=== PATIENT | male | born 1950 | race African-American/Black ===

== ENCOUNTER 2016-04-23 06:01 | Day surgery (SDC) | payer MEDICARE ==
[~2016-04-23] VITALS: Ht 176.5 cm; Wt 115.2 kg
[~2016-04-23 06:01] MED LIST: AMOX1TAB61 PO; ASPI-482 PO; AZIT250T6 PO; BUMEX; CARV12.52 PO; CARV25TA PO; DIAZ2TAB PO; FERR142T5 PO; FURO40TA4 PO; HEPARIN S0DIUM 5,000 UNIT in IV NORMAL SALINE 500ML BAG 500 ML IRR ONE; HYDR10TA2 PO; IRON18TA PO; LISI-334 PO; LISI-338 PO; MULT-245 PO; OXYC-323 PO; PANT40TA5 PO; SIMV10TA3 PO; UBID100C26 PO
[2016-04-23] MEDS ORDERED: CEFAZOLIN 2GM PREMIX 50 ML IV ONE (06:39)
[2016-04-23] MEDS ORDERED: FENTANYL PF 100 MCG/2 ML VIAL. IV PRN (07:00)
[2016-04-23] MEDS ORDERED: ONDANSETRON PF 4 MG/2 ML VIAL. IV PRN (07:00)
[2016-04-23] MEDS ORDERED: HYDROMORPHONE 2 MG/ML VIAL. IV PRN (07:00)
[2016-04-23] MEDS ORDERED: PROCHLORPERAZINE 10 MG/2 ML VIAL. IV PRN (07:00)
[2016-04-23] MEDS ORDERED: LIDOCAINE 1% 1 ML SYRINGE. ID PRN (07:00)
[2016-04-23] MEDS ORDERED: MORPHINE SULFATE 2 MG/ML DISP.SYRIN. IV PRN (07:00)
[2016-04-23] MEDS ORDERED: IV RINGERS,LACTATED 1000ML 1,000 ML IV SCH (07:00)
[2016-04-23] MEDS ORDERED: ONDANSETRON PF 4 MG/2 ML VIAL. ONE (07:21)
[2016-04-23] MEDS ORDERED: BUPIVAC MPF-EPI 0.5%-1:200000 30 ML VIAL. ONE (07:21)
[2016-04-23] MEDS ORDERED: LIDOCAINE 2% 100 MG/5 ML DISP.SYRIN. ONE (07:21)
[2016-04-23] MEDS ORDERED: PROPOFOL 20 ML IV ONE (07:21)
[2016-04-23] MEDS ORDERED: BUPIVACAINE MPF 0.5% 30 ML VIAL. ONE (07:21)
[2016-04-23] MEDS ORDERED: DEXAMETHASONE SOD PHOS 20 MG/5 ML VIAL. ONE (07:21)
[2016-04-23] MEDS ORDERED: FENTANYL PF 100 MCG/2 ML VIAL. ONE (07:22)
[2016-04-23] MEDS ORDERED: ROCURONIUM 50 MG/5 ML VIAL. ONE (07:22)
[2016-04-23 07:34] LABS: BASO % 1 % (0-3); EOS % 3 % (0-3); HEMATOCRIT 36.2 % (39.0-53.0); HEMOGLOBIN 11.7 g/dL (13.0-17.5); LYMPH # 1.2 x10^3/uL (1.0-4.8); LYMPH % 17 % (24-48); MEAN CORPUSCULAR HEMOGLOBIN 32 pg (25-35); MEAN CORPUSCULAR HGB CONC 32 g/dL (31-37); MEAN CORPUSCULAR VOLUME 100 fL (79-100); MONO % 9 % (0-9); NEUT % 70 % (31-73); PLATELET COUNT 181 x10^3/uL (140-400); RED BLOOD COUNT 3.64 x10^6/uL (4.30-5.70); RED CELL DISTRIBUTION WIDTH 17.1 % (11.5-14.5); WHITE BLOOD COUNT 7.1 x10^3/uL (4.0-11.0)
[2016-04-23 07:49] LABS: ALBUMIN 3.6 g/dL (3.4-5.0); CALCIUM 9.3 mg/dL (8.5-10.1); GFR 18.2; POTASSIUM 4.2 mmol/L (3.5-5.1)
[2016-04-23] MEDS ORDERED: CEFAZOLIN 2GM PREMIX 50 ML IV PRN (08:00)
[2016-04-23] MEDS ORDERED: PHENYLEPHRINE in 0.9% NACL PF 1 MG/10 ML DISP.SYRIN. IV ONE (08:49)
[2016-04-23] MEDS ORDERED: NEOSTIGMINE METHYLSULFATE 5 MG/5 ML SYRINGE. ONE (08:58)
[2016-04-23] MEDS ORDERED: GLYCOPYRROLATE 1 MG/5 ML VIAL. ONE (08:58)
[2016-04-23] MEDS ORDERED: SEVOFLURANE 61 TO 120 MINUTES. IH ONE ×2 (09:22→09:23)
[2016-04-23] MEDS ORDERED: DESFLURANE 61 TO 120 MINUTES IH ONE (09:23)
[2016-04-23] MEDS: FENTANYL PF 100 MCG/2 ML VIAL. IV PRN ×2 (09:47→11:27)
--- NOTE | 2016-04-23 09:57 | PDOC ---
BRIEF OPERATIVE NOTE Date: Apr 23, 2016 Pre-Op Diagnosis ESRD, incarcerated umbilical hernia Post-Op Diagnosis same Procedure Performed l/s placement of PD catheter, primary repair of incarcerated umbilical hernia Surgeon Alan Anesthesia Type: General Blood Loss 5cc IV Fluid 250cc Findings incarcerated fat in umbilical hernia Complications none Additional Remarks # [id number] EZIO DANIEL MD Apr 23, 2016 09:57
--- NOTE | 2016-04-23 09:58 | DISCH ---
DISCHARGE INSTRUCTIONS Condition on Discharge Condition on Discharge: Stable Activity After Discharge Activity Instructions for Disc: Activity as tolerated, Avoid exertion Lifting Instructions after Dis: No heavy lifting Driving Instructions after Dis: Do not drive today Diet after Discharge Diet after Discharge: Renal Dialysis Wound Incision Care Wound/Incision Care: Ice to area for comfort, Keep wound/cast CDI Follow-Up Follow up with: Alan next week EZIO DANIEL MD Apr 23, 2016 09:58
[2016-04-23] MEDS ORDERED: OXYC-323 PO (10:04)
[2016-04-23] MEDS ORDERED: OXYCODONE/APAP 5/325 TABLET. PO ONE (11:00)
--- NOTE | 2016-04-23 11:41 | OP ---
DATE OF SURGERY: PREOPERATIVE DIAGNOSIS: End-stage renal disease on hemodialysis, requesting peritoneal dialysis catheter incarcerated umbilical hernia. POSTOPERATIVE DIAGNOSIS: End-stage renal disease on hemodialysis, requesting peritoneal dialysis catheter incarcerated umbilical hernia. PROCEDURE: 1. Laparoscopic placement of peritoneal dialysis catheter. 2. Primary repair of incarcerated umbilical hernia. SURGEON: Jose Enrique Daniel MD ANESTHESIA: General endotracheal. BLOOD LOSS: 5 mL. IV FLUID: 250. INDICATIONS: The patient is a 66-year-old gentleman with end-stage renal disease on hemodialysis through a temporary catheter who comes for placement of peritoneal dialysis catheter. OPERATIVE FINDINGS: There was incarcerated preperitoneal fat in the umbilical hernia. Visual inspection of the remainder of the abdomen failed to reveal obvious abnormalities. OPERATIVE REPORT: The patient brought to the operating suite, given a general endotracheal anesthetic and the abdomen prepped and draped in usual sterile fashion. An epigastric incision was infiltrated with local anesthetic, sharply incised and a 5 mm Visiport used to gain access into the abdominal cavity. Pneumoperitoneum established. Inspection revealed no evidence of injury to abdominal contents. The umbilical hernia was identified and contained preperitoneal fat. The template for placement of the catheter had been used before insufflation to sai at the course of the catheter. The insertion site was infiltrated with local anesthetic, sharply incised and under direct vision the needle passed in the abdominal cavity. The needle was removed and the dilators were passed through the sheath and then the catheter was then threaded through the sheath. The distal Dacron cuff was seated just above the peritoneum. The sheath was then removed. The remaining catheter was tunneled subcutaneously through the access site placing the second Dacron cuff in the subcutaneous space away from the access site incision. We then turned our attention to the umbilical hernia. An infraumbilical incision was infiltrated with local anesthetic, sharply incised and dissection carried down to the anterior sheath. The hernia was encircled. A Nahomy drain placed around it and the umbilical skin carefully freed from the underlying hernia sac and contents. The contents were then reduced and the small defect was repaired with interrupted inverted [id number] 0 Vicryl suture. A second suture was placed as a second row of reinforcement and good hemostasis was present. When a correct sponge count was obtained, the umbilical skin was tacked to the underlying repair. The abdomen was then decompressed and the peritoneal dialysis catheter radially accepted 500 mL of normal saline under a minute. A similar amount was then drained. The catheter was "packed" with heparinized saline. Skin incisions closed with subcuticular 4-0 Monocryl. Steri-Strips and sterile dressings applied. The patient was awakened from his anesthetic and taken to the recovery room in satisfactory condition. JOSE ENRIQUE DANIEL MD DR: FABIEN/connie JOB#: [id number] / [id number] TRISHA Real MD
[2016-04-23] MEDS ORDERED: IV NORMAL SALINE 1000ML BAG 1,000 ML IV SCH (12:00)
[2016-04-23 12:25] VITALS: BP 174/97
== END 2016-04-23 12:35 | disposition home or self-care (01) ==
LOC: SURG 06:01
PROVIDERS: ATTEND Surgery
DX: N18.6 End stage renal disease (principal); K42.0 Umbilical hernia with obstruction, without gangrene; I10 Essential (primary) hypertension; E78.00 Pure hypercholesterolemia, unspecified; J44.9 Chronic obstructive pulmonary disease, unspecified; J45.909 Unspecified asthma, uncomplicated; Z98.42 Cataract extraction status, left eye
CPT/HCPCS: 36415; 49324; 49587; 80048; 82040; 82947; 85027; C1769; J0690; J1100; J2370; J2405; J2704; J2710; J3010; J3490; J7030; J7040

== ENCOUNTER 2016-07-28 09:07 | Inpatient (IN) | payer BC, MEDICARE ==
[~2016-07-28] VITALS: Ht 180.3 cm; Wt 118.8 kg
[~2016-07-28 09:07] MED LIST changes: -FERR142T5 PO; -HEPARIN S0DIUM 5,000 UNIT in IV NORMAL SALINE 500ML BAG 500 ML IRR ONE; +SLOW RELEASE I142 MG PO
--- NOTE | 2016-07-28 09:14 | PHYS DOC ---
Past Medical History Past Medical History: CAD, CHF, COPD, Diabetes-Type II, Hypertension, Renal Disease, Renal Failure Past Surgical History: Coronary Bypass Surgery, Other Additional Past Surgical Histo: R middle and lower lobe lung removal, vein graft left thigh, SHUNT RT CHEST Alcohol Use: Sober Drug Use: None Adult General Chief Complaint Chief Complaint: ABDOMINAL PAIN HPI HPI Patient is a 66 year old male presenting to the emergency department for evaluation of left lower quadrant abdominal pain that has been going on for the past several days. He also says that his peritoneal dialysis catheter has not been draining as it usually does. He says that he has gained 7 pounds since his peritoneal dialysis stop working. He was to follow with the dialysis team tomorrow however his pain was bothering him too much and he came to the emergency department for further evaluation. Patient says that he has been quite constipated but denies any nausea vomiting diarrhea dysuria fevers chills shortness of breath or chest pain. Review of Systems Review of Systems Constitutional: Denies fever or chills [] Eyes: Denies change in visual acuity, redness, or eye pain [] HENT: Denies nasal congestion or sore throat [] Respiratory: Denies cough or shortness of breath [] Cardiovascular: No additional information not addressed in HPI [] GI: + abdominal pain. No nausea, vomiting, bloody stools or diarrhea [] : Denies dysuria or hematuria [] Musculoskeletal: Denies back pain or joint pain [] Integument: Denies rash or skin lesions [] Neurologic: Denies headache, focal weakness or sensory changes [] Current Medications Current Medications Current Medications Medications (Trade) Dose Ordered Sig/Wolf Start Time Stop Time Status Last Admin Dose Admin Hydromorphone HCl (Dilaudid) 2 mg STK-MED ONCE 07/28/16 13:14 07/28/16 13:15 DC Iohexol (Omnipaque 240 Mg/ml) 50 ml 1X ONCE 07/28/16 10:00 07/28/16 10:09 DC 07/28/16 10:00 50 ML Iohexol (Omnipaque 300 Mg/ml) 50 ml 1X ONCE 07/28/16 10:00 07/28/16 10:01 DC 07/28/16 10:15 25 ML Morphine Sulfate 5 mg 1X ONCE 07/28/16 11:15 07/28/16 11:16 DC 07/28/16 11:20 5 MG Ondansetron HCl (Zofran) 4 mg 1X ONCE 07/28/16 12:00 07/28/16 12:01 DC 07/28/16 12:02 4 MG Allergies Allergies Allergies Coded Allergies Type Severity Reaction Last Updated Verified No Known Drug Allergies 07/28/16 No Physical Exam Physical Exam Constitutional: Well developed, well nourished, no acute distress, non-toxic appearance. [] HENT: Normocephalic, atraumatic, bilateral external ears normal, oropharynx moist, no oral exudates, nose normal. [] Eyes: PERRLA, EOMI, conjunctiva normal, no discharge. [] Neck: Normal range of motion, no tenderness, supple, no stridor. [] Cardiovascular:Heart rate regular rhythm, no murmur [] Lungs & Thorax: Bilateral breath sounds clear to auscultation [] Abdomen: Bowel sounds normal, soft, + LLQ abdominal tenderness, no masses, no pulsatile masses. [] Skin: Warm, dry, no erythema, no rash. [] Back: No tenderness, no CVA tenderness. [] Extremities: No tenderness, no cyanosis, no clubbing, ROM intact, +2-3+ edema BL. [] Neurologic: Alert and oriented X 3, normal motor function, normal sensory function, no focal deficits noted. [] Current Patient Data Vital Signs Vital Signs Date Time Temp Pulse Resp B/P (MAP) Pulse Ox O2 Delivery O2 Flow Rate FiO2 07/28/16 13:19 20 95 Room Air 07/28/16 09:16 98.8 79 110/63 (79) 98.8 Lab Values Laboratory Tests Test 07/28/16 11:00 White Blood Count 10.3 x10^3/uL (4.0-11.0) Red Blood Count 3.34 x10^6/uL (4.30-5.70) L Hemoglobin 10.8 g/dL (13.0-17.5) L Hematocrit 32.8 % (39.0-53.0) L Mean Corpuscular Volume 98 fL (79-100) Mean Corpuscular Hemoglobin 32 pg (25-35) Mean Corpuscular Hemoglobin Concent 33 g/dL (31-37) Red Cell Distribution Width 15.0 % (11.5-14.5) H Platelet Count 189 x10^3/uL (140-400) Neutrophils (%) (Auto) 81 % (31-73) H Lymphocytes (%) (Auto) 10 % (24-48) L Monocytes (%) (Auto) 8 % (0-9) Eosinophils (%) (Auto) 1 % (0-3) Basophils (%) (Auto) 1 % (0-3) Neutrophils # (Auto) 8.3 x10^3uL (1.8-7.7) H Lymphocytes # (Auto) 1.0 x10^3/uL (1.0-4.8) Monocytes # (Auto) 0.8 x10^3/uL (0.0-1.1) Eosinophils # (Auto) 0.1 x10^3/uL (0.0-0.7) Basophils # (Auto) 0.1 x10^3/uL (0.0-0.2) Prothrombin Time 13.8 SEC (11.7-14.0) Prothrombin Time INR 1.1 (0.8-1.1) PTT 31 SEC (24-38) Sodium Level 138 mmol/L (136-145) Potassium Level 4.1 mmol/L (3.5-5.1) Chloride Level 100 mmol/L (98-107) Carbon Dioxide Level 28 mmol/L (21-32) Anion Gap 10 (6-14) Blood Urea Nitrogen 63 mg/dL (8-26) H Creatinine 6.3 mg/dL (0.7-1.3) H Estimated GFR (Cockcroft-Gault) 10.8 BUN/Creatinine Ratio 10 (6-20) Glucose Level 162 mg/dL (70-99) H Calcium Level 8.8 mg/dL (8.5-10.1) Magnesium Level 2.2 mg/dL (1.8-2.4) Total Bilirubin 0.6 mg/dL (0.2-1.0) Aspartate Amino Transferase (AST) 16 U/L (15-37) Alanine Aminotransferase (ALT) 21 U/L (16-63) Alkaline Phosphatase 83 U/L (46-116) Creatine Kinase 145 U/L (39-308) WM-Hpw-F-Type Natriuretic Peptide 1181 pg/mL (0-124) H Total Protein 7.8 g/dL (6.4-8.2) Albumin 2.9 g/dL (3.4-5.0) L Albumin/Globulin Ratio 0.6 (1.0-1.7) L Lipase 79 U/L (73-393) Laboratory Tests 07/28/16 11:00 Laboratory Tests 07/28/16 11:00 EKG EKG [] Radiology/Procedures Radiology/Procedures Indication: Dialysis catheter does not appear to be functioning properly. Technique: KUB was obtained and repeated to center over the pelvis after injection of approximately 25 mL of iodinated contrast into the catheter either by the transporter radiology or the ER clinician. Findings: Contrast spills freely into the pelvis, catheter is patent. There again is a mild kink where the catheter enters the pelvis. Impression: Peritoneal dialysis catheter is patent. DICTATED and SIGNED BY: MELONIE GENAO MD DATE: 07/28/16 1029 Indication: Left lower quadrant pain. Technique: Axial images and coronal and sagittal reformatted images are provided. Oral contrast was administered. The patient also had recent injection of contrast into the peritoneal dialysis catheter. Recent KUBs along with a CT from April 29, 2011 were reviewed in comparison. One or more of the following individualized dose reduction techniques were utilized for this examination: 1. Automated exposure control 2. Adjustment of the mA and/or kV according to patient size 3. Use of iterative reconstruction technique Findings: There is linear atelectasis or scarring in the left lung base. There is no pleural effusion. The heart is not enlarged. Coronary artery calcifications are noted. Calcified granulomas are noted. Solid organ evaluation is limited without contrast. There is mild fatty infiltration of the liver. Gallbladder is unremarkable. Spleen, pancreas, and adrenals are unremarkable. Probable cyst is noted in the right kidney measuring 21 mm. There is atheromatous disease in the abdominal aorta without aneurysm. Contrast in the esophagus may be related to reflux. There is no small bowel obstruction or mural thickening. Moderate amount of stool is noted in the colon. There are a few diverticula in the colon. Small amount of ascites may be related to the dialysis catheter. Appendix is not definitely visualized. Evaluation is limited. There is fluid in the paracolic gutter on the right although again this could be related to the dialysis. Patient's symptoms are on the left. Peritoneal dialysis catheter is in position. Bladder is unremarkable. Prostate is not enlarged. There are degenerative changes in the spine. Impression: 1. No acute abdominal findings. 2. Fatty infiltration of the liver. 3. Peritoneal dialysis catheter. DICTATED and SIGNED BY: MELONIE GENAO MD DATE: 07/28/16 6208 Course & Med Decision Making Course & Med Decision Making Catheter appears to be patent on the KUB. We will check labs CT his abdomen and pelvis to check for diverticulitis and then reassess. Patient continues to have intractable abdominal pain in the emergency department. Workup is largely negative but given his intractable pain and his failure of outpatient dialysis he will be admitted for further observation and treatment. Patient admitted in stable condition. Dragon Disclaimer Dragon Disclaimer This electronic medical record was generated, in whole or in part, using a voice recognition dictation system. Departure Departure Impression: Primary Impression: Abdominal pain Additional Impressions: ESRD (end stage renal disease) on dialysis Peripheral edema Fluid overload Disposition: ADMITTED INPATIENT Admitting Physician: Marixa Ortiz Condition: IMPROVED Referrals: MARIXA ORTIZ MD (PCP) Problem Qualifiers Primary Impression: Abdominal pain Abdominal location: left lower quadrant Qualified Codes: R10.32 - Left lower quadrant pain CORNELIUS LEVY DO July 28, 2016 09:14
[2016-07-28] MEDS ORDERED: IOHEXOL 240 MG/ML 50ML VIAL. PO ONE (10:00)
[2016-07-28] MEDS ORDERED: IOHEXOL 300 MG/ML 50 ML VIAL. IJ ONE (10:00)
--- NOTE | 2016-07-28 10:35 | RAD ---
Indication: Dialysis catheter does not appear to be functioning properly. Technique: KUB was obtained and repeated to center over the pelvis after injection of approximately 25 mL of iodinated contrast into the catheter either by the phlebotomy technologist or the ER clinician. Findings: Contrast spills freely into the pelvis, catheter is patent. There again is a mild kink where the catheter enters the pelvis. Impression: Peritoneal dialysis catheter is patent.
--- NOTE | 2016-07-28 10:36 | RAD ---
Indication: Peritoneal dialysis catheter does not appear to be functioning adequately. Technique: Underbaster KUB was obtained. Please see separate KUB report post injection. Findings: Peritoneal dialysis catheter is noted in the pelvis. There is a kink at the pelvic inlet. Bowel gas pattern is nonobstructive. Vascular calcifications are noted. There are degenerative changes in the spine. Impression: Peritoneal dialysis catheter is coiled in the pelvis. There is a mild kink at the pelvic inlet.
[2016-07-28] MEDS ORDERED: MORPHINE SULFATE 10 MG/ML VIAL. ONE (11:08)
[2016-07-28 11:10] LABS: BASO # 0.1 x10^3/uL (0.0-0.2); BASO % 1 % (0-3); EOS % 1 % (0-3); HEMATOCRIT 32.8 % (39.0-53.0); HEMOGLOBIN 10.8 g/dL (13.0-17.5); LYMPH % 10 % (24-48); MEAN CORPUSCULAR HEMOGLOBIN 32 pg (25-35); MEAN CORPUSCULAR HGB CONC 33 g/dL (31-37); MEAN CORPUSCULAR VOLUME 98 fL (79-100); MONO % 8 % (0-9); NEUT % 81 % (31-73); PLATELET COUNT 189 x10^3/uL (140-400); RED BLOOD COUNT 3.34 x10^6/uL (4.30-5.70); WHITE BLOOD COUNT 10.3 x10^3/uL (4.0-11.0)
[2016-07-28] MEDS ORDERED: MORPHINE SULFATE 10 MG/ML VIAL. IV ONE (11:15)
[2016-07-28] MEDS ORDERED: ONDANSETRON PF 4 MG/2 ML VIAL. IV ONE ×2 (11:15→12:00)
[2016-07-28 11:22] LABS: CALCIUM 8.8 mg/dL (8.5-10.1); CREATININE 6.3 mg/dL (0.7-1.3); GFR 10.8; POTASSIUM 4.1 mmol/L (3.5-5.1)
[2016-07-28 11:28] LABS: ALBUMIN 2.9 g/dL (3.4-5.0); ALBUMIN/GLOBULIN RATIO 0.6 (1.0-1.7); MAGNESIUM 2.2 mg/dL (1.8-2.4); TOTAL BILIRUBIN 0.6 mg/dL (0.2-1.0); TOTAL PROTEIN 7.8 g/dL (6.4-8.2)
[2016-07-28 11:34] LABS: INR 1.1 (0.8-1.1); PROTHROMBIN TIME PATIENT 13.8 SEC (11.7-14.0)
[2016-07-28] MEDS ORDERED: HYDROmorphone 2 MG/ML VIAL ONE (13:14)
--- NOTE | 2016-07-28 13:16 | RAD ---
Indication: Left lower quadrant pain. Technique: Axial images and coronal and sagittal reformatted images are provided. Oral contrast was administered. The patient also had recent injection of contrast into the peritoneal dialysis catheter. Recent KUBs along with a CT from April 29, 2011 were reviewed in comparison. One or more of the following individualized dose reduction techniques were utilized for this examination: 1. Automated exposure control 2. Adjustment of the mA and/or kV according to patient size 3. Use of iterative reconstruction technique Findings: There is linear atelectasis or scarring in the left lung base. There is no pleural effusion. The heart is not enlarged. Coronary artery calcifications are noted. Calcified granulomas are noted. Solid organ evaluation is limited without contrast. There is mild fatty infiltration of the liver. Gallbladder is unremarkable. Spleen, pancreas, and adrenals are unremarkable. Probable cyst is noted in the right kidney measuring 21 mm. There is atheromatous disease in the abdominal aorta without aneurysm. Contrast in the esophagus may be related to reflux. There is no small bowel obstruction or mural thickening. Moderate amount of stool is noted in the colon. There are a few diverticula in the colon. Small amount of ascites may be related to the dialysis catheter. Appendix is not definitely visualized. Evaluation is limited. There is fluid in the paracolic gutter on the right although again this could be related to the dialysis. Patient's symptoms are on the left. Peritoneal dialysis catheter is in position. Bladder is unremarkable. Prostate is not enlarged. There are degenerative changes in the spine. Impression: 1. No acute abdominal findings. 2. Fatty infiltration of the liver. 3. Peritoneal dialysis catheter.
[2016-07-28] MEDS ORDERED: HYDROmorphone 2 MG/ML VIAL IV ONE (13:30)
[2016-07-28] MEDS ORDERED: ONDANSETRON PF 4 MG/2 ML VIAL. IV PRN (14:30)
[2016-07-28] MEDS ORDERED: fentaNYL PF VIAL 100 MCG/2 ML VIAL IV PRN (14:30)
[2016-07-28 14:58] VITALS: BP 138/78
[2016-07-28] MEDS ORDERED: SEVE800T9 PO ×2 (15:19→15:35)
[2016-07-28] MEDS ORDERED: SIMV10TA3 PO (15:35)
[2016-07-28] MEDS ORDERED: FURO80TA72 PO (15:41)
[2016-07-28] MEDS ORDERED: FOLI0.8T3 PO (15:46)
[2016-07-28] MEDS ORDERED: DEXTROSE 50% 25 GM / 50ML DISP.SYRIN. IV PRN (16:00)
[2016-07-28 16:19] VITALS: BP 138/78
[2016-07-28] MEDS: oxyCODONE/APAP 5/325 1 TAB TABLET PO PRN (16:42)
[2016-07-28] MEDS: INSULIN ASPART 300 UNITS/3 ML INSULN.PEN SQ SCH (17:06)
[2016-07-28 19:20] VITALS: BP 95/62
[2016-07-28] MEDS ORDERED: BISACODYL 5 MG TABLET.DR. PO PRN (21:00)
[2016-07-28 23:00] VITALS: BP 107/64
[2016-07-29 03:20] VITALS: BP 99/60
[2016-07-29] MEDS: oxyCODONE/APAP 5/325 1 TAB TABLET PO PRN ×3 (03:30→18:21)
--- NOTE | 2016-07-29 03:52 | ACF ---
Admit Criteria Forms Admit Criteria Forms Admit Criteria Forms RENAL FAILURE, CHRONIC Clinical Indications for Admission to Inpatient Care (Place 'X' for any and all applicable criteria): Admission is indicated for ANY ONE of the following (1)(2)(3)(4)(5): [X]I. Inpatient admission required rather than observation care (Use Renal Failure, Chronic: Observation Care Criteria as appropriate) because of ANY ONE of the following: [X]a)Volume overload or uremic symptoms (eg, clinically significant pulmonary edema, hypertension, pericarditis, acidosis) too severe for, or not responsive (eg, for over 24 hours) to emergency department or observation care dialysis or treatment regimen (11) [ ]b) Hemodynamic instability that is severe or persistent [ ]c) Respiratory distress that is severe or persistent (11) [ ]d) Clinically significant electrolyte abnormality that requires inpatient care (eg,hyperkalemia with severe ECG findings)[B] [ ]e) Supplement O2 or respiratory therapy for over 24hrs that is performable only in acute inpatient setting [ ]f) Continuous IV infusion of anticoagulation, platelet inhibitor, vasoactive, or Antiarrhythmic medication (15), [ ]g) Pulmonary artery catheter monitoring [ ]h) Temporary pacemaker placement [ ]i) Emergent pericardiocentesis [ ]j) Other condition, treatment or monitoring requiring inpatient admission [ ]II. Unexplained syncope [A] [ ]III. Recurrent seizures [ ]IV. Severe infections not treatable in outpatient setting (eg, peritonitis)(9 ) [ ]V. Cardiac arrhythmias of immediate concern [ ]. Encephalopathy [ ]VII.Bleeding abnormalities (eg, platelet dysfunction) with active (eg, gastrointestinal) bleeding Extended stay beyond goal length of stay may be needed for (3)(4)(35)(36): [ ]a) Continuing uremic complications [ ]b) Comorbidities or complications The original [facility] content created by [facility] has been revised. The portions of the content which have been revised are identified through the use of italic text or in bold, and [employer] [facility] [employer] has neither reviewed nor approved the modified material. All other unmodified content is copyright [facility]. Please see references footnoted in the original [employer] [facility] [employer] edition 2016 GORGE GRANDE July 29, 2016 03:52
[2016-07-29 04:06] LABS: BASO % 0 % (0-3); EOS % 0 % (0-3); LYMPH # 1.1 x10^3/uL (1.0-4.8); LYMPH % 7 % (24-48); MEAN CORPUSCULAR HEMOGLOBIN 32 pg (25-35); MEAN CORPUSCULAR HGB CONC 32 g/dL (31-37); MEAN CORPUSCULAR VOLUME 99 fL (79-100); MONO % 4 % (0-9); NEUT % 89 % (31-73); PLATELET COUNT 222 x10^3/uL (140-400); RED BLOOD COUNT 3.44 x10^6/uL (4.30-5.70); RED CELL DISTRIBUTION WIDTH 15.6 % (11.5-14.5); WHITE BLOOD COUNT 17.6 x10^3/uL (4.0-11.0)
[2016-07-29 04:38] LABS: CALCIUM 8.3 mg/dL (8.5-10.1); CREATININE 6.6 mg/dL (0.7-1.3); GFR 10.2; POTASSIUM 4.2 mmol/L (3.5-5.1)
[2016-07-29 06:02] LABS: % EOS 1 % (0-5)
[2016-07-29 06:03] LABS: PLT ESTIMATE ADEQUATE (ADEQUATE)
[2016-07-29 07:00] VITALS: BP 102/57
[2016-07-29] MEDS: INSULIN ASPART 300 UNITS/3 ML INSULN.PEN SQ SCH ×3 (08:00→17:00)
[2016-07-29] MEDS: POLYETHYLENE GLYCOL 3350 17 GM PACKET. PO SCH (08:11)
[2016-07-29] MEDS ORDERED: CALC0.5C PO (08:23)
--- NOTE | 2016-07-29 08:50 | PDOC ---
PROGRESS NOTES Subjective Subjective Patient reports some L LQ abdominal pain persists, not as bad as at admission. Objective Objective Vital Signs Date Time Temp Pulse Resp B/P (MAP) Pulse Ox O2 Delivery O2 Flow Rate FiO2 07/29/16 07:15 95 Room Air 2.0 07/29/16 07:00 97.7 81 20 102/57 (72) 97.7 Intake and Output 07/29/16 06:59 Intake Total 120 ml Output Total 925 ml Balance -805 ml Intake Oral 120 ml Output Urine Total 925 ml # Voids 3 Physical Exam Abdomen: Normal bowel sounds, Soft, Other (mild TTP L LQ and diffusely, no guarding or rebound, no erythema around dialysis catheter site) Heart: Regular rate Extremities: Other (chronic severe lymphedema bilateral LE's) General: Alert, Oriented X3, No acute distress Lungs: Other (BS mildly decreased throughout but otherwise CTA) Assessment Assessment Problems Medical Problems: (1) Abdominal pain Status: Acute (2) ESRD (end stage renal disease) on dialysis Status: Acute (3) Fluid overload Status: Acute (4) Peripheral edema Status: Acute Plan Plan of Care 1. ESRD - patient unable to do his usual peritoneal dialysis at home for several days as machine indicated line was clogged and wouldn't draw. KUB at admission showed contrast flowed through catheter without difficulty but partial kink in tubing seen. Awaiting Renal input. 2. abdominal pain - this is unusual for patient. Not constipated as he has been taking Miralax at home every day as advised. WBC's increased today raising possibility of SBP. CT at admission showed no evidence of localized infection. Consulting ID. 3. Hx mild systolic CHF - appears stable, continue patient's usual Lasix BID. 4. DM2 - this has mainly been diet-controlled for him. Continue ADA diet and SS insulin. 5. chronic lymphedema - patient unfortunately at his baseline. Knows to elevate his legs as much as possible. Comment Review of Relevant I have reviewed the following items sai (where applicable) has been applied. Labs Laboratory Tests Test 07/28/16 11:00 07/28/16 16:27 07/28/16 21:28 07/29/16 03:22 White Blood Count 10.3 x10^3/uL (4.0-11.0) Red Blood Count 3.34 x10^6/uL (4.30-5.70) Hemoglobin 10.8 g/dL (13.0-17.5) Hematocrit 32.8 % (39.0-53.0) Mean Corpuscular Volume 98 fL (79-100) Mean Corpuscular Hemoglobin 32 pg (25-35) Mean Corpuscular Hemoglobin Concent 33 g/dL (31-37) Red Cell Distribution Width 15.0 % (11.5-14.5) Platelet Count 189 x10^3/uL (140-400) Neutrophils (%) (Auto) 81 % (31-73) Lymphocytes (%) (Auto) 10 % (24-48) Monocytes (%) (Auto) 8 % (0-9) Eosinophils (%) (Auto) 1 % (0-3) Basophils (%) (Auto) 1 % (0-3) Neutrophils # (Auto) 8.3 x10^3uL (1.8-7.7) Lymphocytes # (Auto) 1.0 x10^3/uL (1.0-4.8) Monocytes # (Auto) 0.8 x10^3/uL (0.0-1.1) Eosinophils # (Auto) 0.1 x10^3/uL (0.0-0.7) Basophils # (Auto) 0.1 x10^3/uL (0.0-0.2) Prothrombin Time 13.8 SEC (11.7-14.0) Prothromb Time International Ratio 1.1 (0.8-1.1) Activated Partial Thromboplast Time 31 SEC (24-38) Sodium Level 138 mmol/L (136-145) 139 mmol/L (136-145) Potassium Level 4.1 mmol/L (3.5-5.1) 4.2 mmol/L (3.5-5.1) Chloride Level 100 mmol/L (98-107) 99 mmol/L (98-107) Carbon Dioxide Level 28 mmol/L (21-32) 27 mmol/L (21-32) Anion Gap 10 (6-14) 13 (6-14) Blood Urea Nitrogen 63 mg/dL (8-26) 67 mg/dL (8-26) Creatinine 6.3 mg/dL (0.7-1.3) 6.6 mg/dL (0.7-1.3) Estimated GFR (Cockcroft-Gault) 10.8 10.2 BUN/Creatinine Ratio 10 (6-20) Glucose Level 162 mg/dL (70-99) 135 mg/dL (70-99) Calcium Level 8.8 mg/dL (8.5-10.1) 8.3 mg/dL (8.5-10.1) Magnesium Level 2.2 mg/dL (1.8-2.4) Total Bilirubin 0.6 mg/dL (0.2-1.0) Aspartate Amino Transf (AST/SGOT) 16 U/L (15-37) Alanine Aminotransferase (ALT/SGPT) 21 U/L (16-63) Alkaline Phosphatase 83 U/L (46-116) Creatine Kinase 145 U/L (39-308) OK-Dzc-E-Type Natriuretic Peptide 1181 pg/mL (0-124) Total Protein 7.8 g/dL (6.4-8.2) Albumin 2.9 g/dL (3.4-5.0) Albumin/Globulin Ratio 0.6 (1.0-1.7) Lipase 79 U/L (73-393) Glucose (Fingerstick) 114 mg/dL (70-99) 144 mg/dL (70-99) Test 07/29/16 03:38 07/29/16 07:40 White Blood Count 17.6 x10^3/uL (4.0-11.0) Red Blood Count 3.44 x10^6/uL (4.30-5.70) Hemoglobin 11.0 g/dL (13.0-17.5) Hematocrit 34.0 % (39.0-53.0) Mean Corpuscular Volume 99 fL (79-100) Mean Corpuscular Hemoglobin 32 pg (25-35) Mean Corpuscular Hemoglobin Concent 32 g/dL (31-37) Red Cell Distribution Width 15.6 % (11.5-14.5) Platelet Count 222 x10^3/uL (140-400) Neutrophils (%) (Auto) 89 % (31-73) Lymphocytes (%) (Auto) 7 % (24-48) Monocytes (%) (Auto) 4 % (0-9) Eosinophils (%) (Auto) 0 % (0-3) Basophils (%) (Auto) 0 % (0-3) Neutrophils # (Auto) 15.7 x10^3uL (1.8-7.7) Lymphocytes # (Auto) 1.1 x10^3/uL (1.0-4.8) Monocytes # (Auto) 0.8 x10^3/uL (0.0-1.1) Eosinophils # (Auto) 0.0 x10^3/uL (0.0-0.7) Basophils # (Auto) 0.0 x10^3/uL (0.0-0.2) Segmented Neutrophils % 88 % (35-66) Band Neutrophils % 1 % (0-9) Lymphocytes % 8 % (24-48) Monocytes % 2 % (0-10) Eosinophils % 1 % (0-5) Platelet Estimate Adequate (ADEQUATE) Glucose (Fingerstick) 131 mg/dL (70-99) Laboratory Tests Test 07/28/16 11:00 07/28/16 16:27 07/28/16 21:28 07/29/16 03:22 White Blood Count 10.3 x10^3/uL (4.0-11.0) Red Blood Count 3.34 x10^6/uL (4.30-5.70) Hemoglobin 10.8 g/dL (13.0-17.5) Hematocrit 32.8 % (39.0-53.0) Mean Corpuscular Volume 98 fL (79-100) Mean Corpuscular Hemoglobin 32 pg (25-35) Mean Corpuscular Hemoglobin Concent 33 g/dL (31-37) Red Cell Distribution Width 15.0 % (11.5-14.5) Platelet Count 189 x10^3/uL (140-400) Neutrophils (%) (Auto) 81 % (31-73) Lymphocytes (%) (Auto) 10 % (24-48) Monocytes (%) (Auto) 8 % (0-9) Eosinophils (%) (Auto) 1 % (0-3) Basophils (%) (Auto) 1 % (0-3) Neutrophils # (Auto) 8.3 x10^3uL (1.8-7.7) Lymphocytes # (Auto) 1.0 x10^3/uL (1.0-4.8) Monocytes # (Auto) 0.8 x10^3/uL (0.0-1.1) Eosinophils # (Auto) 0.1 x10^3/uL (0.0-0.7) Basophils # (Auto) 0.1 x10^3/uL (0.0-0.2) Prothrombin Time 13.8 SEC (11.7-14.0) Prothromb Time International Ratio 1.1 (0.8-1.1) Activated Partial Thromboplast Time 31 SEC (24-38) Sodium Level 138 mmol/L (136-145) 139 mmol/L (136-145) Potassium Level 4.1 mmol/L (3.5-5.1) 4.2 mmol/L (3.5-5.1) Chloride Level 100 mmol/L (98-107) 99 mmol/L (98-107) Carbon Dioxide Level 28 mmol/L (21-32) 27 mmol/L (21-32) Anion Gap 10 (6-14) 13 (6-14) Blood Urea Nitrogen 63 mg/dL (8-26) 67 mg/dL (8-26) Creatinine 6.3 mg/dL (0.7-1.3) 6.6 mg/dL (0.7-1.3) Estimated GFR (Cockcroft-Gault) 10.8 10.2 BUN/Creatinine Ratio 10 (6-20) Glucose Level 162 mg/dL (70-99) 135 mg/dL (70-99) Calcium Level 8.8 mg/dL (8.5-10.1) 8.3 mg/dL (8.5-10.1) Magnesium Level 2.2 mg/dL (1.8-2.4) Total Bilirubin 0.6 mg/dL (0.2-1.0) Aspartate Amino Transf (AST/SGOT) 16 U/L (15-37) Alanine Aminotransferase (ALT/SGPT) 21 U/L (16-63) Alkaline Phosphatase 83 U/L (46-116) Creatine Kinase 145 U/L (39-308) XL-Kwq-L-Type Natriuretic Peptide 1181 pg/mL (0-124) Total Protein 7.8 g/dL (6.4-8.2) Albumin 2.9 g/dL (3.4-5.0) Albumin/Globulin Ratio 0.6 (1.0-1.7) Lipase 79 U/L (73-393) Glucose (Fingerstick) 114 mg/dL (70-99) 144 mg/dL (70-99) Test 07/29/16 03:38 07/29/16 07:40 White Blood Count 17.6 x10^3/uL (4.0-11.0) Red Blood Count 3.44 x10^6/uL (4.30-5.70) Hemoglobin 11.0 g/dL (13.0-17.5) Hematocrit 34.0 % (39.0-53.0) Mean Corpuscular Volume 99 fL (79-100) Mean Corpuscular Hemoglobin 32 pg (25-35) Mean Corpuscular Hemoglobin Concent 32 g/dL (31-37) Red Cell Distribution Width 15.6 % (11.5-14.5) Platelet Count 222 x10^3/uL (140-400) Neutrophils (%) (Auto) 89 % (31-73) Lymphocytes (%) (Auto) 7 % (24-48) Monocytes (%) (Auto) 4 % (0-9) Eosinophils (%) (Auto) 0 % (0-3) Basophils (%) (Auto) 0 % (0-3) Neutrophils # (Auto) 15.7 x10^3uL (1.8-7.7) Lymphocytes # (Auto) 1.1 x10^3/uL (1.0-4.8) Monocytes # (Auto) 0.8 x10^3/uL (0.0-1.1) Eosinophils # (Auto) 0.0 x10^3/uL (0.0-0.7) Basophils # (Auto) 0.0 x10^3/uL (0.0-0.2) Segmented Neutrophils % 88 % (35-66) Band Neutrophils % 1 % (0-9) Lymphocytes % 8 % (24-48) Monocytes % 2 % (0-10) Eosinophils % 1 % (0-5) Platelet Estimate Adequate (ADEQUATE) Glucose (Fingerstick) 131 mg/dL (70-99) Medications Current Medications Iohexol (Omnipaque 300 Mg/ml) 50 ml 1X ONCE IJ Last administered on 07/28/16t 10:15; Start 07/28/16 at 10:00; Stop 07/28/16 at 10:01; Status DC Iohexol (Omnipaque 240 Mg/ml) 50 ml 1X ONCE PO Last administered on 07/28/16 10:00; Start 07/28/16 at 10:00; Stop 07/28/16 at 10:09; Status DC Ondansetron HCl (Zofran) 4 mg 1X ONCE IV Last administered on 07/28/16 11:20 ; Start 07/28/16 at 11:15; Stop 07/28/16 at 11:16; Status DC Morphine Sulfate 10 mg STK-MED ONCE .ROUTE ; Start 07/28/16 at 11:08; Stop 07/28 at 11:09; Status DC Morphine Sulfate 5 mg 1X ONCE IV Last administered on 07/28/16 11:20; Start 07/28/16 at 11:15; Stop 07/28/16 at 11:16; Status DC Ondansetron HCl (Zofran) 4 mg 1X ONCE IV Last administered on 07/28/16 12:02 ; Start 07/28/16 at 12:00; Stop 07/28/16 at 12:01; Status DC Hydromorphone HCl (Dilaudid) 2 mg STK-MED ONCE .ROUTE ; Start 07/28/16 at 13:14 ; Stop 07/28/16 at 13:15; Status DC Hydromorphone HCl (Dilaudid) 1 mg 1X ONCE IV Last administered on 07/28/16 13 :19; Start 07/28/16 at 13:30; Stop 07/28/16 at 13:31; Status DC Ondansetron HCl (Zofran) 4 mg PRN Q8HRS PRN IV NAUSEA/VOMITING; Start 07/28/16 at 14:30; Stop 07/29/16 at 14:29 Fentanyl Citrate (Fentanyl 2ml Vial) 50 mcg PRN Q1HR PRN IV PAIN; Start at 14:30; Stop 07/29/16 at 14:29 Insulin Aspart (NovoLOG) 0-7 UNITS TIDWMEALS SQ ; Start 07/28/16 at 17:00 Dextrose (Dextrose 50%-Water Syringe) 12.5 gm PRN Q15MIN PRN IV SEE COMMENTS; Start 07/28/16 at 16:00 Oxycodone/ Acetaminophen (Percocet 5/325) 1 tab PRN Q6HRS PRN PO PAIN Last administered on 07/29/16 03:30; Start 07/28/16 at 16:00 Polyethylene Glycol (miraLAX PACKET) 17 gm DAILY PO Last administered on 08:11; Start 07/29/16 at 09:00 Bisacodyl (Dulcolax Tab) 10 mg PRN DAILY PRN PO CONSTIPATION; Start 07/28/16 at 21:00 Active Scripts Active Calcitriol 0.5 Mcg Capsule 1 Cap PO DAILY Multi Vitamin Daily (Multivitamin) 1 Each Tablet 1 Each PO DAILY Reported Nephro-Irma Tablet (Folic Acid/Vitamin B Comp W-C) 0.8 Mg Tablet 1 Tab PO DAILY Lasix (Furosemide) 80 Mg Tablet 1 Tab PO BID Simvastatin 10 Mg Tablet 1 Tab PO QHS Renvela (Sevelamer Carbonate) 800 Mg Tablet 0.5 Tab PO TID Percocet 5-325 Mg Tablet (Oxycodone/Acetaminophen) 1 Each Tablet 1 Tab PO Q4HRS PRN dose taken , next dose may be taken at Vitals/I & O Vital Sign - Last 24 Hours 07/28/16 07/28/16 07/28/16 07/28/16 09:16 11:20 11:58 12:18 Temp 98.8 98.8 Pulse 79 78 88 Resp 18 18 24 20 B/P (MAP) 110/63 (79) 167/86 (113) 159/76 (103) Pulse Ox 98 95 95 94 O2 Delivery Room Air Room Air Room Air 07/28/16 07/28/16 07/28/16 07/28/16 12:53 13:18 13:19 13:48 Pulse 100 98 94 Resp 20 18 20 16 B/P (MAP) 164/96 (118) 145/70 (95) 123/63 (83) Pulse Ox 94 95 95 96 O2 Delivery Room Air Room Air Nasal Cannula O2 Flow Rate 2.0 07/28/16 07/28/16 07/28/16 07/28/16 14:58 16:19 17:40 19:20 Temp 98.3 98.3 98.4 98.3 98.3 98.4 Pulse 95 95 90 Resp 20 20 B/P (MAP) 138/78 (98) 138/78 (98) 95/62 (73) Pulse Ox 93 93 95 O2 Delivery Room Air Room Air Room Air O2 Flow Rate 2.0 07/28/16 07/28/16 07/29/16 07/29/16 20:00 23:00 03:20 03:30 Temp 98.8 97.8 98.8 97.8 Pulse 85 84 Resp 18 18 20 B/P (MAP) 107/64 (78) 99/60 (73) Pulse Ox 90 94 O2 Delivery Room Air Room Air Room Air O2 Flow Rate 2.0 07/29/16 07/29/16 07:00 07:15 Temp 97.7 97.7 Pulse 81 Resp 20 B/P (MAP) 102/57 (72) Pulse Ox 95 95 O2 Delivery Room Air Room Air O2 Flow Rate 2.0 Intake and Output 07/28/16 07/28/16 07/29/16 14:59 22:59 06:59 Intake Total 120 ml Output Total 600 ml 325 ml Balance -480 ml -325 ml LAMBERT ORTIZ MD July 29, 2016 08:50
--- NOTE | 2016-07-29 09:37 | PDOC ---
Infectious Disease Note Vital Sign Vital Signs Vital Signs Date Time Temp Pulse Resp B/P (MAP) Pulse Ox O2 Delivery O2 Flow Rate FiO2 07/29/16 07:15 95 Room Air 2.0 07/29/16 07:00 97.7 81 20 102/57 (72) 97.7 Labs Lab Laboratory Tests Test 07/28/16 11:00 07/28/16 16:27 07/28/16 21:28 07/29/16 03:22 White Blood Count 10.3 x10^3/uL (4.0-11.0) Red Blood Count 3.34 x10^6/uL (4.30-5.70) Hemoglobin 10.8 g/dL (13.0-17.5) Hematocrit 32.8 % (39.0-53.0) Mean Corpuscular Volume 98 fL (79-100) Mean Corpuscular Hemoglobin 32 pg (25-35) Mean Corpuscular Hemoglobin Concent 33 g/dL (31-37) Red Cell Distribution Width 15.0 % (11.5-14.5) Platelet Count 189 x10^3/uL (140-400) Neutrophils (%) (Auto) 81 % (31-73) Lymphocytes (%) (Auto) 10 % (24-48) Monocytes (%) (Auto) 8 % (0-9) Eosinophils (%) (Auto) 1 % (0-3) Basophils (%) (Auto) 1 % (0-3) Neutrophils # (Auto) 8.3 x10^3uL (1.8-7.7) Lymphocytes # (Auto) 1.0 x10^3/uL (1.0-4.8) Monocytes # (Auto) 0.8 x10^3/uL (0.0-1.1) Eosinophils # (Auto) 0.1 x10^3/uL (0.0-0.7) Basophils # (Auto) 0.1 x10^3/uL (0.0-0.2) Prothrombin Time 13.8 SEC (11.7-14.0) Prothromb Time International Ratio 1.1 (0.8-1.1) Activated Partial Thromboplast Time 31 SEC (24-38) Sodium Level 138 mmol/L (136-145) 139 mmol/L (136-145) Potassium Level 4.1 mmol/L (3.5-5.1) 4.2 mmol/L (3.5-5.1) Chloride Level 100 mmol/L (98-107) 99 mmol/L (98-107) Carbon Dioxide Level 28 mmol/L (21-32) 27 mmol/L (21-32) Anion Gap 10 (6-14) 13 (6-14) Blood Urea Nitrogen 63 mg/dL (8-26) 67 mg/dL (8-26) Creatinine 6.3 mg/dL (0.7-1.3) 6.6 mg/dL (0.7-1.3) Estimated GFR (Cockcroft-Gault) 10.8 10.2 BUN/Creatinine Ratio 10 (6-20) Glucose Level 162 mg/dL (70-99) 135 mg/dL (70-99) Calcium Level 8.8 mg/dL (8.5-10.1) 8.3 mg/dL (8.5-10.1) Magnesium Level 2.2 mg/dL (1.8-2.4) Total Bilirubin 0.6 mg/dL (0.2-1.0) Aspartate Amino Transf (AST/SGOT) 16 U/L (15-37) Alanine Aminotransferase (ALT/SGPT) 21 U/L (16-63) Alkaline Phosphatase 83 U/L (46-116) Creatine Kinase 145 U/L (39-308) BQ-Kat-E-Type Natriuretic Peptide 1181 pg/mL (0-124) Total Protein 7.8 g/dL (6.4-8.2) Albumin 2.9 g/dL (3.4-5.0) Albumin/Globulin Ratio 0.6 (1.0-1.7) Lipase 79 U/L (73-393) Glucose (Fingerstick) 114 mg/dL (70-99) 144 mg/dL (70-99) Test 07/29/16 03:38 07/29/16 07:40 White Blood Count 17.6 x10^3/uL (4.0-11.0) Red Blood Count 3.44 x10^6/uL (4.30-5.70) Hemoglobin 11.0 g/dL (13.0-17.5) Hematocrit 34.0 % (39.0-53.0) Mean Corpuscular Volume 99 fL (79-100) Mean Corpuscular Hemoglobin 32 pg (25-35) Mean Corpuscular Hemoglobin Concent 32 g/dL (31-37) Red Cell Distribution Width 15.6 % (11.5-14.5) Platelet Count 222 x10^3/uL (140-400) Neutrophils (%) (Auto) 89 % (31-73) Lymphocytes (%) (Auto) 7 % (24-48) Monocytes (%) (Auto) 4 % (0-9) Eosinophils (%) (Auto) 0 % (0-3) Basophils (%) (Auto) 0 % (0-3) Neutrophils # (Auto) 15.7 x10^3uL (1.8-7.7) Lymphocytes # (Auto) 1.1 x10^3/uL (1.0-4.8) Monocytes # (Auto) 0.8 x10^3/uL (0.0-1.1) Eosinophils # (Auto) 0.0 x10^3/uL (0.0-0.7) Basophils # (Auto) 0.0 x10^3/uL (0.0-0.2) Segmented Neutrophils % 88 % (35-66) Band Neutrophils % 1 % (0-9) Lymphocytes % 8 % (24-48) Monocytes % 2 % (0-10) Eosinophils % 1 % (0-5) Platelet Estimate Adequate (ADEQUATE) Glucose (Fingerstick) 131 mg/dL (70-99) Objective Assessment Abdominal pain PD cath mal function vs infection/peritonitis ESRD DM Chronic lymphedema CHF Plan Plan of Care PD fluid for cell count and culture d/w Dr Phillips once fluid taken then start zosyn check culture d/w BRIAN Gaona MD July 29, 2016 09:37
[2016-07-29] MEDS: PIPERACILLIN/TAZOBACTAM 2.25 GM in IV NORMAL SALINE 50ML 50 ML IV SCH ×4 (10:00→20:27)
[2016-07-29] MEDS: CALCITRIOL 0.25 MCG CAPSULE. PO SCH (10:07)
[2016-07-29] MEDS: FOLIC/VIT B COMP W-C (RENAL) TABLET. PO SCH (10:07)
[2016-07-29] MEDS: FUROSEMIDE 80 MG TABLET. PO SCH ×2 (10:07→15:49)
[2016-07-29] MEDS: SEVELAMER CARBONATE 800 MG TABLET. PO SCH ×3 (10:07→17:02)
[2016-07-29 10:54] VITALS: BP 104/55
--- NOTE | 2016-07-29 10:56 | HP ---
ADMIT DATE: 07/28/2016 CHIEF COMPLAINT: Abdominal pain. HISTORY OF PRESENT ILLNESS: The patient is a 66-year-old male, who is on peritoneal dialysis at home for his end-stage renal disease. He presented to the Emergency Room with the above complaint. The patient reported the onset of some mild abdominal pain about 1-2 weeks prior to admission. At first he attributed some of this discomfort to constipation. He started taking MiraLax daily as he had been advised to at a recent visit in our office, and had good improvement in his constipation with this. However, his abdominal pain worsened, he especially noticed it when he did his peritoneal dialysis. Several days prior to admission, he began to get an error message during his dialysis saying that the dialysis machine could not draw out the dialysis fluid. He had increasing abdominal distention and discomfort and so presented to the Emergency Room. Initial evaluation there showed a normal white blood count. A KUB with the injection of contrast showed that the catheter was patent. There was some mild kinking of the catheter seen where the catheter entered the pelvis. A CT of the abdomen and pelvis did not show any focal infection or abnormality. The patient was admitted for further treatment. PAST MEDICAL HISTORY: End-stage renal disease on peritoneal dialysis, diabetes mellitus type 2, systolic congestive heart failure, hyperlipidemia and history of coronary artery disease. PAST SURGICAL HISTORY: Shoulder replacement, appendectomy, CABG x 2 in 1986, right lung lower and middle lobectomy in 1989 due to abscess, and peritoneal dialysis catheter placement with umbilical hernia repair 04/26. ALLERGIES: The patient has no known drug allergies. HOME MEDICATIONS: Aspirin 81 mg daily; furosemide 80 mg b.i.d.; simvastatin 10 mg daily; NovoLog sliding scale, the patient takes this rarely; MiraLax 17 grams daily; calcitriol 0.5 mcg 1 capsule daily; Renal vitamin 1 daily and Percocet 5/325 p.r.n. FAMILY HISTORY: Noncontributory. SOCIAL HISTORY: The patient has a long smoking history, but quit smoking cigarettes in 2010. The patient used to drink alcohol, but now does not drink at all. He is . REVIEW OF SYSTEMS: The patient denies fever or chills. He denies cough or shortness of air. He denies chest pain or palpitations. He states that he was having trouble with constipation, but since he began taking the MiraLax daily he has had a bowel movement almost every day and feels that he is doing well with this. He has not had nausea or emesis. He is watching his diet for sugar as advised. He has chronic lymphedema in his legs, it is about the same as usual for him. He has chronic back and leg pain which has been controlled with his usual Percocet. PHYSICAL EXAMINATION: GENERAL: The patient is alert and oriented x 3, sitting up in a chair in no acute distress. HEENT: PERRL, EOMI, sclerae clear. Oropharynx: Mucous membranes moist. NECK: Supple, without lymphadenopathy. CHEST: Breath sounds mildly decreased throughout, but otherwise clear to auscultation without wheeze. CARDIOVASCULAR: Regular rhythm without murmur. ABDOMEN: Soft. There is some mild tenderness in the left lower quadrant, but also diffusely, normoactive bowel sounds are present. There is no erythema on the skin around the dialysis catheter site. EXTREMITIES: Severe lymphedema, bilateral lower extremities. ASSESSMENT AND PLAN: 1. End-stage renal disease. The patient has been unable to do his usual peritoneal dialysis for several days. His lab this morning shows elevated BUN and creatinine as expected, but potassium still within the normal range. We are awaiting Dr. Howell's recommendations as to further treatment. 2. Abdominal pain. This is unusual for the patient. The CT of the abdomen and pelvis did not show focal infection. The patient's white blood cell count increased to 17.6 today, raising the possibility of spontaneous bacterial peritonitis, which he is certainly at high risk for due to his peritoneal dialysis. Consult with Infectious Disease is pending. 3. History of mild systolic congestive heart failure. This appears stable. Continue the patient's usual Lasix b.i.d. 4. Diabetes mellitus type 2. This has been mainly diet controlled for him. We will continue an ADA diet and use sliding scale insulin as needed. 5. Chronic lymphedema. The patient is at his baseline with this. LAMBERT ORTIZ MD DR: PHUONG/connie JOB#: [id number] / [id number]
--- NOTE | 2016-07-29 11:34 | PDOC2 ---
CONSULT Date of Consult Date of Consult DATE: 07/29/16 TIME: 11:28 Reason for Consult Reason for Consult: ESRD Referring Physician Referring Physician: ANGEL Identification/Chief Complaint Chief Complaint ABD PAIN Source Source: Chart review, Patient History of Present Illness Reason for Visit: THIS IS A 66 YR OLD ESRD PT ON PD. HE HAS BEEN DOING WELL TILL THIS WEEKEND WHEN HE NOTICED PAIN WHILE ON HIS CYCLER AT NIGHT FOR DIALYSIS. HE HAS NOT HAD ANY FEVERS OR CHILLS. DUE TO AN INABILITY TO DO HIS PD AND ABD PAIN HE CAME TO THE ER AND THEN WAS ADMITTED TO THE HOSPITAL. PD CATHETER WAS EVALUATED AND THERE WAS NO OBSTRUCTION NOTED. HE IS NOTED TO HAVE LEUCOCYTOSIS. NO DIARRHEA. HAD SOME CONSTIPATION BUT THIS IS APPARENTLY RESOLVED Past Medical History Cardiovascular: CAD, CHF, HTN, Hyperlipidemia, Other Pulmonary: Asthma, COPD CENTRAL NERVOUS SYSTEM: Other GI: GERD Heme/Onc: No pertinent hx Hepatobiliary: No pertinent hx Psych: No pertinent hx Rheumatologic: No pertinent hx Infectious disease: No pertinent hx Renal/: Chronic renal failure, Benign prostatic enlarg. Endocrine: Diabetes, Hyperparathyroidism Past Surgical History Past Surgical History: Appendectomy, CABG, Other Family History Family History: Diabetes, Hypertension, Family History Unknown Social History ALCOHOL: none Drugs: None Lives: with Family Domestic Violence: Neg Current Problem List Problem List Problems Medical Problems: (1) Abdominal pain Status: Acute (2) ESRD (end stage renal disease) on dialysis Status: Acute (3) Fluid overload Status: Acute (4) Peripheral edema Status: Acute Current Medications Current Medications Current Medications Iohexol (Omnipaque 300 Mg/ml) 50 ml 1X ONCE IJ Last administered on 07/28/16 10:15; Start 07/28/16 at 10:00; Stop 07/28/16 at 10:01; Status DC Iohexol (Omnipaque 240 Mg/ml) 50 ml 1X ONCE PO Last administered on 07/28/16 10:00; Start 07/28/16 at 10:00; Stop 07/28/16 at 10:09; Status DC Ondansetron HCl (Zofran) 4 mg 1X ONCE IV Last administered on 07/28/16 11:20 ; Start 07/28/16 at 11:15; Stop 07/28/16 at 11:16; Status DC Morphine Sulfate 10 mg STK-MED ONCE .ROUTE ; Start 07/28/16 at 11:08; Stop 07/28 at 11:09; Status DC Morphine Sulfate 5 mg 1X ONCE IV Last administered on 07/28/16 11:20; Start 07/28/16 at 11:15; Stop 07/28/16 at 11:16; Status DC Ondansetron HCl (Zofran) 4 mg 1X ONCE IV Last administered on 07/28/16 12:02 ; Start 07/28/16 at 12:00; Stop 07/28/16 at 12:01; Status DC Hydromorphone HCl (Dilaudid) 2 mg STK-MED ONCE .ROUTE ; Start 07/28/16 at 13:14 ; Stop 07/28/16 at 13:15; Status DC Hydromorphone HCl (Dilaudid) 1 mg 1X ONCE IV Last administered on 07/28/16 13 :19; Start 07/28/16 at 13:30; Stop 07/28/16 at 13:31; Status DC Ondansetron HCl (Zofran) 4 mg PRN Q8HRS PRN IV NAUSEA/VOMITING; Start 07/28/16 at 14:30; Stop 07/29/16 at 14:29 Fentanyl Citrate (Fentanyl 2ml Vial) 50 mcg PRN Q1HR PRN IV PAIN; Start at 14:30; Stop 07/29/16 at 14:29 Insulin Aspart (NovoLOG) 0-7 UNITS TIDWMEALS SQ ; Start 07/28/16 at 17:00 Dextrose (Dextrose 50%-Water Syringe) 12.5 gm PRN Q15MIN PRN IV SEE COMMENTS; Start 07/28/16 at 16:00 Oxycodone/ Acetaminophen (Percocet 5/325) 1 tab PRN Q6HRS PRN PO PAIN Last administered on 07/29/16 10:56; Start 07/28/16 at 16:00 Polyethylene Glycol (miraLAX PACKET) 17 gm DAILY PO Last administered on 08:11; Start 07/29/16 at 09:00 Bisacodyl (Dulcolax Tab) 10 mg PRN DAILY PRN PO CONSTIPATION; Start 07/28/16 at 21:00 Vitamin B Complex/ Vitamin C (Ronda-Irma) 1 tab DAILY PO Last administered on 10:07; Start 07/29/16 at 09:00 Furosemide (Lasix) 80 mg [id number] PO Last administered on 07/29/16 10:07; Start 07/29/16 at 09:00 Sevelamer Carbonate (Renvela) 400 mg TIDWMEALS PO Last administered on 10:07; Start 07/29/16 at 09:00 Simvastatin (Zocor) 10 mg QHS PO ; Start 07/29/16 at 21:00 Calcitriol (Rocaltrol) 0.5 mcg DAILY PO Last administered on 07/29/16 10:07; Start 07/29/16 at 09:00 Piperacillin Sod/ Tazobactam Sod 2.25 gm/Sodium Chloride 50 ml @ 100 mls/hr Q8HRS IV ; Start 07/29/16 at 10:00 Info (PHARMACY MONITORING -- do not chart) 4 each Q6HRS MC ; Start 07/29/16 at 12:00; Status Cancel Peritoneal Dialysis Solution 2,000 ml @ 500 mls/hr Q4HRS IP ; Start 07/29/16 at 12:00 Active Scripts Active Calcitriol 0.5 Mcg Capsule 1 Cap PO DAILY Reported Nephro-Irma Tablet (Folic Acid/Vitamin B Comp W-C) 0.8 Mg Tablet 1 Tab PO DAILY Lasix (Furosemide) 80 Mg Tablet 1 Tab PO BID Simvastatin 10 Mg Tablet 1 Tab PO QHS Renvela (Sevelamer Carbonate) 800 Mg Tablet 0.5 Tab PO TID Percocet 5-325 Mg Tablet (Oxycodone/Acetaminophen) 1 Each Tablet 1 Tab PO Q4HRS PRN dose taken , next dose may be taken at Allergies Allergies: Coded Allergies: No Known Drug Allergies (Unverified , 07/28/16) ROS General: YES: Fatigue, Malaise, Appetite PSYCHOLOGICAL ROS: YES: Anxiety Eyes: Yes Decreased vision HEENT: YES: Heacaches Gastrointestinal: Yes Abdominal Pain, Yes Constipation Genitourinary: YES Other (OLIGURIA) Musculoskeletal: Yes Muscular Weakness Neurological: Yes Weakness Skin: Yes Dry Skin Physical Exam General: Alert, Oriented X3, Cooperative, No acute distress HEENT: Atraumatic, PERRLA, EOMI Lungs: Clear to auscultation Heart: Regular rate, Normal S1, Normal S2, No murmurs Abdomen: Normal bowel sounds, Soft, No hepatosplenomegaly, No masses, Other ( PD CATH IS CLEAN AND DRY. TENDER TO DEEP PALPATION BUT NO REBOUND PAIN NOTED) Neuro: Normal gait, Normal speech, Cranial nerves 3-12 NL Psych/Mental Status: Mental status NL, Mood NL MUSCULOSKELETAL: No deformity, No swelling Vitals VITALS Vital Signs Date Time Temp Pulse Resp B/P (MAP) Pulse Ox O2 Delivery O2 Flow Rate FiO2 07/29/16 10:56 96 Room Air 2.0 07/29/16 10:54 97.8 93 20 104/55 (71) 97.8 Labs Labs Laboratory Tests Test 07/28/16 11:00 07/28/16 16:27 07/28/16 21:28 07/29/16 03:22 White Blood Count 10.3 x10^3/uL (4.0-11.0) Red Blood Count 3.34 x10^6/uL (4.30-5.70) Hemoglobin 10.8 g/dL (13.0-17.5) Hematocrit 32.8 % (39.0-53.0) Mean Corpuscular Volume 98 fL (79-100) Mean Corpuscular Hemoglobin 32 pg (25-35) Mean Corpuscular Hemoglobin Concent 33 g/dL (31-37) Red Cell Distribution Width 15.0 % (11.5-14.5) Platelet Count 189 x10^3/uL (140-400) Neutrophils (%) (Auto) 81 % (31-73) Lymphocytes (%) (Auto) 10 % (24-48) Monocytes (%) (Auto) 8 % (0-9) Eosinophils (%) (Auto) 1 % (0-3) Basophils (%) (Auto) 1 % (0-3) Neutrophils # (Auto) 8.3 x10^3uL (1.8-7.7) Lymphocytes # (Auto) 1.0 x10^3/uL (1.0-4.8) Monocytes # (Auto) 0.8 x10^3/uL (0.0-1.1) Eosinophils # (Auto) 0.1 x10^3/uL (0.0-0.7) Basophils # (Auto) 0.1 x10^3/uL (0.0-0.2) Prothrombin Time 13.8 SEC (11.7-14.0) Prothromb Time International Ratio 1.1 (0.8-1.1) Activated Partial Thromboplast Time 31 SEC (24-38) Sodium Level 138 mmol/L (136-145) 139 mmol/L (136-145) Potassium Level 4.1 mmol/L (3.5-5.1) 4.2 mmol/L (3.5-5.1) Chloride Level 100 mmol/L (98-107) 99 mmol/L (98-107) Carbon Dioxide Level 28 mmol/L (21-32) 27 mmol/L (21-32) Anion Gap 10 (6-14) 13 (6-14) Blood Urea Nitrogen 63 mg/dL (8-26) 67 mg/dL (8-26) Creatinine 6.3 mg/dL (0.7-1.3) 6.6 mg/dL (0.7-1.3) Estimated GFR (Cockcroft-Gault) 10.8 10.2 BUN/Creatinine Ratio 10 (6-20) Glucose Level 162 mg/dL (70-99) 135 mg/dL (70-99) Calcium Level 8.8 mg/dL (8.5-10.1) 8.3 mg/dL (8.5-10.1) Magnesium Level 2.2 mg/dL (1.8-2.4) Total Bilirubin 0.6 mg/dL (0.2-1.0) Aspartate Amino Transf (AST/SGOT) 16 U/L (15-37) Alanine Aminotransferase (ALT/SGPT) 21 U/L (16-63) Alkaline Phosphatase 83 U/L (46-116) Creatine Kinase 145 U/L (39-308) LA-Rci-X-Type Natriuretic Peptide 1181 pg/mL (0-124) Total Protein 7.8 g/dL (6.4-8.2) Albumin 2.9 g/dL (3.4-5.0) Albumin/Globulin Ratio 0.6 (1.0-1.7) Lipase 79 U/L (73-393) Glucose (Fingerstick) 114 mg/dL (70-99) 144 mg/dL (70-99) Test 07/29/16 03:38 07/29/16 07:40 07/29/16 10:33 White Blood Count 17.6 x10^3/uL (4.0-11.0) Red Blood Count 3.44 x10^6/uL (4.30-5.70) Hemoglobin 11.0 g/dL (13.0-17.5) Hematocrit 34.0 % (39.0-53.0) Mean Corpuscular Volume 99 fL (79-100) Mean Corpuscular Hemoglobin 32 pg (25-35) Mean Corpuscular Hemoglobin Concent 32 g/dL (31-37) Red Cell Distribution Width 15.6 % (11.5-14.5) Platelet Count 222 x10^3/uL (140-400) Neutrophils (%) (Auto) 89 % (31-73) Lymphocytes (%) (Auto) 7 % (24-48) Monocytes (%) (Auto) 4 % (0-9) Eosinophils (%) (Auto) 0 % (0-3) Basophils (%) (Auto) 0 % (0-3) Neutrophils # (Auto) 15.7 x10^3uL (1.8-7.7) Lymphocytes # (Auto) 1.1 x10^3/uL (1.0-4.8) Monocytes # (Auto) 0.8 x10^3/uL (0.0-1.1) Eosinophils # (Auto) 0.0 x10^3/uL (0.0-0.7) Basophils # (Auto) 0.0 x10^3/uL (0.0-0.2) Segmented Neutrophils % 88 % (35-66) Band Neutrophils % 1 % (0-9) Lymphocytes % 8 % (24-48) Monocytes % 2 % (0-10) Eosinophils % 1 % (0-5) Platelet Estimate Adequate (ADEQUATE) Glucose (Fingerstick) 131 mg/dL (70-99) 156 mg/dL (70-99) Laboratory Tests Test 07/28/16 16:27 07/28/16 21:28 07/29/16 03:22 07/29/16 03:38 Glucose (Fingerstick) 114 mg/dL (70-99) 144 mg/dL (70-99) Sodium Level 139 mmol/L (136-145) Potassium Level 4.2 mmol/L (3.5-5.1) Chloride Level 99 mmol/L (98-107) Carbon Dioxide Level 27 mmol/L (21-32) Anion Gap 13 (6-14) Blood Urea Nitrogen 67 mg/dL (8-26) Creatinine 6.6 mg/dL (0.7-1.3) Estimated GFR (Cockcroft-Gault) 10.2 Glucose Level 135 mg/dL (70-99) Calcium Level 8.3 mg/dL (8.5-10.1) White Blood Count 17.6 x10^3/uL (4.0-11.0) Red Blood Count 3.44 x10^6/uL (4.30-5.70) Hemoglobin 11.0 g/dL (13.0-17.5) Hematocrit 34.0 % (39.0-53.0) Mean Corpuscular Volume 99 fL (79-100) Mean Corpuscular Hemoglobin 32 pg (25-35) Mean Corpuscular Hemoglobin Concent 32 g/dL (31-37) Red Cell Distribution Width 15.6 % (11.5-14.5) Platelet Count 222 x10^3/uL (140-400) Neutrophils (%) (Auto) 89 % (31-73) Lymphocytes (%) (Auto) 7 % (24-48) Monocytes (%) (Auto) 4 % (0-9) Eosinophils (%) (Auto) 0 % (0-3) Basophils (%) (Auto) 0 % (0-3) Neutrophils # (Auto) 15.7 x10^3uL (1.8-7.7) Lymphocytes # (Auto) 1.1 x10^3/uL (1.0-4.8) Monocytes # (Auto) 0.8 x10^3/uL (0.0-1.1) Eosinophils # (Auto) 0.0 x10^3/uL (0.0-0.7) Basophils # (Auto) 0.0 x10^3/uL (0.0-0.2) Segmented Neutrophils % 88 % (35-66) Band Neutrophils % 1 % (0-9) Lymphocytes % 8 % (24-48) Monocytes % 2 % (0-10) Eosinophils % 1 % (0-5) Platelet Estimate Adequate (ADEQUATE) Test 07/29/16 07:40 5/22/17 10:33 Glucose (Fingerstick) 131 mg/dL (70-99) 156 mg/dL (70-99) Assessment/Plan Assessment/Plan IMP ABD PAIN PERIPHERAL LEUCOCYTOSIS ANEMIA ESRD-ON PD DM II HTN PD CATHETER EVALUATED YESTERDAY SHOWED NO OBSTRUCTION PLAN PD FLUID CELL COUNT AND DIFF ARANESP WHEN NEEDED ANTIBIOTICS PER ID RESUME PD - WILL DO CAPD WILL DO 2 HR DWELL 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
[2016-07-29] MEDS ORDERED: PERITONEAL LOW CA IP SCH (12:00)
[2016-07-29] MEDS ORDERED: DIALYSIS PATIENT. MC SCH (12:00)
[2016-07-29] MEDS ORDERED: DEX IP SCH (12:00)
--- NOTE | 2016-07-29 12:13 | CONS ---
DATE OF CONSULTATION: 07/29/2016 REQUESTING PHYSICIAN: Dr. Marixa Lilly. REASON FOR CONSULTATION: Abdominal pain, possible peritonitis. HISTORY OF PRESENT ILLNESS: This is a 66-year-old -[place] gentleman with history of congestive heart failure, end-stage renal disease, on peritoneal dialysis for last 3 months or so, who came in with unable to do peritoneal dialysis. Last 4 days, he has not been able to get any fluid out and he is having abdominal pain. The patient also has been complaining of some constipation. The patient denies any fever, chills, nausea, vomiting, diarrhea. Denies any chest pain, headache, visual symptoms or urinary symptoms. PAST MEDICAL HISTORY: Positive for coronary artery disease, congestive heart failure, COPD, diabetes, hypertension, end-stage renal disease on peritoneal dialysis, has had coronary artery bypass surgery done as well as bilateral lower extremity lymphedema. SOCIAL HISTORY: Negative for smoking, alcohol, illicit drug use. ALLERGIES: No known drug allergies. CURRENT MEDICATIONS: Reviewed. The patient is not on any antibiotics. REVIEW OF SYSTEMS: As per HPI, all other systems reviewed are negative. PHYSICAL EXAMINATION: GENERAL: Alert, oriented gentleman, not in distress. VITAL SIGNS: Stable, afebrile. HEENT: NAD. NECK: Supple, no JVP, no lymphadenopathy. LUNGS: Clear. HEART: S1, S2 regular. ABDOMEN: Not much distended, it is not very minimal or mild diffuse tenderness present. No rebound or guarding. PD catheter site is unremarkable. EXTREMITIES: Bilateral chronic lymphedema, no signs of infection. NEUROLOGIC: The patient is neurologically intact. LABORATORY DATA: White count yesterday was 10,000, today is 17,000. BUN 67, creatinine 6.6. PD fluid has not been obtained yet. CT scan of the abdomen and pelvis was unremarkable. IMPRESSION: 1. Abdominal pain whether it is a mechanical failure of PD catheter versus PD catheter associated peritonitis, needs to be ruled out. 2. End-stage renal disease, on peritoneal dialysis. 3. Leukocytosis. 4. Diabetes. 5. Coronary artery disease. 6. Congestive heart failure. RECOMMENDATIONS: Would get PD fluid first for cell count, diff and culture and then start Zosyn, supportive care. Discussion with Dr. Phillips done and consulted him and discussion with Dr. Lilly done. Thank you very much, Dr. Lilly for giving me the opportunity to participate in this patient's care. BRIAN SANDRA MD DR: CARLA/connie JOB#: [id number] / [id number]
--- NOTE | 2016-07-29 13:05 | PDOC2 ---
CONSULT Date of Consult Date of Consult DATE: 07/29/16 TIME: 12:53 Reason for Consult Reason for Consult: pd cath dysfunction Referring Physician Referring Physician: Dr Coto Identification/Chief Complaint Chief Complaint abdominal pain Source Source: Chart review, Patient History of Present Illness Reason for Visit: PD cath placed in April by Dr Phillips, it has been functioning until Friday when nothing would flow and developed severe abdominal pain/cramping denies n/v, no constipation tolerating his diet Past Medical History Cardiovascular: CAD, CHF, HTN, Hyperlipidemia, Other Pulmonary: Asthma, COPD CENTRAL NERVOUS SYSTEM: Other GI: GERD Heme/Onc: No pertinent hx Hepatobiliary: No pertinent hx Psych: No pertinent hx Rheumatologic: No pertinent hx Infectious disease: No pertinent hx Renal/: Chronic renal failure, Benign prostatic enlarg. Endocrine: Diabetes, Hyperparathyroidism Past Surgical History Past Surgical History: Appendectomy, CABG, Other (PD cath) Family History Family History: Diabetes, Hypertension, Family History Unknown Social History ALCOHOL: none Drugs: None Lives: with Family Domestic Violence: Neg Current Problem List Problem List Problems Medical Problems: (1) Abdominal pain Status: Acute (2) ESRD (end stage renal disease) on dialysis Status: Acute (3) Fluid overload Status: Acute (4) Peripheral edema Status: Acute Current Medications Current Medications Current Medications Iohexol (Omnipaque 300 Mg/ml) 50 ml 1X ONCE IJ Last administered on 07/28/16 10:15; Start 07/28/16 at 10:00; Stop 07/28/16 at 10:01; Status DC Iohexol (Omnipaque 240 Mg/ml) 50 ml 1X ONCE PO Last administered on 07/28/16 10:00; Start 07/28/16 at 10:00; Stop 07/28/16 at 10:09; Status DC Ondansetron HCl (Zofran) 4 mg 1X ONCE IV Last administered on 07/28/16 11:20 ; Start 07/28/16 at 11:15; Stop 07/28/16 at 11:16; Status DC Morphine Sulfate 10 mg STK-MED ONCE .ROUTE ; Start 07/28/16 at 11:08; Stop 07/28 at 11:09; Status DC Morphine Sulfate 5 mg 1X ONCE IV Last administered on 07/28/16 11:20; Start 07/28/16 at 11:15; Stop 07/28/16 at 11:16; Status DC Ondansetron HCl (Zofran) 4 mg 1X ONCE IV Last administered on 07/28/16 12:02 ; Start 07/28/16 at 12:00; Stop 07/28/16 at 12:01; Status DC Hydromorphone HCl (Dilaudid) 2 mg STK-MED ONCE .ROUTE ; Start 07/28/16 at 13:14 ; Stop 07/28/16 at 13:15; Status DC Hydromorphone HCl (Dilaudid) 1 mg 1X ONCE IV Last administered on 07/28/16 13 :19; Start 07/28/16 at 13:30; Stop 07/28/16 at 13:31; Status DC Ondansetron HCl (Zofran) 4 mg PRN Q8HRS PRN IV NAUSEA/VOMITING; Start 07/28/16 at 14:30; Stop 07/29/16 at 14:29 Fentanyl Citrate (Fentanyl 2ml Vial) 50 mcg PRN Q1HR PRN IV PAIN; Start at 14:30; Stop 07/29/16 at 14:29 Insulin Aspart (NovoLOG) 0-7 UNITS TIDWMEALS SQ ; Start 07/28/16 at 17:00 Dextrose (Dextrose 50%-Water Syringe) 12.5 gm PRN Q15MIN PRN IV SEE COMMENTS; Start 07/28/16 at 16:00 Oxycodone/ Acetaminophen (Percocet 5/325) 1 tab PRN Q6HRS PRN PO PAIN Last administered on 07/29/16 10:56; Start 07/28/16 at 16:00 Polyethylene Glycol (miraLAX PACKET) 17 gm DAILY PO Last administered on 08:11; Start 07/29/16 at 09:00 Bisacodyl (Dulcolax Tab) 10 mg PRN DAILY PRN PO CONSTIPATION; Start 07/28/16 at 21:00 Vitamin B Complex/ Vitamin C (Ronda-Irma) 1 tab DAILY PO Last administered on 10:07; Start 07/29/16 at 09:00 Furosemide (Lasix) 80 mg [id number] PO Last administered on 07/29/16 10:07; Start 07/29/16 at 09:00 Sevelamer Carbonate (Renvela) 400 mg TIDWMEALS PO Last administered on 12:41; Start 07/29/16 at 09:00 Simvastatin (Zocor) 10 mg QHS PO ; Start 07/29/16 at 21:00 Calcitriol (Rocaltrol) 0.5 mcg DAILY PO Last administered on 07/29/16 10:07; Start 07/29/16 at 09:00 Piperacillin Sod/ Tazobactam Sod 2.25 gm/Sodium Chloride 50 ml @ 100 mls/hr Q8HRS IV ; Start 07/29/16 at 10:00 Info (PHARMACY MONITORING -- do not chart) 4 each Q6HRS MC ; Start 07/29/16 at 12:00; Status Cancel Peritoneal Dialysis Solution 2,000 ml @ 500 mls/hr Q4HRS IP Last administered on 07/29/16 12:41; Start 07/29/16 at 12:00 Active Scripts Active Calcitriol 0.5 Mcg Capsule 1 Cap PO DAILY Reported Nephro-Irma Tablet (Folic Acid/Vitamin B Comp W-C) 0.8 Mg Tablet 1 Tab PO DAILY Lasix (Furosemide) 80 Mg Tablet 1 Tab PO BID Simvastatin 10 Mg Tablet 1 Tab PO QHS Renvela (Sevelamer Carbonate) 800 Mg Tablet 0.5 Tab PO TID Percocet 5-325 Mg Tablet (Oxycodone/Acetaminophen) 1 Each Tablet 1 Tab PO Q4HRS PRN dose taken , next dose may be taken at Allergies Allergies: Coded Allergies: No Known Drug Allergies (Unverified , 07/28/16) ROS General: YES: Chills, No: Other (fevers) PSYCHOLOGICAL ROS: No: Anxiety, Depression Eyes: No Blurry vision, No Double vision HEENT: No: Heacaches, Sore Throat Hematological and Lymphatic: No: Bleeding Problems, Blood Clots Respiratory: No: Cough, Shortness of breath Cardiovascular: No Chest Pain, No Palpitations Gastrointestinal: Yes Other (see hpi) Genitourinary: YES Dysuria, No Hematuria Musculoskeletal: No Joint Pain, No Muscle Pain Neurological: No Memory Loss, No Numbness/Tingling Skin: No Pruritus, No Rash Physical Exam General: Alert, Oriented X3, Cooperative, No acute distress HEENT: PERRLA, Mucous membr. moist/pink Lungs: Clear to auscultation, Normal air movement Heart: Regular rate, Normal S1, Normal S2, No murmurs Abdomen: Soft, Other (moderated distention, nontender, PD cath in place) Extremities: No clubbing, No cyanosis Skin: No rashes, No breakdown Neuro: Normal gait, Normal speech Psych/Mental Status: Mental status NL, Mood NL MUSCULOSKELETAL: No deformity, No swelling Vitals VITALS Vital Signs Date Time Temp Pulse Resp B/P (MAP) Pulse Ox O2 Delivery O2 Flow Rate FiO2 07/29/16 10:56 96 Room Air 2.0 07/29/16 10:54 97.8 93 20 104/55 (71) 97.8 Labs Labs Laboratory Tests Test 07/28/16 11:00 07/28/16 16:27 07/28/16 21:28 07/29/16 03:22 White Blood Count 10.3 x10^3/uL (4.0-11.0) Red Blood Count 3.34 x10^6/uL (4.30-5.70) Hemoglobin 10.8 g/dL (13.0-17.5) Hematocrit 32.8 % (39.0-53.0) Mean Corpuscular Volume 98 fL (79-100) Mean Corpuscular Hemoglobin 32 pg (25-35) Mean Corpuscular Hemoglobin Concent 33 g/dL (31-37) Red Cell Distribution Width 15.0 % (11.5-14.5) Platelet Count 189 x10^3/uL (140-400) Neutrophils (%) (Auto) 81 % (31-73) Lymphocytes (%) (Auto) 10 % (24-48) Monocytes (%) (Auto) 8 % (0-9) Eosinophils (%) (Auto) 1 % (0-3) Basophils (%) (Auto) 1 % (0-3) Neutrophils # (Auto) 8.3 x10^3uL (1.8-7.7) Lymphocytes # (Auto) 1.0 x10^3/uL (1.0-4.8) Monocytes # (Auto) 0.8 x10^3/uL (0.0-1.1) Eosinophils # (Auto) 0.1 x10^3/uL (0.0-0.7) Basophils # (Auto) 0.1 x10^3/uL (0.0-0.2) Prothrombin Time 13.8 SEC (11.7-14.0) Prothromb Time International Ratio 1.1 (0.8-1.1) Activated Partial Thromboplast Time 31 SEC (24-38) Sodium Level 138 mmol/L (136-145) 139 mmol/L (136-145) Potassium Level 4.1 mmol/L (3.5-5.1) 4.2 mmol/L (3.5-5.1) Chloride Level 100 mmol/L (98-107) 99 mmol/L (98-107) Carbon Dioxide Level 28 mmol/L (21-32) 27 mmol/L (21-32) Anion Gap 10 (6-14) 13 (6-14) Blood Urea Nitrogen 63 mg/dL (8-26) 67 mg/dL (8-26) Creatinine 6.3 mg/dL (0.7-1.3) 6.6 mg/dL (0.7-1.3) Estimated GFR (Cockcroft-Gault) 10.8 10.2 BUN/Creatinine Ratio 10 (6-20) Glucose Level 162 mg/dL (70-99) 135 mg/dL (70-99) Calcium Level 8.8 mg/dL (8.5-10.1) 8.3 mg/dL (8.5-10.1) Magnesium Level 2.2 mg/dL (1.8-2.4) Total Bilirubin 0.6 mg/dL (0.2-1.0) Aspartate Amino Transf (AST/SGOT) 16 U/L (15-37) Alanine Aminotransferase (ALT/SGPT) 21 U/L (16-63) Alkaline Phosphatase 83 U/L (46-116) Creatine Kinase 145 U/L (39-308) CX-Tez-I-Type Natriuretic Peptide 1181 pg/mL (0-124) Total Protein 7.8 g/dL (6.4-8.2) Albumin 2.9 g/dL (3.4-5.0) Albumin/Globulin Ratio 0.6 (1.0-1.7) Lipase 79 U/L (73-393) Glucose (Fingerstick) 114 mg/dL (70-99) 144 mg/dL (70-99) Test 07/29/16 03:38 07/29/16 07:40 07/29/16 10:33 White Blood Count 17.6 x10^3/uL (4.0-11.0) Red Blood Count 3.44 x10^6/uL (4.30-5.70) Hemoglobin 11.0 g/dL (13.0-17.5) Hematocrit 34.0 % (39.0-53.0) Mean Corpuscular Volume 99 fL (79-100) Mean Corpuscular Hemoglobin 32 pg (25-35) Mean Corpuscular Hemoglobin Concent 32 g/dL (31-37) Red Cell Distribution Width 15.6 % (11.5-14.5) Platelet Count 222 x10^3/uL (140-400) Neutrophils (%) (Auto) 89 % (31-73) Lymphocytes (%) (Auto) 7 % (24-48) Monocytes (%) (Auto) 4 % (0-9) Eosinophils (%) (Auto) 0 % (0-3) Basophils (%) (Auto) 0 % (0-3) Neutrophils # (Auto) 15.7 x10^3uL (1.8-7.7) Lymphocytes # (Auto) 1.1 x10^3/uL (1.0-4.8) Monocytes # (Auto) 0.8 x10^3/uL (0.0-1.1) Eosinophils # (Auto) 0.0 x10^3/uL (0.0-0.7) Basophils # (Auto) 0.0 x10^3/uL (0.0-0.2) Segmented Neutrophils % 88 % (35-66) Band Neutrophils % 1 % (0-9) Lymphocytes % 8 % (24-48) Monocytes % 2 % (0-10) Eosinophils % 1 % (0-5) Platelet Estimate Adequate (ADEQUATE) Glucose (Fingerstick) 131 mg/dL (70-99) 156 mg/dL (70-99) Laboratory Tests Test 07/28/16 16:27 07/28/16 21:28 07/29/16 03:22 07/29/16 03:38 Glucose (Fingerstick) 114 mg/dL (70-99) 144 mg/dL (70-99) Sodium Level 139 mmol/L (136-145) Potassium Level 4.2 mmol/L (3.5-5.1) Chloride Level 99 mmol/L (98-107) Carbon Dioxide Level 27 mmol/L (21-32) Anion Gap 13 (6-14) Blood Urea Nitrogen 67 mg/dL (8-26) Creatinine 6.6 mg/dL (0.7-1.3) Estimated GFR (Cockcroft-Gault) 10.2 Glucose Level 135 mg/dL (70-99) Calcium Level 8.3 mg/dL (8.5-10.1) White Blood Count 17.6 x10^3/uL (4.0-11.0) Red Blood Count 3.44 x10^6/uL (4.30-5.70) Hemoglobin 11.0 g/dL (13.0-17.5) Hematocrit 34.0 % (39.0-53.0) Mean Corpuscular Volume 99 fL (79-100) Mean Corpuscular Hemoglobin 32 pg (25-35) Mean Corpuscular Hemoglobin Concent 32 g/dL (31-37) Red Cell Distribution Width 15.6 % (11.5-14.5) Platelet Count 222 x10^3/uL (140-400) Neutrophils (%) (Auto) 89 % (31-73) Lymphocytes (%) (Auto) 7 % (24-48) Monocytes (%) (Auto) 4 % (0-9) Eosinophils (%) (Auto) 0 % (0-3) Basophils (%) (Auto) 0 % (0-3) Neutrophils # (Auto) 15.7 x10^3uL (1.8-7.7) Lymphocytes # (Auto) 1.1 x10^3/uL (1.0-4.8) Monocytes # (Auto) 0.8 x10^3/uL (0.0-1.1) Eosinophils # (Auto) 0.0 x10^3/uL (0.0-0.7) Basophils # (Auto) 0.0 x10^3/uL (0.0-0.2) Segmented Neutrophils % 88 % (35-66) Band Neutrophils % 1 % (0-9) Lymphocytes % 8 % (24-48) Monocytes % 2 % (0-10) Eosinophils % 1 % (0-5) Platelet Estimate Adequate (ADEQUATE) Test 07/29/16 07:40 07/29/16 10:33 Glucose (Fingerstick) 131 mg/dL (70-99) 156 mg/dL (70-99) Assessment/Plan Assessment/Plan PD cath malfunction renal failure, requiring dialysis leukocytosis abd pain will consult IR to assess PD cath LORENA ARMENDARIZ APRN July 29, 2016 13:05
[2016-07-29] MEDS ORDERED: IOHEXOL 300 MG/ML 50 ML VIAL. ONE (14:27)
[2016-07-29 14:47] VITALS: BP 106/56
[2016-07-29] MEDS ORDERED: IOHEXOL 300 MG/ML 50 ML VIAL. INT CAT ONE (15:00)
--- NOTE | 2016-07-29 15:23 | PDOC ---
Exam Music Education Director Music Education Director Roberto Railroad Firer/Fireman Railroad Firer/Fireman Magdi Capone Pre-Procedure Diagnosis Pre-Procedure Diagnosis Nonfunctioning PDC. Severe LLQ pain. Post-Procedure Diagnosis Post-Procedure Diagnosis Unable to restore PDC function---Attempted injection of 2 cc contrast material met with high resistance, and produced acute exacerbation of LLQ pain, with radiation to left testicle. Procedure Performed Procedure Performed PDC check Type of Anesthesia Type of Anesthesia None Estimated Blood Loss EBL: None Condition of Patient Condition of Patient No change. Persistent, severe LLQ pain. Disposition Disposition From IR return to [facility]. Unable to restore PDC function---do not attempt to use PDC. General surgeon notified. Full report to follow. JARETH TORRES MD July 29, 2016 15:23
[2016-07-29] MEDS: MORPHINE SULFATE 2 MG/ML DISP.SYRIN. IV PRN (15:49)
[2016-07-29] MEDS ORDERED: MORPHINE SULFATE 4 MG/ML DISP.SYRIN. IV PRN (16:00)
[2016-07-29] MEDS ORDERED: MORPHINE SULFATE 2 MG/ML DISP.SYRIN. IV PRN (16:00)
[2016-07-29 19:00] VITALS: BP 105/56
[2016-07-29] MEDS: MORPHINE SULFATE 4 MG/ML DISP.SYRIN. IV PRN (20:25)
[2016-07-29] MEDS: SIMVASTATIN 10 MG TABLET PO SCH (20:27)
[2016-07-29 23:00] VITALS: BP 111/65
[2016-07-30] VITALS (10 sets, daily range): BP systolic 112–152; BP diastolic 61–82
[2016-07-30] MEDS: MORPHINE SULFATE 4 MG/ML DISP.SYRIN. IV PRN ×4 (03:07→22:32)
[2016-07-30 03:49] LABS: HEMATOCRIT 32.1 % (39.0-53.0); HEMOGLOBIN 10.7 g/dL (13.0-17.5); RED BLOOD COUNT 3.27 x10^6/uL (4.30-5.70); RED CELL DISTRIBUTION WIDTH 15.6 % (11.5-14.5); WHITE BLOOD COUNT 14.4 x10^3/uL (4.0-11.0)
[2016-07-30 04:25] LABS: CALCIUM 8.7 mg/dL (8.5-10.1); CREATININE 7.3 mg/dL (0.7-1.3); GFR 9.1; POTASSIUM 4.1 mmol/L (3.5-5.1)
[2016-07-30] MEDS: oxyCODONE/APAP 5/325 1 TAB TABLET PO PRN ×3 (05:15→20:16)
[2016-07-30] MEDS: PIPERACILLIN/TAZOBACTAM 2.25 GM in IV NORMAL SALINE 50ML 50 ML IV SCH ×4 (05:15→22:32)
--- NOTE | 2016-07-30 05:57 | RAD ---
Fluoroscopy guided peritoneal dialysis catheter check Indication: 66-year-old male with end stage renal disease. His peritoneal dialysis catheter is nonfunctioning. He has severe left lower quadrant pain. Peritoneal dialysis catheter check has been requested. Fluoroscopy time: 1.7 minutes Kerma-area Product: 14 Gycm2 Contrast material: 2 cc Omnipaque 300 Anesthesia: None. Sterility: All elements of maximal sterile barrier technique, hand hygiene, skin preparation, and, if ultrasound was used, sterile ultrasound technique were followed. Procedure: Informed consent was obtained from the patient. He was placed supine on the angiography table. Preliminary fluoroscopic evaluation revealed the presence of an intact peritoneal dialysis catheter, with its tip coiled within left hemipelvis. Using aseptic technique, aspiration through the peritoneal dialysis catheter was attempted but was unsuccessful. Using aseptic technique, a small amount of dilute Omnipaque 300 was injected into the PDC. This resulted in contrast opacification of only proximal portion of the dialysis catheter, with abrupt exacerbation of left lower quadrant pain, with radiation to left groin. Using aseptic technique and fluoroscopic guidance, a TerLeatt advantage guidewire, followed by a Roadrunner guidewire, were sequentially advanced through the peritoneal dialysis catheter, with some resistance. This guidewire manipulation failed to restore PDC function. The peritoneal dialysis check procedure was then terminated. Referring general surgeon was contacted. Impression: Fluoroscopy guided peritoneal dialysis catheter check, as described. Attempted injection of a minimal amount of dilute Omnipaque 300 resulted in acute exacerbation of left lower quadrant pain, with radiation to left groin. Guidewire manipulation failed to restore PDC patency/function. Referring general surgeon was contacted. PDC removal was recommended.
[2016-07-30] MEDS: INSULIN ASPART 300 UNITS/3 ML INSULN.PEN SQ SCH ×3 (08:00→17:00)
[2016-07-30] MEDS: SEVELAMER CARBONATE 800 MG TABLET. PO SCH ×3 (08:00→17:38)
--- NOTE | 2016-07-30 08:51 | PDOC ---
PROGRESS NOTES Subjective Subjective Patient reports abdominal pain persists but not as bad as at admission. Objective Objective Vital Signs Date Time Temp Pulse Resp B/P (MAP) Pulse Ox O2 Delivery O2 Flow Rate FiO2 07/30/16 07:00 98.0 90 18 113/71 (85) 91 Room Air 98.0 07/30/16 05:15 2.0 Intake and Output 07/30/16 07:00 Intake Total 1400 ml Output Total 600 ml Balance 800 ml Intake Oral 1350 ml IV Total 50 ml Output Urine Total 600 ml # Voids 1 Physical Exam Abdomen: Normal bowel sounds, Soft, Other (mild diffuse TTP) Heart: Regular rate Extremities: Other (severe chronic lymphedema bilateral LE's) General: Alert, Oriented X3, No acute distress Lungs: Other (BS decreased throughout but otherwise CTA) Assessment Assessment Problems Medical Problems: (1) Abdominal pain Status: Acute (2) ESRD (end stage renal disease) on dialysis Status: Acute (3) Fluid overload Status: Acute (4) Peripheral edema Status: Acute Plan Plan of Care 1. Abdominal pain with possible peritonitis - stable, afebrile, WBC's mildly improved today. Continue Zosyn per ID. Patient has po and IV pain meds ordered. Awaiting PICC line for resumption of abx. 2. ESRD - peritoneal dialysis catheter nonfunctional, IR unable to unblock. Dr Phillips to remove the catheter today. Patient to get temporary hemodialysis catheter placed, tx as per Dr Howell. 3. DM2 - fairly well controlled with diet, continue SS insulin as needed. 4. mild systolic CHF - stable, continue his usual Lasix. Comment Review of Relevant I have reviewed the following items sai (where applicable) has been applied. Labs Laboratory Tests Test 07/28/16 11:00 07/28/16 16:27 07/28/16 21:28 07/29/16 03:22 White Blood Count 10.3 x10^3/uL (4.0-11.0) Red Blood Count 3.34 x10^6/uL (4.30-5.70) Hemoglobin 10.8 g/dL (13.0-17.5) Hematocrit 32.8 % (39.0-53.0) Mean Corpuscular Volume 98 fL (79-100) Mean Corpuscular Hemoglobin 32 pg (25-35) Mean Corpuscular Hemoglobin Concent 33 g/dL (31-37) Red Cell Distribution Width 15.0 % (11.5-14.5) Platelet Count 189 x10^3/uL (140-400) Neutrophils (%) (Auto) 81 % (31-73) Lymphocytes (%) (Auto) 10 % (24-48) Monocytes (%) (Auto) 8 % (0-9) Eosinophils (%) (Auto) 1 % (0-3) Basophils (%) (Auto) 1 % (0-3) Neutrophils # (Auto) 8.3 x10^3uL (1.8-7.7) Lymphocytes # (Auto) 1.0 x10^3/uL (1.0-4.8) Monocytes # (Auto) 0.8 x10^3/uL (0.0-1.1) Eosinophils # (Auto) 0.1 x10^3/uL (0.0-0.7) Basophils # (Auto) 0.1 x10^3/uL (0.0-0.2) Prothrombin Time 13.8 SEC (11.7-14.0) Prothromb Time International Ratio 1.1 (0.8-1.1) Activated Partial Thromboplast Time 31 SEC (24-38) Sodium Level 138 mmol/L (136-145) 139 mmol/L (136-145) Potassium Level 4.1 mmol/L (3.5-5.1) 4.2 mmol/L (3.5-5.1) Chloride Level 100 mmol/L (98-107) 99 mmol/L (98-107) Carbon Dioxide Level 28 mmol/L (21-32) 27 mmol/L (21-32) Anion Gap 10 (6-14) 13 (6-14) Blood Urea Nitrogen 63 mg/dL (8-26) 67 mg/dL (8-26) Creatinine 6.3 mg/dL (0.7-1.3) 6.6 mg/dL (0.7-1.3) Estimated GFR (Cockcroft-Gault) 10.8 10.2 BUN/Creatinine Ratio 10 (6-20) Glucose Level 162 mg/dL (70-99) 135 mg/dL (70-99) Calcium Level 8.8 mg/dL (8.5-10.1) 8.3 mg/dL (8.5-10.1) Magnesium Level 2.2 mg/dL (1.8-2.4) Total Bilirubin 0.6 mg/dL (0.2-1.0) Aspartate Amino Transf (AST/SGOT) 16 U/L (15-37) Alanine Aminotransferase (ALT/SGPT) 21 U/L (16-63) Alkaline Phosphatase 83 U/L (46-116) Creatine Kinase 145 U/L (39-308) CR-Ozi-X-Type Natriuretic Peptide 1181 pg/mL (0-124) Total Protein 7.8 g/dL (6.4-8.2) Albumin 2.9 g/dL (3.4-5.0) Albumin/Globulin Ratio 0.6 (1.0-1.7) Lipase 79 U/L (73-393) Glucose (Fingerstick) 114 mg/dL (70-99) 144 mg/dL (70-99) Test 07/29/16 03:38 07/29/16 03:40 07/29/16 07:40 07/29/16 10:33 White Blood Count 17.6 x10^3/uL (4.0-11.0) Red Blood Count 3.44 x10^6/uL (4.30-5.70) Hemoglobin 11.0 g/dL (13.0-17.5) Hematocrit 34.0 % (39.0-53.0) Mean Corpuscular Volume 99 fL (79-100) Mean Corpuscular Hemoglobin 32 pg (25-35) Mean Corpuscular Hemoglobin Concent 32 g/dL (31-37) Red Cell Distribution Width 15.6 % (11.5-14.5) Platelet Count 222 x10^3/uL (140-400) Neutrophils (%) (Auto) 89 % (31-73) Lymphocytes (%) (Auto) 7 % (24-48) Monocytes (%) (Auto) 4 % (0-9) Eosinophils (%) (Auto) 0 % (0-3) Basophils (%) (Auto) 0 % (0-3) Neutrophils # (Auto) 15.7 x10^3uL (1.8-7.7) Lymphocytes # (Auto) 1.1 x10^3/uL (1.0-4.8) Monocytes # (Auto) 0.8 x10^3/uL (0.0-1.1) Eosinophils # (Auto) 0.0 x10^3/uL (0.0-0.7) Basophils # (Auto) 0.0 x10^3/uL (0.0-0.2) Segmented Neutrophils % 88 % (35-66) Band Neutrophils % 1 % (0-9) Lymphocytes % 8 % (24-48) Monocytes % 2 % (0-10) Eosinophils % 1 % (0-5) Platelet Estimate Adequate (ADEQUATE) Nasal Screen MRSA (PCR) Negative (Negative) Glucose (Fingerstick) 131 mg/dL (70-99) 156 mg/dL (70-99) Test 07/29/16 16:30 07/29/16 20:52 07/30/16 03:20 07/30/16 07:26 Glucose (Fingerstick) 124 mg/dL (70-99) 169 mg/dL (70-99) 162 mg/dL (70-99) White Blood Count 14.4 x10^3/uL (4.0-11.0) Red Blood Count 3.27 x10^6/uL (4.30-5.70) Hemoglobin 10.7 g/dL (13.0-17.5) Hematocrit 32.1 % (39.0-53.0) Mean Corpuscular Volume 98 fL (79-100) Mean Corpuscular Hemoglobin 33 pg (25-35) Mean Corpuscular Hemoglobin Concent 33 g/dL (31-37) Red Cell Distribution Width 15.6 % (11.5-14.5) Platelet Count 218 x10^3/uL (140-400) Sodium Level 138 mmol/L (136-145) Potassium Level 4.1 mmol/L (3.5-5.1) Chloride Level 99 mmol/L (98-107) Carbon Dioxide Level 26 mmol/L (21-32) Anion Gap 13 (6-14) Blood Urea Nitrogen 77 mg/dL (8-26) Creatinine 7.3 mg/dL (0.7-1.3) Estimated GFR (Cockcroft-Gault) 9.1 Glucose Level 142 mg/dL (70-99) Calcium Level 8.7 mg/dL (8.5-10.1) Laboratory Tests Test 07/29/16 10:33 07/29/16 16:30 07/29/16 20:52 07/30/16 03:20 Glucose (Fingerstick) 156 mg/dL (70-99) 124 mg/dL (70-99) 169 mg/dL (70-99) White Blood Count 14.4 x10^3/uL (4.0-11.0) Red Blood Count 3.27 x10^6/uL (4.30-5.70) Hemoglobin 10.7 g/dL (13.0-17.5) Hematocrit 32.1 % (39.0-53.0) Mean Corpuscular Volume 98 fL (79-100) Mean Corpuscular Hemoglobin 33 pg (25-35) Mean Corpuscular Hemoglobin Concent 33 g/dL (31-37) Red Cell Distribution Width 15.6 % (11.5-14.5) Platelet Count 218 x10^3/uL (140-400) Sodium Level 138 mmol/L (136-145) Potassium Level 4.1 mmol/L (3.5-5.1) Chloride Level 99 mmol/L (98-107) Carbon Dioxide Level 26 mmol/L (21-32) Anion Gap 13 (6-14) Blood Urea Nitrogen 77 mg/dL (8-26) Creatinine 7.3 mg/dL (0.7-1.3) Estimated GFR (Cockcroft-Gault) 9.1 Glucose Level 142 mg/dL (70-99) Calcium Level 8.7 mg/dL (8.5-10.1) Test 07/30/16 07:26 Glucose (Fingerstick) 162 mg/dL (70-99) Medications Current Medications Iohexol (Omnipaque 300 Mg/ml) 50 ml 1X ONCE IJ Last administered on 07/28/16 10:15; Start 07/28/16 at 10:00; Stop 07/28/16 at 10:01; Status DC Iohexol (Omnipaque 240 Mg/ml) 50 ml 1X ONCE PO Last administered on 07/28/16 10:00; Start 07/28/16 at 10:00; Stop 07/28/16 at 10:09; Status DC Ondansetron HCl (Zofran) 4 mg 1X ONCE IV Last administered on 07/28/16 11:20 ; Start 07/28/16 at 11:15; Stop 07/28/16 at 11:16; Status DC Morphine Sulfate 10 mg STK-MED ONCE .ROUTE ; Start 07/28/16 at 11:08; Stop 07/28 at 11:09; Status DC Morphine Sulfate 5 mg 1X ONCE IV Last administered on 07/28/16 11:20; Start 07/28/16 at 11:15; Stop 07/28/16 at 11:16; Status DC Ondansetron HCl (Zofran) 4 mg 1X ONCE IV Last administered on 07/28/16 12:02 ; Start 07/28/16 at 12:00; Stop 07/28/16 at 12:01; Status DC Hydromorphone HCl (Dilaudid) 2 mg STK-MED ONCE .ROUTE ; Start 07/28/16 at 13:14 ; Stop 07/28/16 at 13:15; Status DC Hydromorphone HCl (Dilaudid) 1 mg 1X ONCE IV Last administered on 07/28/16 13 :19; Start 07/28/16 at 13:30; Stop 07/28/16 at 13:31; Status DC Ondansetron HCl (Zofran) 4 mg PRN Q8HRS PRN IV NAUSEA/VOMITING; Start 07/28/16 at 14:30; Stop 07/29/16 at 14:29; Status DC Fentanyl Citrate (Fentanyl 2ml Vial) 50 mcg PRN Q1HR PRN IV PAIN Last administered on 07/29/16 13:09; Start 07/28/16 at 14:30; Stop 07/29/16 at 14:29 ; Status DC Insulin Aspart (NovoLOG) 0-7 UNITS TIDWMEALS SQ ; Start 07/28/16 at 17:00 Dextrose (Dextrose 50%-Water Syringe) 12.5 gm PRN Q15MIN PRN IV SEE COMMENTS; Start 07/28/16 at 16:00 Oxycodone/ Acetaminophen (Percocet 5/325) 1 tab PRN Q6HRS PRN PO PAIN Last administered on 07/29/16 10:56; Start 07/28/16 at 16:00 Polyethylene Glycol (miraLAX PACKET) 17 gm DAILY PO Last administered on 08:11; Start 07/29/16 at 09:00 Bisacodyl (Dulcolax Tab) 10 mg PRN DAILY PRN PO CONSTIPATION; Start 07/28/16 at 21:00 Vitamin B Complex/ Vitamin C (Ronda-Irma) 1 tab DAILY PO Last administered on 10:07; Start 07/29/16 at 09:00 Furosemide (Lasix) 80 mg BID94 PO Last administered on 07/29/16 15:49; Start 07/29/16 at 09:00 Sevelamer Carbonate (Renvela) 400 mg TIDWMEALS PO Last administered on 17:02; Start 07/29/16 at 09:00 Simvastatin (Zocor) 10 mg QHS PO Last administered on 07/29/16 20:27; Start at 21:00 Calcitriol (Rocaltrol) 0.5 mcg DAILY PO Last administered on 07/29/16 10:07; Start 07/29/16 at 09:00 Piperacillin Sod/ Tazobactam Sod 2.25 gm/Sodium Chloride 50 ml @ 100 mls/hr Q8HRS IV Last administered on 07/29/16 20:27; Start 07/29/16 at 10:00 Info (PHARMACY MONITORING -- do not chart) 4 each Q6HRS MC ; Start 07/29/16 at 12:00; Status Cancel Peritoneal Dialysis Solution 2,000 ml @ 500 mls/hr Q4HRS IP Last administered on 07/29/16 12:41; Start 07/29/16 at 12:00; Stop 07/29/16 at 15:12; Status DC Iohexol (Omnipaque 300 Mg/ml) 50 ml STK-MED ONCE .ROUTE ; Start 07/29/16 at 14: 27; Stop 07/29/16 at 14:28; Status DC Iohexol (Omnipaque 300 Mg/ml) 50 ml 1X ONCE INT CAT Last administered on 14:58; Start 07/29/16 at 15:00; Stop 07/29/16 at 15:01; Status DC Morphine Sulfate 2 mg PRN Q4HRS PRN IV SEVERE PAIN Last administered on 15:49; Start 07/29/16 at 15:45 Morphine Sulfate 3 mg PRN Q4HRS PRN IV SEVERE PAIN; Start 07/29/16 at 16:00 Morphine Sulfate 4 mg PRN Q4HRS PRN IV SEVERE PAIN Last administered on 03:07; Start 07/29/16 at 16:00 Morphine Sulfate 5 mg PRN Q4HRS PRN IV SEVERE PAIN; Start 07/29/16 at 16:00 Cefazolin Sodium/ Dextrose 50 ml @ 100 mls/hr 1X PREOP PRN IV prophylaxis; Start 07/30/16 at 06:00; Stop 07/30/16 at 18:00 Oxycodone/ Acetaminophen (Percocet 5/325) 2 tab PRN Q6HRS PRN PO PAIN Last administered on 07/30/16 05:15; Start 07/29/16 at 18:30 Active Scripts Active Calcitriol 0.5 Mcg Capsule 1 Cap PO DAILY Reported Nephro-Irma Tablet (Folic Acid/Vitamin B Comp W-C) 0.8 Mg Tablet 1 Tab PO DAILY Lasix (Furosemide) 80 Mg Tablet 1 Tab PO BID Simvastatin 10 Mg Tablet 1 Tab PO QHS Renvela (Sevelamer Carbonate) 800 Mg Tablet 0.5 Tab PO TID Percocet 5-325 Mg Tablet (Oxycodone/Acetaminophen) 1 Each Tablet 1 Tab PO Q4HRS PRN dose taken , next dose may be taken at Vitals/I & O Vital Sign - Last 24 Hours 07/29/16 07/29/16 07/29/16 07/29/16 10:54 10:56 12:00 13:09 Temp 97.8 97.8 Pulse 93 Resp 20 B/P (MAP) 104/55 (71) Pulse Ox 96 96 96 96 O2 Delivery Room Air Room Air Room Air Room Air O2 Flow Rate 2.0 2.0 2.0 07/29/16 07/29/16 07/29/16 07/29/16 13:40 14:47 15:49 16:19 Temp 97.8 97.8 Pulse 92 Resp 20 18 B/P (MAP) 106/56 (73) Pulse Ox 96 96 96 O2 Delivery Room Air Room Air Room Air Room Air O2 Flow Rate 2.0 2.0 5/22/07/29/16 07/29/16 07/29/16 18:21 19:00 19:21 20:00 Temp 97.7 97.7 Pulse 92 Resp 20 B/P (MAP) 105/56 (72) Pulse Ox 96 97 96 O2 Delivery Room Air Room Air Room Air O2 Flow Rate 2.0 2.0 07/29/16 07/29/16 07/29/16 07/30/16 20:25 20:55 23:00 03:00 Temp 99.4 99.3 99.4 99.3 Pulse 89 90 Resp 18 18 B/P (MAP) 111/65 (80) 151/76 (101) Pulse Ox 96 96 95 93 O2 Delivery Room Air Room Air O2 Flow Rate 2.0 2.0 07/30/16 07/30/16 07/30/16 03:07 05:15 07:00 Temp 98.0 98.0 Pulse 90 Resp 20 18 B/P (MAP) 113/71 (85) Pulse Ox 92 92 91 O2 Delivery Room Air Room Air Room Air O2 Flow Rate 2.0 Intake and Output 07/29/16 07/29/16 07/30/16 15:00 23:00 07:00 Intake Total 500 ml 900 ml Output Total 100 ml 500 ml Balance 400 ml 900 ml -500 ml LAMBERT ORTIZ MD July 30, 2016 08:51
[2016-07-30] MEDS: FUROSEMIDE 80 MG TABLET. PO SCH ×2 (09:00→17:37)
--- NOTE | 2016-07-30 10:23 | PDOC ---
Infectious Disease Note Subjective Subjective pt feeling better, some abd pain + ROS ROS GEN: Denies fevers, chills, sweats HEENT: Denies blurred vision, sore throat CV: Denies chest pain RESP: Denies shortness of air, cough GI: Denies n/v/d NEURO: Denies confusion, dizziness MSK: Denies weakness, joint pain/swelling Vital Sign Vital Signs Vital Signs Date Time Temp Pulse Resp B/P (MAP) Pulse Ox O2 Delivery O2 Flow Rate FiO2 07/30/16 07:00 98.0 90 18 113/71 (85) 91 Room Air 98.0 07/30/16 05:15 2.0 Physical Exam PHYSICAL EXAM GENERAL: NAD, Alert HEENT: PERRL, OC/OP NECK: Supple, no JVD, no LN LUNGS: Clear HEART: S1S2, no gallop, no murmur ABD: Soft, NT, no organomegaly, no rebound EXT: No edema, no cyanosis LOAD DROPPER: Alert, oriented x 3, no focal neurologic deficit SKIN: No rash IV: ok Labs Lab Laboratory Tests Test 07/29/16 10:33 07/29/16 16:30 07/29/16 20:52 07/30/16 03:20 Glucose (Fingerstick) 156 mg/dL (70-99) 124 mg/dL (70-99) 169 mg/dL (70-99) White Blood Count 14.4 x10^3/uL (4.0-11.0) Red Blood Count 3.27 x10^6/uL (4.30-5.70) Hemoglobin 10.7 g/dL (13.0-17.5) Hematocrit 32.1 % (39.0-53.0) Mean Corpuscular Volume 98 fL (79-100) Mean Corpuscular Hemoglobin 33 pg (25-35) Mean Corpuscular Hemoglobin Concent 33 g/dL (31-37) Red Cell Distribution Width 15.6 % (11.5-14.5) Platelet Count 218 x10^3/uL (140-400) Sodium Level 138 mmol/L (136-145) Potassium Level 4.1 mmol/L (3.5-5.1) Chloride Level 99 mmol/L (98-107) Carbon Dioxide Level 26 mmol/L (21-32) Anion Gap 13 (6-14) Blood Urea Nitrogen 77 mg/dL (8-26) Creatinine 7.3 mg/dL (0.7-1.3) Estimated GFR (Cockcroft-Gault) 9.1 Glucose Level 142 mg/dL (70-99) Calcium Level 8.7 mg/dL (8.5-10.1) Test 07/30/16 07:26 Glucose (Fingerstick) 162 mg/dL (70-99) Objective Assessment Abdominal pain PD cath mal function vs infection/peritonitis ESRD DM Chronic lymphedema CHF Plan Plan of Care unable to get PD fluid zosyn check culture d/w dr Maxx SANDRA,BRIAN Walton MD July 30, 2016 10:23
--- NOTE | 2016-07-30 11:31 | PDOC ---
Renal-Progress Notes Subjective Notes Notes FEELING BETTER History of Present Illness Hx of present illness IMPROVED Vitals Vitals Vital Signs Date Time Temp Pulse Resp B/P (MAP) Pulse Ox O2 Delivery O2 Flow Rate FiO2 07/30/16 11:03 93 Room Air 2.0 07/30/16 10:40 99.3 91 18 112/67 (82) 99.3 Weight Weight [ ] I.O. Intake and Output Intake and Output 07/30/16 07:00 Intake Total 1400 ml Output Total 600 ml Balance 800 ml Intake Oral 1350 ml IV Total 50 ml Output Urine Total 600 ml # Voids 1 Labs Labs Laboratory Tests Test 07/29/16 16:30 07/29/16 20:52 07/30/16 03:20 07/30/16 07:26 Glucose (Fingerstick) 124 mg/dL (70-99) 169 mg/dL (70-99) 162 mg/dL (70-99) White Blood Count 14.4 x10^3/uL (4.0-11.0) Red Blood Count 3.27 x10^6/uL (4.30-5.70) Hemoglobin 10.7 g/dL (13.0-17.5) Hematocrit 32.1 % (39.0-53.0) Mean Corpuscular Volume 98 fL (79-100) Mean Corpuscular Hemoglobin 33 pg (25-35) Mean Corpuscular Hemoglobin Concent 33 g/dL (31-37) Red Cell Distribution Width 15.6 % (11.5-14.5) Platelet Count 218 x10^3/uL (140-400) Sodium Level 138 mmol/L (136-145) Potassium Level 4.1 mmol/L (3.5-5.1) Chloride Level 99 mmol/L (98-107) Carbon Dioxide Level 26 mmol/L (21-32) Anion Gap 13 (6-14) Blood Urea Nitrogen 77 mg/dL (8-26) Creatinine 7.3 mg/dL (0.7-1.3) Estimated GFR (Cockcroft-Gault) 9.1 Glucose Level 142 mg/dL (70-99) Calcium Level 8.7 mg/dL (8.5-10.1) Test 07/30/16 11:14 Glucose (Fingerstick) 139 mg/dL (70-99) Review of Systems Constitutional: yes: alert, oriented Ears/Nose/Throat: Yes: no symptom reported Eyes: Yes: no symptom reported Pulmonary: Yes no symptom reported Cardiovascular: Yes no symptom reported Gastrointestional: Yes: abdominal pain Musculoskeletal: Yes: muscle stiffness Skin: Yes no symptom reported Psychiatric/Neurological: Yes: no symptom reported Physical Exam General Appearance: no apparent distress Skin: warm Respiratory: bilateral CTA Heart: S1S2 Abdomen: soft, bowel sounds present Extremities: pulses present Neurology: alert Assessment Assessment IMP ESRD NON FUNCTIONING PD CATHETER ANEMIA LEUCOCYTOSIS POSSIBLE PERITONITIS PLAN ANTIBIOTICS PER ID PD CATHETER REPOSITIONING OR PROB REMOVAL TODAY TUNNELED HD CATHETER TODAY WILL PLAN FOR HD TOMORROW WILL HAVE HIM RESUME PD AT LATER DATE WHEN FEASIBLE WILL HAVE SW SET UP OP HD AT [facility] TRISHA WEINER MD July 30, 2016 11:31
[2016-07-30] MEDS ORDERED: DEXAMETHASONE SOD PHOS 20 MG/5 ML VIAL. ONE (12:21)
[2016-07-30] MEDS ORDERED: MIDAZOLAM HCL/PF 2 MG/2 ML VIAL. ONE (12:21)
[2016-07-30] MEDS ORDERED: PROPOFOL 20 ML IV ONE ×2 (12:21→15:43)
[2016-07-30] MEDS ORDERED: LIDOCAINE 2% PF Vial for OR 5 ML VIAL. ONE ×2 (12:21→15:43)
[2016-07-30] MEDS ORDERED: ONDANSETRON PF 4 MG/2 ML VIAL. ONE ×2 (12:21→15:43)
[2016-07-30] MEDS ORDERED: ROCURONIUM 50 MG/5 ML VIAL. ONE (12:22)
[2016-07-30] MEDS ORDERED: fentaNYL PF VIAL 100 MCG/2 ML VIAL ONE ×3 (12:22→16:24)
[2016-07-30] MEDS ORDERED: NEOMY/BACITR/POLYMYXIN OINT PACKET. TP ONE (12:54)
[2016-07-30] MEDS ORDERED: BUPIVAC MPF-EPI 0.5%-1:200000 30 ML VIAL. ONE (12:54)
[2016-07-30] MEDS: IV NORMAL SALINE 1000ML BAG 1,000 ML IV SCH (14:15)
[2016-07-30] MEDS ORDERED: PHENYLEPHRINE in 0.9% NACL PF 1 MG/10 ML DISP.SYRIN. IV ONE ×2 (15:24→15:44)
[2016-07-30] MEDS ORDERED: DESFLURANE 31 TO 60 MINUTES IH ONE (15:43)
[2016-07-30] MEDS ORDERED: FAMOTIDINE 20 MG/2 ML VIAL ONE (15:44)
[2016-07-30] MEDS ORDERED: GLYCOPYRROLATE 1 MG/5 ML VIAL. ONE (15:54)
[2016-07-30] MEDS ORDERED: NEOSTIGMINE METHYLSULFATE 5 MG/5 ML SYRINGE. ONE (15:56)
--- NOTE | 2016-07-30 16:14 | PDOC ---
BRIEF OPERATIVE NOTE Date: July 30, 2016 Pre-Op Diagnosis peritonitis 2/2 non functioning PD catheter Post-Op Diagnosis same Procedure Performed Dx l/s, removal PD catheter Surgeon Alan Anesthesia Type: General Blood Loss 50cc IV Fluid 400cc Urine Output 200cc Specimens Obtained none Findings peritonitis, pig tail of catheter in pelvis surrounded by small bowel and omentum Complications none EZIO DANIEL MD July 30, 2016 16:14
[2016-07-30] MEDS ORDERED: PROCHLORPERAZINE 10 MG/2 ML VIAL. ONE (16:24)
[2016-07-30] MEDS ORDERED: IV RINGERS,LACTATED 1000ML 1,000 ML IV SCH (16:29)
[2016-07-30] MEDS ORDERED: MORPHINE SULFATE 2 MG/ML DISP.SYRIN. IV PRN (16:30)
[2016-07-30] MEDS ORDERED: LIDOCAINE 1% 1 ML SYRINGE. ID PRN (16:30)
[2016-07-30] MEDS ORDERED: PROCHLORPERAZINE 10 MG/2 ML VIAL. IV PRN (16:30)
[2016-07-30] MEDS ORDERED: ONDANSETRON PF 4 MG/2 ML VIAL. IV PRN (16:30)
[2016-07-30] MEDS ORDERED: fentaNYL PF VIAL 100 MCG/2 ML VIAL IV PRN ×2 (16:30)
[2016-07-30] MEDS ORDERED: HYDROmorphone 2 MG/ML VIAL IV PRN (16:30)
[2016-07-30] MEDS: POLYETHYLENE GLYCOL 3350 17 GM PACKET. PO SCH (17:37)
[2016-07-30] MEDS: CALCITRIOL 0.25 MCG CAPSULE. PO SCH (17:38)
[2016-07-30] MEDS: FOLIC/VIT B COMP W-C (RENAL) TABLET. PO SCH (17:38)
[2016-07-30] MEDS: SIMVASTATIN 10 MG TABLET PO SCH (20:16)
[2016-07-31] VITALS (9 sets, daily range): BP systolic 100–155; BP diastolic 44–73
[2016-07-31] MEDS: MORPHINE SULFATE 2 MG/ML DISP.SYRIN. IV PRN (02:50)
[2016-07-31] MEDS: PIPERACILLIN/TAZOBACTAM 2.25 GM in IV NORMAL SALINE 50ML 50 ML IV SCH ×3 (06:06→23:15)
[2016-07-31] MEDS: INSULIN ASPART 300 UNITS/3 ML INSULN.PEN SQ SCH ×3 (07:54→18:13)
[2016-07-31] MEDS: SEVELAMER CARBONATE 800 MG TABLET. PO SCH ×3 (08:00→18:11)
[2016-07-31] MEDS: FUROSEMIDE 80 MG TABLET. PO SCH ×2 (09:00→18:11)
[2016-07-31] MEDS: POLYETHYLENE GLYCOL 3350 17 GM PACKET. PO SCH (09:00)
[2016-07-31] MEDS: FOLIC/VIT B COMP W-C (RENAL) TABLET. PO SCH (09:00)
[2016-07-31] MEDS: CALCITRIOL 0.25 MCG CAPSULE. PO SCH (09:00)
--- NOTE | 2016-07-31 09:05 | PDOC ---
PROGRESS NOTES Subjective Subjective Patient reports abdominal pain is much better, hasn't taken any pain medication since last night. Objective Objective Vital Signs Date Time Temp Pulse Resp B/P (MAP) Pulse Ox O2 Delivery O2 Flow Rate FiO2 07/31/16 07:00 97.8 75 18 113/53 (73) 96 Room Air 97.8 07/31/16 03:30 2.0 Intake and Output 07/31/16 06:59 Intake Total 1000 ml Output Total 250 ml Balance 750 ml Intake Oral 400 ml IV Total 600 ml Output Urine Total 200 ml Estimated Blood Loss 50 ml Physical Exam Abdomen: Normal bowel sounds, Soft, No tenderness Heart: Regular rate Extremities: Other (chronic severe lymphedema) General: Alert, Oriented X3, No acute distress Lungs: Clear to auscultation Assessment Assessment Problems Medical Problems: (1) Abdominal pain Status: Acute (2) ESRD (end stage renal disease) on dialysis Status: Acute (3) Fluid overload Status: Acute (4) Peripheral edema Status: Acute Plan Plan of Care 1. Peritonitis with abdominal pain - symptoms are much improved, continue Zosyn per ID. 2. ESRD - non-functioning peritoneal catheter removed yesterday. Patient waiting for new temporary hemodialysis catheter today, to start hemodialysis after catheter placement. 3. DM2 - FSBG elevated this AM, had been well controlled with diet. Continue SS insulin. 4. mild CHF - stable, continue his usual Lasix. Comment Review of Relevant I have reviewed the following items sai (where applicable) has been applied. Labs Laboratory Tests Test 07/29/16 10:33 07/29/16 16:30 07/29/16 20:52 07/30/16 03:20 Glucose (Fingerstick) 156 mg/dL (70-99) 124 mg/dL (70-99) 169 mg/dL (70-99) White Blood Count 14.4 x10^3/uL (4.0-11.0) Red Blood Count 3.27 x10^6/uL (4.30-5.70) Hemoglobin 10.7 g/dL (13.0-17.5) Hematocrit 32.1 % (39.0-53.0) Mean Corpuscular Volume 98 fL (79-100) Mean Corpuscular Hemoglobin 33 pg (25-35) Mean Corpuscular Hemoglobin Concent 33 g/dL (31-37) Red Cell Distribution Width 15.6 % (11.5-14.5) Platelet Count 218 x10^3/uL (140-400) Sodium Level 138 mmol/L (136-145) Potassium Level 4.1 mmol/L (3.5-5.1) Chloride Level 99 mmol/L (98-107) Carbon Dioxide Level 26 mmol/L (21-32) Anion Gap 13 (6-14) Blood Urea Nitrogen 77 mg/dL (8-26) Creatinine 7.3 mg/dL (0.7-1.3) Estimated GFR (Cockcroft-Gault) 9.1 Glucose Level 142 mg/dL (70-99) Calcium Level 8.7 mg/dL (8.5-10.1) Test 07/30/16 07:26 07/30/16 11:14 07/30/16 16:22 07/30/16 20:06 Glucose (Fingerstick) 162 mg/dL (70-99) 139 mg/dL (70-99) 117 mg/dL (70-99) 219 mg/dL (70-99) Test 07/31/16 07:21 Glucose (Fingerstick) 274 mg/dL (70-99) Laboratory Tests Test 07/30/16 11:14 07/30/16 16:22 07/30/16 20:06 07/31/16 07:21 Glucose (Fingerstick) 139 mg/dL (70-99) 117 mg/dL (70-99) 219 mg/dL (70-99) 274 mg/dL (70-99) Medications Current Medications Iohexol (Omnipaque 300 Mg/ml) 50 ml 1X ONCE IJ Last administered on 07/28/16 10:15; Start 07/28/16 at 10:00; Stop 07/28/16 at 10:01; Status DC Iohexol (Omnipaque 240 Mg/ml) 50 ml 1X ONCE PO Last administered on 07/28/16 10:00; Start 07/28/16 at 10:00; Stop 07/28/16 at 10:09; Status DC Ondansetron HCl (Zofran) 4 mg 1X ONCE IV Last administered on 07/28/16 11:20 ; Start 07/28/16 at 11:15; Stop 07/28/16 at 11:16; Status DC Morphine Sulfate 10 mg STK-MED ONCE .ROUTE ; Start 07/28/16 at 11:08; Stop 07/28 at 11:09; Status DC Morphine Sulfate 5 mg 1X ONCE IV Last administered on 07/28/16 11:20; Start 07/28/16 at 11:15; Stop 07/28/16 at 11:16; Status DC Ondansetron HCl (Zofran) 4 mg 1X ONCE IV Last administered on 07/28/16 12:02 ; Start 07/28/16 at 12:00; Stop 07/28/16 at 12:01; Status DC Hydromorphone HCl (Dilaudid) 2 mg STK-MED ONCE .ROUTE ; Start 07/28/16 at 13:14 ; Stop 07/28/16 at 13:15; Status DC Hydromorphone HCl (Dilaudid) 1 mg 1X ONCE IV Last administered on 07/28/16 13 :19; Start 07/28/16 at 13:30; Stop 07/28/16 at 13:31; Status DC Ondansetron HCl (Zofran) 4 mg PRN Q8HRS PRN IV NAUSEA/VOMITING; Start 07/28/16 at 14:30; Stop 07/29/16 at 14:29; Status DC Fentanyl Citrate (Fentanyl 2ml Vial) 50 mcg PRN Q1HR PRN IV PAIN Last administered on 07/29/16 13:09; Start 07/28/16 at 14:30; Stop 07/29/16 at 14:29 ; Status DC Insulin Aspart (NovoLOG) 0-7 UNITS TIDWMEALS SQ Last administered on 07/31/16 07:54; Start 07/28/16 at 17:00 Dextrose (Dextrose 50%-Water Syringe) 12.5 gm PRN Q15MIN PRN IV SEE COMMENTS; Start 07/28/16 at 16:00 Oxycodone/ Acetaminophen (Percocet 5/325) 1 tab PRN Q6HRS PRN PO PAIN Last administered on 07/29/16 10:56; Start 07/28/16 at 16:00 Polyethylene Glycol (miraLAX PACKET) 17 gm DAILY PO Last administered on 17:37; Start 07/29/16 at 09:00 Bisacodyl (Dulcolax Tab) 10 mg PRN DAILY PRN PO CONSTIPATION; Start 07/28/16 at 21:00 Vitamin B Complex/ Vitamin C (Ronda-Irma) 1 tab DAILY PO Last administered on 17:38; Start 07/29/16 at 09:00 Furosemide (Lasix) 80 mg BID94 PO Last administered on 07/30/16 17:37; Start 07/29/16 at 09:00 Sevelamer Carbonate (Renvela) 400 mg TIDWMEALS PO Last administered on 17:38; Start 07/29/16 at 09:00 Simvastatin (Zocor) 10 mg QHS PO Last administered on 07/30/16 20:16; Start at 21:00 Calcitriol (Rocaltrol) 0.5 mcg DAILY PO Last administered on 07/30/16 17:38; Start 07/29/16 at 09:00 Piperacillin Sod/ Tazobactam Sod 2.25 gm/Sodium Chloride 50 ml @ 100 mls/hr Q8HRS IV Last administered on 07/31/16 06:06; Start 07/29/16 at 10:00 Info (PHARMACY MONITORING -- do not chart) 4 each Q6HRS MC ; Start 07/29/16 at 12:00; Status Cancel Peritoneal Dialysis Solution 2,000 ml @ 500 mls/hr Q4HRS IP Last administered on 07/29/16 12:41; Start 07/29/16 at 12:00; Stop 07/29/16 at 15:12; Status DC Iohexol (Omnipaque 300 Mg/ml) 50 ml STK-MED ONCE .ROUTE ; Start 07/29/16 at 14: 27; Stop 07/29/16 at 14:28; Status DC Iohexol (Omnipaque 300 Mg/ml) 50 ml 1X ONCE INT CAT Last administered on 14:58; Start 07/29/16 at 15:00; Stop 07/29/16 at 15:01; Status DC Morphine Sulfate 2 mg PRN Q4HRS PRN IV SEVERE PAIN Last administered on 02:50; Start 07/29/16 at 15:45 Morphine Sulfate 3 mg PRN Q4HRS PRN IV SEVERE PAIN; Start 07/29/16 at 16:00 Morphine Sulfate 4 mg PRN Q4HRS PRN IV SEVERE PAIN Last administered on 22:32; Start 07/29/16 at 16:00 Morphine Sulfate 5 mg PRN Q4HRS PRN IV SEVERE PAIN; Start 07/29/16 at 16:00 Cefazolin Sodium/ Dextrose 50 ml @ 100 mls/hr 1X PREOP PRN IV prophylaxis Last administered on 07/30/16 15:25; Start 07/30/16 at 06:00; Stop 07/30/16 at 18:00; Status DC Oxycodone/ Acetaminophen (Percocet 5/325) 2 tab PRN Q6HRS PRN PO PAIN Last administered on 07/30/16 20:16; Start 07/29/16 at 18:30 Dexamethasone Sodium Phosphate (Decadron) 20 mg STK-MED ONCE .ROUTE ; Start at 12:21; Stop 07/30/16 at 12:22; Status DC Ondansetron HCl (Zofran) 4 mg STK-MED ONCE .ROUTE ; Start 07/30/16 at 12:21; Stop 07/30/16 at 12:22; Status DC Propofol 20 ml @ As Directed STK-MED ONCE IV ; Start 07/30/16 at 12:21; Stop at 12:22; Status DC Lidocaine HCl (Lidocaine Pf 2% Vial) 5 ml STK-MED ONCE .ROUTE ; Start 07/30/16 at 12:21; Stop 07/30/16 at 12:22; Status DC Midazolam HCl (Versed) 2 mg STK-MED ONCE .ROUTE ; Start 07/30/16 at 12:21; Stop 07/30/16 at 12:22; Status DC Fentanyl Citrate (Fentanyl 2ml Vial) 100 mcg STK-MED ONCE .ROUTE ; Start at 12:22; Stop 07/30/16 at 12:23; Status DC Rocuronium Blanco (Zemuron) 50 mg STK-MED ONCE .ROUTE ; Start 07/30/16 at 12:22 ; Stop 07/30/16 at 12:23; Status DC Neomycin/ Polymyxin/ Bacitracin (Triple Antibiotic Ointment) 1 pkt STK-MED ONCE TP ; Start 07/30/16 at 12:54; Stop 07/30/16 at 12:55; Status DC Bupivacaine HCl/ Epinephrine Bitart (Sensorcain-Mpf Epi 0.5%-1:[id number]) 30 ml STK -MED ONCE .ROUTE Last administered on 07/30/16 15:31; Start 07/30/16 at 12:54 ; Stop 07/30/16 at 12:55; Status DC Sodium Chloride 1,000 ml @ 30 mls/hr Q24H IV Last administered on 07/30/16 14 :15; Start 07/30/16 at 14:15 Phenylephrine HCl 1 mg STK-MED ONCE IV ; Start 07/30/16 at 15:24; Stop 07/30/16 at 15:25; Status DC Desflurane (Suprane) 30 ml STK-MED ONCE IH ; Start 07/30/16 at 15:43; Stop 07/30 at 15:44; Status DC Propofol 20 ml @ As Directed STK-MED ONCE IV ; Start 07/30/16 at 15:43; Stop at 15:44; Status DC Lidocaine HCl (Lidocaine Pf 2% Vial) 5 ml STK-MED ONCE .ROUTE ; Start 07/30/16 at 15:43; Stop 07/30/16 at 15:44; Status DC Ondansetron HCl (Zofran) 4 mg STK-MED ONCE .ROUTE ; Start 07/30/16 at 15:43; Stop 07/30/16 at 15:44; Status DC Famotidine (Pepcid) 20 mg STK-MED ONCE .ROUTE ; Start 07/30/16 at 15:44; Stop at 15:45; Status DC Phenylephrine HCl 1 mg STK-MED ONCE IV ; Start 07/30/16 at 15:44; Stop 07/30/16 at 15:45; Status DC Glycopyrrolate (Robinul) 1 mg STK-MED ONCE .ROUTE ; Start 07/30/16 at 15:54; Stop 07/30/16 at 15:55; Status DC Neostigmine Methylsulfate 5 mg STK-MED ONCE .ROUTE ; Start 07/30/16 at 15:56; Stop 07/30/16 at 15:57; Status DC Fentanyl Citrate (Fentanyl 2ml Vial) 100 mcg STK-MED ONCE .ROUTE ; Start at 16:10; Stop 07/30/16 at 16:11; Status DC Prochlorperazine Edisylate (Compazine) 10 mg STK-MED ONCE .ROUTE ; Start at 16:24; Stop 07/30/16 at 16:25; Status DC Fentanyl Citrate (Fentanyl 2ml Vial) 100 mcg STK-MED ONCE .ROUTE ; Start at 16:24; Stop 07/30/16 at 16:25; Status DC Ondansetron HCl (Zofran) 4 mg PRN Q6HRS PRN IV NAUSEA/VOMITING; Start 07/30/16 at 16:30; Stop 07/31/16 at 16:29 Fentanyl Citrate (Fentanyl 2ml Vial) 25 mcg PRN Q5MIN PRN IV MILD PAIN; Start 07/30/16 at 16:30; Stop 07/31/16 at 16:29 Fentanyl Citrate (Fentanyl 2ml Vial) 50 mcg PRN Q5MIN PRN IV MODERATE PAIN; Start 07/30/16 at 16:30; Stop 07/31/16 at 16:29 Morphine Sulfate 1 mg PRN Q10MIN PRN IV SEVERE PAIN; Start 07/30/16 at 16:30; Stop 07/31/16 at 16:29 Ringer's Solution 1,000 ml @ 0 mls/hr Q0M IV ; Start 07/30/16 at 16:29; Stop at 04:28; Status DC Lidocaine HCl 2 ml PRN 1X PRN ID PRIOR TO IV START; Start 07/30/16 at 16:30; Stop 07/31/16 at 16:29 Hydromorphone HCl (Dilaudid) 0.5 mg PRN Q10MIN PRN IV SEV PAIN, Second choice; Start 07/30/16 at 16:30; Stop 07/31/16 at 16:29 Prochlorperazine Edisylate (Compazine) 5 mg PACU PRN PRN IV NAUSEA, MRX1 Last administered on 07/30/16t 16:31; Start 07/30/16 at 16:30; Stop 07/31/16 at 16:29 Active Scripts Active Calcitriol 0.5 Mcg Capsule 1 Cap PO DAILY Reported Nephro-Irma Tablet (Folic Acid/Vitamin B Comp W-C) 0.8 Mg Tablet 1 Tab PO DAILY Lasix (Furosemide) 80 Mg Tablet 1 Tab PO BID Simvastatin 10 Mg Tablet 1 Tab PO QHS Renvela (Sevelamer Carbonate) 800 Mg Tablet 0.5 Tab PO TID Percocet 5-325 Mg Tablet (Oxycodone/Acetaminophen) 1 Each Tablet 1 Tab PO Q4HRS PRN dose taken , next dose may be taken at Vitals/I & O Vital Sign - Last 24 Hours 07/30/16 07/30/16 07/30/16 07/30/16 10:40 11:03 13:11 14:01 Temp 99.3 97.9 99.3 97.9 Pulse 91 79 Resp 18 22 B/P (MAP) 112/67 (82) 119/64 Pulse Ox 93 93 93 96 O2 Delivery Room Air Room Air Room Air Room Air O2 Flow Rate 2.0 2.0 2.0 07/30/16 07/30/16 07/30/16 07/30/16 16:13 16:13 16:28 16:43 Temp 97.0 97.0 Pulse 82 80 80 Resp 16 18 18 B/P (MAP) 124/66 122/65 128/61 Pulse Ox 99 99 93 O2 Delivery Mask Simple Mask Simple Mask Nasal Cannula O2 Flow Rate 10 10 10 3 07/30/16 07/30/16 07/30/16 07/30/16 16:58 17:08 17:13 17:30 Temp 98.0 98.0 Pulse 80 78 82 Resp 16 16 18 B/P (MAP) 122/65 122/62 120/67 (84) Pulse Ox 94 95 92 O2 Delivery Nasal Cannula Nasal Cannula Nasal Cannula Nasal Cannula O2 Flow Rate 3 3 3 3.0 07/30/16 07/30/16 07/30/16 07/30/16 17:45 18:00 18:29 18:30 Pulse 88 90 86 B/P (MAP) 147/82 (103) 142/79 (100) 152/69 (96) O2 Delivery Nasal Cannula 07/30/16 07/30/16 07/30/16 07/30/16 20:00 20:16 21:00 21:30 Pulse 76 Resp 16 17 B/P (MAP) 120/67 (84) Pulse Ox 92 O2 Delivery Nasal Cannula Nasal Cannula Nasal Cannula O2 Flow Rate 2.0 2.0 2.0 07/30/16 07/30/16 07/30/16 07/30/16 22:00 22:32 22:35 23:30 Temp 98.3 98.3 Pulse 77 81 Resp 18 17 B/P (MAP) 135/77 (96) 117/61 (79) Pulse Ox 92 95 95 O2 Delivery Nasal Cannula Nasal Cannula O2 Flow Rate 2.0 2.0 07/31/16 07/31/16 07/31/16 02:50 03:30 07:00 Temp 97.8 97.8 Pulse 75 Resp 17 18 18 B/P (MAP) 113/53 (73) Pulse Ox 95 95 96 O2 Delivery Nasal Cannula Nasal Cannula Room Air O2 Flow Rate 2.0 2.0 Intake and Output 07/30/16 07/30/16 07/31/16 14:59 22:59 06:59 Intake Total 600 ml 400 ml Output Total 250 ml Balance 350 ml 400 ml LAMBERT ORTIZ MD July 31, 2016 09:05
--- NOTE | 2016-07-31 09:29 | PDOC ---
Infectious Disease Note Subjective Subjective pt feeling much better, no abd pain, cath is out ROS ROS GEN: Denies fevers, chills, sweats HEENT: Denies blurred vision, sore throat CV: Denies chest pain RESP: Denies shortness of air, cough GI: Denies n/v/d NEURO: Denies confusion, dizziness MSK: Denies weakness, joint pain/swelling Vital Sign Vital Signs Vital Signs Date Time Temp Pulse Resp B/P (MAP) Pulse Ox O2 Delivery O2 Flow Rate FiO2 07/31/16 08:00 Room Air 07/31/16 07:00 97.8 75 18 113/53 (73) 96 97.8 07/31/16 03:30 2.0 Physical Exam PHYSICAL EXAM GENERAL: NAD, Alert HEENT: PERRL, OC/OP NECK: Supple, no JVD, no LN LUNGS: Clear HEART: S1S2, no gallop, no murmur ABD: Soft, NT, no organomegaly, no rebound EXT: No edema, no cyanosis 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
[2016-07-31] MEDS: MORPHINE SULFATE 4 MG/ML DISP.SYRIN. IV PRN ×2 (09:58→20:15)
--- NOTE | 2016-07-31 10:23 | PDOC ---
Renal-Progress Notes Subjective Notes Notes FEELS WELL History of Present Illness Hx of present illness STABLE Vitals Vitals Vital Signs Date Time Temp Pulse Resp B/P (MAP) Pulse Ox O2 Delivery O2 Flow Rate FiO2 07/31/16 09:58 Room Air 07/31/16 07:00 97.8 75 18 113/53 (73) 96 97.8 07/31/16 03:30 2.0 Weight Weight [ ] I.O. Intake and Output Intake and Output 07/31/16 07:00 Intake Total 1000 ml Output Total 250 ml Balance 750 ml Intake Oral 400 ml IV Total 600 ml Output Urine Total 200 ml Estimated Blood Loss 50 ml Labs Labs Laboratory Tests Test 07/30/16 11:14 07/30/16 16:22 07/30/16 20:06 07/31/16 07:21 Glucose (Fingerstick) 139 mg/dL (70-99) 117 mg/dL (70-99) 219 mg/dL (70-99) 274 mg/dL (70-99) Review of Systems Constitutional: yes: alert, oriented Ears/Nose/Throat: Yes: no symptom reported Eyes: Yes: no symptom reported Pulmonary: Yes no symptom reported Cardiovascular: Yes no symptom reported Gastrointestional: Yes: abdominal pain Musculoskeletal: Yes: muscle stiffness Skin: Yes no symptom reported Psychiatric/Neurological: Yes: no symptom reported Physical Exam General Appearance: no apparent distress Skin: warm Respiratory: bilateral CTA Heart: S1S2 Abdomen: soft, bowel sounds present Extremities: pulses present Neurology: alert Assessment Assessment IMP ESRD NON FUNCTIONING PD CATHETER S/P PD CATHETER REMOVAL ANEMIA LEUCOCYTOSIS POSSIBLE PERITONITIS ABD PAIN RESOLVED PLAN ANTIBIOTICS PER ID TUNNELED HD CATHETER TODAY HD TODAY UF TO DW WILL HAVE HIM RESUME PD AT LATER DATE WHEN FEASIBLE SW TO SET UP OP HD AT [facility] TRISHA WEINER MD July 31, 2016 10:23
[2016-07-31] MEDS ORDERED: HEPARIN for IV BOLUS 10,000 UNIT/10 ML VIAL. ONE (11:01)
[2016-07-31] MEDS ORDERED: LIDOCAINE 1%/EPI 1:100,000 20 ML VIAL. ONE (11:01)
[2016-07-31] MEDS ORDERED: MIDAZOLAM HCL/PF 2 MG/2 ML VIAL. ONE ×2 (11:26→11:52)
--- NOTE | 2016-07-31 11:59 | PDOC ---
MODERATE SEDATION ASSESSMENT RISKS/ALTERNATIVES Risks/Alternatives Risks and alternatives of this type of sedation and procedure discussed with: RISK/ALTERNATIVES: Patient H & P ON CHART H & P H & P on chart and reviewed for co-morbid conditions and appropriate labs. H&P ON CHART: Yes STATUS PREG STATUS ASSESSED: N/A MEDS/ALLERGIES REVIEWED Meds/Allergies Reviewed Medications and Allergies including time and route of recently administered narcotics and sedatives. MEDS/ALLERGIES REVIEWED: Yes ASA RATING ASA RATING: III AIRWAY ASSESSMENT Airway Assessment Airway patency, oral function limitations, presence of caps, crowns, dentures, partials, and ability to extend neck assessed. AIRWAY ASSESSMENT: Yes MALLAMPATI SCORE MALLAMPATI SCORE: II PRE-SEDATION ASSESSMENT PRE-SEDATION ASSESSMENT: Yes JARETH TORRES MD July 31, 2016 11:59
[2016-07-31] MEDS ORDERED: fentaNYL PF VIAL 100 MCG/2 ML VIAL IV ONE (12:00)
[2016-07-31] MEDS ORDERED: MIDAZOLAM HCL/PF 2 MG/2 ML VIAL. IV ONE (12:00)
[2016-07-31] MEDS ORDERED: LIDOCAINE 1%/EPI 1:100,000 20 ML VIAL. INJ ONE (12:00)
--- NOTE | 2016-07-31 12:05 | PDOC ---
Exam Store Associate Store Associate Roberto Popcorn Vendor Popcorn Vendor B Cates Pre-Procedure Diagnosis Pre-Procedure Diagnosis ESRD. Nonfunctioning PDC removed due to peritonitis. HD now needed. Tunneled HDC insertion requested by Renal. Post-Procedure Diagnosis Post-Procedure Diagnosis Same Procedure Performed Procedure Performed Sono/fluoro guided tunneled HDC placement Type of Anesthesia Type of Anesthesia Local + Mod sedation Estimated Blood Loss EBL: Minimal Drain/Tubes Drains/Tubes 15.5F 28cm rt IJ tunneled HDC Condition of Patient Condition of Patient Stable. No apparent complication. Disposition Disposition From IR return to 562 for recovery. F/u with Renal. OK to use tunneled HDC. Full report to follow. JARETH TORRES MD July 31, 2016 12:05
[2016-07-31] MEDS ORDERED: IV NORMAL SALINE 1000ML BAG 1,000 ML IV PRN (13:51)
[2016-07-31] MEDS ORDERED: LABETALOL 20 MG/4 ML DISP.SYRIN. IVP PRN (14:00)
[2016-07-31] MEDS ORDERED: diphenhydrAMINE 50 MG/ML VIAL IV PRN ×2 (14:00)
[2016-07-31] MEDS ORDERED: ACETAMINOPHEN 500 MG TABLET PO PRN (14:00)
[2016-07-31] MEDS ORDERED: DIALYSIS PATIENT. MC PRN (14:00)
[2016-07-31] MEDS: IV NORMAL SALINE 1000ML BAG 1,000 ML IV SCH (14:15)
[2016-07-31] MEDS: oxyCODONE/APAP 5/325 1 TAB TABLET PO PRN (18:12)
--- NOTE | 2016-07-31 18:27 | OP ---
DATE OF SURGERY: 07/30/2016 PREOPERATIVE DIAGNOSIS: Peritonitis secondary to nonfunctional PD catheter. POSTOPERATIVE DIAGNOSIS: Peritonitis secondary to nonfunctional PD catheter. PROCEDURE: Diagnostic laparoscopy and removal of peritoneal dialysis catheter. SURGEON: Jose Enrique Daniel M.D. ANESTHESIA: General endotracheal. ESTIMATED BLOOD LOSS: 50 mL. IV FLUID: 400 mL. URINE OUTPUT: 200 mL. INDICATIONS: The patient is a 66-year-old gentleman with end-stage renal disease, previously on peritoneal dialysis. The last 4 or 5 days, his catheter had been nonfunctional. He is brought for laparoscopy for repositioning or removal. OPERATIVE FINDINGS: There were multiple loops of small bowel loosely adherent to the abdominal wall with purulent material suggestive of peritonitis. The catheter resided in the true pelvis enveloped by the loops of bowel. DESCRIPTION OF PROCEDURE: The patient brought to the operating suite, given general endotracheal anesthetic. Banda catheter placed to dependent drainage and the abdomen prepped and draped in the usual sterile fashion. An epigastric incision was infiltrated with local anesthetic, sharply incised and a 5 mm Visiport used to gain access into the abdominal cavity. Pneumoperitoneum was established. No evidence of injury to the intra-abdominal contents was seen. Under direct vision, the left lower quadrant port site was placed and using a DeBakey laparoscopic instrument, we gently swept the small bowel off the abdominal wall to expose the catheter. We then traced the catheter down to its pigtail ____ pelvis, again taking down omental and bowel adhesions gently to assure that the catheter resided outside the bowel. Once we had visualized the catheter in its entirety, the abdomen was decompressed. Local anesthetic was infiltrated over the insertion site of the catheter. Incision made, dissection carried down to the Dacron cuff, which was freed from the surrounding structures, allowed delivery of the catheter without difficulty. The small remaining rent in the fascia was closed with a single stitch of 0 Vicryl. We then infiltrated the access site with local anesthetic, sharply excised over the subcutaneous cuff, freed it and delivered the catheter. Wounds were closed loosely with skin king. Telfa corinna were placed in the insertion site and access site wounds. Sterile dressings applied. Banda catheter removed. The patient was awakened from his anesthetic and taken to the recovery room in satisfactory condition. JOSE ENRIQUE DANIEL MD DR: Mara JOB#: [id number] / [id number]
[2016-07-31] MEDS: SIMVASTATIN 10 MG TABLET PO SCH (20:14)
[2016-08-01 02:37] VITALS: BP 110/58
[2016-08-01 04:14] LABS: HEMATOCRIT 25.6 % (39.0-53.0); HEMOGLOBIN 8.6 g/dL (13.0-17.5); RED BLOOD COUNT 2.63 x10^6/uL (4.30-5.70); RED CELL DISTRIBUTION WIDTH 15.5 % (11.5-14.5)
[2016-08-01 04:44] LABS: CALCIUM 8.2 mg/dL (8.5-10.1); CREATININE 5.1 mg/dL (0.7-1.3); GFR 13.8; POTASSIUM 3.9 mmol/L (3.5-5.1)
[2016-08-01] MEDS: PIPERACILLIN/TAZOBACTAM 2.25 GM in IV NORMAL SALINE 50ML 50 ML IV SCH (05:25)
[2016-08-01 07:00] VITALS: BP 111/69
--- NOTE | 2016-08-01 07:03 | RAD ---
Ultrasound and fluoro guided placement of right IJ tunneled hemodialysis catheter Indication: 66-year-old male with end stage renal disease. Has nonfunctioning peritoneal dialysis catheter has been removed. Hemodialysis is now required. Tunneled hemodialysis catheter insertion has been requested by renal. Fluoro time: 1.0 minute Kerma-Area Product: 4 Gycm2 Moderate sedation: 22 minutes moderate sedation was provided utilizing a total of 2.5 mg Versed and 100 mcg fentanyl, IV. The patient was appropriately monitored by a qualified independent observer throughout the time of moderate sedation. Antibiotic: A single dose of Ancef was administered within 1 hour of the procedure start time. Sterility: All elements of maximal sterile barrier technique, hand hygiene, skin preparation, and, if ultrasound was used, sterile ultrasound technique were followed. Consent: The procedure was explained in its entirety to the patient and/or the patient's designated marketing sales representative by a member of the treatment team. This included a discussion of risks and benefits and commonly accepted alternatives to the procedure, as well as expected consequences of no treatment at all. Discussion of risks included, but was not limited to, those that are most frequent and those that are rare, but possibly severe or life-threatening, as well as the possibility of unforeseen complications. Procedure: Informed consent was obtained from the patient. He was placed supine on the angiography table. Preliminary ultrasound examination of right neck revealed wide patency of right internal jugular vein, which was documented with a hard copy ultrasound image. Right neck and upper chest were then prepped and draped in the usual sterile fashion, utilizing all elements of maximal sterile barrier technique, as described above. Moderate sedation was provided with IV Versed and Fentanyl. 1 gram Ancef was given IV, prophylactically. Using aseptic technique and local anesthesia, a small skin incision was made lateral to right internal jugular vein, just above clavicle. Using aseptic technique, local anesthesia, and direct ultrasound guidance, a micropuncture needle was successfully introduced into right internal jugular vein. The micropuncture needle was then exchanged over a microguidewire for a micropuncture sheath, through which an Amplatz wire was advanced into IVC, under fluoroscopic control. A second small skin incision was then made along upper anterior aspect of right chest. A subcutaneous tunnel was then fashioned between the right chest and supraclavicular incisions. A 15.5 F 28 cm Dura Max dialysis catheter was pulled through the subcutaneous tunnel from inferior to superior, utilizing the tunneling device provided. The right IJ venostomy tract was then sequentially dilated and the 15.5 Lao dialysis catheter was easily advanced centrally through a 16 Lao peel-away sheath, and was positioned with its tip at the level of upper right atrium utilizing fluoroscopic guidance. This catheter was demonstrated to flush and aspirate normally, was packed, and was secured at the right chest exit site utilizing 2-0 Prolene and sterile dressing. The small supraclavicular incision was closed with 4-0 Vicryl, Steri-Strips, and sterile dressing. Patient tolerated the procedure well without apparent complication. Satisfactory position of the dialysis catheter was confirmed with a single fluoroscopic spot image. Impression: Successful, uneventful ultrasound and fluoro guided placement of right IJ 15.5 F 28 cm Dura Max tunneled hemodialysis catheter, as described.
[2016-08-01] MEDS: SEVELAMER CARBONATE 800 MG TABLET. PO SCH (07:56)
[2016-08-01] MEDS: CALCITRIOL 0.25 MCG CAPSULE. PO SCH (07:56)
[2016-08-01] MEDS: FOLIC/VIT B COMP W-C (RENAL) TABLET. PO SCH (07:56)
[2016-08-01] MEDS: POLYETHYLENE GLYCOL 3350 17 GM PACKET. PO SCH (07:56)
[2016-08-01] MEDS: FUROSEMIDE 80 MG TABLET. PO SCH (07:56)
[2016-08-01] MEDS: INSULIN ASPART 300 UNITS/3 ML INSULN.PEN SQ SCH (08:02)
--- NOTE | 2016-08-01 08:23 | PDOC ---
PROGRESS NOTES Subjective Subjective Patient without complaint, abdominal pain has resolved, feels ready to go home today. Objective Objective Vital Signs Date Time Temp Pulse Resp B/P (MAP) Pulse Ox O2 Delivery O2 Flow Rate FiO2 08/01/16 07:00 97.9 81 20 111/69 (83) 92 Room Air 97.9 07/31/16 12:05 3.0 Intake and Output 08/01/16 07:00 Output Total 50 ml Balance -50 ml Output Urine Total 50 ml # Voids 3 Physical Exam Abdomen: Normal bowel sounds, Soft, No tenderness Heart: Regular rate Extremities: Other (chronic lymphedema bilateral LE's) General: Alert, Oriented X3, No acute distress Lungs: Clear to auscultation Assessment Assessment Problems Medical Problems: (1) Abdominal pain Status: Acute (2) ESRD (end stage renal disease) on dialysis Status: Acute (3) Fluid overload Status: Acute (4) Peripheral edema Status: Acute Plan Plan of Care 1. Peritonitis - much improved. WBC's now WNL. Home today on po abx per ID recommendations. 2. ESRD - started on hemodialysis yesterday after placement of temporary catheter. Arrangements being made for him to follow up for outpatient dialysis on Friday. Apparently no dialysis needed today. 3. DM2 - fairly well controlled, continue ADA diet, patient uses prn Humalog at home. 4. CHF - compensated, continue his usual Lasix. Comment Review of Relevant I have reviewed the following items sai (where applicable) has been applied. Labs Laboratory Tests Test 07/30/16 11:14 07/30/16 16:22 07/30/16 20:06 07/31/16 07:21 Glucose (Fingerstick) 139 mg/dL (70-99) 117 mg/dL (70-99) 219 mg/dL (70-99) 274 mg/dL (70-99) Test 07/31/16 16:28 07/31/16 20:44 08/01/16 03:50 Glucose (Fingerstick) 183 mg/dL (70-99) 255 mg/dL (70-99) White Blood Count 8.0 x10^3/uL (4.0-11.0) Red Blood Count 2.63 x10^6/uL (4.30-5.70) Hemoglobin 8.6 g/dL (13.0-17.5) Hematocrit 25.6 % (39.0-53.0) Mean Corpuscular Volume 98 fL (79-100) Mean Corpuscular Hemoglobin 33 pg (25-35) Mean Corpuscular Hemoglobin Concent 34 g/dL (31-37) Red Cell Distribution Width 15.5 % (11.5-14.5) Platelet Count 231 x10^3/uL (140-400) Sodium Level 142 mmol/L (136-145) Potassium Level 3.9 mmol/L (3.5-5.1) Chloride Level 102 mmol/L (98-107) Carbon Dioxide Level 34 mmol/L (21-32) Anion Gap 6 (6-14) Blood Urea Nitrogen 50 mg/dL (8-26) Creatinine 5.1 mg/dL (0.7-1.3) Estimated GFR (Cockcroft-Gault) 13.8 Glucose Level 203 mg/dL (70-99) Calcium Level 8.2 mg/dL (8.5-10.1) Laboratory Tests Test 07/31/16 16:28 07/31/16 20:44 08/01/16 03:50 Glucose (Fingerstick) 183 mg/dL (70-99) 255 mg/dL (70-99) White Blood Count 8.0 x10^3/uL (4.0-11.0) Red Blood Count 2.63 x10^6/uL (4.30-5.70) Hemoglobin 8.6 g/dL (13.0-17.5) Hematocrit 25.6 % (39.0-53.0) Mean Corpuscular Volume 98 fL (79-100) Mean Corpuscular Hemoglobin 33 pg (25-35) Mean Corpuscular Hemoglobin Concent 34 g/dL (31-37) Red Cell Distribution Width 15.5 % (11.5-14.5) Platelet Count 231 x10^3/uL (140-400) Sodium Level 142 mmol/L (136-145) Potassium Level 3.9 mmol/L (3.5-5.1) Chloride Level 102 mmol/L (98-107) Carbon Dioxide Level 34 mmol/L (21-32) Anion Gap 6 (6-14) Blood Urea Nitrogen 50 mg/dL (8-26) Creatinine 5.1 mg/dL (0.7-1.3) Estimated GFR (Cockcroft-Gault) 13.8 Glucose Level 203 mg/dL (70-99) Calcium Level 8.2 mg/dL (8.5-10.1) Medications Current Medications Iohexol (Omnipaque 300 Mg/ml) 50 ml 1X ONCE IJ Last administered on 07/28/16 10:15; Start 07/28/16 at 10:00; Stop 07/28/16 at 10:01; Status DC Iohexol (Omnipaque 240 Mg/ml) 50 ml 1X ONCE PO Last administered on 07/28/16 10:00; Start 07/28/16 at 10:00; Stop 07/28/16 at 10:09; Status DC Ondansetron HCl (Zofran) 4 mg 1X ONCE IV Last administered on 07/28/16 11:20 ; Start 07/28/16 at 11:15; Stop 07/28/16 at 11:16; Status DC Morphine Sulfate 10 mg STK-MED ONCE .ROUTE ; Start 07/28/16 at 11:08; Stop 07/28 at 11:09; Status DC Morphine Sulfate 5 mg 1X ONCE IV Last administered on 07/28/16 11:20; Start 07/28/16 at 11:15; Stop 07/28/16 at 11:16; Status DC Ondansetron HCl (Zofran) 4 mg 1X ONCE IV Last administered on 07/28/16 12:02 ; Start 07/28/16 at 12:00; Stop 07/28/16 at 12:01; Status DC Hydromorphone HCl (Dilaudid) 2 mg STK-MED ONCE .ROUTE ; Start 07/28/16 at 13:14 ; Stop 07/28/16 at 13:15; Status DC Hydromorphone HCl (Dilaudid) 1 mg 1X ONCE IV Last administered on 07/28/16 13 :19; Start 07/28/16 at 13:30; Stop 07/28/16 at 13:31; Status DC Ondansetron HCl (Zofran) 4 mg PRN Q8HRS PRN IV NAUSEA/VOMITING; Start 07/28/16 at 14:30; Stop 07/29/16 at 14:29; Status DC Fentanyl Citrate (Fentanyl 2ml Vial) 50 mcg PRN Q1HR PRN IV PAIN Last administered on 07/29/16 13:09; Start 07/28/16 at 14:30; Stop 07/29/16 at 14:29 ; Status DC Insulin Aspart (NovoLOG) 0-7 UNITS TIDWMEALS SQ Last administered on 08/01/16 08:02; Start 07/28/16 at 17:00 Dextrose (Dextrose 50%-Water Syringe) 12.5 gm PRN Q15MIN PRN IV SEE COMMENTS; Start 07/28/16 at 16:00 Oxycodone/ Acetaminophen (Percocet 5/325) 1 tab PRN Q6HRS PRN PO PAIN Last administered on 07/29/16 10:56; Start 07/28/16 at 16:00 Polyethylene Glycol (miraLAX PACKET) 17 gm DAILY PO Last administered on 07:56; Start 07/29/16 at 09:00 Bisacodyl (Dulcolax Tab) 10 mg PRN DAILY PRN PO CONSTIPATION; Start 07/28/16 at 21:00 Vitamin B Complex/ Vitamin C (Ronda-Irma) 1 tab DAILY PO Last administered on 07:56; Start 07/29/16 at 09:00 Furosemide (Lasix) 80 mg [id number] PO Last administered on 08/01/16 07:56; Start 07/29/16 at 09:00 Sevelamer Carbonate (Renvela) 400 mg TIDWMEALS PO Last administered on 07:56; Start 07/29/16 at 09:00 Simvastatin (Zocor) 10 mg QHS PO Last administered on 07/31/16 20:14; Start at 21:00 Calcitriol (Rocaltrol) 0.5 mcg DAILY PO Last administered on 08/01/16 07:56; Start 07/29/16 at 09:00 Piperacillin Sod/ Tazobactam Sod 2.25 gm/Sodium Chloride 50 ml @ 100 mls/hr Q8HRS IV Last administered on 08/01/16 05:25; Start 07/29/16 at 10:00 Info (PHARMACY MONITORING -- do not chart) 4 each Q6HRS MC ; Start 07/29/16 at 12:00; Status Cancel Peritoneal Dialysis Solution 2,000 ml @ 500 mls/hr Q4HRS IP Last administered on 07/29/16 12:41; Start 07/29/16 at 12:00; Stop 07/29/16 at 15:12; Status DC Iohexol (Omnipaque 300 Mg/ml) 50 ml STK-MED ONCE .ROUTE ; Start 07/29/16 at 14: 27; Stop 07/29/16 at 14:28; Status DC Iohexol (Omnipaque 300 Mg/ml) 50 ml 1X ONCE INT CAT Last administered on 14:58; Start 07/29/16 at 15:00; Stop 07/29/16 at 15:01; Status DC Morphine Sulfate 2 mg PRN Q4HRS PRN IV SEVERE PAIN Last administered on 02:50; Start 07/29/16 at 15:45 Morphine Sulfate 3 mg PRN Q4HRS PRN IV SEVERE PAIN; Start 07/29/16 at 16:00 Morphine Sulfate 4 mg PRN Q4HRS PRN IV SEVERE PAIN Last administered on 20:15; Start 07/29/16 at 16:00 Morphine Sulfate 5 mg PRN Q4HRS PRN IV SEVERE PAIN; Start 07/29/16 at 16:00 Cefazolin Sodium/ Dextrose 50 ml @ 100 mls/hr 1X PREOP PRN IV prophylaxis Last administered on 07/30/16 15:25; Start 07/30/16 at 06:00; Stop 07/30/16 at 18:00; Status DC Oxycodone/ Acetaminophen (Percocet 5/325) 2 tab PRN Q6HRS PRN PO PAIN Last administered on 07/31/16 18:12; Start 07/29/16 at 18:30 Dexamethasone Sodium Phosphate (Decadron) 20 mg STK-MED ONCE .ROUTE ; Start at 12:21; Stop 07/30/16 at 12:22; Status DC Ondansetron HCl (Zofran) 4 mg STK-MED ONCE .ROUTE ; Start 07/30/16 at 12:21; Stop 07/30/16 at 12:22; Status DC Propofol 20 ml @ As Directed STK-MED ONCE IV ; Start 07/30/16 at 12:21; Stop at 12:22; Status DC Lidocaine HCl (Lidocaine Pf 2% Vial) 5 ml STK-MED ONCE .ROUTE ; Start 07/30/16 at 12:21; Stop 07/30/16 at 12:22; Status DC Midazolam HCl (Versed) 2 mg STK-MED ONCE .ROUTE ; Start 07/30/16 at 12:21; Stop 07/30/16 at 12:22; Status DC Fentanyl Citrate (Fentanyl 2ml Vial) 100 mcg STK-MED ONCE .ROUTE ; Start at 12:22; Stop 07/30/16 at 12:23; Status DC Rocuronium [place] (Zemuron) 50 mg STK-MED ONCE .ROUTE ; Start 07/30/16 at 12:22 ; Stop 07/30/16 at 12:23; Status DC Neomycin/ Polymyxin/ Bacitracin (Triple Antibiotic Ointment) 1 pkt STK-MED ONCE TP ; Start 07/30/16 at 12:54; Stop 07/30/16 at 12:55; Status DC Bupivacaine HCl/ Epinephrine Bitart (Sensorcain-Mpf Epi 0.5%-[id number]) 30 ml STK -MED ONCE .ROUTE Last administered on 07/30/16t 15:31; Start 07/30/16 at 12:54 ; Stop 07/30/16 at 12:55; Status DC Sodium Chloride 1,000 ml @ 30 mls/hr Q24H IV Last administered on 07/31/16t 14 :15; Start 07/30/16 at 14:15 Phenylephrine HCl 1 mg STK-MED ONCE IV ; Start 07/30/16 at 15:24; Stop 07/30/16 at 15:25; Status DC Desflurane (Suprane) 30 ml STK-MED ONCE IH ; Start 07/30/16 at 15:43; Stop 07/30 at 15:44; Status DC Propofol 20 ml @ As Directed STK-MED ONCE IV ; Start 07/30/16 at 15:43; Stop at 15:44; Status DC Lidocaine HCl (Lidocaine Pf 2% Vial) 5 ml STK-MED ONCE .ROUTE ; Start 07/30/16 at 15:43; Stop 07/30/16 at 15:44; Status DC Ondansetron HCl (Zofran) 4 mg STK-MED ONCE .ROUTE ; Start 07/30/16 at 15:43; Stop 07/30/16 at 15:44; Status DC Famotidine (Pepcid) 20 mg STK-MED ONCE .ROUTE ; Start 07/30/16 at 15:44; Stop at 15:45; Status DC Phenylephrine HCl 1 mg STK-MED ONCE IV ; Start 07/30/16 at 15:44; Stop 07/30/16 at 15:45; Status DC Glycopyrrolate (Robinul) 1 mg STK-MED ONCE .ROUTE ; Start 07/30/16 at 15:54; Stop 07/30/16 at 15:55; Status DC Neostigmine Methylsulfate 5 mg STK-MED ONCE .ROUTE ; Start 07/30/16 at 15:56; Stop 07/30/16 at 15:57; Status DC Fentanyl Citrate (Fentanyl 2ml Vial) 100 mcg STK-MED ONCE .ROUTE ; Start at 16:10; Stop 07/30/16 at 16:11; Status DC Prochlorperazine Edisylate (Compazine) 10 mg STK-MED ONCE .ROUTE ; Start at 16:24; Stop 07/30/16 at 16:25; Status DC Fentanyl Citrate (Fentanyl 2ml Vial) 100 mcg STK-MED ONCE .ROUTE ; Start at 16:24; Stop 07/30/16 at 16:25; Status DC Ondansetron HCl (Zofran) 4 mg PRN Q6HRS PRN IV NAUSEA/VOMITING; Start 07/30/16 at 16:30; Stop 07/31/16 at 16:29; Status DC Fentanyl Citrate (Fentanyl 2ml Vial) 25 mcg PRN Q5MIN PRN IV MILD PAIN; Start 07/30/16 at 16:30; Stop 07/31/16 at 16:29; Status DC Fentanyl Citrate (Fentanyl 2ml Vial) 50 mcg PRN Q5MIN PRN IV MODERATE PAIN; Start 07/30/16 at 16:30; Stop 07/31/16 at 16:29; Status DC Morphine Sulfate 1 mg PRN Q10MIN PRN IV SEVERE PAIN; Start 07/30/16 at 16:30; Stop 07/31/16 at 16:29; Status DC Ringer's Solution 1,000 ml @ 0 mls/hr Q0M IV ; Start 07/30/16 at 16:29; Stop at 04:28; Status DC Lidocaine HCl 2 ml PRN 1X PRN ID PRIOR TO IV START; Start 07/30/16 at 16:30; Stop 07/31/16 at 16:29; Status DC Hydromorphone HCl (Dilaudid) 0.5 mg PRN Q10MIN PRN IV SEV PAIN, Second choice; Start 07/30/16 at 16:30; Stop 07/31/16 at 16:29; Status DC Prochlorperazine Edisylate (Compazine) 5 mg PACU PRN PRN IV NAUSEA, MRX1 Last administered on 07/30/16t 16:31; Start 07/30/16 at 16:30; Stop 07/31/16 at 16:29 ; Status DC Heparin Sodium (Porcine) (Heparin Sodium) 10,000 unit STK-MED ONCE .ROUTE ; Start 07/31/16 at 11:01; Stop 07/31/16 at 11:02; Status DC Lidocaine/ Epinephrine (Xylocaine 1%-Epi 1:100,000) 20 ml STK-MED ONCE .ROUTE ; Start 07/31/16 at 11:01; Stop 07/31/16 at 11:02; Status DC Heparin Sodium/ Sodium Chloride 500 ml @ As Directed STK-MED ONCE .ROUTE ; Start 07/31/16 at 11:01; Stop 07/31/16 at 11:02; Status DC Midazolam HCl (Versed) 2 mg STK-MED ONCE .ROUTE ; Start 07/31/16 at 11:26; Stop 07/31/16 at 11:27; Status DC Cefazolin Sodium 50 ml @ As Directed STK-MED ONCE IV ; Start 07/31/16 at 11:26; Stop 07/31/16 at 11:27; Status DC Midazolam HCl (Versed) 2 mg STK-MED ONCE .ROUTE ; Start 07/31/16 at 11:52; Stop 07/31/16 at 11:53; Status DC Heparin Sodium/ Sodium Chloride 1,000 unit 1X ONCE IART Last administered on 12:04; Start 07/31/16 at 12:00; Stop 07/31/16 at 12:01; Status DC Midazolam HCl (Versed) 2.5 mg 1X ONCE IV Last administered on 07/31/16 12:05 ; Start 07/31/16 at 12:00; Stop 07/31/16 at 12:01; Status DC Fentanyl Citrate (Fentanyl 2ml Vial) 100 mcg 1X ONCE IV Last administered on 12:05; Start 07/31/16 at 12:00; Stop 07/31/16 at 12:01; Status DC Cefazolin Sodium 50 ml @ 100 mls/hr 1X ONCE IV Last administered on 12:04; Start 07/31/16 at 12:00; Stop 07/31/16 at 12:29; Status DC Lidocaine/ Epinephrine (Xylocaine 1%-Epi 1:100,000) 8 ml 1X ONCE INJ Last administered on 07/31/16 12:04; Start 07/31/16 at 12:00; Stop 07/31/16 at 12:01 ; Status DC Heparin Sodium (Porcine) (Heparin Sodium) 4,300 unit 1X ONCE INT CAT Last administered on 07/31/16 12:06; Start 07/31/16 at 12:00; Stop 07/31/16 at 12:01 ; Status DC Sodium Chloride 1,000 ml @ 1,000 mls/hr Q1H PRN IV hypotension; Start 07/31/16 at 13:51; Stop 07/31/16 at 19:50; Status DC Acetaminophen (Tylenol) 500 mg 1X PRN PRN PO MILD PAIN / TEMP; Start 07/31/16 at 14:00; Stop 08/01/16 at 13:59 Diphenhydramine HCl (Benadryl) 25 mg 1X PRN PRN IV ITCHING; Start 07/31/16 at 14:00; Stop 08/01/16 at 13:59 Diphenhydramine HCl (Benadryl) 25 mg 1X PRN PRN IV ITCHING; Start 07/31/16 at 14:00; Stop 08/01/16 at 13:59 Labetalol HCl (Normodyne) 10 mg PRN Q1HR PRN IVP SBP > 180; Start 07/31/16 at 14:00; Stop 08/01/16 at 13:59 Info (PHARMACY MONITORING -- do not chart) 1 each PRN DAILY PRN MC SEE COMMENTS ; Start 07/31/16 at 14:00 Active Scripts Active Calcitriol 0.5 Mcg Capsule 1 Cap PO DAILY Reported Nephro-Irma Tablet (Folic Acid/Vitamin B Comp W-C) 0.8 Mg Tablet 1 Tab PO DAILY Lasix (Furosemide) 80 Mg Tablet 1 Tab PO BID Simvastatin 10 Mg Tablet 1 Tab PO QHS Renvela (Sevelamer Carbonate) 800 Mg Tablet 0.5 Tab PO TID Percocet 5-325 Mg Tablet (Oxycodone/Acetaminophen) 1 Each Tablet 1 Tab PO Q4HRS PRN dose taken , next dose may be taken at Vitals/I & O Vital Sign - Last 24 Hours 07/31/16 07/31/16 07/31/16 07/31/16 09:58 10:55 11:56 12:05 Temp 98.0 98.0 Pulse 73 75 Resp 17 20 B/P (MAP) 155/72 (99) Pulse Ox 90 99 95 O2 Delivery Room Air Room Air Nasal Cannula Nasal Cannula O2 Flow Rate 3.0 3.0 07/31/16 07/31/16 07/31/16 07/31/16 12:15 12:30 12:45 15:00 Temp 98.2 98.2 98.2 98.1 98.2 98.2 98.2 98.1 Pulse 78 80 87 76 Resp 18 18 18 18 B/P (MAP) 120/65 (83) 104/44 (64) 116/61 (79) 119/69 (86) Pulse Ox 95 95 96 93 O2 Delivery Room Air Room Air Room Air Room Air 07/31/16 07/31/16 07/31/16 07/31/16 18:12 19:00 20:00 20:15 Temp 98.3 98.3 Pulse 80 Resp 15 22 B/P (MAP) 100/58 (72) Pulse Ox 92 O2 Delivery Room Air Room Air Room Air Room Air 07/31/16 07/31/16 07/31/16 08/01/16 20:16 20:55 23:02 02:37 Temp 98.8 98.6 98.8 98.6 Pulse 69 72 Resp 18 17 18 B/P (MAP) 131/73 (92) 110/58 (75) Pulse Ox 95 93 O2 Delivery Room Air Room Air Room Air Room Air 08/01/16 07:00 Temp 97.9 97.9 Pulse 81 Resp 20 B/P (MAP) 111/69 (83) Pulse Ox 92 O2 Delivery Room Air Intake and Output 07/31/16 07/31/16 08/01/16 15:00 23:00 07:00 Output Total 50 ml Balance -50 ml LAMBERT ORTIZ MD August 01, 2016 08:23
[2016-08-01] MEDS ORDERED: AMOX1TAB61 PO (08:25)
[2016-08-01] MEDS ORDERED: POLY17PO3 PO (08:34)
--- NOTE | 2016-08-01 08:52 | PDOC ---
Infectious Disease Note Subjective Subjective pt feeling good, no abd pain, ROS ROS GEN: Denies fevers, chills, sweats HEENT: Denies blurred vision, sore throat CV: Denies chest pain RESP: Denies shortness of air, cough GI: Denies n/v/d NEURO: Denies confusion, dizziness MSK: Denies weakness, joint pain/swelling Vital Sign Vital Signs Vital Signs Date Time Temp Pulse Resp B/P (MAP) Pulse Ox O2 Delivery O2 Flow Rate FiO2 08/01/16 07:00 97.9 81 20 111/69 (83) 92 Room Air 97.9 07/31/16 12:05 3.0 Physical Exam PHYSICAL EXAM GENERAL: NAD, Alert HEENT: PERRL, OC/OP NECK: Supple, no JVD, no LN LUNGS: Clear HEART: S1S2, no gallop, no murmur ABD: Soft, NT, no organomegaly, no rebound EXT: No edema, no cyanosis DISPLAY DESIGNER: Alert, oriented x 3, no focal neurologic deficit SKIN: No rash IV: ok Labs Lab Laboratory Tests Test 07/31/16 12:48 07/31/16 16:28 07/31/16 20:44 08/01/16 03:50 Glucose (Fingerstick) 186 mg/dL (70-99) 183 mg/dL (70-99) 255 mg/dL (70-99) White Blood Count 8.0 x10^3/uL (4.0-11.0) Red Blood Count 2.63 x10^6/uL (4.30-5.70) Hemoglobin 8.6 g/dL (13.0-17.5) Hematocrit 25.6 % (39.0-53.0) Mean Corpuscular Volume 98 fL (79-100) Mean Corpuscular Hemoglobin 33 pg (25-35) Mean Corpuscular Hemoglobin Concent 34 g/dL (31-37) Red Cell Distribution Width 15.5 % (11.5-14.5) Platelet Count 231 x10^3/uL (140-400) Sodium Level 142 mmol/L (136-145) Potassium Level 3.9 mmol/L (3.5-5.1) Chloride Level 102 mmol/L (98-107) Carbon Dioxide Level 34 mmol/L (21-32) Anion Gap 6 (6-14) Blood Urea Nitrogen 50 mg/dL (8-26) Creatinine 5.1 mg/dL (0.7-1.3) Estimated GFR (Cockcroft-Gault) 13.8 Glucose Level 203 mg/dL (70-99) Calcium Level 8.2 mg/dL (8.5-10.1) Test 08/01/16 07:06 Glucose (Fingerstick) 203 mg/dL (70-99) Objective Assessment Abdominal pain, resolved PD cath mal function vs infection/peritonitis,, s/p removal ESRD DM Chronic lymphedema CHF Plan Plan of Care po augmentin for d/c d/w dr Maxx SANDRA,BRIAN Walton MD August 01, 2016 08:52
[2016-08-01] MEDS: oxyCODONE/APAP 5/325 1 TAB TABLET PO PRN (09:38)
[2016-08-01 10:49] VITALS: BP 116/66
--- NOTE | 2016-08-01 11:49 | PDOC ---
LORENA ARMENDARIZ MARKETING COMMUNICATIONS COORDINATOR 08/01/16 1149: SURGICAL PROGRESS NOTE Subjective feels well plans for discharge today Vital Signs Vital Signs Date Time Temp Pulse Resp B/P (MAP) Pulse Ox O2 Delivery O2 Flow Rate FiO2 08/01/16 10:49 97.8 67 20 116/66 (83) 95 Room Air 97.8 07/31/16 12:05 3.0 I&O Intake and Output 08/01/16 07:00 Output Total 50 ml Balance -50 ml Output Urine Total 50 ml # Voids 3 General: Alert, Oriented X3, Cooperative, No acute distress Abdomen: Soft, Other (incision c/d/i, corinna removed, king intact ) Labs Laboratory Tests Test 07/30/16 16:22 07/30/16 20:06 07/31/16 07:21 07/31/16 12:48 Glucose (Fingerstick) 117 mg/dL (70-99) 219 mg/dL (70-99) 274 mg/dL (70-99) 186 mg/dL (70-99) Test 07/31/16 16:28 07/31/16 20:44 08/01/16 03:50 08/01/16 07:06 Glucose (Fingerstick) 183 mg/dL (70-99) 255 mg/dL (70-99) 203 mg/dL (70-99) White Blood Count 8.0 x10^3/uL (4.0-11.0) Red Blood Count 2.63 x10^6/uL (4.30-5.70) Hemoglobin 8.6 g/dL (13.0-17.5) Hematocrit 25.6 % (39.0-53.0) Mean Corpuscular Volume 98 fL (79-100) Mean Corpuscular Hemoglobin 33 pg (25-35) Mean Corpuscular Hemoglobin Concent 34 g/dL (31-37) Red Cell Distribution Width 15.5 % (11.5-14.5) Platelet Count 231 x10^3/uL (140-400) Sodium Level 142 mmol/L (136-145) Potassium Level 3.9 mmol/L (3.5-5.1) Chloride Level 102 mmol/L (98-107) Carbon Dioxide Level 34 mmol/L (21-32) Anion Gap 6 (6-14) Blood Urea Nitrogen 50 mg/dL (8-26) Creatinine 5.1 mg/dL (0.7-1.3) Estimated GFR (Cockcroft-Gault) 13.8 Glucose Level 203 mg/dL (70-99) Calcium Level 8.2 mg/dL (8.5-10.1) Test 08/01/16 10:09 Glucose (Fingerstick) 196 mg/dL (70-99) Laboratory Tests Test 07/31/16 12:48 07/31/16 16:28 07/31/16 20:44 08/01/16 03:50 Glucose (Fingerstick) 186 mg/dL (70-99) 183 mg/dL (70-99) 255 mg/dL (70-99) White Blood Count 8.0 x10^3/uL (4.0-11.0) Red Blood Count 2.63 x10^6/uL (4.30-5.70) Hemoglobin 8.6 g/dL (13.0-17.5) Hematocrit 25.6 % (39.0-53.0) Mean Corpuscular Volume 98 fL (79-100) Mean Corpuscular Hemoglobin 33 pg (25-35) Mean Corpuscular Hemoglobin Concent 34 g/dL (31-37) Red Cell Distribution Width 15.5 % (11.5-14.5) Platelet Count 231 x10^3/uL (140-400) Sodium Level 142 mmol/L (136-145) Potassium Level 3.9 mmol/L (3.5-5.1) Chloride Level 102 mmol/L (98-107) Carbon Dioxide Level 34 mmol/L (21-32) Anion Gap 6 (6-14) Blood Urea Nitrogen 50 mg/dL (8-26) Creatinine 5.1 mg/dL (0.7-1.3) Estimated GFR (Cockcroft-Gault) 13.8 Glucose Level 203 mg/dL (70-99) Calcium Level 8.2 mg/dL (8.5-10.1) Test 08/01/16 07:06 08/01/16 10:09 Glucose (Fingerstick) 203 mg/dL (70-99) 196 mg/dL (70-99) Problem List Problems Medical Problems: (1) Abdominal pain Status: Acute (2) ESRD (end stage renal disease) on dialysis Status: Acute (3) Fluid overload Status: Acute (4) Peripheral edema Status: Acute Assessment/Plan s/p pd cath removal corinna removed , dcing home FU next week in clinic with Dr Daniel Problems: EZIO DANIEL MD 08/01/16 1204: SURGICAL PROGRESS NOTE Assessment/Plan agree with above f/u next week Problems: LORENA ARMENDARIZ APRN August 01, 2016 11:49 EZIO DANIEL MD August 01, 2016 12:04
--- NOTE | 2016-08-01 12:02 | PDOC ---
Renal-Progress Notes Subjective Notes Notes FEELS WELL History of Present Illness Hx of present illness STABLE Vitals Vitals Vital Signs Date Time Temp Pulse Resp B/P (MAP) Pulse Ox O2 Delivery O2 Flow Rate FiO2 08/01/16 10:49 97.8 67 20 116/66 (83) 95 Room Air 97.8 07/31/16 12:05 3.0 Weight Weight [ ] I.O. Intake and Output Intake and Output 08/01/16 07:00 Output Total 50 ml Balance -50 ml Output Urine Total 50 ml # Voids 3 Labs Labs Laboratory Tests Test 07/31/16 12:48 07/31/16 16:28 07/31/16 20:44 08/01/16 03:50 Glucose (Fingerstick) 186 mg/dL (70-99) 183 mg/dL (70-99) 255 mg/dL (70-99) White Blood Count 8.0 x10^3/uL (4.0-11.0) Red Blood Count 2.63 x10^6/uL (4.30-5.70) Hemoglobin 8.6 g/dL (13.0-17.5) Hematocrit 25.6 % (39.0-53.0) Mean Corpuscular Volume 98 fL (79-100) Mean Corpuscular Hemoglobin 33 pg (25-35) Mean Corpuscular Hemoglobin Concent 34 g/dL (31-37) Red Cell Distribution Width 15.5 % (11.5-14.5) Platelet Count 231 x10^3/uL (140-400) Sodium Level 142 mmol/L (136-145) Potassium Level 3.9 mmol/L (3.5-5.1) Chloride Level 102 mmol/L (98-107) Carbon Dioxide Level 34 mmol/L (21-32) Anion Gap 6 (6-14) Blood Urea Nitrogen 50 mg/dL (8-26) Creatinine 5.1 mg/dL (0.7-1.3) Estimated GFR (Cockcroft-Gault) 13.8 Glucose Level 203 mg/dL (70-99) Calcium Level 8.2 mg/dL (8.5-10.1) Test 08/01/16 07:06 08/01/16 10:09 Glucose (Fingerstick) 203 mg/dL (70-99) 196 mg/dL (70-99) Review of Systems Constitutional: yes: alert, oriented Ears/Nose/Throat: Yes: no symptom reported Eyes: Yes: no symptom reported Pulmonary: Yes no symptom reported Cardiovascular: Yes no symptom reported Gastrointestional: Yes: abdominal pain Musculoskeletal: Yes: muscle stiffness Skin: Yes no symptom reported Psychiatric/Neurological: Yes: no symptom reported Physical Exam General Appearance: no apparent distress Skin: warm Respiratory: bilateral CTA Heart: S1S2 Abdomen: soft, bowel sounds present Extremities: pulses present Neurology: alert Assessment Assessment IMP ESRD NON FUNCTIONING PD CATHETER S/P PD CATHETER REMOVAL ANEMIA LEUCOCYTOSIS ABD PAIN RESOLVED PLAN ANTIBIOTICS PER ID OP HD HAS BEEN SET UP WILL HAVE HIM RESUME PD AT LATER DATE WHEN FEASIBLE OK TO D/C FROM RENAL STANDPOINT TRISHA WEINER MD August 01, 2016 12:02
--- NOTE | 2016-08-01 20:01 | DS ---
DATE OF DISCHARGE: 08/01/2016 CHIEF COMPLAINT: Abdominal pain. HISTORY OF PRESENT ILLNESS: The patient is a 66-year-old male who is on peritoneal dialysis at home for his end-stage renal disease. He presented to the Emergency Room with the above complaint. The patient reported the onset of some mild abdominal pain about 1-2 weeks prior to admission. At first, he attributed some of this discomfort to constipation. He started taking MiraLax daily as he had been advised to do at a recent visit in our office and had good improvement in his constipation with this. However, his abdominal pain worsened. He especially noticed it when he did his peritoneal dialysis, which he continued to do daily as advised. Several days prior to admission, he began to get an error message during his dialysis, saying that the dialysis machine could not withdraw the dialysis fluid. He had increasing abdominal distention and discomfort and so presented to the Emergency Room. Initial evaluation there showed a normal white blood count, a KUB with the injection of contrast showed that the catheter was patent, but there was some mild kinking of the catheter seen. CT of the abdomen and pelvis did not show any focal infection or abnormality. The patient was admitted for further treatment. HOSPITAL COURSE: The patient was seen in consultation by Dr. Howell, Dr. Jason Coto, Dr. Phillips and Dr. Mejia. Upon further testing, it was found that the peritoneal dialysis catheter was not functioning at all and the patient was unable to be dialyzed this way. The patient underwent a diagnostic laparoscopy and removal of the peritoneal dialysis catheter on 07/30/2016. Evidence of peritonitis was seen during that procedure. On the day after admission, the patient's white blood cell count had increased to 17.6, Dr. Jason Coto started him on Zosyn for treatment of presumed acute bacterial peritonitis. No peritoneal fluid was available for culture. The patient quickly improved with the Zosyn and after the removal of the peritoneal catheter. He remained afebrile with stable vital signs. His white blood cell count is now 8.0. The patient had placement of a temporary hemodialysis catheter and underwent hemodialysis yesterday. His lab is improved and arrangements are being made for him to start outpatient hemodialysis on Friday. The patient reports his abdominal pain is much improved and he feels ready to go home. His pain is now controlled with oral pain medication. The patient has a history of mild systolic congestive heart failure, this has been stable with usual Lasix 80 mg twice daily. He has diabetes mellitus type 2, which is basically diet controlled. For him, he has Humalog insulin that he uses rarely at home and he is advised to continue this. He has been taking MiraLax daily and feels that his bowel function has been good with this and he will continue to do this after discharge. He will be discharged home today on Augmentin per Dr. Coto's recommendations. FINAL DIAGNOSES: 1. Acute bacterial peritonitis. 2. End-stage renal disease, on dialysis. 3. Diabetes mellitus type 2. 4. Systolic congestive heart failure. DISCHARGE MEDICATIONS: Augmentin 875 one p.o. b.i.d. x 5 days, calcitriol 0.5 mcg 1 capsule daily, Nephro-Irma 1 daily, furosemide 80 mg b.i.d., Percocet 5/325 one q. 6 hours p.r.n. pain, Renvela 800 mg 1/2 tablet t.i.d., simvastatin 10 mg at bedtime, MiraLax 17 g daily. FOLLOWUP: The patient is to follow up for outpatient dialysis on Friday, follow up with Dr. Ortiz as needed. LAMBERT ORTIZ MD DR: PHUONG/connie JOB#: [id number] / [id number]
== END 2016-08-01 13:02 | disposition home or self-care (01) | DRG 981 ==
LOC: ER 10:00 → 5 SOUTH 13:29
PROVIDERS: ADMIT Family Medicine; ATTEND Family Medicine
PROC: 02H633Z Insertion of Infusion Device into Right Atrium, Percutaneous Approach (ICD-10-PCS; 2016-07-30)
PROC: 5A1D60Z (ICD-10-PCS; 2016-07-30)
PROC: B244ZZZ Ultrasonography of Right Heart (ICD-10-PCS; 2016-07-30)
PROC: 0WPG43Z Removal of Infusion Device from Peritoneal Cavity, Percutaneous Endoscopic Approach (ICD-10-PCS; principal; 2016-07-30 14:00)
DX: T85.611A Breakdown (mechanical) of intraperitoneal dialysis catheter, initial encounter (principal); K65.8 Other peritonitis; N18.6 End stage renal disease; I50.22 Chronic systolic (congestive) heart failure; I13.2 Hypertensive heart and chronic kidney disease with heart failure and with stage 5 chronic kidney disease, or end stage renal disease; E11.22 Type 2 diabetes mellitus with diabetic chronic kidney disease; E78.5 Hyperlipidemia, unspecified; K21.9 Gastro-esophageal reflux disease without esophagitis; K59.00 Constipation, unspecified; J44.9 Chronic obstructive pulmonary disease, unspecified; K76.0 Fatty (change of) liver, not elsewhere classified; E21.3 Hyperparathyroidism, unspecified; B96.89 Other specified bacterial agents as the cause of diseases classified elsewhere; I25.10 Atherosclerotic heart disease of native coronary artery without angina pectoris; I89.0 Lymphedema, not elsewhere classified; D64.9 Anemia, unspecified; K66.0 Peritoneal adhesions (postprocedural) (postinfection); Z96.619 Presence of unspecified artificial shoulder joint; Z90.2 Acquired absence of lung [part of]; Z90.49 Acquired absence of other specified parts of digestive tract; Z99.2 Dependence on renal dialysis; Z79.82 Long term (current) use of aspirin; Z79.4 Long term (current) use of insulin; Z79.891 Long term (current) use of opiate analgesic; Z79.899 Other long term (current) drug therapy; Z87.891 Personal history of nicotine dependence; Z95.1 Presence of aortocoronary bypass graft
CPT/HCPCS: 36415; 36558; 49400; 74000; 74176; 74190; 76937; 77001; 80048; 80053; 82550; 82947; 83690; 83735; 83880; 85007; 85027; 85610; 85730; 87641; 96374; 96375; 96376; A4215; C1713; C1750; C1769; C1892; J0690; J0780; J1100; J1170; J1815; J2250; J2270; J2370; J2405; J2543; J2704; J2710; J3010; J3490; J7030; J7120; Q9966; Q9967; S0028; 99285-25

== ENCOUNTER 2016-09-02 06:32 | Day surgery (SDC) | payer BC ==
[~2016-09-02] VITALS: Ht 175.3 cm; Wt 113.9 kg
[~2016-09-02 06:32] MED LIST changes: +CALC0.5C PO; +FOLI0.8T3 PO; +FURO80TA72 PO; +HEPARIN SODIUM 5,000 UNIT in IV NORMAL SALINE 500ML BAG 500 ML IRR ONE; +POLY17PO3 PO; +SEVE800T9 PO
[2016-09-02] MEDS ORDERED: LIDOCAINE 1% 1 ML SYRINGE. ID PRN (07:00)
[2016-09-02] MEDS ORDERED: fentaNYL PF VIAL 100 MCG/2 ML VIAL IV PRN (07:00)
[2016-09-02] MEDS ORDERED: MORPHINE SULFATE 2 MG/ML DISP.SYRIN. IV PRN (07:00)
[2016-09-02] MEDS ORDERED: ONDANSETRON PF 4 MG/2 ML VIAL. IV PRN (07:00)
[2016-09-02] MEDS ORDERED: PROCHLORPERAZINE 10 MG/2 ML VIAL. IV PRN (07:00)
[2016-09-02] MEDS ORDERED: HYDROmorphone 2 MG/ML VIAL IV PRN (07:00)
[2016-09-02] MEDS ORDERED: IV RINGERS,LACTATED 1000ML 1,000 ML IV SCH (07:00)
[2016-09-02] MEDS ORDERED: NEOMY/BACITR/POLYMYXIN OINT PACKET. TP ONE (07:10)
[2016-09-02] MEDS ORDERED: BUPIVACAINE-EPI 0.5%-1:200000 50 ML VIAL. ONE (07:11)
[2016-09-02] MEDS ORDERED: LIDOCAINE 2% PF Vial for OR 5 ML VIAL. ONE (07:30)
[2016-09-02] MEDS ORDERED: DESFLURANE 61 TO 120 MINUTES IH ONE (07:30)
[2016-09-02] MEDS ORDERED: PROPOFOL 20 ML IV ONE (07:30)
[2016-09-02] MEDS ORDERED: ONDANSETRON PF 4 MG/2 ML VIAL. ONE (07:30)
[2016-09-02] MEDS ORDERED: DEXAMETHASONE SOD PHOS 20 MG/5 ML VIAL. ONE (07:30)
[2016-09-02] MEDS ORDERED: fentaNYL PF VIAL 100 MCG/2 ML VIAL ONE (07:31)
[2016-09-02] MEDS ORDERED: MIDAZOLAM HCL/PF 2 MG/2 ML VIAL. ONE (07:31)
[2016-09-02] MEDS ORDERED: ROCURONIUM 50 MG/5 ML VIAL. ONE (07:31)
[2016-09-02 07:48] LABS: ALBUMIN 3.5 g/dL (3.4-5.0); CALCIUM 8.9 mg/dL (8.5-10.1); CREATININE 4.1 mg/dL (0.7-1.3); GFR 17.7; POTASSIUM 4.1 mmol/L (3.5-5.1)
[2016-09-02 08:08] LABS: BASO # 0.1 x10^3/uL (0.0-0.2); BASO % 1 % (0-3); EOS % 2 % (0-3); HEMATOCRIT 29.9 % (39.0-53.0); HEMOGLOBIN 9.9 g/dL (13.0-17.5); LYMPH % 22 % (24-48); MEAN CORPUSCULAR HEMOGLOBIN 33 pg (25-35); MEAN CORPUSCULAR HGB CONC 33 g/dL (31-37); MEAN CORPUSCULAR VOLUME 101 fL (79-100); MONO % 9 % (0-9); NEUT % 66 % (31-73); RED BLOOD COUNT 2.97 x10^6/uL (4.30-5.70); RED CELL DISTRIBUTION WIDTH 17.4 % (11.5-14.5); WHITE BLOOD COUNT 9.1 x10^3/uL (4.0-11.0)
[2016-09-02 08:43] LABS: PLATELET COUNT 132 x10^3/uL (140-400)
[2016-09-02] MEDS ORDERED: NEOSTIGMINE 10 MG/10 ML VIAL. ONE (08:51)
[2016-09-02] MEDS ORDERED: GLYCOPYRROLATE 1 MG/5 ML VIAL. ONE (08:51)
[2016-09-02] MEDS ORDERED: IV NORMAL SALINE 1000ML BAG 1,000 ML IV SCH (09:30)
[2016-09-02] MEDS: fentaNYL PF VIAL 100 MCG/2 ML VIAL IV PRN ×2 (09:32→09:40)
--- NOTE | 2016-09-02 09:39 | PDOC ---
BRIEF OPERATIVE NOTE Date: Sep 02, 2016 Pre-Op Diagnosis ESRD Post-Op Diagnosis same with abdominal adhesions Procedure Performed l/s placement of PD catheter, LILLY Surgeon Alan Anesthesia Type: General Blood Loss 10cc IV Fluid 800cc Findings adhesions Complications none Additional Remarks # [id number] EZIO DANIEL MD Sep 02, 2016 09:39
--- NOTE | 2016-09-02 09:40 | DISCH ---
DISCHARGE INSTRUCTIONS Condition on Discharge Condition on Discharge: Stable Activity After Discharge Activity Instructions for Disc: Activity as tolerated, Avoid exertion Driving Instructions after Dis: Do not drive today Diet after Discharge Diet after Discharge: Renal Dialysis Wound Incision Care Wound/Incision Care: Ice to area for comfort, Do not change dressing Follow-Up Follow up with: Alan, two weeks EZIO DANIEL MD Sep 02, 2016 09:40
[2016-09-02] MEDS ORDERED: oxyCODONE/APAP 5/325 1 TAB TABLET PO ONE (10:15)
[2016-09-02 10:35] VITALS: BP 154/83
--- NOTE | 2016-09-02 23:16 | OP ---
DATE OF SURGERY: 09/02/2016 PREOPERATIVE DIAGNOSIS: End-stage renal disease, on dialysis. POSTOPERATIVE DIAGNOSIS: End-stage renal disease, on dialysis. PROCEDURE: Laparoscopic placement of peritoneal dialysis catheter and lysis of adhesions. SURGEON: Jose Enrique Daniel MD ANESTHESIA: General endotracheal. ESTIMATED BLOOD LOSS: 10 mL. IV FLUID: 800. INDICATIONS: The patient is a 66-year-old with end-stage renal disease, on hemodialysis after being on peritoneal dialysis for developing peritonitis. He is brought for placement of the catheter. OPERATIVE FINDINGS: There were filmy adhesions present, which were taken down with careful cautery and blunt dissection. DESCRIPTION OF PROCEDURE: The patient brought to the operating suite, given a general endotracheal anesthetic and the abdomen prepped and draped in usual sterile fashion. An epigastric incision was infiltrated with local anesthetic, incised and a 5 mm Visiport used to gain access into the abdominal cavity, taking care to avoid injury to abdominal contents. Pneumoperitoneum was established. Camera inserted. The old access site was used for placement of a 5 mm port under direct vision after infiltrating with local anesthetic. This allowed takedown of adhesions with careful blunt and cautery dissection, avoiding injury to the adjacent bowel. New insertion site was selected above the prior site, infiltrated with local anesthetic, incised and the Cook needle passed into the abdominal cavity under direct vision. The dilators were passed and then the catheter was inserted into the right lower quadrant under direct vision and the Dacron cuff was seated in the abdominal wall musculature. Sheath removed and the catheter was tunneled superolaterally ____ access site. The catheter was then flushed with approximately 500 mL of normal saline, which he radially accepted. A similar amount drained to gravity. The catheter was "packed" with heparinized saline. Skin incisions closed with king. Sterile dressings applied. The patient was awakened from his anesthetic and taken to the recovery room in satisfactory condition. JOSE ENRIQUE DANIEL MD DR: FABIEN/connie JOB#: [id number] / [id number]
== END 2016-09-02 10:57 | disposition home or self-care (01) ==
LOC: SURG 06:32
PROVIDERS: ATTEND Surgery
DX: E11.22 Type 2 diabetes mellitus with diabetic chronic kidney disease (principal); I13.2 Hypertensive heart and chronic kidney disease with heart failure and with stage 5 chronic kidney disease, or end stage renal disease; I50.9 Heart failure, unspecified; N18.6 End stage renal disease; Z99.2 Dependence on renal dialysis; Z98.42 Cataract extraction status, left eye; I25.10 Atherosclerotic heart disease of native coronary artery without angina pectoris; E78.00 Pure hypercholesterolemia, unspecified; I82.409 Acute embolism and thrombosis of unspecified deep veins of unspecified lower extremity; J44.9 Chronic obstructive pulmonary disease, unspecified; J45.909 Unspecified asthma, uncomplicated; D64.9 Anemia, unspecified; E21.5 Disorder of parathyroid gland, unspecified; Z87.01 Personal history of pneumonia (recurrent); Z86.39 Personal history of other endocrine, nutritional and metabolic disease; Z86.14 Personal history of Methicillin resistant Staphylococcus aureus infection; Z91.041 Radiographic dye allergy status
CPT/HCPCS: 36415; 49324; 80048; 82040; 82962; 85027; C1769; J0690; J1100; J2250; J2405; J2704; J2710; J3010; J3490; J7030; J7040

== ENCOUNTER → 2016-10-14 | Outpatient (CLI) | payer BC ==
[~2016-10-14] MED LIST changes: +CONTRAST GIVEN MC PRN; -HEPARIN SODIUM 5,000 UNIT in IV NORMAL SALINE 500ML BAG 500 ML IRR ONE; +IOHEXOL 240 MG/ML 50ML VIAL. IJ ONE; +IOHEXOL 240 MG/ML 50ML VIAL. ONE; +IOHEXOL 300 MG/ML 50 ML VIAL. INT CAT ONE
--- NOTE | 2016-10-14 15:32 | RAD ---
Attempted fluoroscopic manipulation of peritoneal dialysis catheter 10/14/2016 Indication: Nonfunctional catheter Discussion: Informed consent was obtained. A timeout procedure was performed. The abdomen was prepped and draped using sterile barrier technique. Fluoroscopic evaluation demonstrates the peritoneal dialysis catheter to have its tip coiled in the right lower quadrant, slightly superior in location. Contrast was administered through the catheter which appeared mildly loculated around the distal catheter, but then flowed freely into the peritoneum. Guidewire manipulation of the catheter position was attempted, but was unsuccessful. The catheter was flushed with saline. No immediate complications were identified. Fluoroscopy time: None 3.9 minutes Dose area product 33 Gycm2 Impression: Catheter tip in the right lower quadrant, somewhat high in position. Attempts to manipulate catheter position were unsuccessful. Mild loculation of contrast surrounding the distal catheter noted.
== END | disposition home or self-care (01) ==
LOC: INTRAD 14:07
PROVIDERS: ATTEND Surgery
DX: T85.611A Breakdown (mechanical) of intraperitoneal dialysis catheter, initial encounter (principal); Y84.8 Other medical procedures as the cause of abnormal reaction of the patient, or of later complication, without mention of misadventure at the time of the procedure; Z98.42 Cataract extraction status, left eye; E11.42 Type 2 diabetes mellitus with diabetic polyneuropathy; J44.9 Chronic obstructive pulmonary disease, unspecified; J45.909 Unspecified asthma, uncomplicated; I25.10 Atherosclerotic heart disease of native coronary artery without angina pectoris; E78.00 Pure hypercholesterolemia, unspecified; I10 Essential (primary) hypertension; Z87.39 Personal history of other diseases of the musculoskeletal system and connective tissue; Z86.718 Personal history of other venous thrombosis and embolism; Z86.14 Personal history of Methicillin resistant Staphylococcus aureus infection; Z91.041 Radiographic dye allergy status; Z83.3 Family history of diabetes mellitus
CPT/HCPCS: 49400; 74190; A4215; C1769; Q9966

== ENCOUNTER 2016-10-31 06:18 | Day surgery (SDC) | payer BC ==
[~2016-10-31] VITALS: Ht 175.3 cm; Wt 117.0 kg
[~2016-10-31 06:18] MED LIST changes: -CONTRAST GIVEN MC PRN; +HEPARIN SODIUM 5,000 UNIT in IV NORMAL SALINE 500ML BAG 500 ML IRR ONE; +INSU100C4 SQ; -IOHEXOL 240 MG/ML 50ML VIAL. IJ ONE; -IOHEXOL 240 MG/ML 50ML VIAL. ONE; -IOHEXOL 300 MG/ML 50 ML VIAL. INT CAT ONE; +ceFAZolin 2GM PREMIX 2 GM/50 ML BAG IV ONE
[2016-10-31] MEDS ORDERED: MORPHINE SULFATE 2 MG/ML DISP.SYRIN. IV PRN (07:00)
[2016-10-31] MEDS ORDERED: IV RINGERS,LACTATED 1000ML 1,000 ML IV SCH (07:00)
[2016-10-31] MEDS ORDERED: LIDOCAINE 1% 1 ML SYRINGE. ID PRN (07:00)
[2016-10-31] MEDS ORDERED: HYDROmorphone 2 MG/ML VIAL IV PRN (07:00)
[2016-10-31] MEDS ORDERED: fentaNYL PF VIAL 100 MCG/2 ML VIAL IV PRN (07:00)
[2016-10-31] MEDS ORDERED: ONDANSETRON PF 4 MG/2 ML VIAL. IV PRN (07:00)
[2016-10-31] MEDS ORDERED: PROCHLORPERAZINE 10 MG/2 ML VIAL. IV PRN (07:00)
[2016-10-31 07:12] LABS: BASO % 0 % (0-3); EOS % 2 % (0-3); HEMATOCRIT 28.6 % (39.0-53.0); HEMOGLOBIN 9.6 g/dL (13.0-17.5); LYMPH # 1.6 x10^3/uL (1.0-4.8); LYMPH % 23 % (24-48); MEAN CORPUSCULAR HEMOGLOBIN 34 pg (25-35); MEAN CORPUSCULAR HGB CONC 34 g/dL (31-37); MEAN CORPUSCULAR VOLUME 101 fL (79-100); MONO % 10 % (0-9); NEUT % 64 % (31-73); PLATELET COUNT 176 x10^3/uL (140-400); RED BLOOD COUNT 2.83 x10^6/uL (4.30-5.70); RED CELL DISTRIBUTION WIDTH 14.5 % (11.5-14.5)
[2016-10-31] MEDS ORDERED: IV NORMAL SALINE 1000ML BAG 1,000 ML IV SCH (07:30)
[2016-10-31 07:31] LABS: ALBUMIN 3.6 g/dL (3.4-5.0); CALCIUM 9.2 mg/dL (8.5-10.1); CREATININE 5.6 mg/dL (0.7-1.3); GFR 12.4; POTASSIUM 4.3 mmol/L (3.5-5.1)
[2016-10-31] MEDS ORDERED: LIDOCAINE 2% PF Vial for OR 5 ML VIAL. ONE (07:44)
[2016-10-31] MEDS ORDERED: PROPOFOL 20 ML IV ONE (07:44)
[2016-10-31] MEDS ORDERED: ROCURONIUM 100 MG/10 ML VIAL. ONE (07:45)
[2016-10-31] MEDS ORDERED: fentaNYL PF VIAL 100 MCG/2 ML VIAL ONE ×2 (07:45→09:48)
[2016-10-31] MEDS ORDERED: NEOSTIGMINE 10 MG/10 ML VIAL. ONE (08:12)
[2016-10-31] MEDS ORDERED: GLYCOPYRROLATE 1 MG/5 ML VIAL. ONE (08:13)
[2016-10-31] MEDS ORDERED: BUPIVAC MPF-EPI 0.5%-1:200000 30 ML VIAL. ONE ×2 (08:31→08:32)
[2016-10-31] MEDS ORDERED: NEOMY/BACITR/POLYMYXIN OINT PACKET. TP ONE (08:31)
[2016-10-31] MEDS ORDERED: DESFLURANE 16 TO 30 MINUTES. IH ONE (08:54)
[2016-10-31] MEDS ORDERED: ONDANSETRON PF 4 MG/2 ML VIAL. ONE (08:54)
[2016-10-31] MEDS ORDERED: DEXAMETHASONE SOD PHOS 20 MG/5 ML VIAL. ONE (08:54)
--- NOTE | 2016-10-31 09:45 | DISCH ---
DISCHARGE INSTRUCTIONS Condition on Discharge Condition on Discharge: Stable Activity After Discharge Activity Instructions for Disc: Activity as tolerated, Avoid exertion Lifting Instructions after Dis: No heavy lifting Driving Instructions after Dis: Do not drive today Diet after Discharge Diet after Discharge: Renal Dialysis Wound Incision Care Wound/Incision Care: Ice to area for comfort, Keep wound/cast CDI Follow-Up Follow Up With: Alan in two weeks EZIO DANIEL MD Oct 31, 2016 09:45
--- NOTE | 2016-10-31 09:53 | PDOC ---
BRIEF OPERATIVE NOTE Date: Oct 31, 2016 Pre-Op Diagnosis ESRD, malfunctioning PD catheter Post-Op Diagnosis same 2/2 fibrin clot in distal catheter Procedure Performed l/s repositioning PD catheter, LILLY Surgeon Alan Anesthesia Type: General Blood Loss 5cc IV Fluid 500cc Urine Output 200cc Specimens Obtained catheter contents Findings tip in RLQ between small bowel and abdominal wall with a fibrous/blood clot in the pig-tail Complications none OPerative Note Wk # [id number] EZIO DANIEL MD Oct 31, 2016 09:53
[2016-10-31] MEDS: fentaNYL PF VIAL 100 MCG/2 ML VIAL IV PRN ×2 (09:57→10:06)
[2016-10-31] MEDS ORDERED: oxyCODONE/APAP 5/325 1 TAB TABLET PO ONE (10:00)
--- NOTE | 2016-10-31 10:37 | OP ---
DATE OF SURGERY: 10/31/2016 PREOPERATIVE DIAGNOSIS: End-stage renal disease with malfunctioning peritoneal dialysis catheter. POSTOPERATIVE DIAGNOSIS: End-stage renal disease with malfunctioning peritoneal dialysis catheter secondary to fibrinous/blood clot in the distal catheter. PROCEDURE: Laparoscopic reposition of PD catheter and lysis of adhesions. SURGEON: Ezio Daniel MD ANESTHESIA: General endotracheal. BLOOD LOSS: 5 mL. IV FLUID: 500 mL. URINE OUTPUT: 200 mL. INDICATIONS: The patient is a 66-year-old end-stage renal patient previously on peritoneal dialysis; however, his catheter stopped functioning properly. He was temporarily changed to hemodialysis. He is brought today for evaluation of his catheter. OPERATIVE FINDINGS: The distal catheter was contained between some small bowel and the right lower quadrant abdominal wall. The pigtail contained a fibrinous/blood clot. OPERATIVE REPORT: The patient brought to the operating suite, given a general endotracheal anesthetic. Banda catheter placement and drainage and the abdomen prepped and draped in usual sterile fashion. A right upper quadrant skin incision was infiltrated with local anesthetic, sharply incised and a 5 mm Visiport used to gain access into the abdominal cavity, taking care to avoid injury to abdominal contents. Pneumoperitoneum was established. Camera inserted and inspection carried out with results as noted above. Under direct vision, a left lower quadrant port was placed after infiltrating with local anesthetic. This allowed an atraumatic grasper to be used to free the catheter and take down some adhesions between the small bowel and the abdominal wall. The clot was retrieved and passed off as a specimen. Catheter flushed easily under direct vision. Pneumoperitoneum was released. The catheter was flushed with normal saline, which received readily under a minute and a half 500 mL. Similar amount drained to dependent drainage. Ports were removed and the port incisions were closed with interrupted 3-0 Vicryl in the subcutaneous tissue and 4-0 nylon in the skin. The catheter was "packed" with 60 mL of heparinized saline. Sterile dressings applied. Banda catheter removed. The patient was awakened from his anesthetic and taken to the recovery room in satisfactory condition. EZIO DANIEL MD DR: FABIEN/connie JOB#: [id number] / [id number]
[2016-10-31 10:46] VITALS: BP 136/71
--- NOTE | 2016-11-01 17:14 | PATHOLOGY ---
PATHOLOGY REPORT * * * * * * * * FINAL DIAGNOSIS: Peritoneal dialysis catheter contents: - Organizing blood clot. (JPM:mgr; 11/01/2016) REPORT ELECTRONICALLY SIGNED BY: Brian Abebe M.D. DATE/TIME: 11/01/2016 17:14 * * * * * * * * GROSS PATHOLOGY: The specimen is received in formalin, designated "Mark Rodas, contents of peritoneal dialysis catheter" and consists of a long, cylindrical segment of apparent pink bejarano to dark reddish purple blood clot, measuring 10 cm in length and 0.4 cm in diameter. The specimen is submitted in toto in cassette A1. (JPM; 10/31/16) INITIAL CPT CODE(S): A; 60621 Professional services performed by [facility] [place] [address] Technical services performed by [facility] at [address] [place] [address]. SPECIMEN(S) RECEIVED: A.Contents of peritoneal dialysis catheter CLINICAL HISTORY: End stage renal disease, malfunctioning PD cath PATIENT: MARK RODAS E /AGE: 12 1950 (Age: 66) PATIENT #: [id number] ALT CASE #: SPECIMEN COLLECTION DATE: 10/31/2016 SPECIMEN RECEIVED DATE: 10/31/2016 [facility] - [address] [place] [address] - PHONE: [phone] * * * END OF REPORT * * *
== END 2016-10-31 11:18 | disposition home or self-care (01) ==
LOC: SURG 06:18
PROVIDERS: ATTEND Surgery
DX: I13.2 Hypertensive heart and chronic kidney disease with heart failure and with stage 5 chronic kidney disease, or end stage renal disease (principal); E11.22 Type 2 diabetes mellitus with diabetic chronic kidney disease; N18.6 End stage renal disease; I50.9 Heart failure, unspecified; Y84.8 Other medical procedures as the cause of abnormal reaction of the patient, or of later complication, without mention of misadventure at the time of the procedure; T85.611A Breakdown (mechanical) of intraperitoneal dialysis catheter, initial encounter; Z99.2 Dependence on renal dialysis; J44.9 Chronic obstructive pulmonary disease, unspecified; D64.9 Anemia, unspecified; Z98.42 Cataract extraction status, left eye; Z86.718 Personal history of other venous thrombosis and embolism; Z87.01 Personal history of pneumonia (recurrent); Z86.14 Personal history of Methicillin resistant Staphylococcus aureus infection
CPT/HCPCS: 36415; 49325; 80048; 82040; 82962; 85025; C1769; J0690; J1100; J1644; J2405; J2704; J2710; J3010; J3490; J7030; J7040; J2001

== ENCOUNTER 2017-04-14 04:57 | Inpatient (IN) | payer BC ==
[2017-04-14] MEDS: fentaNYL PF VIAL 100 MCG/2 ML VIAL IV ×5 (05:45→20:43)
[2017-04-14] MEDS: ASPIRIN CHEWABLE 81 MG TABLET. PO (05:45)
[2017-04-14 05:46] LABS: ADD MAN DIFF? NO
[2017-04-14 05:52] LABS: TROPONIN BY ISTAT 0.07 ng/ml (<0.08)
[2017-04-14 05:56] LABS: BASO % 0 % (0-3); EOS # 0.2 x10^3/uL (0.0-0.7); EOS % 2 % (0-3); HEMATOCRIT 21.5 % (39.0-53.0); LYMPH # 0.8 x10^3/uL (1.0-4.8); LYMPH % 7 % (24-48); MEAN CORPUSCULAR HEMOGLOBIN 32 pg (25-35); MEAN CORPUSCULAR HGB CONC 32 g/dL (31-37); MEAN CORPUSCULAR VOLUME 99 fL (79-100); MONO # 0.9 x10^3/uL (0.0-1.1); MONO % 8 % (0-9); NEUT # 9.4 x10^3uL (1.8-7.7); NEUT % 83 % (31-73); PLATELET COUNT 217 x10^3/uL (140-400); RED BLOOD COUNT 2.17 x10^6/uL (4.30-5.70); RED CELL DISTRIBUTION WIDTH 19.4 % (11.5-14.5); WHITE BLOOD COUNT 11.4 x10^3/uL (4.0-11.0)
[2017-04-14] MEDS ORDERED: ONDANSETRON PF 4 MG/2 ML VIAL. IV (06:00)
[2017-04-14 06:08] LABS: HEMOGLOBIN 6.9 g/dL (13.0-17.5)
[2017-04-14 06:14] LABS: NT-PRO BNP 15824 pg/mL (0-124)
[2017-04-14 06:24] LABS: INR 1.1 (0.8-1.1); PARTIAL THROMBOPLASTIN TIME 32 SEC (24-38); PROTHROMBIN TIME PATIENT 13.8 SEC (11.7-14.0)
[2017-04-14 06:56] LABS: AGAP ISTAT 16 mmol/L (6-14); BUN ISTAT 44 mg/dL (8-26); CHLORIDE ISTAT 101 mmol/L (98-110); CREATININE ISTAT 5.8 mg/dL (0.5-1.4); GLUCOSE ISTAT 150 mg/dL (70-99); HEMATOCRIT ISTAT 21 % (37-52); HEMOGLOBIN ISTAT 7.1 g/dL (14-18); ION CA ISTAT 1.09 mmol/L (1.13-1.32); POTASSIUM ISTAT 3.5 mmol/L (3.5-5.0); SODIUM ISTAT 142 mmol/L (135-145); TOT CO2 ISTAT 28 mmol/L (23-32)
[2017-04-14 08:12] LABS: POC GLUCOSE 173 mg/dL (70-99)
[2017-04-14] MEDS ORDERED: CALCIUM CARBONATE 500 MG TAB.CHEW PO (09:30)
[2017-04-14] MEDS: PANTOPRAZOLE 40 MG TABLET.DR. PO ×2 (10:00→17:04)
[2017-04-14] MEDS: FUROSEMIDE 80 MG TABLET. PO ×2 (10:00→17:04)
[2017-04-14 11:28] LABS: POC GLUCOSE 147 mg/dL (70-99)
[2017-04-14] MEDS ORDERED: DEXTROSE 50% 25 GM / 50ML DISP.SYRIN. IV (11:45)
[2017-04-14] MEDS ORDERED: MAGNESIUM SULFATE 2GM 50 ML IV (11:45)
[2017-04-14] MEDS: INSULIN ASPART 300 UNITS/3 ML INSULN.PEN SQ ×2 (12:00→17:09)
[2017-04-14 12:57] LABS: TROPONINI 0.827 ng/mL (0.000-0.055)
[2017-04-14] MEDS ORDERED: LIDO:MAALOX:DONNATAL 1:1:1 15 ML SINGLE DOSE SWSW (13:00)
[2017-04-14 13:15] LABS: RETIC COUNT 0.6 % (0.5-2.5)
[2017-04-14 14:04] LABS: % SAT IRON 9 % (15-34); IRON,SERUM 17 ug/dL (65-175)
[2017-04-14 14:24] LABS: TROPONINI 0.127 ng/mL (0.000-0.055)
[2017-04-14 14:38] LABS: FOLATE 13.12 ng/ml (3.2-20.0)
[2017-04-14 14:38] LABS: VITAMIN-B12 736 pg/mL (247-911)
[2017-04-14 16:55] LABS: POC GLUCOSE 235 mg/dL (70-99)
[2017-04-14] MEDS: ASPIRIN ENTERIC COATED 81 MG TABLET.DR. PO (17:03)
[2017-04-14] MEDS: FOLIC/VIT B COMP W-C (RENAL) TABLET. PO (17:04)
[2017-04-14] MEDS: CALCITRIOL 0.25 MCG CAPSULE. PO (17:04)
[2017-04-14] MEDS: SEVELAMER CARBONATE 800 MG TABLET. PO ×2 (17:04→20:45)
[2017-04-14] MEDS: POLYETHYLENE GLYCOL 3350 17 GM PACKET. PO (17:04)
[2017-04-14] MEDS: ceFAZolin SODIUM IV Push 1 GM VIAL. IVP (17:05)
[2017-04-14 18:37] LABS: TROPONINI 1.721 ng/mL (0.000-0.055)
[2017-04-14 20:23] LABS: POC GLUCOSE 171 mg/dL (70-99)
[2017-04-14] MEDS: HEPARIN 25,000UTS/500ML PREMIX 500 ML IV (20:34)
[2017-04-14] MEDS: SIMVASTATIN 10 MG TABLET PO (20:46)
[2017-04-14] MEDS: DARBEPOETIN ALFA 100 MCG/0.5 ML DISP.SYRIN. SQ (20:47)
[2017-04-15 02:33] LABS: ADD MAN DIFF? NO
[2017-04-15 02:37] LABS: BASO % 0 % (0-3); EOS # 0.2 x10^3/uL (0.0-0.7); EOS % 2 % (0-3); LYMPH # 1.1 x10^3/uL (1.0-4.8); LYMPH % 14 % (24-48); MEAN CORPUSCULAR HEMOGLOBIN 33 pg (25-35); MEAN CORPUSCULAR HGB CONC 34 g/dL (31-37); MEAN CORPUSCULAR VOLUME 98 fL (79-100); MONO # 0.8 x10^3/uL (0.0-1.1); MONO % 10 % (0-9); NEUT # 5.8 x10^3uL (1.8-7.7); NEUT % 74 % (31-73); PLATELET COUNT 190 x10^3/uL (140-400); RED BLOOD COUNT 1.93 x10^6/uL (4.30-5.70); RED CELL DISTRIBUTION WIDTH 19.5 % (11.5-14.5); WHITE BLOOD COUNT 7.9 x10^3/uL (4.0-11.0)
[2017-04-15 02:47] LABS: UNFRACTIONATED HEPARIN TESTING 0.13 IU/mL (0.30-0.70)
[2017-04-15 02:53] LABS: ALBUMIN 2.5 g/dL (3.4-5.0); ANION GAP 7 (6-14); BLOOD UREA NITROGEN 33 mg/dL (8-26); CALCIUM 8.4 mg/dL (8.5-10.1); CARBON DIOXIDE 32 mmol/L (21-32); CHLORIDE 99 mmol/L (98-107); CREATININE 3.7 mg/dL (0.7-1.3); GFR 19.9; GLUCOSE 118 mg/dL (70-99); MAGNESIUM 2.3 mg/dL (1.8-2.4); PHOSPHORUS 2.8 mg/dL (2.6-4.7); POTASSIUM 3.3 mmol/L (3.5-5.1); SODIUM 138 mmol/L (136-145)
[2017-04-15] MEDS: HEPARIN for IV BOLUS 10,000 UNIT/10 ML VIAL. IV (03:31)
[2017-04-15 04:08] LABS: HEMATOCRIT 18.9 % (39.0-53.0); HEMOGLOBIN 6.4 g/dL (13.0-17.5)
[2017-04-15] MEDS: oxyCODONE/APAP 5/325 1 TAB TABLET PO ×3 (06:18→19:57)
[2017-04-15 07:28] LABS: POC GLUCOSE 126 mg/dL (70-99)
[2017-04-15] MEDS: PANTOPRAZOLE 40 MG TABLET.DR. PO ×2 (07:30→15:36)
[2017-04-15] MEDS: INSULIN ASPART 300 UNITS/3 ML INSULN.PEN SQ ×3 (08:00→17:26)
[2017-04-15 08:30] LABS: TROPONINI 1.398 ng/mL (0.000-0.055)
[2017-04-15] MEDS: SEVELAMER CARBONATE 800 MG TABLET. PO ×3 (09:00→22:07)
[2017-04-15] MEDS: FUROSEMIDE 80 MG TABLET. PO ×2 (09:00→15:36)
[2017-04-15] MEDS ORDERED: ceFAZolin SODIUM 1 GM in IV DEXTROSE 5% 50 ML IV (09:00)
[2017-04-15 10:21] LABS: UNFRACTIONATED HEPARIN TESTING 0.21 IU/mL (0.30-0.70)
[2017-04-15 11:04] LABS: POC GLUCOSE 120 mg/dL (70-99)
[2017-04-15] MEDS: REGADENOSON 0.4 MG/5 ML DISP.SYRIN. IV (11:47)
[2017-04-15] MEDS: FOLIC/VIT B COMP W-C (RENAL) TABLET. PO (12:36)
[2017-04-15] MEDS: CALCITRIOL 0.25 MCG CAPSULE. PO (12:36)
[2017-04-15] MEDS: ASPIRIN ENTERIC COATED 81 MG TABLET.DR. PO (12:36)
[2017-04-15] MEDS: POTASSIUM CHLORIDE 20 MEQ TABLET.ER. PO (12:37)
[2017-04-15] MEDS: POLYETHYLENE GLYCOL 3350 17 GM PACKET. PO (12:37)
[2017-04-15] MEDS: IRON SUCROSE COMPLEX 200 MG in IV NORMAL SALINE 100ML 100 ML IV (13:12)
[2017-04-15] MEDS: ceFAZolin SODIUM IV Push 1 GM VIAL. IVP (15:36)
[2017-04-15 20:32] LABS: POC GLUCOSE 148 mg/dL (70-99)
[2017-04-15 20:32] LABS: POC GLUCOSE 249 mg/dL (70-99)
[2017-04-15] MEDS: SIMVASTATIN 10 MG TABLET PO (22:07)
[2017-04-15] MEDS: LACTOBACILLUS RHAMNOSUS GG 1 CAPSULE. PO (22:08)
[2017-04-16] MEDS: MORPHINE SULFATE 4 MG/ML DISP.SYRIN. IV ×4 (00:37→21:52)
[2017-04-16 05:55] LABS: ALBUMIN 2.7 g/dL (3.4-5.0); ANION GAP 9 (6-14); BLOOD UREA NITROGEN 45 mg/dL (8-26); CALCIUM 8.7 mg/dL (8.5-10.1); CARBON DIOXIDE 31 mmol/L (21-32); CHLORIDE 97 mmol/L (98-107); CREATININE 5.2 mg/dL (0.7-1.3); GFR 13.4; GLUCOSE 115 mg/dL (70-99); MAGNESIUM 2.4 mg/dL (1.8-2.4); PHOSPHORUS 3.5 mg/dL (2.6-4.7); POTASSIUM 3.8 mmol/L (3.5-5.1); SODIUM 137 mmol/L (136-145)
[2017-04-16] MEDS: IV RINGERS,LACTATED 1000ML 1,000 ML IV (06:02)
[2017-04-16 06:10] LABS: HEMATOCRIT 21.1 % (39.0-53.0); MEAN CORPUSCULAR HEMOGLOBIN 33 pg (25-35); MEAN CORPUSCULAR HGB CONC 33 g/dL (31-37); MEAN CORPUSCULAR VOLUME 98 fL (79-100); PLATELET COUNT 194 x10^3/uL (140-400); RED BLOOD COUNT 2.15 x10^6/uL (4.30-5.70); RED CELL DISTRIBUTION WIDTH 19.4 % (11.5-14.5)
[2017-04-16] MEDS: oxyCODONE/APAP 5/325 1 TAB TABLET PO ×2 (06:23)
[2017-04-16] MEDS ORDERED: MORPHINE SULFATE 2 MG/ML DISP.SYRIN. IV (07:00)
[2017-04-16] MEDS ORDERED: fentaNYL PF VIAL 100 MCG/2 ML VIAL IV (07:00)
[2017-04-16] MEDS ORDERED: LIDOCAINE 1% PF 2 ML VIAL. ID (07:00)
[2017-04-16] MEDS ORDERED: PROCHLORPERAZINE 10 MG/2 ML VIAL. IV (07:00)
[2017-04-16] MEDS ORDERED: ONDANSETRON PF 4 MG/2 ML VIAL. IV (07:00)
[2017-04-16] MEDS ORDERED: HYDROmorphone 2 MG/ML VIAL IV (07:00)
[2017-04-16] MEDS ORDERED: PAPAVERINE 60 MG/2 ML VIAL FOR OR ONLY. (07:12)
[2017-04-16] MEDS ORDERED: IV NORMAL SALINE 1000ML BAG 1,000 ML IV (07:44)
[2017-04-16] MEDS ORDERED: DIALYSIS PATIENT. MC (07:45)
[2017-04-16] MEDS ORDERED: ACETAMINOPHEN 500 MG TABLET PO (07:45)
[2017-04-16] MEDS ORDERED: 0.9 % SODIUM CHLORIDE 10 ML DISP.SYRIN. IV ×2 (07:45)
[2017-04-16] MEDS ORDERED: ALBUMIN HUMAN 25% 200 ML IV (07:45)
[2017-04-16] MEDS ORDERED: diphenhydrAMINE 50 MG/ML VIAL IV ×2 (07:45)
[2017-04-16] MEDS: INSULIN ASPART 300 UNITS/3 ML INSULN.PEN SQ ×3 (08:00→17:00)
[2017-04-16 08:09] LABS: POC GLUCOSE 122 mg/dL (70-99)
[2017-04-16 10:00] LABS: IMMEDIATE SPIN CROSSMATCH 1 1
[2017-04-16] MEDS ORDERED: IRON SUCROSE COMPLEX 200 MG in IV NORMAL SALINE 100ML 100 ML IV (10:30)
[2017-04-16 12:42] LABS: POC GLUCOSE 100 mg/dL (70-99)
[2017-04-16] MEDS: SEVELAMER CARBONATE 800 MG TABLET. PO ×3 (13:00→21:18)
[2017-04-16] MEDS: LACTOBACILLUS RHAMNOSUS GG 1 CAPSULE. PO ×2 (13:00→21:18)
[2017-04-16] MEDS: ASPIRIN ENTERIC COATED 81 MG TABLET.DR. PO (13:00)
[2017-04-16] MEDS: FUROSEMIDE 80 MG TABLET. PO ×2 (13:00→18:38)
[2017-04-16] MEDS: POLYETHYLENE GLYCOL 3350 17 GM PACKET. PO (13:01)
[2017-04-16] MEDS: CALCITRIOL 0.25 MCG CAPSULE. PO (13:01)
[2017-04-16] MEDS: FOLIC/VIT B COMP W-C (RENAL) TABLET. PO (13:01)
[2017-04-16] MEDS: PANTOPRAZOLE 40 MG TABLET.DR. PO ×2 (13:01→18:38)
[2017-04-16 17:10] LABS: POC GLUCOSE 229 mg/dL (70-99)
[2017-04-16] MEDS: ceFAZolin SODIUM IV Push 1 GM VIAL. IVP (18:39)
[2017-04-16] MEDS: SIMVASTATIN 10 MG TABLET PO (21:18)
[2017-04-17 01:35] LABS: POC GLUCOSE 105 mg/dL (70-99)
[2017-04-17] MEDS: MORPHINE SULFATE 4 MG/ML DISP.SYRIN. IV ×3 (03:52→22:44)
[2017-04-17 06:20] LABS: HEMATOCRIT 22.9 % (39.0-53.0); HEMOGLOBIN 7.5 g/dL (13.0-17.5); MEAN CORPUSCULAR HEMOGLOBIN 32 pg (25-35); MEAN CORPUSCULAR HGB CONC 33 g/dL (31-37); MEAN CORPUSCULAR VOLUME 96 fL (79-100); PLATELET COUNT 189 x10^3/uL (140-400); RED BLOOD COUNT 2.37 x10^6/uL (4.30-5.70); WHITE BLOOD COUNT 6.3 x10^3/uL (4.0-11.0)
[2017-04-17 06:54] LABS: ALBUMIN 2.6 g/dL (3.4-5.0); ANION GAP 11 (6-14); BLOOD UREA NITROGEN 32 mg/dL (8-26); CALCIUM 9.5 mg/dL (8.5-10.1); CARBON DIOXIDE 27 mmol/L (21-32); CHLORIDE 101 mmol/L (98-107); CREATININE 4.2 mg/dL (0.7-1.3); GFR 17.2; GLUCOSE 166 mg/dL (70-99); MAGNESIUM 2.3 mg/dL (1.8-2.4); PHOSPHORUS 2.9 mg/dL (2.6-4.7); POTASSIUM 4.3 mmol/L (3.5-5.1); SODIUM 139 mmol/L (136-145)
[2017-04-17] MEDS ORDERED: HYDROmorphone 2 MG/ML VIAL IV (07:00)
[2017-04-17] MEDS ORDERED: ONDANSETRON PF 4 MG/2 ML VIAL. IV (07:00)
[2017-04-17] MEDS ORDERED: LIDOCAINE 1% PF 2 ML VIAL. ID (07:00)
[2017-04-17] MEDS ORDERED: MORPHINE SULFATE 2 MG/ML DISP.SYRIN. IV (07:00)
[2017-04-17] MEDS ORDERED: fentaNYL PF VIAL 100 MCG/2 ML VIAL IV (07:00)
[2017-04-17] MEDS ORDERED: PROCHLORPERAZINE 10 MG/2 ML VIAL. IV (07:00)
[2017-04-17] MEDS ORDERED: PAPAVERINE 60 MG/2 ML VIAL FOR OR ONLY. (07:33)
[2017-04-17] MEDS ORDERED: SURGICEL FIBRILLAR 1X2 EACH. (07:33)
[2017-04-17 07:50] LABS: POC GLUCOSE 156 mg/dL (70-99)
[2017-04-17] MEDS: INSULIN ASPART 300 UNITS/3 ML INSULN.PEN SQ ×3 (08:00→18:09)
[2017-04-17] MEDS: IV RINGERS,LACTATED 1000ML 1,000 ML IV (08:06)
[2017-04-17] MEDS: IV NORMAL SALINE 1000ML BAG 1,000 ML IV (08:18)
[2017-04-17] MEDS ORDERED: fentaNYL PF VIAL 100 MCG/2 ML VIAL (08:26)
[2017-04-17] MEDS ORDERED: ePHEDrine PF IN SALINE 50 MG/5 ML DISP.SYRIN IV (08:27)
[2017-04-17] MEDS ORDERED: MIDAZOLAM HCL/PF 2 MG/2 ML VIAL. (08:30)
[2017-04-17] MEDS ORDERED: HEPARIN for IV BOLUS 10,000 UNIT/10 ML VIAL. (08:54)
[2017-04-17] MEDS ORDERED: PROPOFOL 20 ML IV (08:54)
[2017-04-17] MEDS: LIDOCAINE 1% 20 ML VIAL. ×2 (09:03)
[2017-04-17] MEDS: HEPARIN SODIUM 5,000 UNIT in IV NORMAL SALINE 500ML BAG 500 ML IRR (09:05)
[2017-04-17] MEDS: SURGICEL FIBRILLAR 1X2 EACH. (09:28)
[2017-04-17] MEDS: fentaNYL PF VIAL 100 MCG/2 ML VIAL IV ×2 (09:51→10:04)
[2017-04-17] MEDS ORDERED: MORPHINE SULFATE 4 MG/ML DISP.SYRIN. IV (10:15)
[2017-04-17 11:44] LABS: POC GLUCOSE 162 mg/dL (70-99)
[2017-04-17] MEDS: CALCITRIOL 0.25 MCG CAPSULE. PO (11:50)
[2017-04-17] MEDS: POLYETHYLENE GLYCOL 3350 17 GM PACKET. PO (11:50)
[2017-04-17] MEDS: FUROSEMIDE 80 MG TABLET. PO ×2 (11:51→17:58)
[2017-04-17] MEDS: PANTOPRAZOLE 40 MG TABLET.DR. PO ×2 (11:51→17:58)
[2017-04-17] MEDS: FOLIC/VIT B COMP W-C (RENAL) TABLET. PO (11:52)
[2017-04-17] MEDS: ASPIRIN ENTERIC COATED 81 MG TABLET.DR. PO (11:52)
[2017-04-17] MEDS: LACTOBACILLUS RHAMNOSUS GG 1 CAPSULE. PO ×2 (11:52→19:47)
[2017-04-17] MEDS: SEVELAMER CARBONATE 800 MG TABLET. PO ×3 (11:52→19:46)
[2017-04-17] MEDS: METOPROLOL SUCC 24HR ER 25 MG TAB.ER.24H. PO (11:52)
[2017-04-17 16:37] LABS: POC GLUCOSE 163 mg/dL (70-99)
[2017-04-17] MEDS: oxyCODONE/APAP 5/325 1 TAB TABLET PO (17:50)
[2017-04-17] MEDS: ceFAZolin SODIUM IV Push 1 GM VIAL. IVP (17:59)
[2017-04-17] MEDS: SIMVASTATIN 10 MG TABLET PO (19:47)
[2017-04-17 21:47] LABS: POC GLUCOSE 116 mg/dL (70-99)
[2017-04-18] MEDS: oxyCODONE/APAP 5/325 1 TAB TABLET PO ×4 (01:00→19:44)
[2017-04-18 06:00] LABS: HEMATOCRIT 21.1 % (39.0-53.0); HEMOGLOBIN 7.2 g/dL (13.0-17.5); MEAN CORPUSCULAR HEMOGLOBIN 33 pg (25-35); MEAN CORPUSCULAR HGB CONC 34 g/dL (31-37); MEAN CORPUSCULAR VOLUME 97 fL (79-100); PLATELET COUNT 176 x10^3/uL (140-400); RED BLOOD COUNT 2.18 x10^6/uL (4.30-5.70); RED CELL DISTRIBUTION WIDTH 20.8 % (11.5-14.5); WHITE BLOOD COUNT 7.1 x10^3/uL (4.0-11.0)
[2017-04-18 06:26] LABS: ALBUMIN 2.7 g/dL (3.4-5.0); ANION GAP 8 (6-14); BLOOD UREA NITROGEN 40 mg/dL (8-26); CALCIUM 9.1 mg/dL (8.5-10.1); CARBON DIOXIDE 31 mmol/L (21-32); CHLORIDE 98 mmol/L (98-107); CREATININE 5.9 mg/dL (0.7-1.3); GFR 11.6; GLUCOSE 105 mg/dL (70-99); PHOSPHORUS 3.6 mg/dL (2.6-4.7); POTASSIUM 4.5 mmol/L (3.5-5.1); SODIUM 137 mmol/L (136-145)
[2017-04-18 06:35] LABS: MAGNESIUM 2.3 mg/dL (1.8-2.4)
[2017-04-18 07:49] LABS: POC GLUCOSE 120 mg/dL (70-99)
[2017-04-18] MEDS: INSULIN ASPART 300 UNITS/3 ML INSULN.PEN SQ ×3 (07:50→16:51)
[2017-04-18] MEDS: POLYETHYLENE GLYCOL 3350 17 GM PACKET. PO (09:00)
[2017-04-18] MEDS: ASPIRIN ENTERIC COATED 81 MG TABLET.DR. PO (10:00)
[2017-04-18] MEDS: FOLIC/VIT B COMP W-C (RENAL) TABLET. PO (10:00)
[2017-04-18] MEDS: SEVELAMER CARBONATE 800 MG TABLET. PO ×3 (10:00→19:43)
[2017-04-18] MEDS: PANTOPRAZOLE 40 MG TABLET.DR. PO ×2 (10:00→15:35)
[2017-04-18] MEDS: LACTOBACILLUS RHAMNOSUS GG 1 CAPSULE. PO ×2 (10:00→19:43)
[2017-04-18] MEDS: CALCITRIOL 0.25 MCG CAPSULE. PO (10:01)
[2017-04-18] MEDS: METOPROLOL SUCC 24HR ER 25 MG TAB.ER.24H. PO (10:01)
[2017-04-18] MEDS: FUROSEMIDE 80 MG TABLET. PO ×2 (10:01→15:35)
[2017-04-18] MEDS: IRON SUCROSE COMPLEX 200 MG in IV NORMAL SALINE 100ML 100 ML IV (10:02)
[2017-04-18] MEDS: MORPHINE SULFATE 4 MG/ML DISP.SYRIN. IV ×3 (10:02→21:22)
[2017-04-18] MEDS ORDERED: IV NORMAL SALINE 1000ML BAG 1,000 ML IV ×2 (11:55)
[2017-04-18] MEDS ORDERED: DIALYSIS PATIENT. MC ×2 (12:00)
[2017-04-18] MEDS ORDERED: 0.9 % SODIUM CHLORIDE 10 ML DISP.SYRIN. IV ×2 (12:00)
[2017-04-18] MEDS: ceFAZolin SODIUM IV Push 1 GM VIAL. IVP (15:35)
[2017-04-18 16:57] LABS: POC GLUCOSE 147 mg/dL (70-99)
[2017-04-18] MEDS: SIMVASTATIN 10 MG TABLET PO (19:43)
[2017-04-18 22:00] LABS: POC GLUCOSE 234 mg/dL (70-99)
[2017-04-19] MEDS: oxyCODONE/APAP 5/325 1 TAB TABLET PO ×3 (01:26→14:12)
[2017-04-19 06:29] LABS: MAGNESIUM 2.3 mg/dL (1.8-2.4)
[2017-04-19 06:38] LABS: ALBUMIN 2.6 g/dL (3.4-5.0); ANION GAP 9 (6-14); BLOOD UREA NITROGEN 25 mg/dL (8-26); CARBON DIOXIDE 29 mmol/L (21-32); CHLORIDE 100 mmol/L (98-107); CREATININE 4.4 mg/dL (0.7-1.3); GFR 16.3; GLUCOSE 130 mg/dL (70-99); PHOSPHORUS 3.4 mg/dL (2.6-4.7); POTASSIUM 4.4 mmol/L (3.5-5.1); SODIUM 138 mmol/L (136-145)
[2017-04-19 07:48] LABS: POC GLUCOSE 126 mg/dL (70-99)
[2017-04-19] MEDS: INSULIN ASPART 300 UNITS/3 ML INSULN.PEN SQ ×3 (08:00→16:41)
[2017-04-19] MEDS: POLYETHYLENE GLYCOL 3350 17 GM PACKET. PO (08:36)
[2017-04-19] MEDS: MORPHINE SULFATE 4 MG/ML DISP.SYRIN. IV ×2 (08:36→19:47)
[2017-04-19] MEDS: LACTOBACILLUS RHAMNOSUS GG 1 CAPSULE. PO ×2 (08:37→23:26)
[2017-04-19] MEDS: SEVELAMER CARBONATE 800 MG TABLET. PO ×5 (08:37→17:05)
[2017-04-19] MEDS: FUROSEMIDE 80 MG TABLET. PO ×2 (08:37→16:41)
[2017-04-19] MEDS: ASPIRIN ENTERIC COATED 81 MG TABLET.DR. PO (08:37)
[2017-04-19] MEDS: CALCITRIOL 0.25 MCG CAPSULE. PO (08:37)
[2017-04-19] MEDS: PANTOPRAZOLE 40 MG TABLET.DR. PO ×2 (08:37→16:41)
[2017-04-19] MEDS: METOPROLOL SUCC 24HR ER 25 MG TAB.ER.24H. PO (08:38)
[2017-04-19] MEDS: FOLIC/VIT B COMP W-C (RENAL) TABLET. PO (08:38)
[2017-04-19 11:43] LABS: POC GLUCOSE 181 mg/dL (70-99)
[2017-04-19] MEDS: ceFAZolin SODIUM IV Push 1 GM VIAL. IVP (16:41)
[2017-04-19 16:53] LABS: POC GLUCOSE 131 mg/dL (70-99)
[2017-04-19 20:32] LABS: POC GLUCOSE 122 mg/dL (70-99)
[2017-04-19] MEDS: SIMVASTATIN 10 MG TABLET PO (21:12)
[2017-04-20] MEDS: MORPHINE SULFATE 4 MG/ML DISP.SYRIN. IV ×3 (02:26→22:12)
[2017-04-20 05:53] LABS: ALBUMIN 2.8 g/dL (3.4-5.0); ANION GAP 12 (6-14); CALCIUM 9.9 mg/dL (8.5-10.1); CARBON DIOXIDE 27 mmol/L (21-32); CHLORIDE 98 mmol/L (98-107); GFR 11.4; GLUCOSE 106 mg/dL (70-99); PHOSPHORUS 4.2 mg/dL (2.6-4.7); POTASSIUM 4.4 mmol/L (3.5-5.1); SODIUM 137 mmol/L (136-145)
[2017-04-20 05:54] LABS: BLOOD UREA NITROGEN 40 mg/dL (8-26)
[2017-04-20] MEDS: PANTOPRAZOLE 40 MG TABLET.DR. PO ×2 (07:27→16:29)
[2017-04-20] MEDS: INSULIN ASPART 300 UNITS/3 ML INSULN.PEN SQ ×3 (07:29→16:48)
[2017-04-20 08:05] LABS: POC GLUCOSE 99 mg/dL (70-99)
[2017-04-20] MEDS: CALCITRIOL 0.25 MCG CAPSULE. PO (09:05)
[2017-04-20] MEDS: FUROSEMIDE 80 MG TABLET. PO ×2 (09:05→16:29)
[2017-04-20] MEDS: POLYETHYLENE GLYCOL 3350 17 GM PACKET. PO (09:05)
[2017-04-20] MEDS: SEVELAMER CARBONATE 800 MG TABLET. PO ×3 (09:05→16:54)
[2017-04-20] MEDS: FOLIC/VIT B COMP W-C (RENAL) TABLET. PO (09:06)
[2017-04-20] MEDS: ASPIRIN ENTERIC COATED 81 MG TABLET.DR. PO (09:06)
[2017-04-20] MEDS: LACTOBACILLUS RHAMNOSUS GG 1 CAPSULE. PO ×2 (09:06→20:00)
[2017-04-20] MEDS: oxyCODONE/APAP 5/325 1 TAB TABLET PO ×3 (09:07→18:29)
[2017-04-20] MEDS: METOPROLOL SUCC 24HR ER 25 MG TAB.ER.24H. PO (09:07)
[2017-04-20 11:38] LABS: POC GLUCOSE 156 mg/dL (70-99)
[2017-04-20] MEDS: ceFAZolin SODIUM IV Push 1 GM VIAL. IVP (16:29)
[2017-04-20 16:46] LABS: POC GLUCOSE 109 mg/dL (70-99)
[2017-04-20] MEDS: SIMVASTATIN 10 MG TABLET PO (20:00)
[2017-04-20 20:57] LABS: POC GLUCOSE 142 mg/dL (70-99)
[2017-04-21] MEDS: oxyCODONE/APAP 5/325 1 TAB TABLET PO ×4 (00:49→14:21)
[2017-04-21 04:51] LABS: ALBUMIN 2.7 g/dL (3.4-5.0); ANION GAP 10 (6-14); BLOOD UREA NITROGEN 51 mg/dL (8-26); CALCIUM 9.5 mg/dL (8.5-10.1); CARBON DIOXIDE 27 mmol/L (21-32); CHLORIDE 99 mmol/L (98-107); GFR 9.5; GLUCOSE 104 mg/dL (70-99); PHOSPHORUS 4.7 mg/dL (2.6-4.7); POTASSIUM 4.9 mmol/L (3.5-5.1); SODIUM 136 mmol/L (136-145)
[2017-04-21 07:36] LABS: POC GLUCOSE 112 mg/dL (70-99)
[2017-04-21] MEDS: INSULIN ASPART 300 UNITS/3 ML INSULN.PEN SQ ×3 (08:00→17:00)
[2017-04-21] MEDS: FUROSEMIDE 80 MG TABLET. PO ×2 (09:00→16:00)
[2017-04-21] MEDS: POLYETHYLENE GLYCOL 3350 17 GM PACKET. PO (09:31)
[2017-04-21] MEDS: CALCITRIOL 0.25 MCG CAPSULE. PO (09:32)
[2017-04-21] MEDS: SEVELAMER CARBONATE 800 MG TABLET. PO ×3 (09:32→17:00)
[2017-04-21] MEDS: PANTOPRAZOLE 40 MG TABLET.DR. PO ×2 (09:32→16:30)
[2017-04-21] MEDS: LACTOBACILLUS RHAMNOSUS GG 1 CAPSULE. PO (09:33)
[2017-04-21] MEDS: METOPROLOL SUCC 24HR ER 25 MG TAB.ER.24H. PO (09:34)
[2017-04-21] MEDS: ASPIRIN ENTERIC COATED 81 MG TABLET.DR. PO (09:35)
[2017-04-21] MEDS: FOLIC/VIT B COMP W-C (RENAL) TABLET. PO (09:35)
[2017-04-21 11:26] LABS: POC GLUCOSE 145 mg/dL (70-99)
[2017-04-21] MEDS: MORPHINE SULFATE 4 MG/ML DISP.SYRIN. IV ×2 (11:34→19:30)
[2017-04-21] MEDS: IRON SUCROSE COMPLEX 200 MG in IV NORMAL SALINE 100ML 100 ML IV (11:35)
[2017-04-21] MEDS ORDERED: IV NORMAL SALINE 1000ML BAG 1,000 ML IV ×2 (16:43)
[2017-04-21] MEDS ORDERED: DIALYSIS PATIENT. MC ×2 (16:45)
[2017-04-21] MEDS ORDERED: 0.9 % SODIUM CHLORIDE 10 ML DISP.SYRIN. IV ×2 (16:45)
[2017-04-21] MEDS: ceFAZolin SODIUM IV Push 1 GM VIAL. IVP (19:29)
== END 2017-04-21 20:05 | disposition home or self-care (01) | DRG 264 ==
LOC: ER 04:57 → 5 SOUTH 05:57
PROVIDERS: Family Medicine
PROC: 30233N1 Transfusion of Nonautologous Red Blood Cells into Peripheral Vein, Percutaneous Approach (ICD-10-PCS; principal; 2017-04-17 08:26)
PROC: 03180JD Bypass Left Brachial Artery to Upper Arm Vein with Synthetic Substitute, Open Approach (ICD-10-PCS; 2017-04-17 08:26)
PROC: 5A1D70Z Performance of Urinary Filtration, Intermittent, Less than 6 Hours Per Day (ICD-10-PCS; 2017-04-17 08:26)
PROC: 5A1D70Z Performance of Urinary Filtration, Intermittent, Less than 6 Hours Per Day (ICD-10-PCS; 2017-04-17 08:26)
PROC: 5A1D70Z Performance of Urinary Filtration, Intermittent, Less than 6 Hours Per Day (ICD-10-PCS; 2017-04-17 08:26)
DX: I13.2 Hypertensive heart and chronic kidney disease with heart failure and with stage 5 chronic kidney disease, or end stage renal disease (principal); E11.22 Type 2 diabetes mellitus with diabetic chronic kidney disease; E11.40 Type 2 diabetes mellitus with diabetic neuropathy, unspecified; M46.22 Osteomyelitis of vertebra, cervical region; I42.9 Cardiomyopathy, unspecified; I50.43 Acute on chronic combined systolic (congestive) and diastolic (congestive) heart failure; N18.6 End stage renal disease; J98.11 Atelectasis; B95.61 Methicillin susceptible Staphylococcus aureus infection as the cause of diseases classified elsewhere; D63.1 Anemia in chronic kidney disease; E11.69 Type 2 diabetes mellitus with other specified complication; E78.5 Hyperlipidemia, unspecified; I25.10 Atherosclerotic heart disease of native coronary artery without angina pectoris; I87.2 Venous insufficiency (chronic) (peripheral); E21.3 Hyperparathyroidism, unspecified; G89.29 Other chronic pain; M19.90 Unspecified osteoarthritis, unspecified site; I89.0 Lymphedema, not elsewhere classified; J44.9 Chronic obstructive pulmonary disease, unspecified; K21.9 Gastro-esophageal reflux disease without esophagitis; M54.12 Radiculopathy, cervical region; Z96.611 Presence of right artificial shoulder joint; N40.0 Benign prostatic hyperplasia without lower urinary tract symptoms; Z86.19 Personal history of other infectious and parasitic diseases; Z90.49 Acquired absence of other specified parts of digestive tract; Z95.1 Presence of aortocoronary bypass graft; Z99.2 Dependence on renal dialysis
CPT/HCPCS: 36415; 71045; 72141; 78452; 80047; 80069; 82607; 82746; 82962; 83540; 83550; 83735; 83880; 84484; 85025; 85027; 85045; 85520; 85610; 85730; 86850; 86900; 86901; 86920; 87040; 93005; 93017; 93970; 96374; 96375; 96376; 99285; 99285-25; A9500; C1768; C1769; J0690; J0881; J1644; J1756; J1815; J2250; J2270; J2440; J2704; J2785; J3010; J7030; J7040; P9016

== ENCOUNTER 2017-04-23 18:31 | Emergency (ER) | payer BC ==
[2017-04-23] MEDS: HYDROmorphone 2 MG/ML VIAL IM ×2 (21:15)
[2017-04-23] MEDS: ONDANSETRON PF 4 MG/2 ML VIAL. IV ×2 (21:16)
[2017-04-23 21:35] LABS: ADD MAN DIFF? NO
[2017-04-23 21:47] LABS: BASO % 0 % (0-3); EOS # 0.3 x10^3/uL (0.0-0.7); EOS % 5 % (0-3); HEMATOCRIT 24.6 % (39.0-53.0); HEMOGLOBIN 8.1 g/dL (13.0-17.5); LYMPH # 1.3 x10^3/uL (1.0-4.8); LYMPH % 18 % (24-48); MEAN CORPUSCULAR HEMOGLOBIN 33 pg (25-35); MEAN CORPUSCULAR HGB CONC 33 g/dL (31-37); MEAN CORPUSCULAR VOLUME 99 fL (79-100); MONO # 0.8 x10^3/uL (0.0-1.1); MONO % 11 % (0-9); NEUT # 4.9 x10^3uL (1.8-7.7); NEUT % 66 % (31-73); PLATELET COUNT 202 x10^3/uL (140-400); RED BLOOD COUNT 2.49 x10^6/uL (4.30-5.70); RED CELL DISTRIBUTION WIDTH 21.2 % (11.5-14.5); WHITE BLOOD COUNT 7.4 x10^3/uL (4.0-11.0)
[2017-04-23 21:55] LABS: ANION GAP 11 (6-14); BLOOD UREA NITROGEN 49 mg/dL (8-26); CALCIUM 9.4 mg/dL (8.5-10.1); CARBON DIOXIDE 28 mmol/L (21-32); CHLORIDE 98 mmol/L (98-107); CREATININE 7.4 mg/dL (0.7-1.3); GFR 8.9; GLUCOSE 96 mg/dL (70-99); POTASSIUM 5.2 mmol/L (3.5-5.1); SODIUM 137 mmol/L (136-145)
[2017-04-23 21:56] LABS: MAGNESIUM 2.5 mg/dL (1.8-2.4)
[2017-04-23 22:02] LABS: TROPONINI 0.044 ng/mL (0.000-0.055)
[2017-04-23 22:09] LABS: CKMB MASS 0.6 ng/mL (0.0-3.6); CREATINE KINASE 43 U/L (39-308)
[2017-04-23] MEDS: HYDROmorphone 2 MG/ML VIAL IV ×2 (22:28)
[2017-04-23 23:07] LABS: ANISOCYTOSIS MOD; PLT ESTIMATE ADEQUATE (ADEQUATE); POIKILOCYTOSIS SLIGHT
[2017-04-23 23:08] LABS: OVALOCYTES OCC; SCHISTOCYTES FEW
== END 2017-04-23 22:50 | disposition home or self-care (01) ==
LOC: ER 22:50
DX: M54.12 Radiculopathy, cervical region (principal); I13.2 Hypertensive heart and chronic kidney disease with heart failure and with stage 5 chronic kidney disease, or end stage renal disease; E11.22 Type 2 diabetes mellitus with diabetic chronic kidney disease; N18.6 End stage renal disease; I50.9 Heart failure, unspecified; I25.10 Atherosclerotic heart disease of native coronary artery without angina pectoris; J44.9 Chronic obstructive pulmonary disease, unspecified; Z99.2 Dependence on renal dialysis; Z95.1 Presence of aortocoronary bypass graft
CPT/HCPCS: 36415; 80048; 82553; 83735; 84484; 85025; 96372; 96374; 96375; 99284-25; J1170; J2405

== ENCOUNTER 2017-04-25 10:23 | Inpatient (IN) | payer BC ==
[2017-04-25 11:13] LABS: ADD MAN DIFF? NO
[2017-04-25] MEDS: HYDROmorphone 2 MG/ML VIAL IV ×3 (11:14→21:02)
[2017-04-25] MEDS ORDERED: ONDANSETRON PF 4 MG/2 ML VIAL. IV (11:15)
[2017-04-25 11:17] LABS: BASO % 0 % (0-3); EOS # 0.2 x10^3/uL (0.0-0.7); EOS % 3 % (0-3); HEMOGLOBIN 7.6 g/dL (13.0-17.5); LYMPH # 1.2 x10^3/uL (1.0-4.8); LYMPH % 14 % (24-48); MEAN CORPUSCULAR HEMOGLOBIN 33 pg (25-35); MEAN CORPUSCULAR HGB CONC 33 g/dL (31-37); MEAN CORPUSCULAR VOLUME 99 fL (79-100); MONO # 0.7 x10^3/uL (0.0-1.1); MONO % 8 % (0-9); NEUT # 6.3 x10^3uL (1.8-7.7); NEUT % 75 % (31-73); PLATELET COUNT 198 x10^3/uL (140-400); RED BLOOD COUNT 2.31 x10^6/uL (4.30-5.70); RED CELL DISTRIBUTION WIDTH 20.9 % (11.5-14.5); WHITE BLOOD COUNT 8.4 x10^3/uL (4.0-11.0)
[2017-04-25 11:24] LABS: ANION GAP 15 (6-14); BLOOD UREA NITROGEN 61 mg/dL (8-26); BUN/CREATININE RATIO 7 (6-20); CALCIUM 9.4 mg/dL (8.5-10.1); CARBON DIOXIDE 22 mmol/L (21-32); CHLORIDE 98 mmol/L (98-107); CREATININE 9.3 mg/dL (0.7-1.3); GFR 6.9; GLUCOSE 89 mg/dL (70-99); POTASSIUM 5.8 mmol/L (3.5-5.1); SODIUM 135 mmol/L (136-145)
[2017-04-25 11:29] LABS: ALBUMIN/GLOBULIN RATIO 0.5 (1.0-1.7); ALK PHOS 106 U/L (46-116); AST (SGOT) 13 U/L (15-37); TOTAL BILIRUBIN 0.3 mg/dL (0.2-1.0); TOTAL PROTEIN 8.9 g/dL (6.4-8.2)
[2017-04-25 11:42] LABS: NT-PRO BNP 20603 pg/mL (0-124)
[2017-04-25 11:55] LABS: TROPONINI 0.018 ng/mL (0.000-0.055)
[2017-04-25 11:55] LABS: ALT (SGPT) < 6 U/L (16-63)
[2017-04-25 13:03] LABS: HYPOCHROMIA SLIGHT; PLT ESTIMATE ADEQUATE (ADEQUATE)
[2017-04-25 13:04] LABS: ANISOCYTOSIS SLIGHT
[2017-04-25 14:35] LABS: TROPONINI 0.019 ng/mL (0.000-0.055)
[2017-04-25] MEDS ORDERED: DIALYSIS PATIENT. MC (15:30)
[2017-04-25] MEDS ORDERED: ACETAMINOPHEN 500 MG TABLET PO (15:30)
[2017-04-25] MEDS ORDERED: IV NORMAL SALINE 1000ML BAG 1,000 ML IV ×2 (15:30)
[2017-04-25] MEDS ORDERED: diphenhydrAMINE 50 MG/ML VIAL IV ×2 (15:30)
[2017-04-25 16:44] LABS: POC GLUCOSE 108 mg/dL (70-99)
[2017-04-25 17:45] LABS: TROPONINI 0.023 ng/mL (0.000-0.055)
[2017-04-25] MEDS ORDERED: CALCIUM CARBONATE 500 MG TAB.CHEW PO (18:15)
[2017-04-25] MEDS: oxyCODONE/APAP 10/325 1 TAB TABLET PO (21:01)
[2017-04-25] MEDS: FUROSEMIDE 80 MG TABLET. PO (21:01)
[2017-04-25] MEDS: ceFAZolin SODIUM IV Push 1 GM VIAL. IVP (21:01)
[2017-04-25] MEDS: SIMVASTATIN 10 MG TABLET PO (21:01)
[2017-04-25 21:13] LABS: POC GLUCOSE 100 mg/dL (70-99)
[2017-04-26 04:14] LABS: ADD MAN DIFF? NO
[2017-04-26 04:20] LABS: BASO % 1 % (0-3); EOS # 0.3 x10^3/uL (0.0-0.7); EOS % 5 % (0-3); HEMATOCRIT 21.6 % (39.0-53.0); HEMOGLOBIN 7.1 g/dL (13.0-17.5); LYMPH # 0.9 x10^3/uL (1.0-4.8); LYMPH % 18 % (24-48); MEAN CORPUSCULAR HEMOGLOBIN 33 pg (25-35); MEAN CORPUSCULAR HGB CONC 33 g/dL (31-37); MEAN CORPUSCULAR VOLUME 100 fL (79-100); MONO # 0.6 x10^3/uL (0.0-1.1); MONO % 12 % (0-9); NEUT # 3.3 x10^3uL (1.8-7.7); NEUT % 64 % (31-73); PLATELET COUNT 171 x10^3/uL (140-400); RED BLOOD COUNT 2.17 x10^6/uL (4.30-5.70); WHITE BLOOD COUNT 5.2 x10^3/uL (4.0-11.0)
[2017-04-26 04:35] LABS: ANION GAP 8 (6-14); BLOOD UREA NITROGEN 35 mg/dL (8-26); CALCIUM 8.6 mg/dL (8.5-10.1); CARBON DIOXIDE 30 mmol/L (21-32); CHLORIDE 101 mmol/L (98-107); CREATININE 6.3 mg/dL (0.7-1.3); GFR 10.7; GLUCOSE 88 mg/dL (70-99); POTASSIUM 4.7 mmol/L (3.5-5.1); SODIUM 139 mmol/L (136-145)
[2017-04-26] MEDS: SEVELAMER CARBONATE 800 MG TABLET. PO ×3 (08:50→16:19)
[2017-04-26] MEDS: FOLIC/VIT B COMP W-C (RENAL) TABLET. PO (08:51)
[2017-04-26] MEDS: POLYETHYLENE GLYCOL 3350 17 GM PACKET. PO (08:51)
[2017-04-26] MEDS: CALCITRIOL 0.25 MCG CAPSULE. PO (08:51)
[2017-04-26] MEDS: PANTOPRAZOLE 40 MG TABLET.DR. PO ×2 (08:51→16:19)
[2017-04-26] MEDS: ASPIRIN ENTERIC COATED 81 MG TABLET.DR. PO (08:51)
[2017-04-26] MEDS: METOPROLOL SUCC 24HR ER 25 MG TAB.ER.24H. PO (08:51)
[2017-04-26] MEDS: FUROSEMIDE 80 MG TABLET. PO ×2 (08:51→16:19)
[2017-04-26] MEDS: HYDROmorphone 2 MG/ML VIAL IV ×4 (09:01→20:48)
[2017-04-26] MEDS: oxyCODONE/APAP 10/325 1 TAB TABLET PO ×3 (09:02→22:55)
[2017-04-26 11:37] LABS: POC GLUCOSE 95 mg/dL (70-99)
[2017-04-26] MEDS: oxyCODONE/APAP 5/325 1 TAB TABLET PO (14:18)
[2017-04-26 16:14] LABS: POC GLUCOSE 137 mg/dL (70-99)
[2017-04-26] MEDS: ceFAZolin SODIUM IV Push 1 GM VIAL. IVP (18:33)
[2017-04-26] MEDS: SIMVASTATIN 10 MG TABLET PO (20:46)
[2017-04-26 21:40] LABS: POC GLUCOSE 205 mg/dL (70-99)
[2017-04-27 06:55] LABS: POC GLUCOSE 98 mg/dL (70-99)
[2017-04-27 07:39] LABS: POC GLUCOSE 89 mg/dL (70-99)
[2017-04-27] MEDS: POLYETHYLENE GLYCOL 3350 17 GM PACKET. PO (08:13)
[2017-04-27] MEDS: oxyCODONE/APAP 5/325 1 TAB TABLET PO (08:13)
[2017-04-27] MEDS: FOLIC/VIT B COMP W-C (RENAL) TABLET. PO (08:16)
[2017-04-27] MEDS: FUROSEMIDE 80 MG TABLET. PO ×2 (08:16→15:49)
[2017-04-27] MEDS: CALCITRIOL 0.25 MCG CAPSULE. PO (08:16)
[2017-04-27] MEDS: METOPROLOL SUCC 24HR ER 25 MG TAB.ER.24H. PO (08:16)
[2017-04-27] MEDS: PANTOPRAZOLE 40 MG TABLET.DR. PO ×2 (08:16→16:39)
[2017-04-27] MEDS: SEVELAMER CARBONATE 800 MG TABLET. PO ×3 (08:17→16:39)
[2017-04-27] MEDS: ASPIRIN ENTERIC COATED 81 MG TABLET.DR. PO (08:17)
[2017-04-27] MEDS: HYDROmorphone 2 MG/ML VIAL IV ×3 (08:17→22:19)
[2017-04-27 11:30] LABS: POC GLUCOSE 114 mg/dL (70-99)
[2017-04-27] MEDS: oxyCODONE/APAP 10/325 1 TAB TABLET PO ×2 (15:49→22:19)
[2017-04-27 16:18] LABS: POC GLUCOSE 99 mg/dL (70-99)
[2017-04-27] MEDS: ceFAZolin SODIUM IV Push 1 GM VIAL. IVP (18:30)
[2017-04-27] MEDS: SIMVASTATIN 10 MG TABLET PO (20:19)
[2017-04-27 20:32] LABS: POC GLUCOSE 127 mg/dL (70-99)
[2017-04-28] MEDS: oxyCODONE/APAP 5/325 1 TAB TABLET PO ×2 (03:57→12:46)
[2017-04-28] MEDS: HYDROmorphone 2 MG/ML VIAL IV ×2 (03:57→08:59)
[2017-04-28 04:22] LABS: ADD MAN DIFF? NO
[2017-04-28 04:32] LABS: BASO % 0 % (0-3); EOS # 0.3 x10^3/uL (0.0-0.7); EOS % 4 % (0-3); HEMATOCRIT 23.3 % (39.0-53.0); HEMOGLOBIN 7.9 g/dL (13.0-17.5); LYMPH % 14 % (24-48); MEAN CORPUSCULAR HEMOGLOBIN 33 pg (25-35); MEAN CORPUSCULAR HGB CONC 34 g/dL (31-37); MEAN CORPUSCULAR VOLUME 99 fL (79-100); MONO # 0.8 x10^3/uL (0.0-1.1); MONO % 11 % (0-9); NEUT # 4.8 x10^3uL (1.8-7.7); NEUT % 70 % (31-73); PLATELET COUNT 201 x10^3/uL (140-400); RED BLOOD COUNT 2.36 x10^6/uL (4.30-5.70); RED CELL DISTRIBUTION WIDTH 21.2 % (11.5-14.5); WHITE BLOOD COUNT 6.9 x10^3/uL (4.0-11.0)
[2017-04-28 05:45] LABS: ANION GAP 10 (6-14); BLOOD UREA NITROGEN 53 mg/dL (8-26); CALCIUM 9.2 mg/dL (8.5-10.1); CARBON DIOXIDE 27 mmol/L (21-32); CHLORIDE 99 mmol/L (98-107); CREATININE 8.7 mg/dL (0.7-1.3); GFR 7.4; GLUCOSE 85 mg/dL (70-99); POTASSIUM 4.8 mmol/L (3.5-5.1); SODIUM 136 mmol/L (136-145)
[2017-04-28] MEDS: SEVELAMER CARBONATE 800 MG TABLET. PO ×2 (08:00→12:45)
[2017-04-28] MEDS ORDERED: IV NORMAL SALINE 1000ML BAG 1,000 ML IV ×2 (08:52)
[2017-04-28] MEDS ORDERED: DIALYSIS PATIENT. MC (09:00)
[2017-04-28] MEDS ORDERED: ACETAMINOPHEN 500 MG TABLET PO (09:00)
[2017-04-28] MEDS: oxyCODONE/APAP 10/325 1 TAB TABLET PO (09:00)
[2017-04-28] MEDS ORDERED: diphenhydrAMINE 50 MG/ML VIAL IV ×2 (09:00)
[2017-04-28 12:41] LABS: POC GLUCOSE 89 mg/dL (70-99)
[2017-04-28] MEDS: POLYETHYLENE GLYCOL 3350 17 GM PACKET. PO (12:43)
[2017-04-28] MEDS: ASPIRIN ENTERIC COATED 81 MG TABLET.DR. PO (12:43)
[2017-04-28] MEDS: METOPROLOL SUCC 24HR ER 25 MG TAB.ER.24H. PO (12:44)
[2017-04-28] MEDS: FUROSEMIDE 80 MG TABLET. PO (12:44)
[2017-04-28] MEDS: PANTOPRAZOLE 40 MG TABLET.DR. PO (12:45)
[2017-04-28] MEDS: FOLIC/VIT B COMP W-C (RENAL) TABLET. PO (12:45)
[2017-04-28] MEDS: CALCITRIOL 0.25 MCG CAPSULE. PO (12:45)
[2017-04-28] MEDS ORDERED: ceFAZolin SODIUM IV Push 1 GM VIAL. IVP (14:00)
== END 2017-04-28 16:22 | disposition home or self-care (01) | DRG 551 ==
LOC: ER 10:23 → ED HOLD 11:01 → 5 SOUTH 14:25
PROC: 5A1D70Z Performance of Urinary Filtration, Intermittent, Less than 6 Hours Per Day (ICD-10-PCS; principal; 2017-04-25)
PROC: 5A1D70Z Performance of Urinary Filtration, Intermittent, Less than 6 Hours Per Day (ICD-10-PCS; 2017-04-28)
DX: M48.02 Spinal stenosis, cervical region (principal); N18.6 End stage renal disease; I13.2 Hypertensive heart and chronic kidney disease with heart failure and with stage 5 chronic kidney disease, or end stage renal disease; E11.21 Type 2 diabetes mellitus with diabetic nephropathy; E11.69 Type 2 diabetes mellitus with other specified complication; R78.81 Bacteremia; M46.22 Osteomyelitis of vertebra, cervical region; E87.5 Hyperkalemia; L03.114 Cellulitis of left upper limb; I42.0 Dilated cardiomyopathy; N25.81 Secondary hyperparathyroidism of renal origin; Z79.4 Long term (current) use of insulin; B96.89 Other specified bacterial agents as the cause of diseases classified elsewhere; B95.61 Methicillin susceptible Staphylococcus aureus infection as the cause of diseases classified elsewhere; D63.1 Anemia in chronic kidney disease; E11.22 Type 2 diabetes mellitus with diabetic chronic kidney disease; E78.5 Hyperlipidemia, unspecified; E88.2 Lipomatosis, not elsewhere classified; I25.10 Atherosclerotic heart disease of native coronary artery without angina pectoris; I50.9 Heart failure, unspecified; I87.2 Venous insufficiency (chronic) (peripheral); E21.3 Hyperparathyroidism, unspecified; I89.0 Lymphedema, not elsewhere classified; J44.9 Chronic obstructive pulmonary disease, unspecified; K21.9 Gastro-esophageal reflux disease without esophagitis; M50.123 Cervical disc disorder at C6-C7 level with radiculopathy; Z95.1 Presence of aortocoronary bypass graft; Z99.2 Dependence on renal dialysis
CPT/HCPCS: 36415; 72141; 76881; 80048; 80053; 82553; 82962; 83735; 83880; 84484; 85025; 93005; 96374; 99285; 99285-25; J0690; J1170

== ENCOUNTER 2017-05-07 04:29 | Emergency (ER) | payer BC ==
[2017-05-07] MEDS ORDERED: CYCLOBENZAPRINE 10 MG TABLET. (04:45)
[2017-05-07] MEDS: CYCLOBENZAPRINE 10 MG TABLET. PO (04:45)
[2017-05-07] MEDS: MORPHINE SULFATE 4 MG/ML DISP.SYRIN. IV (04:45)
[2017-05-07] MEDS ORDERED: MORPHINE SULFATE 4 MG/ML DISP.SYRIN. (04:45)
[2017-05-07] MEDS: MORPHINE SULFATE 4 MG/ML DISP.SYRIN. IM (05:00)
== END 2017-05-07 06:12 | disposition home or self-care (01) ==
LOC: ER 04:29
DX: M54.2 Cervicalgia (principal); G89.29 Other chronic pain; E11.22 Type 2 diabetes mellitus with diabetic chronic kidney disease; I13.2 Hypertensive heart and chronic kidney disease with heart failure and with stage 5 chronic kidney disease, or end stage renal disease; N18.6 End stage renal disease; I50.9 Heart failure, unspecified; I25.10 Atherosclerotic heart disease of native coronary artery without angina pectoris; J44.9 Chronic obstructive pulmonary disease, unspecified; Z95.5 Presence of coronary angioplasty implant and graft
CPT/HCPCS: 93005; 96372; 99283-25; J2270

== ENCOUNTER 2017-05-07 18:09 | Emergency (ER) | payer BC ==
[2017-05-07] MEDS: oxyCODONE IR 5 MG TABLET PO (20:19)
== END 2017-05-07 21:35 | disposition home or self-care (01) ==
LOC: ER 18:09
DX: M86.8X8 Other osteomyelitis, other site (principal); G89.29 Other chronic pain; I25.10 Atherosclerotic heart disease of native coronary artery without angina pectoris; E11.22 Type 2 diabetes mellitus with diabetic chronic kidney disease; I13.0 Hypertensive heart and chronic kidney disease with heart failure and stage 1 through stage 4 chronic kidney disease, or unspecified chronic kidney disease; N18.9 Chronic kidney disease, unspecified; I50.9 Heart failure, unspecified; J44.9 Chronic obstructive pulmonary disease, unspecified; Z95.1 Presence of aortocoronary bypass graft
CPT/HCPCS: 99283

== ENCOUNTER 2017-07-24 15:54 | Emergency (ER) | payer BC ==
[2017-07-24] MEDS: oxyCODONE/APAP 10/325 1 TAB TABLET PO (18:09)
[2017-07-24] MEDS: AZITHROMYCIN 250 MG TABLET. PO (18:09)
[2017-07-24] MEDS: cefTRIAXone IM 250 MG VIAL IM (18:09)
== END 2017-07-24 18:13 | disposition home or self-care (01) ==
LOC: ER 15:54
DX: N45.1 Epididymitis (principal); I86.1 Scrotal varices
CPT/HCPCS: 76870; 96372; 99284; J0696; Q0144

== ENCOUNTER 2017-07-30 13:03 | Emergency (ER) | payer BC ==
[2017-07-30 13:30] LABS: BILIRUBIN,URINE NEGATIVE (NEG); CLARITY,URINE CLEAR; COLOR,URINE YELLOW; GLUCOSE,URINE NEGATIVE (NEG); NITRITE,URINE NEGATIVE (NEG); PH,URINE 7.5; PROTEIN,URINE 100 mg/dL (NEG-TRACE)
[2017-07-30 13:38] LABS: ADD MAN DIFF? NO
[2017-07-30 13:41] LABS: BASO % 1 % (0-3); EOS # 0.1 x10^3/uL (0.0-0.7); EOS % 2 % (0-3); HEMATOCRIT 28.9 % (39.0-53.0); HEMOGLOBIN 9.9 g/dL (13.0-17.5); LYMPH % 18 % (24-48); MEAN CORPUSCULAR HEMOGLOBIN 35 pg (25-35); MEAN CORPUSCULAR HGB CONC 34 g/dL (31-37); MEAN CORPUSCULAR VOLUME 101 fL (79-100); MONO # 0.6 x10^3/uL (0.0-1.1); MONO % 11 % (0-9); NEUT # 3.9 x10^3uL (1.8-7.7); NEUT % 67 % (31-73); PLATELET COUNT 187 x10^3/uL (140-400); RED BLOOD COUNT 2.87 x10^6/uL (4.30-5.70); RED CELL DISTRIBUTION WIDTH 18.3 % (11.5-14.5); WHITE BLOOD COUNT 5.7 x10^3/uL (4.0-11.0)
[2017-07-30 13:49] LABS: ANION GAP 8 (6-14); BACTERIA,URINE 0 /HPF (0-FEW); BLOOD UREA NITROGEN 33 mg/dL (8-26); BUN/CREATININE RATIO 6 (6-20); CALCIUM 8.7 mg/dL (8.5-10.1); CARBON DIOXIDE 29 mmol/L (21-32); CHLORIDE 104 mmol/L (98-107); CREATININE 5.2 mg/dL (0.7-1.3); GFR 13.4; GLUCOSE 101 mg/dL (70-99); POTASSIUM 3.7 mmol/L (3.5-5.1); RBC,URINE 0 /HPF (0-2); SODIUM 141 mmol/L (136-145); WBC,URINE 0 /HPF (0-4)
[2017-07-30 13:57] LABS: ALBUMIN 3.6 g/dL (3.4-5.0); ALBUMIN/GLOBULIN RATIO 0.8 (1.0-1.7); ALK PHOS 93 U/L (46-116); ALT (SGPT) 16 U/L (16-63); AST (SGOT) 14 U/L (15-37); TOTAL BILIRUBIN 0.6 mg/dL (0.2-1.0)
== END 2017-07-30 14:45 | disposition home or self-care (01) ==
LOC: ER 13:03
DX: N50.812 Left testicular pain (principal); R10.32 Left lower quadrant pain; I11.0 Hypertensive heart disease with heart failure; I50.9 Heart failure, unspecified; I25.810 Atherosclerosis of coronary artery bypass graft(s) without angina pectoris; E11.9 Type 2 diabetes mellitus without complications; J44.9 Chronic obstructive pulmonary disease, unspecified
CPT/HCPCS: 36415; 74176; 80053; 81001; 85025; 99285

== ENCOUNTER → 2019-02-11 | Day surgery (SDC) | payer BC ==
[~2019-02-11] MED LIST changes: -CALC0.5C PO; +CALC0.5C8 PO; +CALC200T23 PO; +CARV12.511 PO; -CARV12.52 PO; +CEFA1VIA2 IVP; +DOXY-96 PO; -HEPARIN SODIUM 5,000 UNIT in IV NORMAL SALINE 500ML BAG 500 ML IRR ONE; +INSU100I27 SQ; +IV RINGERS,LACTATED 1000ML 1,000 ML IV ONE; +LIDOCAINE 2% PF 5 ML VIAL. ONE; +METO-239 PO; -OXYC-323 PO; +OXYC1TAB15 PO; +OXYC1TAB22 PO; -PANT40TA5 PO; +PANT40TA77 PO; +POLY17PO28 PO; -POLY17PO3 PO; +PROPOFOL 40 ML IV ONE; +SIMV10TA15 PO; -SIMV10TA3 PO; +[UNRECOGNIZED DRUG - OTHER] SWSW; -ceFAZolin 2GM PREMIX 2 GM/50 ML BAG IV ONE
[2019-02-11 13:30] VITALS: BP 149/66
== END ==
LOC: ENDOS 11:28
PROVIDERS: ATTEND Internal Medicine Gastroenterology
DX: Z12.11 Encounter for screening for malignant neoplasm of colon (principal); K57.30 Diverticulosis of large intestine without perforation or abscess without bleeding; K64.0 First degree hemorrhoids; F41.9 Anxiety disorder, unspecified; F15.90 Other stimulant use, unspecified, uncomplicated; Z85.118 Personal history of other malignant neoplasm of bronchus and lung; Z72.89 Other problems related to lifestyle; Z87.891 Personal history of nicotine dependence; Z79.82 Long term (current) use of aspirin
CPT/HCPCS: G0105; J2001; J2704; 45378

== ENCOUNTER 2019-06-10 19:07 | Emergency (ER) | payer BC ==
[~2019-06-10] VITALS: Ht 180.3 cm; Wt 95.0 kg
[~2019-06-10 19:07] MED LIST changes: -IV RINGERS,LACTATED 1000ML 1,000 ML IV ONE; -LIDOCAINE 2% PF 5 ML VIAL. ONE; -PROPOFOL 40 ML IV ONE
[2019-06-10 20:30] LABS: BASO # 0.1 x10^3/uL (0.0-0.2); BASO % 1 % (0-3); EOS # 0.1 x10^3/uL (0.0-0.7); EOS % 1 % (0-3); HEMATOCRIT 39.2 % (39.0-53.0); LYMPH # 1.2 x10^3/uL (1.0-4.8); LYMPH % 12 % (24-48); MEAN CORPUSCULAR HEMOGLOBIN 35 pg (25-35); MEAN CORPUSCULAR HGB CONC 33 g/dL (31-37); MEAN CORPUSCULAR VOLUME 104 fL (79-100); MONO # 0.9 x10^3/uL (0.0-1.1); MONO % 9 % (0-9); NEUT # 7.6 x10^3/uL (1.8-7.7); NEUT % 77 % (31-73); PLATELET COUNT 148 x10^3/uL (140-400); RED BLOOD COUNT 3.78 x10^6/uL (4.30-5.70); RED CELL DISTRIBUTION WIDTH 17.7 % (11.5-14.5); WHITE BLOOD COUNT 9.8 x10^3/uL (4.0-11.0)
[2019-06-10 20:36] LABS: CALCIUM 9.5 mg/dL (8.5-10.1); CREATININE 8.4 mg/dL (0.7-1.3); GFR 7.7
--- NOTE | 2019-06-10 20:37 | PHYS DOC ---
Past Medical History Past Medical History: CAD, CHF, COPD, Diabetes-Type II, Hypertension, Renal Disease, Renal Failure, Other Additional Past Medical Histor: Chronic Right neck pain, LEFT UPPER ARM FISTULA Past Surgical History: Coronary Bypass Surgery, Other Additional Past Surgical Histo: R middle and lower lobe lung removal, vein graft left thigh, SHUNT RT CHEST Smoking Status: Former Smoker Alcohol Use: Sober Drug Use: None Adult General Chief Complaint Chief Complaint: ABDOMINAL PAIN HPI HPI Patient is a 69 year old male with history of hypertension, diabetes mellitus, coronary artery disease a status post CABG, CHF, chronic renal failure on dialysis with last dialysis yesterday who presents via EMS with complaint of abdominal pain. Patient states he has had constant left lower quadrant sharp pain since yesterday after finishing his dialysis with radiation to left flank that getting worse with movement and did not get better with applying IcyHot. Patient rated his pain 8/10 and denies nausea and vomiting, diarrhea and constipation, fever and chills. Patient states he urinated a few times a day and did not have complaining of urinary symptoms. Patient states that this pain previously. Patient states he had used to have oxycodone at home and ran out of the pain medication since yesterday and decided to call 911 today for evaluation of his pain. Review of Systems Review of Systems Constitutional: Denies fever or chills [] Eyes: Denies change in visual acuity, redness, or eye pain [] HENT: Denies nasal congestion or sore throat [] Respiratory: Denies cough or shortness of breath [] Cardiovascular: No additional information not addressed in HPI [] GI: Denies nausea, vomiting, bloody stools or diarrhea, reports abdominal pain [] : Denies dysuria or hematuria [] Musculoskeletal: Denies back pain or joint pain [] Integument: Denies rash or skin lesions [] Neurologic: Denies headache, focal weakness or sensory changes [] Endocrine: Denies polyuria or polydipsia [] All other systems were reviewed and found to be within normal limits, except as documented in this note. Current Medications Current Medications Current Medications Medications (Trade) Dose Ordered Sig/Wolf Start Time Stop Time Status Last Admin Dose Admin Fentanyl Citrate (Fentanyl 2ml Vial) 50 mcg 1X ONCE 06/10/19 20:00 06/10/19 20:01 DC 06/10/19 20:46 50 MCG Allergies Allergies Allergies Coded Allergies Type Severity Reaction Last Updated Verified No Known Medication Allergies Allergy Unknown 02/11/19 Yes Physical Exam Physical Exam Constitutional: Well developed, well nourished, mild distress, non-toxic appearance. [] HENT: Normocephalic, atraumatic. Eyes: PERRLA, EOMI, conjunctiva normal, no discharge. [] Neck: Normal range of motion, no tenderness, supple, no stridor. [] Cardiovascular:Heart rate regular rhythm, no murmur [] Lungs & Thorax: Bilateral breath sounds clear to auscultation [] Abdomen: Bowel sounds normal, soft, no tenderness, no masses, no pulsatile masses. [] Skin: Warm, dry, no erythema, no rash. [] Back: No tenderness, no CVA tenderness. [] Extremities: No tenderness, no cyanosis, no clubbing, ROM intact, no edema. [] Neurologic: Alert and oriented X 3, no focal deficits noted. [] Psychologic: Affect normal, judgement normal, mood normal. [] Current Patient Data Vital Signs Vital Signs Date Time Temp Pulse Resp B/P (MAP) Pulse Ox O2 Delivery O2 Flow Rate FiO2 06/10/19 22:15 72 20 152/77 (102) 93 Room Air 06/10/19 19:07 99.0 99.0 Lab Values Laboratory Tests Test 06/10/19 20:20 White Blood Count 9.8 x10^3/uL (4.0-11.0) Red Blood Count 3.78 x10^6/uL (4.30-5.70) L Hemoglobin 13.0 g/dL (13.0-17.5) Hematocrit 39.2 % (39.0-53.0) Mean Corpuscular Volume 104 fL (79-100) H Mean Corpuscular Hemoglobin 35 pg (25-35) Mean Corpuscular Hemoglobin Concent 33 g/dL (31-37) Red Cell Distribution Width 17.7 % (11.5-14.5) H Platelet Count 148 x10^3/uL (140-400) Neutrophils (%) (Auto) 77 % (31-73) H Lymphocytes (%) (Auto) 12 % (24-48) L Monocytes (%) (Auto) 9 % (0-9) Eosinophils (%) (Auto) 1 % (0-3) Basophils (%) (Auto) 1 % (0-3) Neutrophils # (Auto) 7.6 x10^3/uL (1.8-7.7) Lymphocytes # (Auto) 1.2 x10^3/uL (1.0-4.8) Monocytes # (Auto) 0.9 x10^3/uL (0.0-1.1) Eosinophils # (Auto) 0.1 x10^3/uL (0.0-0.7) Basophils # (Auto) 0.1 x10^3/uL (0.0-0.2) Sodium Level 137 mmol/L (136-145) Potassium Level 5.0 mmol/L (3.5-5.1) Chloride Level 97 mmol/L (98-107) L Carbon Dioxide Level 27 mmol/L (21-32) Anion Gap 13 (6-14) Blood Urea Nitrogen 47 mg/dL (8-26) H Creatinine 8.4 mg/dL (0.7-1.3) H Estimated GFR (Cockcroft-Gault) 7.7 BUN/Creatinine Ratio 6 (6-20) Glucose Level 102 mg/dL (70-99) H Calcium Level 9.5 mg/dL (8.5-10.1) Total Bilirubin 0.4 mg/dL (0.2-1.0) Aspartate Amino Transferase (AST) 14 U/L (15-37) L Alanine Aminotransferase (ALT) 19 U/L (16-63) Alkaline Phosphatase 84 U/L (46-116) Creatine Kinase 112 U/L (39-308) Total Protein 8.4 g/dL (6.4-8.2) H Albumin 3.8 g/dL (3.4-5.0) Albumin/Globulin Ratio 0.8 (1.0-1.7) L Lipase 70 U/L (73-393) L Laboratory Tests 06/10/19 20:20 Laboratory Tests 06/10/19 20:20 EKG EKG [] Radiology/Procedures Radiology/Procedures [facility] [address] [place], [place] [id number] IMAGING REPORT Signed PATIENT: ARGELIA RODAS ACCOUNT: [id number] : 1950 LOCATION: ER AGE: 69 SEX: M EXAM STATUS: REG ER ORD. PHYSICIAN: COURT VALLE MD REASON: Left lower quadrant pain with radiation to left flank PROCEDURE: CT ABDOMEN PELVIS WO CONTRAST CT scan of the abdomen and pelvis without contrast 06/10/2019 CLINICAL HISTORY: Left lower quadrant abdominal pain with left flank pain. TECHNIQUE: Unenhanced, contiguous, 2 mm axial sections were obtained through the abdomen and pelvis. One or more of the following individualized dose reduction techniques were utilized for this study: 1. Automated exposure control. 2. Adjustment of the mA and/or kV according to patient size. 3. Use of iterative reconstruction technique. FINDINGS: Comparison study is dated 07/30/2017. Images through the lung bases demonstrate surgical changes consistent with a CABG procedure. The heart is mildly enlarged. A 5 mm calcified granuloma is seen involving left lower lobe. Dependent subsegmental atelectasis is seen involving both lower lobes, left greater than right. The liver, spleen, pancreas, adrenal glands and left kidney are within normal limits. A 2.3 cm rounded low-attenuation lesion is seen involving the midpole of the right kidney. This likely represents a cyst. It has not significantly changed. No further imaging workup is recommended. Atherosclerotic calcification of the abdominal aorta and its branches is noted. The abdominal aorta tapers normally. The gallbladder is well-distended. Air and stool are seen throughout the colon. Images through the pelvis demonstrate the urinary bladder to be slightly contracted. A 4.2 cm diverticulum is seen effecting laterally from the right posterior lateral aspect of the urinary bladder, unchanged. Calcification are seen within the pelvis consistent with phleboliths. No free fluid is noted. No distal ureteral calculus is seen. Mild to moderate S-shaped curvature of the thoracolumbar spine is seen. Degenerative changes are seen involving the lower thoracic and throughout the lumbar spine along with both hips. IMPRESSION: No acute abnormality is seen. Electronically signed by: Shane Luna MD (06/10/2019 8:50 PM) [id number] DICTATED and SIGNED BY: SHANE LUNA MD DATE: 06/10/192049 Course & Med Decision Making Course & Med Decision Making Pertinent Labs and Imaging studies reviewed. (See chart for details) Evaluation of patient inertial 6-year-old male patient with complaining of left lower quadrant pain with radiation to left flank since yesterday as a constant pain with other symptoms. Patient had unremarkable physical exam and treated with fentanyl and felt better. CT of abdomen pelvis and labs was unremarkable except for chronic renal failure. Patient was advised to follow-up with his primary care physician and prescription for Flexeril was given. Dragon Disclaimer Dragon Disclaimer This electronic medical record was generated, in whole or in part, using a voice recognition dictation system. Departure Departure Impression: Primary Impression: Musculoskeletal pain Additional Impression: Chronic kidney disease with end stage renal failure on dialysis Disposition: HOME, SELF-CARE (At 2154) Condition: IMPROVED Referrals: LAMBERT ORTIZ MD (PCP) Patient Instructions: Muscle Strain Additional Instructions: Continue home medication and scheduled dialysis Follow-up with your primary care physician in 3-5 days Return to ER if not getting better Thank you for visiting [facility]. We appreciate you trusting us with your care. If any additional problems come up don't hesitate to return to visit us. Please follow up with your primary care provider so they can plan additional care if needed and know about the problem that you had. If symptoms worsen come back to the Emergency Department. Any concerning symptoms that start such as chest pain, shortness of air, weakness or numbness on one side of the body, running high fevers or any other concerning symptoms return to the ER. Scripts Cyclobenzaprine Hcl (CYCLOBENZAPRINE HCL) 10 Mg Tablet 1 TAB PO TID, #21 TAB Prov: COURT VALLE MD 06/10/[address] VALLE MD Jun 10, 2019 20:37
[2019-06-10 20:43] LABS: ALBUMIN 3.8 g/dL (3.4-5.0); ALBUMIN/GLOBULIN RATIO 0.8 (1.0-1.7); TOTAL BILIRUBIN 0.4 mg/dL (0.2-1.0); TOTAL PROTEIN 8.4 g/dL (6.4-8.2)
[2019-06-10] MEDS: fentaNYL PF VIAL 100 MCG/2 ML VIAL IVP ONE (20:46)
--- NOTE | 2019-06-10 20:53 | RAD ---
CT scan of the abdomen and pelvis without contrast 06/10/2019 CLINICAL HISTORY: Left lower quadrant abdominal pain with left flank pain. TECHNIQUE: Unenhanced, contiguous, 2 mm axial sections were obtained through the abdomen and pelvis. One or more of the following individualized dose reduction techniques were utilized for this study: 1. Automated exposure control. 2. Adjustment of the mA and/or kV according to patient size. 3. Use of iterative reconstruction technique. FINDINGS: Comparison study is dated 07/30/2017. Images through the lung bases demonstrate surgical changes consistent with a CABG procedure. The heart is mildly enlarged. A 5 mm calcified granuloma is seen involving left lower lobe. Dependent subsegmental atelectasis is seen involving both lower lobes, left greater than right. The liver, spleen, pancreas, adrenal glands and left kidney are within normal limits. A 2.3 cm rounded low-attenuation lesion is seen involving the midpole of the right kidney. This likely represents a cyst. It has not significantly changed. No further imaging workup is recommended. Atherosclerotic calcification of the abdominal aorta and its branches is noted. The abdominal aorta tapers normally. The gallbladder is well-distended. Air and stool are seen throughout the colon. Images through the pelvis demonstrate the urinary bladder to be slightly contracted. A 4.2 cm diverticulum is seen effecting laterally from the right posterior lateral aspect of the urinary bladder, unchanged. Calcification are seen within the pelvis consistent with phleboliths. No free fluid is noted. No distal ureteral calculus is seen. Mild to moderate S-shaped curvature of the thoracolumbar spine is seen. Degenerative changes are seen involving the lower thoracic and throughout the lumbar spine along with both hips. IMPRESSION: No acute abnormality is seen. Electronically signed by: Shane Luna MD (06/10/2019 8:50 PM) [id number]
[2019-06-10] MEDS ORDERED: CYCL10TA2 PO ×2 (21:55→21:56)
[2019-06-10 22:15] VITALS: BP 152/77
== END 2019-06-10 22:25 | disposition home or self-care (01) ==
LOC: ER 19:07
DX: M79.18 Myalgia, other site (principal); N18.6 End stage renal disease; R10.32 Left lower quadrant pain; I13.2 Hypertensive heart and chronic kidney disease with heart failure and with stage 5 chronic kidney disease, or end stage renal disease; I50.9 Heart failure, unspecified; G89.29 Other chronic pain; J44.9 Chronic obstructive pulmonary disease, unspecified; Z87.891 Personal history of nicotine dependence; Z98.890 Other specified postprocedural states
CPT/HCPCS: 36415; 74176; 80053; 82550; 83690; 85025; 96374; 99284; J3010

== ENCOUNTER 2019-06-12 19:02 | Emergency (ER) | payer BC ==
[~2019-06-12] VITALS: Ht 180.3 cm; Wt 92.7 kg
[~2019-06-12 19:02] MED LIST changes: +CYCL10TA2 PO
[2019-06-12] MEDS ORDERED: oxyCODONE/APAP 5/325 1 TAB TABLET PO ONE (19:45)
[2019-06-12 19:56] VITALS: BP 162/90
--- NOTE | 2019-06-12 19:56 | PHYS DOC ---
Past Medical History Past Medical History: CAD, CHF, COPD, Diabetes-Type II, Hypertension, Renal Disease, Renal Failure, Other Additional Past Medical Histor: Chronic Right neck pain, LEFT UPPER ARM FISTULA Past Surgical History: Coronary Bypass Surgery, Other Additional Past Surgical Histo: R middle and lower lobe lung removal, vein graft left thigh, SHUNT RT CHEST Smoking Status: Former Smoker Alcohol Use: Sober Drug Use: None Adult General Chief Complaint Chief Complaint: DIALYSIS PROBLEM HPI HPI Patient is a 69 year old male with history of COPD, hypertension, high cholesterol, diabetes type 2, end-stage kidney disease on dialysis Friday last dialyzed on Friday who presents the ED today complaining of 10 out of 10 left-sided abdominal pain, symptoms began on Friday. Patient reports being seen in the ED on Friday which is 3 days ago for the same complaint, he reports he was worked up and everything was negative and was sent home with a muscle relaxer. He states it is not working for his pain. He states he needs some oxycodone for his pain because there is no way he can go to dialysis with this pain and is on oxycodone daily but has only 8 tablets left which he believes will not last until Friday. He states he cannot call his PCP because it is a weekend. He is very insistent on getting his pain medicine. He states he does not want any work-up he wants something for pain for here and home use. Review of Systems Review of Systems Constitutional: Denies fever or chills [] Eyes: Denies change in visual acuity, redness, or eye pain [] HENT: Denies nasal congestion or sore throat [] Respiratory: Denies cough or shortness of breath [] Cardiovascular: No additional information not addressed in HPI [] GI: Reports left-sided abdominal pain, denies nausea, vomiting, bloody stools or diarrhea [] : Denies dysuria or hematuria [] Musculoskeletal: Denies back pain or joint pain [] Integument: Denies rash or skin lesions [] Neurologic: Denies headache, focal weakness or sensory changes [] All other systems were reviewed and found to be within normal limits, except as documented in this note. Current Medications Current Medications Current Medications Medications (Trade) Dose Ordered Sig/Wolf Start Time Stop Time Status Last Admin Dose Admin Oxycodone/ Acetaminophen (Percocet 5/325) 2 tab 1X ONCE 06/12/19 19:45 06/12/19 19:46 UNV Allergies Allergies Allergies Coded Allergies Type Severity Reaction Last Updated Verified No Known Medication Allergies Allergy Unknown 02/11/19 Yes Physical Exam Physical Exam Constitutional: Well developed, well nourished, no acute distress, non-toxic appearance. [] HENT: Normocephalic, atraumatic, bilateral external ears normal, oropharynx moist, no oral exudates, nose normal. [] Eyes: PERRLA, EOMI, conjunctiva normal, no discharge. [] Neck: Normal range of motion, no tenderness, supple, no stridor. [] Cardiovascular:Heart rate regular rhythm, no murmur [] Lungs & Thorax: Bilateral breath sounds clear to auscultation [] Abdomen: Bowel sounds normal, soft, no tenderness, no masses, no pulsatile masses. [] Skin: Warm, dry, no erythema, no rash. [] Back: No tenderness, no CVA tenderness. [] Extremities: No tenderness, no cyanosis, no clubbing, ROM intact, chronic lymphedema to bilateral lower extremities Neurologic: Alert and oriented X 3, normal motor function, normal sensory function, no focal deficits noted. [] Psychologic: Affect normal, judgement normal, mood normal. [] Current Patient Data Vital Signs Vital Signs Date Time Temp Pulse Resp B/P (MAP) Pulse Ox O2 Delivery O2 Flow Rate FiO2 06/12/19 19:08 98.9 68 18 158/89 (112) 93 Room Air 98.9 EKG EKG [] Radiology/Procedures Radiology/Procedures [] Course & Med Decision Making Course & Med Decision Making Pertinent Labs and Imaging studies reviewed. (See chart for details) This is a 69-year-old male patient presenting to the ED today complaining of left-sided abdominal pain that began on Friday which is roughly 3 days from today. He was seen in the ED for the same complaint 3 days ago and had a full work-up including labs and CAT scan which were negative and he was sent home with cyclobenzaprine. He insisted its not working for his pain he wants oxycodone which he is very insistent on getting. He states he has been taking oxycodone for years and he currently only has 8 tablets left which will not take him until Friday. [facility] shows he filled RX for Oxycodone 10/325mg 30 day supply on 05/21/2019. Informed patient it would be ideal he follows up with his own PCP for refills of his oxycodone otherwise from the ED standpoint we cannot send him home with a prescription for oxycodone. Informed patient considering he is not due for a refill no pharmacy will fill this prescription. Patient stated he can go to [place] and fill the prescription if [place] can not fill it. Patient continued to argue for quite some time basically negotiating for a prescription for oxycodone. He even states his brother is addicted to drugs and goes to multiple hospitals and nobody will give him a prescriptions for pain medicines but he states he is not addicted to drugs. Informed patient we will give him 2 tablets of oxycodone in the ED and he can follow-up with his own doctor. He refused to be worked up. He was discharged to home. Dragon Disclaimer Dragon Disclaimer This electronic medical record was generated, in whole or in part, using a voice recognition dictation system. Departure Departure Impression: Primary Impression: Left sided abdominal pain Additional Impression: ESRD (end stage renal disease) on dialysis Disposition: HOME, SELF-CARE Condition: STABLE Referrals: LAMBERT ORTIZ MD (PCP) follow up next week Patient Instructions: Abdominal Pain Additional Instructions: You were evaluated in the emergency room, contact your doctor tomorrow and set up a follow-up appointment to get a refill of your oxycodone. Problem Qualifiers SARITHA PARK APRN Jun 12, 2019 19:55
--- NOTE | 2019-06-12 20:23 | EKG ---
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
== END 2019-06-12 20:00 | disposition home or self-care (01) ==
LOC: ER 19:02
DX: E11.22 Type 2 diabetes mellitus with diabetic chronic kidney disease (principal); I13.2 Hypertensive heart and chronic kidney disease with heart failure and with stage 5 chronic kidney disease, or end stage renal disease; I50.9 Heart failure, unspecified; N18.6 End stage renal disease; Z99.2 Dependence on renal dialysis; R10.9 Unspecified abdominal pain; J44.9 Chronic obstructive pulmonary disease, unspecified; I25.10 Atherosclerotic heart disease of native coronary artery without angina pectoris; G89.29 Other chronic pain; Z87.891 Personal history of nicotine dependence; Z95.1 Presence of aortocoronary bypass graft
CPT/HCPCS: 93005; 99284

== ENCOUNTER 2019-06-17 16:03 | Emergency (ER) | payer BC ==
[~2019-06-17] VITALS: Ht 180.3 cm; Wt 92.7 kg
[2019-06-17 17:12] VITALS: BP 150/76
[2019-06-17] MEDS ORDERED: HYDROcodone/APAP 5/325MG 1 TAB TABLET PO ONE (17:15)
--- NOTE | 2019-06-17 17:19 | PHYS DOC ---
Past Medical History Past Medical History: CAD, CHF, COPD, Diabetes-Type II, Hypertension, Renal Disease, Renal Failure, Other Additional Past Medical Histor: Chronic Right neck pain,LEFT UPPER ARM FISTULA Past Surgical History: Coronary Bypass Surgery, Other Additional Past Surgical Histo: R middle and lower lobe lung removal, vein graft left thigh, SHUNT RT CHEST Smoking Status: Former Smoker Alcohol Use: Sober Drug Use: None General Adult EDM: Chief Complaint: MEDICATION REFILL HPI: HPI: Patient is a 69 year old AA male who presents to the emergency department with request for pain medication. Patient states he is out of his oxycodone and is unable to fill it for another 3 days. Patient reports that he went to dialysis today and that they took the fluid off of him too quickly which always causes him to have abdominal pain. He denies any fever, cough, nausea, vomiting, diarrhea, chest pain, palpitations, or shortness of breath. He denies any recent travel or known exposure to anyone with COVID-19. Patient states that he has been to this emergency department twice in the last week and they did not do anything for him. He states he does not want anything but pain medication, patient refuses lab work and imaging tests that are offered. Patient reports that he wears oxygen every night, on arrival to the room he was 91% on room air, his sats increased to 93/94% with 2 L per nasal cannula. He currently rates the pain a 9 out of 10 on the pain scale in his entire abdomen. Patient states the only thing that helps his pain is his hydrocodone that he is unable to fill until the 12th. Review of Systems: Review of Systems: Constitutional: Denies fever or chills. [] Eyes: Denies change in visual acuity. [] HENT: Denies nasal congestion or sore throat. [] Respiratory: Denies cough or shortness of breath. [] Cardiovascular: Denies chest pain or edema. [] GI: Denies nausea, vomiting, bloody stools or diarrhea; see HPI Musculoskeletal: Denies back pain or joint pain. [] Integument: Denies rash. [] Neurologic: Denies headache, focal weakness or sensory changes. [] Psychiatric: Denies depression or anxiety. [] Heart Score: Risk Factors: Risk Factors: DM, Current or recent (<one month) smoker, HTN, HLP, family history of CAD, obesity. Risk Scores: Score 0 - 3: 2.5% MACE over next 6 weeks - Discharge Home Score 4 - 6: 20.3% MACE over next 6 weeks - Admit for Clinical Observation Score 7 - 10: 72.7% MACE over next 6 weeks - Early Invasive Strategies Current Medications: Current Medications Medications (Trade) Dose Ordered Sig/Wolf Start Time Stop Time Status Last Admin Dose Admin Acetaminophen/ Hydrocodone Bitart (Lortab 5/325) 2 tab 1X ONCE 06/17/19 17:15 06/17/19 17:16 Allergies: Allergies: Allergies Coded Allergies Type Severity Reaction Last Updated Verified No Known Medication Allergies Allergy Unknown 02/11/19 Yes Physical Exam: PE: Constitutional: Well developed, well nourished, no acute distress, non-toxic appearance, agitated. [] HENT: Normocephalic, atraumatic, bilateral external ears normal, nose normal. [] Eyes: PERRLA, EOMI, conjunctiva normal, no discharge. [] Neck: Normal range of motion, no stridor. [] Cardiovascular:Heart rate regular rhythm Lungs & Thorax: Respirations even and unlabored, no retractions, no respiratory distress Abdomen: soft, no tenderness Skin: Warm, dry, no erythema, no rash. [] Extremities: No cyanosis, ROM intact Neurologic: Alert and oriented X 3, no focal deficits noted. [] Psychologic: Affect angry, judgement normal, mood normal. [] Current Patient Data: Vital Signs: Vital Signs Date Time Temp Pulse Resp B/P (MAP) Pulse Ox O2 Delivery O2 Flow Rate FiO2 06/17/19 16:51 98.8 91 24 143/80 (101) 91 Room Air 98.8 EKG: EKG: [] Radiology/Procedures: Radiology/Procedures: [] Course & Med Decision Making: Course & Med Decision Making Pertinent Labs and Imaging studies reviewed. (See chart for details) Patient is a 69-year-old -[place] gentleman who presented to the emergency department with request for pain medication. He stated that his chronic abdominal pain that occurs after he has dialysis has flared up again and states that he is out of his pain medication. Patient refused any lab work or imaging. His vital signs are stable, he denied any fever or shortness of breath. Patient was given 2 hydrocodone 5/325 mg tablets. I advised the patient that I would not prescribe hydrocodone as the patient already has a prescription for the medication in hand. Advised the patient to fill the medication at his pharmacy when he is able to. [] Maxwell Disclaimer: Maxwell Disclaimer: This electronic medical record was generated, in whole or in part, using a voice recognition dictation system. Departure Departure Impression: Primary Impression: Chronic abdominal pain Disposition: HOME, SELF-CARE Condition: STABLE Referrals: LAMBERT ORTIZ MD (PCP) Patient Instructions: Chronic Pain Management-Brief, Opiate Dependence Additional Instructions: Follow up with your primary care doctor for further management of your chronic pain. Return to the ER if you develop a fever, or your symptoms worsen. DAVIDSON FOLEY SALES ADVISOR Jun 17, 2019 17:19
[2019-06-20] MEDS ORDERED: GABA-585 PO (22:16)
[2019-06-20] MEDS ORDERED: ALPR0.5T6 PO (22:16)
[2019-06-24] MEDS ORDERED: DOCU-109 PO (10:58)
[2019-06-24] MEDS ORDERED: POLY17PO28 PO (10:58)
== END 2019-06-17 17:37 | disposition home or self-care (01) ==
LOC: ER 16:03
DX: G89.29 Other chronic pain (principal); R10.9 Unspecified abdominal pain; I13.0 Hypertensive heart and chronic kidney disease with heart failure and stage 1 through stage 4 chronic kidney disease, or unspecified chronic kidney disease; E11.22 Type 2 diabetes mellitus with diabetic chronic kidney disease; N18.9 Chronic kidney disease, unspecified; I50.9 Heart failure, unspecified; I25.10 Atherosclerotic heart disease of native coronary artery without angina pectoris; J44.9 Chronic obstructive pulmonary disease, unspecified; Z87.891 Personal history of nicotine dependence; Z95.1 Presence of aortocoronary bypass graft
CPT/HCPCS: 99283

== ENCOUNTER 2019-07-07 13:33 | Emergency (ER) | payer BC ==
[~2019-07-07] VITALS: Ht 180.3 cm; Wt 92.7 kg
[~2019-07-07 13:33] MED LIST changes: +ALPR0.5T6 PO; +DOCU-109 PO; +GABA-585 PO
--- NOTE | 2019-07-07 13:55 | PHYS DOC ---
Past Medical History Past Medical History: CAD, CHF, COPD, Diabetes-Type II, Hypertension, Renal Disease, Renal Failure, Other Additional Past Medical Histor: Chronic Right neck pain,LEFT UPPER ARM FISTULA Past Surgical History: Coronary Bypass Surgery, Other Additional Past Surgical Histo: R middle and lower lobe lung removal, vein graft left thigh, SHUNT RT CHEST Smoking Status: Former Smoker Alcohol Use: Sober Drug Use: None General Adult EDM: Chief Complaint: CHEST PAIN HPI: HPI: Patient is a 69 year old male who presents with with the same sharp intermittent left lower abdominal pain for the last 5 to 6 months. He states he just cannot take it anymore. Patient was diagnosed with osteomyelitis in his spine 7 days ago and was admitted and discharged 5 days ago. Patient states the pain continues and nobody is fixing him. He rates his pain 10 out of 10. He states it hurts more with movement. Patient has a history of CHF, alcoholism, diabetes, renal failure, cellulitis, osteomyelitis. He states he did not go to dialysis today due to the pain and it hurt too bad to come and get out of bed. Review of Systems: Review of Systems: GI: abdominal pain, denies nausea, vomiting, bloody stools or diarrhea. [] Heart Score: Risk Factors: Risk Factors: DM, Current or recent (<one month) smoker, HTN, HLP, family history of CAD, obesity. Risk Scores: Score 0 - 3: 2.5% MACE over next 6 weeks - Discharge Home Score 4 - 6: 20.3% MACE over next 6 weeks - Admit for Clinical Observation Score 7 - 10: 72.7% MACE over next 6 weeks - Early Invasive Strategies Allergies: Allergies: Allergies Coded Allergies Type Severity Reaction Last Updated Verified No Known Drug Allergies 06/30/19 No Physical Exam: PE: Constitutional: Well developed, well nourished, no acute distress, non-toxic appearance. [] HENT: Normocephalic, atraumatic, bilateral external ears normal, oropharynx moist, no oral exudates, nose normal. [] Eyes: PERRLA, EOMI, conjunctiva normal, no discharge. [] Neck: Normal range of motion, no tenderness, supple, no stridor. [] Cardiovascular:Heart rate regular rhythm, no murmur [] Lungs & Thorax: Bilateral breath sounds clear to auscultation [] Abdomen: Bowel sounds normal, soft, no tenderness, no masses, no pulsatile masses. [] Skin: Warm, dry, no erythema, no rash. [] Back: No tenderness, no CVA tenderness. [] Extremities: No tenderness, no cyanosis, no clubbing, ROM intact, 3+ edema. [] Neurologic: Alert and oriented X 3, normal motor function, normal sensory function, no focal deficits noted. [] Psychologic: Affect normal, judgement normal, mood normal. [] EKG: EK and read by Dr Reyes. Sinus Rhythm with questionable lateral T-wave inversion worsening Radiology/Procedures: Radiology/Procedures: [] Impression: [address] [address] IMAGING REPORT Signed PATIENT: ARGELIA RODAS ACCOUNT: [id number] : 1950 LOCATION: ER AGE: 69 SEX: M EXAM STATUS: REG ER ORD. PHYSICIAN: LYDIA BARRETT APRN REASON: left lower pain, PT GETTING IV@1354 PROCEDURE: ACUTE ABDOMEN SERIES Examination: Acute abdomen series HISTORY: History of left lower abdominal pain COMPARISON: 06/20/2019 FINDINGS: Low lung volumes and technique accentuates heart size and pulmonary vascularity. Moderate cardiomegaly. Prominent appearing bilateral interstitial lung markings likely chronic interstitial changes similar to prior exam. Large amount of stool identified throughout the colon. Air distended small bowel loops. IMPRESSION: 1. Large amount of stool identified throughout the colon could be significant fecal impaction or constipation.Air distended small bowel loops. Consider follow-up CT. Electronically signed by: Cayden Sinha MD (07/07/2019 3:34 PM) [id number] DICTATED and SIGNED BY: CAYDEN SINHA MD DATE: 07/07/[address] [id number] IMAGING REPORT Signed PATIENT: ARGELIA RODAS ACCOUNT: [id number] : 1950 LOCATION: ER AGE: 69 SEX: M EXAM STATUS: REG ER ORD. PHYSICIAN: LYDIA BARRETT APRN REASON: HX OSTEOMYLITIS, SAME PAIN. JUST DISCHARGED PROCEDURE: THORACIC SPINE 3V Thoracic spine 3 views: Reason for examination: Pain with history of osteomyelitis. The vertebral bodies of the thoracic spine show a rotatory thoracolumbar scoliosis with the thoracic convexity to the right. There is poor mineralization. No definite site of fracture or subluxation is evident. No gross abnormalities are seen at the pedicles or posterior elements. The intervertebral discs appear to be fairly well-maintained. IMPRESSION: Thoracic scoliosis with convexity to the right. No acute abnormality apparent in the thoracic spine. Lumbar spine 5 views: There is a thoracolumbar cyst scoliosis with the lumbar convexity to the left. There is generalized demineralization. There appears to be some mild depression of the superior endplate of the L1 vertebral body and superior and inferior endplates of the L2 vertebral body. Remaining vertebral bodies appear to be intact. No subluxation is apparent. The posterior elements appear to be intact. The intervertebral discs appear to be maintained. No gross abnormalities are seen at the visualized portion of the sacrum or sacroiliac joints. IMPRESSION: Lumbar scoliosis with convexity to the left. Mild depression of the superior endplate of L1 and superior and inferior endplates of L2. Electronically signed by: Mika Banegas MD (07/07/2019 4:02 PM) [id number] DICTATED and SIGNED BY: MIKA BANEGAS MD DATE: 07/07/19 1602 [facility] [address] [place] [address] IMAGING REPORT Signed PATIENT: ARGELIA RODAS ACCOUNT: [id number] : 1950 LOCATION: ER AGE: 69 SEX: M EXAM STATUS: REG ER ORD. PHYSICIAN: LYDIA BARRETT APRN REASON: ABNORMAL ACUTE ABDOMINAL XRAY PROCEDURE: CT ABDOMEN PELVIS WO CONTRAST CT abdomen and pelvis without contrast: Reason for examination: Abnormal acute abdominal x-ray. Comparison is made to previous examinations dated 06/30/2019 and 06/10/2019. Helical images were obtained through the abdomen and pelvis with no contrast administered. Reconstruction was performed in sagittal and coronal planes. Exposure: One or more of the following individualized dose reduction techniques were utilized for this examination: 1. Automated exposure control 2. Adjustment of the mA and/or kV according to patient size 3. Use of iterative reconstruction technique. There is a calcified granuloma in the left lung base. There is some linear atelectasis in the left lower lobe and right middle lobe. The heart size appears be enlarged with no pericardial effusion evident. The liver and spleen are both mildly enlarged but show no focal lesions. No abnormalities of seen at the adrenal glands, pancreas or gallbladder. The abdominal aorta shows some arteriosclerotic vascular calcification but no aneurysmal dilatation. No abnormality seen at the inferior vena cava. There is no diverticulosis or diverticulitis or colitis. There is some residual contrast in the distal colon. There is no evidence of appendicitis. The small intestinal tract shows no abnormal dilatation, wall thickening or evidence of obstruction. The stomach is not distended and shows no wall thickening or obstruction. The kidneys show 3 hypodense lesions in the right kidney with the largest at the midpole measuring approximately 2.7 cm in greatest dimension. These are unchanged and likely represent cysts. No renal calculi, hydronephrosis or obstructive uropathy is evident. Bladder is well-distended and continues to show a bladder diverticulum on the right measuring approximately 4.3 x 4.2 x 2.5 cm in greatest dimensions. No abnormality seen at the prostate gland aside from prosthetic calcification. Seminal vesicles are symmetric. As the reference calcifications are seen. There is a thoracolumbar scoliosis with thoracic convexly to the right and lumbar convexity to the left. There continue to be erosive changes at the inferior endplate of T11 and superior endplate of T12 on the left which show a mild increase in the bony destruction. This is associated with some soft tissue thickening in the paraspinous region which appears to be stable. There is a Schmorl's node in the inferior endplate of the L2 vertebral body which is unchanged. There are degenerative disc changes at the L1-2,, L2-3, L3-4, L4-5 and L5-S1 disc levels with vacuum disc phenomena IMPRESSION: Linear atelectasis at the left lower lobe and right middle lobe. Cardiomegaly. Mild hepatosplenomegaly. Hypodense lesions probably representing cysts in the right kidney which are stable. No new erosive changes at the inferior endplate of T11 and superior endplate of T12 on the left which appear to have increased and there continues be associated paraspinous soft tissue thickening which is unchanged. Thoracolumbar scoliosis with degenerative disc disease. Right-sided bladder diverticulum measuring 4.3 cm in greatest dimension. Electronically signed by: Mika Banegas MD (07/07/2019 4:57 PM) [email or web address] DICTATED and SIGNED BY: MIKA BANEGAS MD DATE: 07/07/191656 [] Course & Med Decision Making: Course & Med Decision Making Pertinent Labs and Imaging studies reviewed. (See chart for details) Abdomen soft and nontender. Bilateral lower extremities 3+ edema bilaterally. Lungs are clear in upper lobes diminished in lower lobes. He states he has been constipated since Friday when he was discharged. States he has plenty of pain medicines at home but nothing is working. Patient denies nausea, vomiting, diarrhea, chest pain, shortness of air, fever, dysuria, headache, dizziness, LOC, vision changes, numbness or tingling, focal weakness. Patient is neurologically intact. Denies loss of bowel or bladder. Denies saddle paresthes ia. 06/30/19 CT ABD PELV IMPRESSION: 1. No findings of bowel obstruction or perforation. 2. New erosive changes at the endplate at T11-T12 on the left with paraspinal soft tissue stranding is of concern for developing discitis osteomyelitis complex. Recommend correlation with clinical findings. MRI could be considered if clinically appropriate. 3. Mild urinary bladder wall thickening and moderate distention could reflect bladder outlet obstruction. Correlate for any clinical evidence of cystitis. I have spoken to infectious disease Jason Coto who saw the patient in the hospital when he was admitted. Patient is on cefazolin currently. I went over the results of his CT scan today with her and she states is probably just the progression of the disease process but he is on antibiotics. Patient does have a appointment July 13, 2019. She states to help the patient with his constipation which may be exacerbating some of his pain. Patient will be given a enema in the ED and Senna. Patient to be sent home on Senna and he needs to call his primary care for follow up. Patient states he can not stand up, the pain is to great. He states "I dont feel gassy and I have not ate in 3 days, so there can not be stool in there" He states "I took laxatives". I then asked did you have a stool with those laxatives? He states " no I have not had a stool since Friday". Patient then states he needs a shot for her constipation. Patient stood up and stood at bed side without difficulty. I spoke to Dr Howell who states from his stand point the patient can go home as he is stable and can call in the morning and get in to be dialyzed. Patient is given enema and Senna in the ED. 1916: No success with Enema. I have spoken to Dr Brewster who states to give the patient Relistor. Patient states he has had this in the past and it worked for his constipation. Maxwell Disclaimer: Maxwell Disclaimer: This electronic medical record was generated, in whole or in part, using a voice recognition dictation system. Departure Departure Impression: Primary Impression: Constipation Qualified Codes: K59.00 - Constipation, unspecified Additional Impression: Chronic abdominal pain Disposition: HOME, SELF-CARE Condition: STABLE Referrals: LAMBERT ORTIZ MD (PCP) Patient Instructions: Constipation, Adult, [id number] Additional Instructions: Keep your appointment with infectious disease as scheduled. Follow-up with your primary care provider concerning your constipation. Take medication until you begin having a bowel movement. Drink plenty of fluids. Scripts Sennosides/Docusate Sodium (SENNA PLUS TABLET) 1 Each Tablet 2 TAB PO QHS for 14 Days, #28 TAB 0 Refills Prov: LYDIA BARRETT APRN 07/07/19 LYDIA BARRETT APRN Jul 07, 2019 13:55
[2019-07-07] MEDS ORDERED: fentaNYL PF VIAL 100 MCG/2 ML VIAL IVP ONE (14:15)
[2019-07-07 14:34] LABS: BASO % 1 % (0-3); EOS # 0.3 x10^3/uL (0.0-0.7); EOS % 4 % (0-3); HEMATOCRIT 35.3 % (39.0-53.0); HEMOGLOBIN 11.5 g/dL (13.0-17.5); LYMPH # 0.9 x10^3/uL (1.0-4.8); LYMPH % 12 % (24-48); MEAN CORPUSCULAR HEMOGLOBIN 33 pg (25-35); MEAN CORPUSCULAR HGB CONC 33 g/dL (31-37); MEAN CORPUSCULAR VOLUME 103 fL (79-100); MONO # 0.9 x10^3/uL (0.0-1.1); MONO % 12 % (0-9); NEUT # 5.2 x10^3/uL (1.8-7.7); NEUT % 71 % (31-73); PLATELET COUNT 221 x10^3/uL (140-400); RED BLOOD COUNT 3.43 x10^6/uL (4.30-5.70); RED CELL DISTRIBUTION WIDTH 17.3 % (11.5-14.5); WHITE BLOOD COUNT 7.3 x10^3/uL (4.0-11.0)
[2019-07-07 14:44] LABS: PROTHROMBIN TIME PATIENT 14.1 SEC (11.7-14.0)
[2019-07-07 14:47] LABS: ANION GAP 9 (6-14); BLOOD UREA NITROGEN 53 mg/dL (8-26); BUN/CREATININE RATIO 5 (6-20); CALCIUM 9.4 mg/dL (8.5-10.1); CARBON DIOXIDE 34 mmol/L (21-32); CHLORIDE 98 mmol/L (98-107); CREATININE 10.7 mg/dL (0.7-1.3); GFR 5.8; GLUCOSE 96 mg/dL (70-99); POTASSIUM 5.5 mmol/L (3.5-5.1); SODIUM 141 mmol/L (136-145)
--- NOTE | 2019-07-07 14:56 | EKG ---
[facility] [address] [place] [address] Test Date: 2019-07-07 Test Time: 13:57:43 Pat Name: ARGELIA RODAS Department: Room: Gender: M Sub Prior: : 1950 Requested By: LYDIA BARRETT Order Number: [id number] Reading MD: Mauri Tripp MD Measurements Intervals [place] Rate: 77 P: 24 [place]: 210 QRS: -16 QRSD: 122 T: 136 QT: 414 QTc: 470 Interpretive Statements SINUS RHYTHM LEFT ATRIAL ABNORMALITY LEFTWARD AXIS LVH WITH REPOLARIZATION ABNORMALITY ABNORMAL ECG Electronically Signed On 07-08-2019 8:34:16 CDT by Mauri Tripp MD
[2019-07-07 15:01] LABS: ALBUMIN 3.3 g/dL (3.4-5.0); ALBUMIN/GLOBULIN RATIO 0.6 (1.0-1.7); ALK PHOS 91 U/L (46-116); AST (SGOT) 15 U/L (15-37); LIPASE 72 U/L (73-393); TOTAL BILIRUBIN 0.3 mg/dL (0.2-1.0); TOTAL PROTEIN 8.5 g/dL (6.4-8.2)
[2019-07-07 15:12] LABS: ALT (SGPT) < 6 U/L (16-63)
--- NOTE | 2019-07-07 15:37 | RAD ---
Examination: Acute abdomen series HISTORY: History of left lower abdominal pain COMPARISON: 06/20/2019 FINDINGS: Low lung volumes and technique accentuates heart size and pulmonary vascularity. Moderate cardiomegaly. Prominent appearing bilateral interstitial lung markings likely chronic interstitial changes similar to prior exam. Large amount of stool identified throughout the colon. Air distended small bowel loops. IMPRESSION: 1. Large amount of stool identified throughout the colon could be significant fecal impaction or constipation.Air distended small bowel loops. Consider follow-up CT. Electronically signed by: Cayden Sinha MD (07/07/2019 3:34 PM) [id number]
--- NOTE | 2019-07-07 16:05 | RAD ---
Thoracic spine 3 views: Reason for examination: Pain with history of osteomyelitis. The vertebral bodies of the thoracic spine show a rotatory thoracolumbar scoliosis with the thoracic convexity to the right. There is poor mineralization. No definite site of fracture or subluxation is evident. No gross abnormalities are seen at the pedicles or posterior elements. The intervertebral discs appear to be fairly well-maintained. IMPRESSION: Thoracic scoliosis with convexity to the right. No acute abnormality apparent in the thoracic spine. Lumbar spine 5 views: There is a thoracolumbar cyst scoliosis with the lumbar convexity to the left. There is generalized demineralization. There appears to be some mild depression of the superior endplate of the L1 vertebral body and superior and inferior endplates of the L2 vertebral body. Remaining vertebral bodies appear to be intact. No subluxation is apparent. The posterior elements appear to be intact. The intervertebral discs appear to be maintained. No gross abnormalities are seen at the visualized portion of the sacrum or sacroiliac joints. IMPRESSION: Lumbar scoliosis with convexity to the left. Mild depression of the superior endplate of L1 and superior and inferior endplates of L2. Electronically signed by: Sepideh Bullock MD (07/07/2019 4:02 PM) [email or web address]
[2019-07-07] MEDS ORDERED: ONDANSETRON PF 4 MG/2 ML VIAL. IVP ONE (16:30)
--- NOTE | 2019-07-07 17:00 | RAD ---
CT abdomen and pelvis without contrast: Reason for examination: Abnormal acute abdominal x-ray. Comparison is made to previous examinations dated 06/30/2019 and 06/10/2019. Helical images were obtained through the abdomen and pelvis with no contrast administered. Reconstruction was performed in sagittal and coronal planes. Exposure: One or more of the following individualized dose reduction techniques were utilized for this examination: 1. Automated exposure control 2. Adjustment of the mA and/or kV according to patient size 3. Use of iterative reconstruction technique. There is a calcified granuloma in the left lung base. There is some linear atelectasis in the left lower lobe and right middle lobe. The heart size appears be enlarged with no pericardial effusion evident. The liver and spleen are both mildly enlarged but show no focal lesions. No abnormalities of seen at the adrenal glands, pancreas or gallbladder. The abdominal aorta shows some arteriosclerotic vascular calcification but no aneurysmal dilatation. No abnormality seen at the inferior vena cava. There is no diverticulosis or diverticulitis or colitis. There is some residual contrast in the distal colon. There is no evidence of appendicitis. The small intestinal tract shows no abnormal dilatation, wall thickening or evidence of obstruction. The stomach is not distended and shows no wall thickening or obstruction. The kidneys show 3 hypodense lesions in the right kidney with the largest at the midpole measuring approximately 2.7 cm in greatest dimension. These are unchanged and likely represent cysts. No renal calculi, hydronephrosis or obstructive uropathy is evident. Bladder is well-distended and continues to show a bladder diverticulum on the right measuring approximately 4.3 x 4.2 x 2.5 cm in greatest dimensions. No abnormality seen at the prostate gland aside from prosthetic calcification. Seminal vesicles are symmetric. As the reference calcifications are seen. There is a thoracolumbar scoliosis with thoracic convexly to the right and lumbar convexity to the left. There continue to be erosive changes at the inferior endplate of T11 and superior endplate of T12 on the left which show a mild increase in the bony destruction. This is associated with some soft tissue thickening in the paraspinous region which appears to be stable. There is a Schmorl's node in the inferior endplate of the L2 vertebral body which is unchanged. There are degenerative disc changes at the L1-2,, L2-3, L3-4, L4-5 and L5-S1 disc levels with vacuum disc phenomena IMPRESSION: Linear atelectasis at the left lower lobe and right middle lobe. Cardiomegaly. Mild hepatosplenomegaly. Hypodense lesions probably representing cysts in the right kidney which are stable. No new erosive changes at the inferior endplate of T11 and superior endplate of T12 on the left which appear to have increased and there continues be associated paraspinous soft tissue thickening which is unchanged. Thoracolumbar scoliosis with degenerative disc disease. Right-sided bladder diverticulum measuring 4.3 cm in greatest dimension. Electronically signed by: Sepideh Bullock MD (07/07/2019 4:57 PM) [id number]
[2019-07-07] MEDS ORDERED: SODIUM PHOSPHATES 19/7GM 133 ML ENEMA. PR ONE (17:45)
[2019-07-07] MEDS ORDERED: SENNOSIDES/DOCUSATE 8.6/50MG TABLET. PO PRN (17:45)
[2019-07-07] MEDS ORDERED: SENN1TAB62 PO (17:48)
[2019-07-07 17:56] VITALS: BP 128/75
[2019-07-07] MEDS ORDERED: METHYLNALTREXONE 12 MG/0.6 ML VIAL. SQ ONE (19:15)
== END 2019-07-07 20:09 | disposition home or self-care (01) ==
LOC: ER 13:33
DX: K59.00 Constipation, unspecified (principal); G89.29 Other chronic pain; R10.32 Left lower quadrant pain; I11.0 Hypertensive heart disease with heart failure; I50.9 Heart failure, unspecified; J44.9 Chronic obstructive pulmonary disease, unspecified; E11.9 Type 2 diabetes mellitus without complications; N18.9 Chronic kidney disease, unspecified; Z90.89 Acquired absence of other organs; Z98.890 Other specified postprocedural states; Z87.891 Personal history of nicotine dependence
CPT/HCPCS: 36415; 72072; 72110; 74022; 74176; 80053; 83605; 83690; 83880; 84484; 85025; 85610; 93005; 96372; 96374; 99285; J2212; J3010

== ENCOUNTER 2019-07-10 19:02 | Emergency (ER) | payer BC ==
[~2019-07-10] VITALS: Ht 182.9 cm; Wt 93.2 kg
[~2019-07-10 19:02] MED LIST changes: +SENN1TAB62 PO
--- NOTE | 2019-07-10 19:29 | PHYS DOC ---
Past Medical History Past Medical History: CAD, CHF, COPD, Diabetes-Type II, Hypertension, Renal Disease, Renal Failure, Other Additional Past Medical Histor: Chronic Right neck pain,LEFT UPPER ARM FISTULA Past Surgical History: Coronary Bypass Surgery, Other Additional Past Surgical Histo: R middle and lower lobe lung removal, vein graft left thigh, SHUNT RT CHEST Smoking Status: Former Smoker Alcohol Use: Sober Drug Use: None General Adult EDM: Chief Complaint: ABDOMINAL PAIN HPI: HPI: Patient is a 69 year old male who presents with complaint of diffuse abdominal pain that has been present for about the last 6 weeks but states the pain is gotten much worse over the last 3 days. Patient rates the pain as severe. He states that he has been nauseated but has not vomited. He did have a bowel movement earlier today after taking laxative. Patient states that he has a history of bowel obstruction and states that it feels like it did at that time. He rates his pain to be a 10 out of 10 currently. He states that nothing impr oves the pain and movement and palpation worsens the pain.[] Review of Systems: Review of Systems: Constitutional: Denies fever or chills. [] Respiratory: Denies cough or shortness of breath. [] Cardiovascular: Denies chest pain. Patient reports chronic lower extremity edema that is unchanged. [] GI: Complains of abdominal pain with nausea. Denies vomiting or diarrhea. [] Neurologic: Denies headache, focal weakness or sensory changes. [] A full 10 point review of systems has been reviewed and is otherwise negative except as noted in history of present illness. Heart Score: Risk Factors: Risk Factors: DM, Current or recent (<one month) smoker, HTN, HLP, family history of CAD, obesity. Risk Scores: Score 0 - 3: 2.5% MACE over next 6 weeks - Discharge Home Score 4 - 6: 20.3% MACE over next 6 weeks - Admit for Clinical Observation Score 7 - 10: 72.7% MACE over next 6 weeks - Early Invasive Strategies Allergies: Allergies: Allergies Coded Allergies Type Severity Reaction Last Updated Verified No Known Drug Allergies 06/30/19 No Physical Exam: PE: Constitutional: Well developed, well nourished, no acute distress, non-toxic appearance. [] HENT: Normocephalic, atraumatic, bilateral external ears normal, oropharynx moist, no oral exudates, nose normal. [] Eyes: PERRLA, EOMI, conjunctiva normal, no discharge. [] Neck: Normal range of motion, no tenderness, supple, no stridor. [] Cardiovascular: Regular rate and rhythm[] Lungs & Thorax: Bilateral breath sounds clear to auscultation [] Abdomen: Bowel sounds diminished, soft, with diffuse tenderness. [] Skin: Warm, dry. [] Extremities: No cyanosis, no clubbing, ROM intact, with lower extremity edema. [] Neurologic: Alert and oriented X 3, no focal deficits noted. [] EKG: EKG: [] Radiology/Procedures: Radiology/Procedures: [] Impression: PROCEDURE: ACUTE ABDOMEN SERIES Abdomen series including PA chest 07/10/2019. Reason for exam: Ezekiel pain. Comparison is made with a study of 07/07/2019. No free air is seen. Gas is present within large and small bowel. There continues to be some colonic distention with gas, but there is less stool present. There are some air-fluid levels on the upright view, although the gas pattern overall does not suggest obstruction. No abnormal masses or gas collections are seen. A single view of the chest shows no new infiltrate. There are fewer markings on the right. There is no apparent pleural fluid. Heart size is unchanged. IMPRESSION: Decreased stool. Persistent mild colonic distention without evidence of significant obstruction. Electronically signed by: Jona Whitley Jr., MD (07/10/2019 7:52 PM) [id number] DICTATED and SIGNED BY: JONA WHITLEY Jr, MD DATE: 07/10/191951 Course & Med Decision Making: Course & Med Decision Making Pertinent Labs and Imaging studies reviewed. (See chart for details) [] Dragon Disclaimer: Dragon Disclaimer: This electronic medical record was generated, in whole or in part, using a voice recognition dictation system. Departure Departure Impression: Primary Impression: Chronic abdominal pain Disposition: 01 HOME, SELF-CARE Condition: STABLE Referrals: LAMBERT ORTIZ MD (PCP) Patient Instructions: Abdominal Pain, Chronic Pain Scripts Dicyclomine Hcl (DICYCLOMINE HCL) 20 Mg Tablet 1 TAB PO TID PRN for abdominal pain/cramping, #30 TAB Prov: KOJO CABALLERO Jr. DO 07/10/19 KOJO CABALLERO Jr. DO July 10, 2019 19:29
[2019-07-10] MEDS ORDERED: fentaNYL PF VIAL 100 MCG/2 ML VIAL IV PRN (19:30)
[2019-07-10] MEDS ORDERED: ONDANSETRON PF 4 MG/2 ML VIAL. IVP ONE (19:30)
[2019-07-10 19:36] LABS: BASO # 0.1 x10^3/uL (0.0-0.2); BASO % 1 % (0-3); EOS # 0.2 x10^3/uL (0.0-0.7); EOS % 2 % (0-3); HEMATOCRIT 35.3 % (39.0-53.0); HEMOGLOBIN 11.5 g/dL (13.0-17.5); LYMPH # 1.1 x10^3/uL (1.0-4.8); LYMPH % 13 % (24-48); MEAN CORPUSCULAR HEMOGLOBIN 34 pg (25-35); MEAN CORPUSCULAR HGB CONC 33 g/dL (31-37); MEAN CORPUSCULAR VOLUME 103 fL (79-100); MONO # 0.9 x10^3/uL (0.0-1.1); MONO % 11 % (0-9); NEUT % 73 % (31-73); PLATELET COUNT 225 x10^3/uL (140-400); RED BLOOD COUNT 3.43 x10^6/uL (4.30-5.70); RED CELL DISTRIBUTION WIDTH 17.4 % (11.5-14.5); WHITE BLOOD COUNT 8.2 x10^3/uL (4.0-11.0)
[2019-07-10 19:46] LABS: ANION GAP 6 (6-14); BLOOD UREA NITROGEN 31 mg/dL (8-26); BUN/CREATININE RATIO 4 (6-20); CALCIUM 9.5 mg/dL (8.5-10.1); CARBON DIOXIDE 33 mmol/L (21-32); CHLORIDE 99 mmol/L (98-107); CREATININE 7.6 mg/dL (0.7-1.3); GFR 8.6; GLUCOSE 128 mg/dL (70-99); POTASSIUM 4.3 mmol/L (3.5-5.1); SODIUM 138 mmol/L (136-145)
[2019-07-10 19:52] LABS: ALBUMIN 3.1 g/dL (3.4-5.0); ALBUMIN/GLOBULIN RATIO 0.6 (1.0-1.7); ALK PHOS 89 U/L (46-116); AST (SGOT) 13 U/L (15-37); LIPASE 50 U/L (73-393); MAGNESIUM 2.8 mg/dL (1.8-2.4); PHOSPHORUS 3.8 mg/dL (2.6-4.7); TOTAL BILIRUBIN 0.3 mg/dL (0.2-1.0); TOTAL PROTEIN 8.2 g/dL (6.4-8.2)
[2019-07-10 19:54] LABS: ALT (SGPT) < 6 U/L (16-63)
--- NOTE | 2019-07-10 19:55 | RAD ---
Abdomen series including PA chest 07/10/2019. Reason for exam: Parnell pain. Comparison is made with a study of 07/07/2019. No free air is seen. Gas is present within large and small bowel. There continues to be some colonic distention with gas, but there is less stool present. There are some air-fluid levels on the upright view, although the gas pattern overall does not suggest obstruction. No abnormal masses or gas collections are seen. A single view of the chest shows no new infiltrate. There are fewer markings on the right. There is no apparent pleural fluid. Heart size is unchanged. IMPRESSION: Decreased stool. Persistent mild colonic distention without evidence of significant obstruction. Electronically signed by: Royer Carpenter Jr., MD (07/10/2019 7:52 PM) [id number]
[2019-07-10] MEDS ORDERED: DICY20TA3 PO (20:55)
[2019-07-10 20:59] VITALS: BP 138/75
--- NOTE | 2019-07-12 08:09 | EKG ---
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
== END 2019-07-10 21:03 | disposition home or self-care (01) ==
LOC: ER 19:02
DX: G89.29 Other chronic pain (principal); R10.84 Generalized abdominal pain; R11.0 Nausea; J44.9 Chronic obstructive pulmonary disease, unspecified; E11.22 Type 2 diabetes mellitus with diabetic chronic kidney disease; I13.0 Hypertensive heart and chronic kidney disease with heart failure and stage 1 through stage 4 chronic kidney disease, or unspecified chronic kidney disease; N18.9 Chronic kidney disease, unspecified; I50.9 Heart failure, unspecified; I25.10 Atherosclerotic heart disease of native coronary artery without angina pectoris; Z87.891 Personal history of nicotine dependence; Z95.1 Presence of aortocoronary bypass graft
CPT/HCPCS: 36415; 74022; 80053; 83690; 83735; 84100; 85025; 96374; 96375; 99285; J2405; J3010; 93005

== ENCOUNTER 2019-07-19 07:24 | Emergency (ER) | payer BC ==
[~2019-07-19] VITALS: Ht 180.3 cm; Wt 92.7 kg
[~2019-07-19 07:24] MED LIST changes: +DICY20TA3 PO
--- NOTE | 2019-07-19 07:42 | PHYS DOC ---
Past Medical History Past Medical History: CAD, CHF, COPD, Diabetes-Type II, Hypertension, Renal Disease, Renal Failure, Other Additional Past Medical Histor: Chronic Right neck pain,LEFT UPPER ARM FISTULA Past Surgical History: Coronary Bypass Surgery, Other Additional Past Surgical Histo: R middle and lower lobe lung removal, vein graft left thigh, SHUNT RT CHEST Smoking Status: Former Smoker Alcohol Use: Sober Drug Use: None General Adult EDM: Chief Complaint: BACK PAIN - NO INJURY HPI: HPI: Patient is a 69-year-old male with multiple medical problems including chronic back pain who presents with an exacerbation of his back pain today. He states the Percocet that he is taking and has been taking for the last 13 years is not helping he is also been on a fentanyl patch and the pain seems to be escalating despite this. He denies any fever chills or sweats. He denies any other issues besides an exacerbation of his chronic back pain. [] Review of Systems: Review of Systems: Constitutional: Denies fever or chills. [] Eyes: Denies change in visual acuity. [] HENT: Denies nasal congestion or sore throat. [] Respiratory: Denies cough or shortness of breath. [] Cardiovascular: Denies chest pain or edema. [] GI: Denies abdominal pain, nausea, vomiting, bloody stools or diarrhea. [] : Denies dysuria. [] Musculoskeletal: Per HPI [] Integument: Denies rash. [] Neurologic: Denies headache, focal weakness or sensory changes. [] Endocrine: Denies polyuria or polydipsia. [] Lymphatic: Denies swollen glands. [] Psychiatric: Denies depression or anxiety. [] Heart Score: Risk Factors: Risk Factors: DM, Current or recent (<one month) smoker, HTN, HLP, family history of CAD, obesity. Risk Scores: Score 0 - 3: 2.5% MACE over next 6 weeks - Discharge Home Score 4 - 6: 20.3% MACE over next 6 weeks - Admit for Clinical Observation Score 7 - 10: 72.7% MACE over next 6 weeks - Early Invasive Strategies Current Medications: Current Medications Medications (Trade) Dose Ordered Sig/Wolf Start Time Stop Time Status Last Admin Dose Admin Ketorolac Tromethamine (Toradol Im) 60 mg 1X ONCE 07/19/19 07:45 07/19/19 07:46 UNV Morphine Sulfate (Morphine Sulfate) 5 mg 1X ONCE 07/19/19 07:45 07/19/19 07:46 UNV Orphenadrine Citrate (Norflex) 60 mg 1X ONCE 07/19/19 07:45 07/19/19 07:46 UNV Allergies: Allergies: Allergies Coded Allergies Type Severity Reaction Last Updated Verified No Known Drug Allergies 06/30/19 No Physical Exam: PE: Constitutional: Well developed, well nourished, n mild distress, non-toxic appearance. [] HENT: Normocephalic, atraumatic, bilateral external ears normal, oropharynx moist, no oral exudates, nose normal. [] Eyes: PERRLA, EOMI, conjunctiva normal, no discharge. [] Neck: Normal range of motion, no tenderness, supple, no stridor. [] Cardiovascular:Heart rate regular rhythm, no murmur [] Lungs & Thorax: Bilateral breath sounds clear to auscultation [] Abdomen: Surgical wounds that have been well-healed. [] Skin: Has a fentanyl patch in place h. [] Back: No tenderness, no CVA tenderness. [] Extremities: No tenderness, no cyanosis, no clubbing, ROM intact, no edema. [] Neurologic: Alert and oriented X 3, normal motor function, normal sensory function, no focal deficits noted. [] Psychologic: Anxious. [] EKG: EKG: [] Radiology/Procedures: Radiology/Procedures: [] Course & Med Decision Making: Course & Med Decision Making Pertinent Labs and Imaging studies reviewed. (See chart for details) [] Dragon Disclaimer: Dragon Disclaimer: This electronic medical record was generated, in whole or in part, using a voice recognition dictation system. Departure Departure Impression: Primary Impression: Exacerbation of chronic back pain Disposition: HOME, SELF-CARE Condition: STABLE Referrals: LAMBERT ORTIZ MD (PCP) Patient Instructions: Chronic Back Pain Additional Instructions: Follow with Dr. Shay as we discussed. ARI SARAVIA DO July 19, 2019 07:42
[2019-07-19] MEDS ORDERED: ORPHENADRINE CITRATE 60 MG/2 ML VIAL. IM ONE (07:45)
[2019-07-19] MEDS ORDERED: MORPHINE SULFATE 10 MG/ML VIAL. IM ONE (07:45)
[2019-07-19] MEDS ORDERED: KETOROLAC 60 MG/2 ML VIAL. IM ONE (07:45)
[2019-07-19 07:57] VITALS: BP 153/81
== END 2019-07-19 08:35 | disposition home or self-care (01) ==
LOC: ER 07:24
DX: G89.29 Other chronic pain (principal); M54.9 Dorsalgia, unspecified; I13.0 Hypertensive heart and chronic kidney disease with heart failure and stage 1 through stage 4 chronic kidney disease, or unspecified chronic kidney disease; E11.22 Type 2 diabetes mellitus with diabetic chronic kidney disease; N18.9 Chronic kidney disease, unspecified; I50.9 Heart failure, unspecified; J44.9 Chronic obstructive pulmonary disease, unspecified; Z90.89 Acquired absence of other organs; Z98.890 Other specified postprocedural states; Z87.891 Personal history of nicotine dependence
CPT/HCPCS: 96372; 99284; J1885; J2270; J2360

== ENCOUNTER 2019-07-28 17:26 | Emergency (ER) | payer BC ==
[~2019-07-28] VITALS: Ht 180.3 cm; Wt 87.7 kg
[2019-07-28] MEDS ORDERED: oxyCODONE IR 5 MG TABLET PO ONE (18:00)
[2019-07-28] MEDS ORDERED: OXYC10TA46 PO (18:33)
--- NOTE | 2019-07-28 18:33 | PHYS DOC ---
Past Medical History Past Medical History: CAD, CHF, COPD, Diabetes-Type II, Hypertension, Renal Disease, Renal Failure, Other Additional Past Medical Histor: Chronic Right neck pain,LEFT UPPER ARM FISTULA Past Surgical History: Coronary Bypass Surgery, Other Additional Past Surgical Histo: R middle and lower lobe lung removal, vein graft left thigh, SHUNT RT CHEST Smoking Status: Former Smoker Alcohol Use: Sober Drug Use: None General Adult EDM: Chief Complaint: BACK PAIN OR INJURY HPI: HPI: Patient is a 69 year old male with a history of diabetes type 2, hypertension, chronic low back pain, CAD, CHF, end-stage kidney disease on dialysis Friday last dialyzed today who presents to the ED today complaining of 10 out of 10 chronic low back pain. Patient denies any trauma. Denies any pain radiating to bilateral lower extremities. Denies any loss of bowel bladder function. He states he ran out of his oxycodone which he had received from Dr. Shay the pain clinic doctor on July 21, 2019. Review of Systems: Review of Systems: Constitutional: Denies fever or chills. [] Musculoskeletal: Reports low back pain Integument: Denies rash. [] Neurologic: Denies headache, focal weakness or sensory changes. [] Psychiatric: Denies depression or anxiety. [] Heart Score: Risk Factors: Risk Factors: DM, Current or recent (<one month) smoker, HTN, HLP, family history of CAD, obesity. Risk Scores: Score 0 - 3: 2.5% MACE over next 6 weeks - Discharge Home Score 4 - 6: 20.3% MACE over next 6 weeks - Admit for Clinical Observation Score 7 - 10: 72.7% MACE over next 6 weeks - Early Invasive Strategies Current Medications: Current Medications Medications (Trade) Dose Ordered Sig/[facility] Start Time Stop Time Status Last Admin Dose Admin Oxycodone HCl (Roxicodone) 20 mg 1X ONCE 07/28/19 18:00 07/28/19 18:05 DC 07/28/19 18:14 20 MG Allergies: Allergies: Allergies Coded Allergies Type Severity Reaction Last Updated Verified No Known Drug Allergies 06/30/19 No Physical Exam: PE: Constitutional: Well developed, well nourished, no acute distress, non-toxic appearance. [] Abdomen: Bowel sounds normal, soft, no tenderness, no masses, no pulsatile masses. [] Skin: Warm, dry, no erythema, no rash. Left upper extremity with a dialysis fistula. Positive thrill and bruit. Back: No tenderness, no CVA tenderness. [] Extremities: No tenderness, no cyanosis, no clubbing, ROM intact, no edema. [] Neurologic: Alert and oriented X 3, normal motor function, normal sensory function, no focal deficits noted. [] Psychologic: Affect normal, judgement normal, mood normal. [] Current Patient Data: Vital Signs: Vital Signs Date Time Temp Pulse Resp B/P (MAP) Pulse Ox O2 Delivery O2 Flow Rate FiO2 07/28/19 18:14 20 96 Room Air 07/28/19 17:42 99.8 73 144/74 (97) 99.8 EKG: EKG: [] Radiology/Procedures: Radiology/Procedures: [] Course & Med Decision Making: Course & Med Decision Making Pertinent Labs and Imaging studies reviewed. (See chart for details) This is a 69-year-old male patient well-known to this ED presenting today for exacerbation of chronic low back pain. He ran out of his oxycodone. He promises to follow-up with the PCP in the course of this week. Patient was noted to run a slight temperature of 99.8. He refused to be worked up for this stating he wants a prescription for oxycodone and will see his PCP in the course of this week. Maxwell Disclaimer: Maxwell Disclaimer: This electronic medical record was generated, in whole or in part, using a voice recognition dictation system. Departure Departure Impression: Primary Impression: ESRD (end stage renal disease) on dialysis Additional Impression: Back pain Qualified Codes: M54.42 - Lumbago with sciatica, left side; M54.41 - Lumbago with sciatica, right side; G89.29 - Other chronic pain Disposition: 01 HOME, SELF-CARE Condition: STABLE Referrals: LAMBERT ORTIZ MD (PCP) follow up in the course of this week NIKITA SHAY MD follow up in the course of this week Patient Instructions: Back Pain, Adult, [id number] Additional Instructions: You were seen for back pain. Ensure you follow-up with your primary care doctor as well as the pain clinic in the course of this week. Scripts Oxycodone HCl (Oxycontin) 10 Mg Tab.er.12h 1 TAB PO BID for pain MDD 2 Tablet(s), #14 TAB 0 Refills Prov: SARITHA PARK APRN 07/28/19 SARITHA PARK APRN July 28, 2019 18:33
[2019-07-28 18:50] VITALS: BP 161/84
== END 2019-07-28 18:55 | disposition home or self-care (01) ==
LOC: ER 17:26
DX: N18.6 End stage renal disease (principal); G89.29 Other chronic pain; Z99.2 Dependence on renal dialysis; M54.42 Lumbago with sciatica, left side; M54.41 Lumbago with sciatica, right side; I13.2 Hypertensive heart and chronic kidney disease with heart failure and with stage 5 chronic kidney disease, or end stage renal disease; E11.22 Type 2 diabetes mellitus with diabetic chronic kidney disease; I50.9 Heart failure, unspecified; Z98.890 Other specified postprocedural states; Z87.891 Personal history of nicotine dependence
CPT/HCPCS: 99283

== ENCOUNTER 2019-08-15 06:21 | Emergency (ER) | payer BC ==
[~2019-08-15] VITALS: Ht 180.3 cm; Wt 90.0 kg
[~2019-08-15 06:21] MED LIST changes: +BISA5TAB4 PO; +CEFAZOLIN SODIUM IVP; +GABA300C18 PO; +LACT1CAP19 PO; +LUBI24CA7 PO; +OXYC10TA46 PO; +VITS42.55 TP
[2019-08-15 06:36] VITALS: BP 171/88
[2019-08-15] MEDS ORDERED: OXYC10TA46 PO (07:06)
--- NOTE | 2019-08-15 07:06 | PHYS DOC ---
Past Medical History Past Medical History: CAD, CHF, COPD, Diabetes-Type II, Hypertension, Renal Disease, Renal Failure, Other Additional Past Medical Histor: Chronic Right neck pain,LEFT UPPER ARM FISTULA Past Surgical History: Coronary Bypass Surgery, Other Additional Past Surgical Histo: R middle and lower lobe lung removal, vein graft left thigh, SHUNT RT CHEST Smoking Status: Former Smoker Alcohol Use: Sober Drug Use: None General Adult EDM: Chief Complaint: BACK PAIN - NO INJURY HPI: HPI: Patient is a 69 year old male who presented to ER today for evaluation of mid back pain, out of pain medication. Patient said he was admitted here on August 07, was just discharged yesterday. Patient went home, assumed that he was discharged with pain medication but there was none. Patient having severe back pain throughout the night, so he decided come back here for pain control. Patient denies any bowel or bladder incontinence. Patient had no chest pain or trouble breathing. Patient had end-stage renal failure, he is scheduled for hemodialysis tomorrow morning. Patient said his family doctor is the one who administered pain. Patient said he needs some pain medication to last him for few days and he will call his family doctor tomorrow so he can see her. Patient was discharged yesterday with the diagnosis of Back pain- T11-12 diskitis/osteomyelitis, and paraspinal infection. There is no recent injury. Patient has history hypertension, he has not taken his blood pressure medication. Review of Systems: Review of Systems: Constitutional: Denies fever or chills. [] Eyes: Denies change in visual acuity. [] HENT: Denies nasal congestion or sore throat. [] Respiratory: Denies cough or shortness of breath. [] Cardiovascular: Denies chest pain or edema. [] GI: Denies abdominal pain, nausea, vomiting, bloody stools or diarrhea. [] : Denies dysuria. [] Musculoskeletal: Positive for back pain Integument: Denies rash. [] Neurologic: Denies headache, focal weakness or sensory changes. [] Endocrine: Denies polyuria or polydipsia. [] Lymphatic: Denies swollen glands. [] Psychiatric: Denies depression or anxiety. [] Heart Score: Risk Factors: Risk Factors: DM, Current or recent (<one month) smoker, HTN, HLP, family history of CAD, obesity. Risk Scores: Score 0 - 3: 2.5% MACE over next 6 weeks - Discharge Home Score 4 - 6: 20.3% MACE over next 6 weeks - Admit for Clinical Observation Score 7 - 10: 72.7% MACE over next 6 weeks - Early Invasive Strategies Current Medications: Current Medications Medications (Trade) Dose Ordered Sig/Wolf Start Time Stop Time Status Last Admin Dose Admin Morphine Sulfate (Morphine Sulfate) 5 mg 1X ONCE 08/15/19 07:30 08/15/19 07:31 Oxycodone HCl (OxyCONTIN) 10 mg 1X ONCE 08/15/19 07:30 08/15/19 07:31 Allergies: Allergies: Allergies Coded Allergies Type Severity Reaction Last Updated Verified No Known Drug Allergies 06/30/19 No Physical Exam: PE: Constitutional: Well developed, well nourished, no acute distress, non-toxic ap pearance. [] HENT: Normocephalic, atraumatic, bilateral external ears normal, oropharynx moist, no oral exudates, nose normal. [] Eyes: PERRLA, EOMI, conjunctiva normal, no discharge. [] Neck: Normal range of motion, no tenderness, supple, no stridor. [] Cardiovascular:Heart rate regular rhythm, no murmur [] Lungs & Thorax: Bilateral breath sounds clear to auscultation [] Abdomen: Bowel sounds normal, soft, no tenderness, no masses, no pulsatile masses. [] Skin: Warm, dry, no erythema, no rash. [] Back: There is tenderness to palpation in mid back area from T10-L1. No bony deformity, no CVA tenderness. [] Extremities: No tenderness, no cyanosis, no clubbing, ROM intact, no edema. [] AV fistula on the left arm good strong thrill Neurologic: Alert and oriented X 3, normal motor function, normal sensory function, no focal deficits noted. [] Psychologic: Affect normal, judgement normal, mood normal. [] Current Patient Data: Vital Signs: Vital Signs Date Time Temp Pulse Resp B/P (MAP) Pulse Ox O2 Delivery O2 Flow Rate FiO2 08/15/19 06:36 97.3 83 18 171/88 (115) 96 Room Air 97.3 EKG: EKG: [] Course & Med Decision Making: Course & Med Decision Making Pertinent Labs and Imaging studies reviewed. (See chart for details) Patient is a 69-year-old male with chronic back pain, who was just discharged from here yesterday due to Back pain- T11-12 diskitis/osteomyelitis, and paraspinal infection. He is under the care of infectious disease, he has end- stage renal failure, on hemodialysis, is scheduled for dialysis tomorrow morning. His family doctor who is managing his pain problem. He came in to ER due to back pain, had no pain medication at home. Patient was given pain medication in the ER, he will be discharged home with his pain medication for 3 to 4 days, he will need to follow-up with family doctor for pain medication and pain management. Dragon Disclaimer: Dragon Disclaimer: This electronic medical record was generated, in whole or in part, using a voice recognition dictation system. Departure Departure Impression: Primary Impression: Chronic back pain Disposition: 01 HOME, SELF-CARE Condition: IMPROVED Referrals: LAMBERT ORTIZ MD (PCP) please follow up with your doctor tomorrow. Patient Instructions: Chronic Back Pain Additional Instructions: Thank you for visiting our Emergency Department. We appreciate you trusting us with your care. If any additional problems come up don't hesitate to return to visit us. Please follow up with your primary care provider so they can plan additional care if needed and know about the problem that you had. If symptoms worsen come back to the Emergency Department. Any concerning symptoms that start such as chest pain, shortness of air, weakness or numbness on one side of the body, running high fevers or any other concerning symptoms return to the ER. Scripts Oxycodone Hcl (OXYCONTIN ) 10 Mg Tab.er.12h 1 TAB PO BID PRN for back pain MDD 2 Tablet(s), #8 TAB 0 Refills Prov: JENNIFER MURPHY DO 08/15/19 Justicifation of Admission Dx: Justifications for Admission: Justification of Admission Dx: N/A JENNIFER MURPHY DO Aug 15, 2019 07:06
[2019-08-15] MEDS ORDERED: MORPHINE SULFATE 10 MG/ML VIAL. IM ONE (07:30)
[2019-08-15] MEDS ORDERED: oxyCODONE ER 10 MG TAB.ER.12H PO ONE (07:30)
== END 2019-08-15 07:29 | disposition home or self-care (01) ==
LOC: ER 06:21
DX: G89.29 Other chronic pain (principal); M54.6 Pain in thoracic spine; E11.22 Type 2 diabetes mellitus with diabetic chronic kidney disease; I13.2 Hypertensive heart and chronic kidney disease with heart failure and with stage 5 chronic kidney disease, or end stage renal disease; I50.9 Heart failure, unspecified; N18.6 End stage renal disease; Z99.2 Dependence on renal dialysis; J44.9 Chronic obstructive pulmonary disease, unspecified; I25.10 Atherosclerotic heart disease of native coronary artery without angina pectoris; Z87.891 Personal history of nicotine dependence
CPT/HCPCS: 96372; 99284; J2270

== ENCOUNTER 2019-08-17 08:30 | Emergency (ER) | payer BC ==
[~2019-08-17] VITALS: Ht 180.3 cm; Wt 90.0 kg
[2019-08-17] MEDS ORDERED: METHYLNALTREXONE 12 MG/0.6 ML VIAL. SQ ONE (09:15)
--- NOTE | 2019-08-17 09:33 | RAD ---
Examination: ACUTE ABDOMEN SERIES History: Reason: constipation / Spl. Instructions: / History: Comparison/Correlation: None Findings: Supine and upright views of the abdomen were obtained. Frontal view the chest was provided. Sternal wires are noted. Suture material at the medial right infrahilar level is noted. No infiltrates. No pneumothorax. No definite effusion. Large quantity of stool is present throughout the colon. Fluid levels within nondistended bowel evident. No suspicious abdominal calcifications. Scoliosis of the thoracolumbar spine noted. Impression: Moderate quantity of stool in the colon. No obstruction or extraluminal gas. No infiltrate. Electronically signed by: Aiden Olea MD (08/17/2019 9:30 AM) [id number]
--- NOTE | 2019-08-17 09:39 | PHYS DOC ---
Past Medical History Past Medical History: CAD, CHF, COPD, Diabetes-Type II, Hypertension, Renal Disease, Renal Failure, Other Additional Past Medical Histor: Chronic Right neck pain,LEFT UPPER ARM FISTULA Past Surgical History: Coronary Bypass Surgery, Other Additional Past Surgical Histo: R middle and lower lobe lung removal, vein graft left thigh, SHUNT RT CHEST Smoking Status: Former Smoker Alcohol Use: Sober Drug Use: None General Adult EDM: Chief Complaint: ABDOMINAL PAIN HPI: HPI: Patient is a 69 year old who presented to the ER due to constipation. He said he has not have bowel movement for several days. He is scheduled to see his GI doctor tomorrow. No nausea or vomiting, no fever. No chest pain, no shortness of air. He is chronically on narcotic for back pain. Review of Systems: Review of Systems: Constitutional: Denies fever or chills. [] Eyes: Denies change in visual acuity. [] HENT: Denies nasal congestion or sore throat. [] Respiratory: Denies cough or shortness of breath. [] Cardiovascular: Denies chest pain or edema. [] GI: Denies abdominal pain, nausea, vomiting, bloody stools or diarrhea. POSITIVE FOR CONSTIPATION : Denies dysuria. [] Musculoskeletal: Denies back pain or joint pain. [] Integument: Denies rash. [] Neurologic: Denies headache, focal weakness or sensory changes. [] Endocrine: Denies polyuria or polydipsia. [] Lymphatic: Denies swollen glands. [] Psychiatric: Denies depression or anxiety. [] Heart Score: Risk Factors: Risk Factors: DM, Current or recent (<one month) smoker, HTN, HLP, family history of CAD, obesity. Risk Scores: Score 0 - 3: 2.5% MACE over next 6 weeks - Discharge Home Score 4 - 6: 20.3% MACE over next 6 weeks - Admit for Clinical Observation Score 7 - 10: 72.7% MACE over next 6 weeks - Early Invasive Strategies Current Medications: Current Medications Medications (Trade) Dose Ordered Sig/[facility] Start Time Stop Time Status Last Admin Dose Admin Methylnaltrexone [place] (Relistor) 12 mg 1X ONCE 08/17/19 09:15 08/17/19 09:16 DC Allergies: Allergies: Allergies Coded Allergies Type Severity Reaction Last Updated Verified No Known Drug Allergies 4/22/20 No Physical Exam: PE: Constitutional: Well developed, well nourished, no acute distress, non-toxic appearance. [] HENT: Normocephalic, atraumatic, bilateral external ears normal, oropharynx moist, no oral exudates, nose normal. [] Eyes: PERRLA, EOMI, conjunctiva normal, no discharge. [] Neck: Normal range of motion, no tenderness, supple, no stridor. [] Cardiovascular:Heart rate regular rhythm, no murmur [] Lungs & Thorax: Bilateral breath sounds clear to auscultation [] Abdomen: Bowel sounds normal, soft, no tenderness, no masses, no pulsatile masses. [] Skin: Warm, dry, no erythema, no rash. [] Back: No tenderness, no CVA tenderness. [] Extremities: No tenderness, no cyanosis, no clubbing, ROM intact, no edema. [] Neurologic: Alert and oriented X 3, normal motor function, normal sensory function, no focal deficits noted. [] Psychologic: Affect normal, judgement normal, mood normal. [] Current Patient Data: Vital Signs: Vital Signs Date Time Temp Pulse Resp B/P (MAP) Pulse Ox O2 Delivery O2 Flow Rate FiO2 08/17/19 08:41 98.4 83 16 162/78 (106) 99 Room Air 98.4 EKG: EKG: [] Radiology/Procedures: Radiology/Procedures: [][facility] [address] [place] [address] IMAGING REPORT Signed PATIENT: RAGELIA RODAS ACCOUNT: [id number] : 1950 LOCATION: ER AGE: 69 SEX: M EXAM STATUS: REG ER ORD. PHYSICIAN: JENNIFER MURPHY DO REASON: constipation PROCEDURE: ACUTE ABDOMEN SERIES Examination: ACUTE ABDOMEN SERIES History: Reason: constipation / Spl. Instructions: / History: Comparison/Correlation: None Findings: Supine and upright views of the abdomen were obtained. Frontal view the chest was provided. Sternal wires are noted. Suture material at the medial right infrahilar level is noted. No infiltrates. No pneumothorax. No definite effusion. Large quantity of stool is present throughout the colon. Fluid levels within nondistended bowel evident. No suspicious abdominal calcifications. Scoliosis of the thoracolumbar spine noted. Impression: Moderate quantity of stool in the colon. No obstruction or extraluminal gas. No infiltrate. Electronically signed by: Aiden Fowler MD (08/17/2019 9:30 AM) [id number] DICTATED and SIGNED BY: AIDEN FOWLER MD DATE: 08/17/19929 Course & Med Decision Making: Course & Med Decision Making Pertinent Labs and Imaging studies reviewed. (See chart for details) [] Dragon Disclaimer: Dragon Disclaimer: This electronic medical record was generated, in whole or in part, using a voice recognition dictation system. Departure Departure Impression: Primary Impression: Constipation Disposition: ADMITTED INPATIENT Condition: IMPROVED Referrals: LAMBERT ORTIZ MD (PCP) please follow up with your doctor as scheduled Patient Instructions: Constipation, Adult Justicifation of Admission Dx: Justifications for Admission: Justification of Admission Dx: N/A JENNIFER MURPHY DO Aug 17, 2019 09:39
[2019-08-17 10:25] VITALS: BP 167/76
== END 2019-08-17 11:00 | disposition home or self-care (01) ==
LOC: ER 08:30
DX: K59.00 Constipation, unspecified (principal); E11.22 Type 2 diabetes mellitus with diabetic chronic kidney disease; I13.0 Hypertensive heart and chronic kidney disease with heart failure and stage 1 through stage 4 chronic kidney disease, or unspecified chronic kidney disease; N18.9 Chronic kidney disease, unspecified; I50.9 Heart failure, unspecified; I25.10 Atherosclerotic heart disease of native coronary artery without angina pectoris; J44.9 Chronic obstructive pulmonary disease, unspecified; Z87.891 Personal history of nicotine dependence; G89.29 Other chronic pain; Z95.1 Presence of aortocoronary bypass graft
CPT/HCPCS: 74022; 96372; 99283; J2212

== ENCOUNTER 2019-08-19 14:00 | Emergency (ER) | payer BC ==
[~2019-08-19] VITALS: Ht 180.3 cm; Wt 89.0 kg
[2019-08-19 14:58] VITALS: BP 166/87
[2019-08-19] MEDS ORDERED: ORPH100T PO (15:09)
[2019-08-19] MEDS ORDERED: LIDO700A21 TP (15:09)
--- NOTE | 2019-08-19 15:09 | PHYS DOC ---
Past Medical History Past Medical History: CAD, CHF, COPD, Diabetes-Type II, Hypertension, Renal Disease, Renal Failure, Other Additional Past Medical Histor: Chronic Right neck pain,LEFT UPPER ARM FISTULA Past Surgical History: Coronary Bypass Surgery, Other Additional Past Surgical Histo: R middle and lower lobe lung removal, vein graft left thigh, SHUNT RT CHEST Smoking Status: Former Smoker Alcohol Use: Sober Drug Use: None General Adult EDM: Chief Complaint: BACK PAIN OR INJURY HPI: HPI: Patient is a 69 year old male presents with report of back pain that has progressively worsened over the last few days. Reports history of chronic back pain. Reports history of using oxycodone for pain but reports he doesn't like how it makes him feel. Denies loss of bowel/bladder. Denies dysuria or hematuria. Denies trauma. Denies rash. Denies fever/chills. Review of Systems: Review of Systems: Constitutional: Denies fever or chills Eyes: Denies redness or eye pain HENT: Denies nasal congestion or sore throat Respiratory: Denies cough or shortness of breath Cardiovascular: Denies chest pain or palpitations GI: Denies abdominal pain, nausea, or vomiting : Denies dysuria or hematuria Musculoskeletal: Reports back pain; denies neck pain Integument: Denies rash or skin lesions Neurologic: Denies headache, focal weakness or sensory changes; denies loss of bowel/bladder Complete systems were reviewed and found to be within normal limits, except as documented in this note. Allergies: Allergies: Allergies Coded Allergies Type Severity Reaction Last Updated Verified No Known Drug Allergies 06/30/19 No Physical Exam: PE: Constitutional: Well developed, well nourished, no acute distress, non-toxic appearance HENT: Normocephalic, atraumatic Eyes: Conjunctiva normal, no discharge Neck: Normal range of motion, no tenderness, supple Lungs & Thorax: No respiratory distress, equal chest rise and fall Abdomen: Soft, no tenderness, no guarding/rebound tenderness/distention Skin: Warm, dry, no erythema, no rash Back: No midline tenderness, upper lumbar paraspinal tenderness noted, no CVA tenderness Extremities: No tenderness, ROM intact, no edema Neurologic: Alert and oriented X 3, normal motor function, normal sensory function, no focal deficits noted Psychologic: Affect normal, judgment normal Current Patient Data: Vital Signs: Vital Signs Date Time Temp Pulse Resp B/P (MAP) Pulse Ox O2 Delivery O2 Flow Rate FiO2 08/19/19 14:15 97.9 72 20 164/77 (106) 96 Room Air 97.9 EKG: EKG: [] Radiology/Procedures: Radiology/Procedures: [] Course & Med Decision Making: Course & Med Decision Making Patient presents with HPI and physical exam consistent for exacerbation of chronic low back pain. Pain addressed. Patient stable for discharge with outpatient follow-up with PCP/pain management. Pain management referral provided. Discussed findings and plan with patient, who acknowledges understanding and agreement. Dragon Disclaimer: Dragon Disclaimer: This electronic medical record was generated, in whole or in part, using a voice recognition dictation system. Departure Departure Impression: Primary Impression: Acute exacerbation of chronic low back pain Disposition: HOME, SELF-CARE Condition: STABLE Referrals: LAMBERT ORTIZ MD (PCP) NIKITA VANCE MD Patient Instructions: Chronic Back Pain Scripts Lidocaine (Lidocaine PATCH ) 1 Each Adh..patch 1 EACH TP DAILY for FOR LOCAL PAIN, #14 PATCH REMOVE AFTER 12 HOURS THEN LEAVE OFF FOR 12 HOURS PRIOR TO PLACEMENT OF NEW PATCH Prov: JESS CHOI DO 08/19/19 Orphenadrine Citrate (ORPHENADRINE CITRATE) 100 Mg Tablet.er 100 MG PO BID PRN for MUSCLE PAIN, #20 TAB Prov: JESS CHOI DO 08/19/19 Justicifation of Admission Dx: Justifications for Admission: Justification of Admission Dx: N/A JESS CHOI DO Aug 19, 2019 15:09
[2019-08-19] MEDS ORDERED: fentaNYL PF VIAL 100 MCG/2 ML VIAL IM ONE (15:30)
[2019-08-19] MEDS ORDERED: ORPHENADRINE CITRATE 60 MG/2 ML VIAL. IM ONE (15:30)
[2019-08-19] MEDS ORDERED: LIDOCAINE (700MG/PATCH) PATCH. TD ONE (15:30)
== END 2019-08-19 15:22 | disposition home or self-care (01) ==
LOC: ER 14:00
DX: G89.29 Other chronic pain (principal); M54.5 Low back pain; I13.0 Hypertensive heart and chronic kidney disease with heart failure and stage 1 through stage 4 chronic kidney disease, or unspecified chronic kidney disease; E11.22 Type 2 diabetes mellitus with diabetic chronic kidney disease; N18.9 Chronic kidney disease, unspecified; I50.9 Heart failure, unspecified; J44.9 Chronic obstructive pulmonary disease, unspecified; Z98.890 Other specified postprocedural states; Z87.891 Personal history of nicotine dependence
CPT/HCPCS: 96372; 99284; J2360; J3010

== ENCOUNTER 2019-09-07 11:01 | Observation (INO) | payer BC ==
[~2019-09-07] VITALS: Ht 180.3 cm; Wt 97.4 kg
[~2019-09-07 11:01] MED LIST changes: +LIDO700A21 TP; +ORPH100T PO
[2019-09-07 11:43] LABS: BASO % 1 % (0-3); EOS # 0.1 x10^3/uL (0.0-0.7); EOS % 3 % (0-3); HEMOGLOBIN 9.7 g/dL (13.0-17.5); LYMPH % 19 % (24-48); MEAN CORPUSCULAR HEMOGLOBIN 34 pg (25-35); MEAN CORPUSCULAR HGB CONC 34 g/dL (31-37); MEAN CORPUSCULAR VOLUME 103 fL (79-100); MONO # 0.6 x10^3/uL (0.0-1.1); MONO % 12 % (0-9); NEUT # 3.4 x10^3/uL (1.8-7.7); NEUT % 66 % (31-73); PLATELET COUNT 184 x10^3/uL (140-400); RED BLOOD COUNT 2.83 x10^6/uL (4.30-5.70); WHITE BLOOD COUNT 5.1 x10^3/uL (4.0-11.0)
--- NOTE | 2019-09-07 11:46 | EKG ---
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
[2019-09-07 11:56] LABS: ANION GAP 9 (6-14); BLOOD UREA NITROGEN 32 mg/dL (8-26); BUN/CREATININE RATIO 5 (6-20); CALCIUM 8.7 mg/dL (8.5-10.1); CARBON DIOXIDE 30 mmol/L (21-32); CHLORIDE 101 mmol/L (98-107); GFR 11.3; GLUCOSE 111 mg/dL (70-99); POTASSIUM 4.7 mmol/L (3.5-5.1); SODIUM 140 mmol/L (136-145)
--- NOTE | 2019-09-07 11:58 | RAD ---
Examination: PORTABLE CHEST 1V History: Reason: hypoxia / Spl. Instructions: / History: Comparison/Correlation: None Findings: Portable upright frontal view chest was obtained. Sternal wires and mediastinal clips present. Heart size is slightly enlarged. No pneumothorax. Vasculature is within upper limits of normal. No infiltrate or pleural effusion. No acute bony process. Impression: No suspicious process.. Electronically signed by: Aiden Olea MD (09/07/2019 11:55 AM) [id number]
[2019-09-07 12:02] LABS: ALBUMIN/GLOBULIN RATIO 0.7 (1.0-1.7); ALK PHOS 85 U/L (46-116); AST (SGOT) 14 U/L (15-37); CREATINE KINASE 46 U/L (39-308); MAGNESIUM 2.4 mg/dL (1.8-2.4); TOTAL BILIRUBIN 0.3 mg/dL (0.2-1.0); TOTAL PROTEIN 7.5 g/dL (6.4-8.2)
[2019-09-07 12:03] LABS: ALT (SGPT) < 6 U/L (16-63)
--- NOTE | 2019-09-07 12:07 | RAD ---
Examination: CT HEAD WO CONTRAST History: Reason: altered LOC, weakness / Spl. Instructions: / History: Comparison/Correlation: None Findings: Axial images of the head were obtained without contrast. Atrophy is present. No intracranial hemorrhage, midline shift, or mass effect. Right basal ganglia lacunar infarct is present of indeterminate age but old in appearance. No intracranial hemorrhage, shift, or mass effect. Old right medial orbital wall fracture is present. Minimal opacification of the left sphenoid sinus is present. Mucosal wall thickening in the right maxillary sinus partially seen. Cavernous carotid calcification is notable. 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 No intracranial hemorrhage. Electronically signed by: Aiden Olea MD (09/07/2019 12:04 PM) [id number]
[2019-09-07 12:10] LABS: CREATINE KINASE 57 U/L (39-308)
--- NOTE | 2019-09-07 12:23 | PHYS DOC ---
Past Medical History Past Medical History: CAD, CHF, COPD, Diabetes-Type II, Hypertension, Renal Disease, Renal Failure, Other Additional Past Medical Histor: Chronic Right neck pain,LEFT UPPER ARM FISTULA Past Surgical History: Coronary Bypass Surgery, Other Additional Past Surgical Histo: R middle and lower lobe lung removal, vein graft left thigh, SHUNT RT CHEST Smoking Status: Former Smoker Alcohol Use: None Drug Use: None General Adult EDM: Chief Complaint: DIZZY/LIGHT HEADED HPI: HPI: Patient is a 69 year old AA male who presents the emergency department via private vehicle with complaints of having blurred vision and feeling dizzy, weak, and confused since awakening this morning. Patient states when he woke up he initially thought that it was Friday evening. He reports that he is so weak he is unable to walk. Patient reports that his dizziness is worse with position changes. Patient reports that he is on dialysis and that he went to dialysis yesterday. He denies any complications with dialysis yesterday. The patient denies any slurred speech, headache, neck pain, chest pain,, palpitations, nausea, vomiting, diarrhea, shortness of breath, fever, numbness, or tingling. He reports a history of chronic abdominal pain in the left side of his abdomen, he denies any changes in his abdominal pain and he currently rates it a 10 out of 10 on the pain scale, he denies any alleviating or exacerbating factors. He denies any radiation of the pain Review of Systems: Review of Systems: Constitutional: Denies fever or chills. [] Eyes: See HPI HENT: Denies nasal congestion or sore throat. [] Respiratory: Denies cough or shortness of breath. [] Cardiovascular: Denies chest pain or edema. [] GI: See HPI : Patient reports that he still makes a small amount of urine. He denies urinary symptoms Musculoskeletal: Denies back pain or joint pain. [] Integument: Denies rash. [] Neurologic: See HPI Psychiatric: Denies depression or anxiety. [] Heart Score: Risk Factors: Risk Factors: DM, Current or recent (<one month) smoker, HTN, HLP, family history of CAD, obesity. Risk Scores: Score 0 - 3: 2.5% MACE over next 6 weeks - Discharge Home Score 4 - 6: 20.3% MACE over next 6 weeks - Admit for Clinical Observation Score 7 - 10: 72.7% MACE over next 6 weeks - Early Invasive Strategies Allergies: Allergies: Allergies Coded Allergies Type Severity Reaction Last Updated Verified No Known Drug Allergies 06/30/19 No Physical Exam: PE: Constitutional: Well developed, well nourished, no acute distress, non-toxic appearance. [] HENT: Normocephalic, atraumatic, bilateral external ears normal, nose normal. [] Eyes: PERRLA, EOMI, conjunctiva normal, no discharge, no nystagmus. [] Neck: Normal range of motion, no stridor. [] Cardiovascular:Heart rate regular rhythm, no murmur [] Lungs & Thorax: Bilateral breath sounds clear to auscultation, Respirations norah n and unlabored, no retractions, no respiratory distress [] Skin: Warm, dry, no erythema, no rash. [] Extremities: No cyanosis, no clubbing, ROM intact, 3+ edema BLE without weeping or drainage Neurologic: Alert and oriented X 3, normal motor function, normal sensory function, no focal deficits noted. [] Psychologic: Affect normal, judgement normal, mood normal. [] Current Patient Data: Labs: Laboratory Tests Test 09/07/19 11:24 White Blood Count 5.1 x10^3/uL (4.0-11.0) Red Blood Count 2.83 x10^6/uL (4.30-5.70) L Hemoglobin 9.7 g/dL (13.0-17.5) L Hematocrit 29.0 % (39.0-53.0) L Mean Corpuscular Volume 103 fL (79-100) H Mean Corpuscular Hemoglobin 34 pg (25-35) Mean Corpuscular Hemoglobin Concent 34 g/dL (31-37) Red Cell Distribution Width 18.0 % (11.5-14.5) H Platelet Count 184 x10^3/uL (140-400) Neutrophils (%) (Auto) 66 % (31-73) Lymphocytes (%) (Auto) 19 % (24-48) L Monocytes (%) (Auto) 12 % (0-9) H Eosinophils (%) (Auto) 3 % (0-3) Basophils (%) (Auto) 1 % (0-3) Neutrophils # (Auto) 3.4 x10^3/uL (1.8-7.7) Lymphocytes # (Auto) 1.0 x10^3/uL (1.0-4.8) Monocytes # (Auto) 0.6 x10^3/uL (0.0-1.1) Eosinophils # (Auto) 0.1 x10^3/uL (0.0-0.7) Basophils # (Auto) 0.0 x10^3/uL (0.0-0.2) Sodium Level 140 mmol/L (136-145) Potassium Level 4.7 mmol/L (3.5-5.1) Chloride Level 101 mmol/L (98-107) Carbon Dioxide Level 30 mmol/L (21-32) Anion Gap 9 (6-14) Blood Urea Nitrogen 32 mg/dL (8-26) H Creatinine 6.0 mg/dL (0.7-1.3) H Estimated GFR (Cockcroft-Gault) 11.3 BUN/Creatinine Ratio 5 (6-20) L Glucose Level 111 mg/dL (70-99) H Calcium Level 8.7 mg/dL (8.5-10.1) Magnesium Level 2.4 mg/dL (1.8-2.4) Total Bilirubin 0.3 mg/dL (0.2-1.0) Aspartate Amino Transferase (AST) 14 U/L (15-37) L Alanine Aminotransferase (ALT) < 6 U/L (16-63) L Alkaline Phosphatase 85 U/L (46-116) Creatine Kinase 57 U/L (39-308) Creatine Kinase MB (Mass) < 0.5 ng/mL (0.0-3.6) Creatine Kinase MB Relative Index % (0-4) Troponin I Quantitative < 0.017 ng/mL (0.000-0.055) GY-Zjd-M-Type Natriuretic Peptide 6701 pg/mL (0-124) H Total Protein 7.5 g/dL (6.4-8.2) Albumin 3.0 g/dL (3.4-5.0) L Albumin/Globulin Ratio 0.7 (1.0-1.7) L Laboratory Tests 09/07/19 11:24 Laboratory Tests 09/07/19 11:24 Vital Signs: Vital Signs Date Time Temp Pulse Resp B/P (MAP) Pulse Ox O2 Delivery O2 Flow Rate FiO2 6/30/20 11:15 98.4 59 24 96/58 (71) 95 Room Air 98.4 EKG: EK-sinus rhythm rate of 59, PVCs present with left atrial abnormality, no STEMI read by Dr. Harris. [] Radiology/Procedures: Radiology/Procedures: PROCEDURE: PORTABLE CHEST 1V Examination: PORTABLE CHEST 1V History: Reason: hypoxia / Spl. Instructions: / History: Comparison/Correlation: None Findings: Portable upright frontal view chest was obtained. Sternal wires and mediastinal clips present. Heart size is slightly enlarged. No pneumothorax. Vasculature is within upper limits of normal. No infiltrate or pleural effusion. No acute bony process. Impression: No suspicious process.. PROCEDURE: CT HEAD WO CONTRAST Examination: CT HEAD WO CONTRAST History: Reason: altered LOC, weakness / Spl. Instructions: / History: Comparison/Correlation: None Findings: Axial images of the head were obtained without contrast. Atrophy is present. No intracranial hemorrhage, midline shift, or mass effect. Right basal ganglia lacunar infarct is present of indeterminate age but old in appearance. No intracranial hemorrhage, shift, or mass effect. Old right medial orbital wall fracture is present. Minimal opacification of the left sphenoid sinus is present. Mucosal wall thickening in the right maxillary sinus partially seen. Cavernous carotid calcification is notable. 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 No intracranial hemorrhage. [] Course & Med Decision Making: Course & Med Decision Making Pertinent Labs and Imaging studies reviewed. (See chart for details) 69-year-old male who presents to the emergency department with complaints of dizziness and generalized weakness that began upon awakening this morning. Orthostatic blood pressures are negative. Work-up included CT head, CBC, CMP, troponin, CK panel, magnesium, PT/INRs, BNP, and a portable chest x-ray. CT head and chest x-ray were negative for any acute findings. Patient CBC showed decreased hemoglobin hematocrit, hemoglobin was 9.7, hematocrit 29.0, likely chronic; PT/INR revealed a PT of 14.7 INR 1.2; CMP revealed changes consistent with chronic renal failure, BUN 32, creatinine 6.0, BNP 6701, negative CK index and negative troponin less than 0.017. Unable to collect a urine sample in the emergency department. The patient's blood pressure remained on the low side in the emergency department 90s over 50s consistently there was a reading that was 80s over 50s. He was given a 500 mL bolus of normal saline. NIH stroke scale score was a 0, low suspicion for CVA, most likely this is a TIA Patient reported complete resolution of his symptoms while in the emergency department. [id number] spoke with Dr. Dickens who is the admitting physician, and care was assumed following discussion of patient. Will admit the patient for a TIA and chronic renal failure to med telemetry. Patient's vital signs stable. Patient remains afebrile, appears nontoxic, respirations even and unlabored. Patient will be admitted to the tele floor. Patient's case and plan of care also discussed with Dr. Harris [] Maxwell Disclaimer: Maxwell Disclaimer: This electronic medical record was generated, in whole or in part, using a voice recognition dictation system. Departure Departure Impression: Primary Impression: TIA (transient ischemic attack) Additional Impression: CRF (chronic renal failure) Qualified Codes: N18.9 - Chronic kidney disease, unspecified Disposition: ADMITTED INPATIENT Admitting Physician: JESSICA Meng) Condition: STABLE Referrals: LAMBERT ORTIZ MD (PCP) Justicifation of Admission Dx: Justifications for Admission: Justification of Admission Dx: Yes Comments: TIA NIHSS Stroke Scale NIH Stroke Scale: NIH Stroke Scale Response (Comments) Value Level of Consciousness: 0 Alert/Responsive 0 LOC Questions: 0 Answers both correctly 0 LOC Commands: 0 Performs both tasks 0 Best Gaze: 0 Normal 0 Visual: 0 No visual loss 0 Facial Palsy: 0 Normal, symmetrical 0 Motor - Left Arm 0 No drift 0 Motor - Right Arm 0 No drift 0 Motor - Left Leg 0 No drift 0 Motor: Right Leg 0 No drift 0 Limb Ataxia: 0 Absent 0 Sensory: 0 No loss 0 Best Language: 0 Normal 0 Dysathria: 0 Normal 0 Extinction and Inattention: 0 Normal 0 Total 0 DAVIDSON FOLEY APRN Sep 07, 2019 12:23
[2019-09-07 13:15] LABS: PROTHROMBIN TIME PATIENT 14.7 SEC (11.7-14.0)
[2019-09-07] MEDS ORDERED: IV NORMAL SALINE 500ML BAG 500 ML IV ONE (13:15)
[2019-09-07 16:45] VITALS: BP 106/70
[2019-09-07] MEDS ORDERED: ALPRAZolam 0.5 MG TABLET PO PRN (17:15)
[2019-09-07] MEDS ORDERED: VITS A & D/LANOLIN TOPICAL OINTMENT 42GM TUBE. TP PRN (17:15)
[2019-09-07] MEDS ORDERED: POLYETHYLENE GLYCOL 3350 17 GM PACKET. PO PRN (17:15)
[2019-09-07] MEDS ORDERED: BISACODYL 5 MG TABLET.DR. PO PRN (17:15)
--- NOTE | 2019-09-07 17:35 | NUR ---
Pgd and spoke to primary to receive admission orders. Order consults to neuro and renal and resumed home meds.
[2019-09-07] MEDS: LUBIPROSTONE 24 MCG CAPSULE PO SCH (18:00)
[2019-09-07 19:42] VITALS: BP 111/66
--- NOTE | 2019-09-07 20:18 | HP ---
ADMIT DATE: 09/07/2019 CHIEF COMPLAINT: Lightheaded and dizziness. HISTORY OF PRESENT ILLNESS: The patient is a pleasant 69-year-old male who presented to the ER with the above chief complaints. Basically, he has been dizzy and lightheaded. He is a dialysis patient. He has been a little confused this morning when he awoke. Clinically it appears he probably had a TIA. I discussed the case with ER physician. We are going to admit the patient and consult Neurology and Nephrology. PAST MEDICAL HISTORY: Coronary artery disease, diabetes, hyperlipidemia, hypertension, end-stage renal disease, on dialysis, left upper arm fistula, coronary bypass surgery, right middle and lower lobe lung removal, vein graft, shunt to the right chest, previous tobacco abuse. ALLERGIES: None. FAMILY HISTORY: Chronic obstructive pulmonary disease. SOCIAL HISTORY: He quit smoking, no drinking or drugs. MEDICATIONS: Reviewed, please refer to the MRAD. REVIEW OF SYSTEMS: GENERAL: No history of weight change, weakness or fevers. SKIN: No bruising, hair changes or rashes. EYES: No blurred, double or loss of vision. NOSE AND THROAT: No history of nosebleeds, hoarseness or sore throat. HEART: No history of palpitations, chest pain or shortness of breath on exertion. LUNGS: Denies cough, hemoptysis, wheezing or shortness of breath. GASTROINTESTINAL: Denies changes in appetite, nausea, vomiting, diarrhea or constipation. GENITOURINARY: No history of frequency, urgency, hesitancy or nocturia. NEUROLOGIC: He complains of dizziness. PSYCHIATRIC: No history of panic, anxiety or depression. ENDOCRINE: No history of heat or cold intolerance, polyuria or polydipsia. EXTREMITIES: Denies muscle weakness, joint pain, pain on walking or stiffness. PHYSICAL EXAMINATION: VITALS: Within normal limits and are stable. GENERAL: No apparent distress. Alert and oriented. HEENT: Normal cephalic atraumatic, external auditory canals are patent. EYES: Extraocular muscles are intact, pupils are equally round and reactive to light and accommodation. MUSCULOSKELETAL: Well developed, well nourished, good range of motion. ENDOCRINE: No thyromegaly was palpated. LYMPHATICS: No cervical chain or axillary nodes were noted. HEMATOPOIETIC: No bruising. NECK: Supple, no JVD, no thyromegaly was noted. LUNGS: He has bibasilar crackles. HEART: RRR, S1, S2 present. Peripheral pulses intact, no obvious murmurs were noted. ABDOMEN: Soft, nontender. Positive bowel sounds no organomegaly, normal bowel sounds. EXTREMITIES: Without any cyanosis, clubbing, or edema. Pedal pulses intact, Homans sign is negative. NEUROLOGIC: Normal speech, normal tone. A & O x3, moves all extremities, no obvious focal deficits. PSYCHIATRIC: Normal affect, normal mood. Stable. SKIN: No ulcerations or rashes, good skin turgor, no jaundice. VASCULAR: Good capillary refill, neurovascular bundle appears to be intact. LABORATORY DATA: Hemoglobin is 9.7, BUN is 32, creatinine 6, glucose 100. BNP 6701. Troponin is 0. Chest x-ray shows no suspicious process. CT of the head shows a right basal ganglia stroke, which is probably old. ASSESSMENT AND PLAN: Stroke symptoms and elevated BNP with probable [id number] systolic and diastolic heart failure. The patient has been admitted. We will consult Nephrology and Cardiology and Neurology. Home medications, deep vein thrombosis prophylaxis. Full code. Cardiac monitoring. PROGNOSIS: Guarded. BENJAMÍN HERNANDEZ DO DR: ELIAZAR/connie JOB#: [id number] / [id number]
[2019-09-07] MEDS ORDERED: GABAPENTIN 300 MG CAPSULE. PO SCH (21:00)
[2019-09-07] MEDS ORDERED: SIMVASTATIN 10 MG TABLET PO SCH (21:00)
[2019-09-07] MEDS ORDERED: SENNOSIDES/DOCUSATE 8.6/50MG TABLET. PO SCH (21:00)
[2019-09-07] MEDS: oxyCODONE ER 10 MG TAB.ER.12H PO PRN (22:00)
[2019-09-07] MEDS: DICYCLOMINE HCL 10 MG CAPSULE PO PRN (22:00)
[2019-09-07] MEDS: LACTOBACILLUS RHAMNOSUS GG 1 CAPSULE. PO SCH (22:00)
[2019-09-07] MEDS: SEVELAMER CARBONATE 800 MG TABLET. PO SCH (22:05)
[2019-09-07 22:42] VITALS: BP 147/82
[2019-09-08 02:30] VITALS: BP 137/72
[2019-09-08 07:00] VITALS: BP 141/78
[2019-09-08] MEDS ORDERED: PANTOPRAZOLE 40 MG TABLET.DR. PO SCH (07:30)
[2019-09-08] MEDS: LUBIPROSTONE 24 MCG CAPSULE PO SCH (08:46)
[2019-09-08] MEDS: DICYCLOMINE HCL 10 MG CAPSULE PO PRN (08:46)
[2019-09-08] MEDS: SEVELAMER CARBONATE 800 MG TABLET. PO SCH ×2 (08:46→14:39)
[2019-09-08] MEDS: LACTOBACILLUS RHAMNOSUS GG 1 CAPSULE. PO SCH (08:46)
[2019-09-08] MEDS ORDERED: DOCUSATE SODIUM 100 MG CAPSULE. PO SCH (09:00)
[2019-09-08] MEDS ORDERED: FOLIC/VIT B COMP W-C (RENAL) TABLET. PO SCH (09:00)
[2019-09-08] MEDS ORDERED: LIDOCAINE (700MG/PATCH) PATCH. TP SCH (09:00)
[2019-09-08] MEDS ORDERED: ASPIRIN ENTERIC COATED 81 MG TABLET.DR. PO SCH (09:00)
--- NOTE | 2019-09-08 09:11 | PDOC2 ---
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 Endocrine: Diabetes PAST SURGICAL HISTORY Past Surgical History Appendectomy, CABG, Other (right shoulder arthroplasty; right middle and lower lobectomy), PD cath placement and removal, EGD, HD placement FAMILY HISTORY Family History: Diabetes SOCIAL HISTORY Smoke: Quit ALCOHOL: none Drugs: None Lives: with Family CURRENT MEDICATIONS CURRENT MEDICATIONS Current Medications Medications (Trade) Dose Ordered Sig/Wolf Route PRN Reason Start Time Stop Time Status Last Admin Dose Admin Sodium Chloride 500 ml @ 500 mls/hr 1X ONCE IV 09/07/19 13:15 09/07/19 14:14 DC 09/07/19 13:07 Aspirin (Ecotrin) 81 mg DAILY PO 09/08/19 09:00 09/08/19 08:46 Docusate Sodium (Colace) 100 mg DAILY PO 09/08/19 09:00 09/08/19 08:46 Vitamin B Complex/ Vitamin C (Ronda-Irma) 1 tab DAILY PO 09/08/19 09:00 09/08/19 08:46 Gabapentin (Neurontin) 300 mg QHS PO 09/07/19 21:00 09/07/19 22:00 Lactobacillus Rhamnosus (Culturelle) 1 cap BID PO 09/07/19 21:00 09/08/19 08:46 Lidocaine (Lidoderm) 1 patch DAILY TP 09/08/19 09:00 09/08/19 08:45 Lubiprostone (Amitiza) 24 mcg BIDWMEALS PO 09/07/19 18:00 09/08/19 08:46 Oxycodone HCl (OxyCONTIN) 10 mg PRN BID PRN PO back pain 09/07/19 17:15 09/07/19 22:00 Pantoprazole Sodium (Protonix) 40 mg DAILYAC PO 09/08/19 07:30 09/08/19 08:47 Polyethylene Glycol (miraLAX PACKET) 17 gm PRN DAILY PRN PO CONSTIPATION 09/07/19 17:15 09/08/19 08:47 Senna/Docusate Sodium (Senna Plus) 2 tab QHS PO 09/07/19 21:00 09/07/19 22:02 Sevelamer Carbonate (Renvela) 400 mg TID PO 09/07/19 21:00 09/08/19 08:46 Simvastatin (Zocor) 10 mg QHS PO 09/07/19 21:00 09/07/19 22:01 Vitamin A/Vitamin D (Vitamin A & D Ointment) 1 chriss PRN Q1HR PRN TP SKIN PROTECTION 09/07/19 17:15 09/08/19 08:46 Dicyclomine HCl (Bentyl) 20 mg TID PRN PRN PO ABDOMINAL PAIN/CRAMPING 09/07/19 17:45 09/08/19 08:46 ALLERGIES ALLERGIES: Coded Allergies: No Known Drug Allergies (Unverified , 06/30/19) ROS Review of System 14 point ROS evaluated with pertinent positives noted per HPI PHYSICAL EXAM General: Alert, Oriented X3, Cooperative, No acute distress HEENT: Atraumatic, Mucous membr. moist/pink Lungs: Clear to auscultation, Normal air movement Heart: Regular rate (SR, no bradycardia), Other (3/6 systolic murmur to LLS border) Abdomen: Soft, No tenderness Extremities: No cyanosis Skin: No breakdown, No significant lesion Neuro: Normal speech, Sensation intact Psych/Mental Status: Mental status NL, Mood NL MUSCULOSKELETAL: Osteoarthritic changes both hands VITALS/I&O VITALS/I&O: Vital Signs Date Time Temp Pulse Resp B/P (MAP) Pulse Ox O2 Delivery O2 Flow Rate FiO2 09/08/19 07:23 Nasal Cannula 2.0 09/08/19 07:00 98.1 71 18 141/78 (99) 96 98.1 I & O 09/07/19 09/07/19 09/08/19 15:00 23:00 07:00 Intake Total 500 ml 540 ml 350 ml Balance 500 ml 540 ml 350 ml LABS Lab: Laboratory Tests Test 09/07/19 11:23 6/30/20 11:24 09/07/19 12:50 Glucose (Fingerstick) 100 mg/dL (70-99) H White Blood Count 5.1 x10^3/uL (4.0-11.0) Red Blood Count 2.83 x10^6/uL (4.30-5.70) L Hemoglobin 9.7 g/dL (13.0-17.5) L Hematocrit 29.0 % (39.0-53.0) L Mean Corpuscular Volume 103 fL (79-100) H Mean Corpuscular Hemoglobin 34 pg (25-35) Mean Corpuscular Hemoglobin Concent 34 g/dL (31-37) Red Cell Distribution Width 18.0 % (11.5-14.5) H Platelet Count 184 x10^3/uL (140-400) Neutrophils (%) (Auto) 66 % (31-73) Lymphocytes (%) (Auto) 19 % (24-48) L Monocytes (%) (Auto) 12 % (0-9) H Eosinophils (%) (Auto) 3 % (0-3) Basophils (%) (Auto) 1 % (0-3) Neutrophils # (Auto) 3.4 x10^3/uL (1.8-7.7) Lymphocytes # (Auto) 1.0 x10^3/uL (1.0-4.8) Monocytes # (Auto) 0.6 x10^3/uL (0.0-1.1) Eosinophils # (Auto) 0.1 x10^3/uL (0.0-0.7) Basophils # (Auto) 0.0 x10^3/uL (0.0-0.2) Sodium Level 140 mmol/L (136-145) Potassium Level 4.7 mmol/L (3.5-5.1) Chloride Level 101 mmol/L (98-107) Carbon Dioxide Level 30 mmol/L (21-32) Anion Gap 9 (6-14) Blood Urea Nitrogen 32 mg/dL (8-26) H Creatinine 6.0 mg/dL (0.7-1.3) H Estimated GFR (Cockcroft-Gault) 11.3 BUN/Creatinine Ratio 5 (6-20) L Glucose Level 111 mg/dL (70-99) H Calcium Level 8.7 mg/dL (8.5-10.1) Magnesium Level 2.4 mg/dL (1.8-2.4) Total Bilirubin 0.3 mg/dL (0.2-1.0) Aspartate Amino Transferase (AST) 14 U/L (15-37) L Alanine Aminotransferase (ALT) < 6 U/L (16-63) L Alkaline Phosphatase 85 U/L (46-116) Creatine Kinase 57 U/L (39-308) Creatine Kinase MB (Mass) < 0.5 ng/mL (0.0-3.6) Creatine Kinase MB Relative Index % (0-4) Troponin I Quantitative < 0.017 ng/mL (0.000-0.055) MW-Aii-A-Type Natriuretic Peptide 6701 pg/mL (0-124) H Total Protein 7.5 g/dL (6.4-8.2) Albumin 3.0 g/dL (3.4-5.0) L Albumin/Globulin Ratio 0.7 (1.0-1.7) L Prothrombin Time 14.7 SEC (11.7-14.0) H Prothrombin Time INR 1.2 (0.8-1.1) H Activated Partial Thromboplast Time 38 SEC (24-38) Laboratory Tests 09/07/19 11:24 Laboratory Tests 09/07/19 11:24 ECHOCARDIOGRAM ECHOCARDIOGRAM JANAY <Conclusion> The systolic function is mildly to moderately impaired. EF 40% There is moderate global hypokinesis. 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 Due to the eccentric nature of the mass, exact dimensions are difficult to determine. DATE: 08/11/19 1404 ASSESSMENT/PLAN ASSESSMENT/PLAN 1. Dizziness/weakness: possibly from dehydration, neurology following. No associated dysrrhythmias. 2. Acute on chronic diastolic/systolic CHF: recent EF at 40%, compensated 3. CAD: past CABG clinically stable 4. HTN: controlled 5. HLP 6. ESRD 7. DM2 8. 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 Discussed hydration adequacy Follow up with Dr. Franco Nov 23 at 830 AM May DC per cardiac standpoint ISIDRA GRANADOS APRN Sep 08, 2019 09:11
--- NOTE | 2019-09-08 09:16 | PDOC2 ---
CONSULT Date of Consult Date of Consult DATE: 09/08/19 TIME: 09:15 Reason for Consult Reason for Consult: ESRD Source Source: Chart review, Patient History of Present Illness Reason for Visit: Patient is a 69 year old AA male who presents the emergency departmen with complaints of having blurred vision and feeling dizzy, weak, and confused yest morning Patient states when he woke up he initially thought that it was Friday evening. He reports that he was so weak he is unable to walk. Patient reports that his dizziness was worse with position changes. Patient reports that he had dialysis on Friday with no issues denies any slurred speech, headache, neck pain, chest pain,, palpitations, nausea, vomiting, diarrhea, shortness of breath, fever, numbness, or tingling. He reports a history of chronic abdominal pain in the left side of his abdomen, he denies any changes in his abdominal pain and he currently rates it a 10 out of 10 on the pain scale, he denies any alleviating or exacerbating factors. He denies any radiation of the pain Earlier this am he is sitting up in chair and states he is ready to go home Seen him again on HD - No complaints Past Medical History Cardiovascular: CAD, CHF, HTN Pulmonary: COPD, Other CENTRAL NERVOUS SYSTEM: Other GI: GERD, GI bleed, Gastritis Heme/Onc: No pertinent hx Hepatobiliary: No pertinent hx Psych: No pertinent hx Musculoskeletal: Osteoarthritis Rheumatologic: No pertinent hx Infectious disease: Other Renal/: Chronic renal failure, Benign prostatic enlarg. Endocrine: Diabetes Past Surgical History Past Surgical History: CABG Family History Family History: Diabetes Social History Quit ALCOHOL: none Drugs: None Lives: with Family Domestic Violence: Neg Current Problem List Problem List Problems Medical Problems: (1) CRF (chronic renal failure) Status: Acute (2) TIA (transient ischemic attack) Status: Acute Current Medications Current Medications Current Medications Sodium Chloride 500 ml @ 500 mls/hr 1X ONCE IV Last administered on 09/07/19at 13:07; Start 09/07/19 at 13:15; Stop 09/07/19 at 14:14; Status DC Alprazolam (Xanax) 0.5 mg PRN BID PRN PO ANXIETY / AGITATION; Start 09/07/19 at 17:15 Aspirin (Ecotrin) 81 mg DAILY PO Last administered on 09/08/19at 08:46; Start 09/08/19 at 09:00 Bisacodyl (Dulcolax Tab) 10 mg PRN DAILY PRN PO CONSTIPATION (1st Choice); Start 09/07/19 at 17:15 Docusate Sodium (Colace) 100 mg DAILY PO Last administered on 09/08/19at 08:46; Start 09/08/19 at 09:00 Vitamin B Complex/ Vitamin C (Ronda-Irma) 1 tab DAILY PO Last administered on 09/08/19at 08:46; Start 09/08/19 at 09:00 Gabapentin (Neurontin) 300 mg QHS PO Last administered on 09/07/19at 22:00; Start 09/07/19 at 21:00 Lactobacillus Rhamnosus (Culturelle) 1 cap BID PO Last administered on 09/08/19 08:46; Start 09/07/19 at 21:00 Lidocaine (Lidoderm) 1 patch DAILY TP Last administered on 09/08/19at 08:45; Start 09/08/19 at 09:00 Lubiprostone (Amitiza) 24 mcg BIDWMEALS PO Last administered on 09/08/19at 08:46; Start 09/07/19 at 18:00 Oxycodone HCl (OxyCONTIN) 10 mg PRN BID PRN PO back pain Last administered on 09/07/19at 22:00; Start 09/07/19 at 17:15 Pantoprazole Sodium (Protonix) 40 mg DAILYAC PO Last administered on 09/08/19at 08:47; Start 09/08/19 at 07:30 Polyethylene Glycol (miraLAX PACKET) 17 gm PRN DAILY PRN PO CONSTIPATION Last administered on 09/08/19at 08:47; Start 09/07/19 at 17:15 Senna/Docusate Sodium (Senna Plus) 2 tab QHS PO Last administered on 09/07/19at 22:02; Start 09/07/19 at 21:00 Sevelamer Carbonate (Renvela) 400 mg TID PO Last administered on 09/08/19at 08:46; Start 09/07/19 at 21:00 Simvastatin (Zocor) 10 mg QHS PO Last administered on 09/07/19at 22:01; Start 09/07/19 at 21:00 Vitamin A/Vitamin D (Vitamin A & D Ointment) 1 brad PRN Q1HR PRN TP SKIN PROTECTION Last administered on 09/08/19at 08:46; Start 09/07/19 at 17:15 Dicyclomine HCl (Bentyl) 20 mg TID PRN PRN PO ABDOMINAL PAIN/CRAMPING Last administered on 09/08/19at 08:46; Start 09/07/19 at 17:45 Active Scripts Active Lidocaine PATCH (Lidocaine) 1 Each Adh..patch 1 Each TP DAILY REMOVE AFTER 12 HOURS THEN LEAVE OFF FOR 12 HOURS PRIOR TO PLACEMENT OF NEW PATCH Oxycontin (Oxycodone HCl) 10 Mg Tab.er.12h 1 Tab PO BID PRN MDD 2 Tablet(s) A and D Ointment (Vits A and D/White Pet/Lanolin) 42.5 Gm Oint...g. 1 Brad TP PRN Q1HR PRN 14 Days Culturelle (Lactobacillus Rhamnosus Gg) 1 Each Cap.sprink 1 Cap PO BID 30 Days Pantoprazole Sodium (Pantoprazole Sodium) 40 Mg Tablet.dr 40 Mg PO DAILYAC 30 Days Amitiza (Lubiprostone) 24 Mcg Capsule 24 Mcg PO BIDWMEALS 30 Days Bisacodyl 5 Mg Tablet.dr 10 Mg PO PRN DAILY PRN 30 Days Gabapentin 300 Mg Capsule 300 Mg PO TID 30 Days Dicyclomine Hcl 20 Mg Tablet 1 Tab PO TID PRN Senna Plus Tablet (Sennosides/Docusate Sodium) 1 Each Tablet 2 Tab PO QHS 14 Days Colace (Docusate Sodium) 100 Mg Capsule 100 Mg PO DAILY Polyethylene Glycol 3350 17 Gm Powd.pack 17 Gm PO PRN DAILY PRN Reported Alprazolam 0.5 Mg Tablet 0.5 Mg PO PRN BID PRN Simvastatin 10 Mg Tablet 1 Tab PO QHS Aspir 81 (Aspirin) 81 Mg Tablet.dr 1 Tab PO DAILY Nephro-Irma Tablet (Folic Acid/Vitamin B Comp W-C) 0.8 Mg Tablet 1 Tab PO DAILY Renvela (Sevelamer Carbonate) 800 Mg Tablet 0.5 Tab PO TID Allergies Allergies: Coded Allergies: No Known Drug Allergies (Unverified , 06/30/19) ROS Review of System Per HPI Physical Exam Physical Exam GENERAL: not in distress. HEENT: NAD. NECK: Supple, LUNGS: Clear. HEART: S1, S2 regular.murmur + ABDOMEN: Benign. incisional abdominal hernia+ EXTREMITIES: No edema or cyanosis. AV graft in the left upper extremity. 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 Acute on chronic diastolic/systolic CHF: recent EF at 40% CAD: past CABG clinically stable HTN: controlled Labs Labs Laboratory Tests Test 09/07/19 11:23 09/07/19 11:24 09/07/19 12:50 Glucose (Fingerstick) 100 mg/dL (70-99) White Blood Count 5.1 x10^3/uL (4.0-11.0) Red Blood Count 2.83 x10^6/uL (4.30-5.70) Hemoglobin 9.7 g/dL (13.0-17.5) Hematocrit 29.0 % (39.0-53.0) Mean Corpuscular Volume 103 fL (79-100) Mean Corpuscular Hemoglobin 34 pg (25-35) Mean Corpuscular Hemoglobin Concent 34 g/dL (31-37) Red Cell Distribution Width 18.0 % (11.5-14.5) Platelet Count 184 x10^3/uL (140-400) Neutrophils (%) (Auto) 66 % (31-73) Lymphocytes (%) (Auto) 19 % (24-48) Monocytes (%) (Auto) 12 % (0-9) Eosinophils (%) (Auto) 3 % (0-3) Basophils (%) (Auto) 1 % (0-3) Neutrophils # (Auto) 3.4 x10^3/uL (1.8-7.7) Lymphocytes # (Auto) 1.0 x10^3/uL (1.0-4.8) Monocytes # (Auto) 0.6 x10^3/uL (0.0-1.1) Eosinophils # (Auto) 0.1 x10^3/uL (0.0-0.7) Basophils # (Auto) 0.0 x10^3/uL (0.0-0.2) Sodium Level 140 mmol/L (136-145) Potassium Level 4.7 mmol/L (3.5-5.1) Chloride Level 101 mmol/L (98-107) Carbon Dioxide Level 30 mmol/L (21-32) Anion Gap 9 (6-14) Blood Urea Nitrogen 32 mg/dL (8-26) Creatinine 6.0 mg/dL (0.7-1.3) Estimated GFR (Cockcroft-Gault) 11.3 BUN/Creatinine Ratio 5 (6-20) Glucose Level 111 mg/dL (70-99) Calcium Level 8.7 mg/dL (8.5-10.1) Magnesium Level 2.4 mg/dL (1.8-2.4) Total Bilirubin 0.3 mg/dL (0.2-1.0) Aspartate Amino Transf (AST/SGOT) 14 U/L (15-37) Alanine Aminotransferase (ALT/SGPT) < 6 U/L (16-63) Alkaline Phosphatase 85 U/L (46-116) Creatine Kinase 57 U/L (39-308) Creatine Kinase MB (Mass) < 0.5 ng/mL (0.0-3.6) Creatine Kinase MB Relative Index % (0-4) Troponin I Quantitative < 0.017 ng/mL (0.000-0.055) QU-Xlk-[id number]-Type Natriuretic Peptide 6701 pg/mL (0-124) Total Protein 7.5 g/dL (6.4-8.2) Albumin 3.0 g/dL (3.4-5.0) Albumin/Globulin Ratio 0.7 (1.0-1.7) Prothrombin Time 14.7 SEC (11.7-14.0) Prothromb Time International Ratio 1.2 (0.8-1.1) Activated Partial Thromboplast Time 38 SEC (24-38) Laboratory Tests Test 09/07/19 11:23 09/07/19 11:24 09/07/19 12:50 Glucose (Fingerstick) 100 mg/dL (70-99) White Blood Count 5.1 x10^3/uL (4.0-11.0) Red Blood Count 2.83 x10^6/uL (4.30-5.70) Hemoglobin 9.7 g/dL (13.0-17.5) Hematocrit 29.0 % (39.0-53.0) Mean Corpuscular Volume 103 fL (79-100) Mean Corpuscular Hemoglobin 34 pg (25-35) Mean Corpuscular Hemoglobin Concent 34 g/dL (31-37) Red Cell Distribution Width 18.0 % (11.5-14.5) Platelet Count 184 x10^3/uL (140-400) Neutrophils (%) (Auto) 66 % (31-73) Lymphocytes (%) (Auto) 19 % (24-48) Monocytes (%) (Auto) 12 % (0-9) Eosinophils (%) (Auto) 3 % (0-3) Basophils (%) (Auto) 1 % (0-3) Neutrophils # (Auto) 3.4 x10^3/uL (1.8-7.7) Lymphocytes # (Auto) 1.0 x10^3/uL (1.0-4.8) Monocytes # (Auto) 0.6 x10^3/uL (0.0-1.1) Eosinophils # (Auto) 0.1 x10^3/uL (0.0-0.7) Basophils # (Auto) 0.0 x10^3/uL (0.0-0.2) Sodium Level 140 mmol/L (136-145) Potassium Level 4.7 mmol/L (3.5-5.1) Chloride Level 101 mmol/L (98-107) Carbon Dioxide Level 30 mmol/L (21-32) Anion Gap 9 (6-14) Blood Urea Nitrogen 32 mg/dL (8-26) Creatinine 6.0 mg/dL (0.7-1.3) Estimated GFR (Cockcroft-Gault) 11.3 BUN/Creatinine Ratio 5 (6-20) Glucose Level 111 mg/dL (70-99) Calcium Level 8.7 mg/dL (8.5-10.1) Magnesium Level 2.4 mg/dL (1.8-2.4) Total Bilirubin 0.3 mg/dL (0.2-1.0) Aspartate Amino Transf (AST/SGOT) 14 U/L (15-37) Alanine Aminotransferase (ALT/SGPT) < 6 U/L (16-63) Alkaline Phosphatase 85 U/L (46-116) Creatine Kinase 57 U/L (39-308) Creatine Kinase MB (Mass) < 0.5 ng/mL (0.0-3.6) Creatine Kinase MB Relative Index % (0-4) Troponin I Quantitative < 0.017 ng/mL (0.000-0.055) ED-Xzi-U-Type Natriuretic Peptide 6701 pg/mL (0-124) Total Protein 7.5 g/dL (6.4-8.2) Albumin 3.0 g/dL (3.4-5.0) Albumin/Globulin Ratio 0.7 (1.0-1.7) Prothrombin Time 14.7 SEC (11.7-14.0) Prothromb Time International Ratio 1.2 (0.8-1.1) Activated Partial Thromboplast Time 38 SEC (24-38) Review All relevant outside records, renal labs, imaging studies, telemetry/EKG's were reviewed. WIL TORRES MD Sep 08, 2019 09:16
[2019-09-08 10:21] VITALS: BP 132/53
[2019-09-08] MEDS ORDERED: IV NORMAL SALINE 1000ML BAG 1,000 ML IV PRN ×2 (11:01)
[2019-09-08] MEDS ORDERED: ALBUMIN HUMAN 25% 200 ML IV PRN (11:15)
[2019-09-08] MEDS ORDERED: DIALYSIS PATIENT. MC PRN ×2 (11:15)
--- NOTE | 2019-09-08 11:28 | PDOC2 ---
NEUROLOGY CONSULT Date of Admission Date of Admission DATE: 09/08/19 TIME: 11:21 Reason for Consult Reason for Consult: Transient ischemic attack Referring Physician Referring Physician: Dr. Dickens Source Source: Chart review, Patient History of Present Illness History of Present Illness The patient is a 69-year-old right-handed male who has not felt well for the past 4 days. He complains of lightheadedness, dizziness, everything going white on him, we call over, left side abdominal pain, left back pain. He is feeling much better since he was given fluids. There was never any focal issues such as diplopia, dysphagia, dysarthria, focal numbness or weakness. The patient has never had a stroke, seizure, or head injury. Past Medical History Cardiovascular: CAD, HTN, Hyperlipidemia, Other ( deep venous thrombosis, lymphedema) Pulmonary: Asthma, Bronchitis, COPD CENTRAL NERVOUS SYSTEM: Periperal neuropathy Heme/Onc: Anemia NOS Musculoskeletal: low back pain (Osteomyelitis of the thoracic spine) Renal/: Chronic renal failure ( dialysis) Endocrine: Diabetes Past Surgical History Past Surgical History: Cataract Removal, Other ( pulmonary lobectomy, right shoulder dislocation) Family History Family History: Cancer Social History Social History , no alcohol or tobacco Current Medications Current Medications Current Medications Sodium Chloride 500 ml @ 500 mls/hr 1X ONCE IV Last administered on 09/07/19at 13:07; Start 09/07/19 at 13:15; Stop 09/07/19 at 14:14; Status DC Alprazolam (Xanax) 0.5 mg PRN BID PRN PO ANXIETY / AGITATION; Start 09/07/19 at 17:15 Aspirin (Ecotrin) 81 mg DAILY PO Last administered on 09/08/19at 08:46; Start 09/08/19 at 09:00 Bisacodyl (Dulcolax Tab) 10 mg PRN DAILY PRN PO CONSTIPATION (1st Choice); Start 09/07/19 at 17:15 Docusate Sodium (Colace) 100 mg DAILY PO Last administered on 09/08/19at 08:46; Start 09/08/19 at 09:00 Vitamin B Complex/ Vitamin C (Ronda-Irma) 1 tab DAILY PO Last administered on 09/08/19at 08:46; Start 09/08/19 at 09:00 Gabapentin (Neurontin) 300 mg QHS PO Last administered on 09/07/19 22:00; Start 09/07/19 at 21:00 Lactobacillus Rhamnosus (Culturelle) 1 cap BID PO Last administered on 09/08/19 08:46; Start 09/07/19 at 21:00 Lidocaine (Lidoderm) 1 patch DAILY TP Last administered on 09/08/19 08:45; Start 09/08/19 at 09:00 Lubiprostone (Amitiza) 24 mcg BIDWMEALS PO Last administered on 09/08/19 08:46; Start 09/07/19 at 18:00 Oxycodone HCl (OxyCONTIN) 10 mg PRN BID PRN PO back pain Last administered on 09/07/19 22:00; Start 09/07/19 at 17:15 Pantoprazole Sodium (Protonix) 40 mg DAILYAC PO Last administered on 09/08/19 08:47; Start 09/08/19 at 07:30 Polyethylene Glycol (miraLAX PACKET) 17 gm PRN DAILY PRN PO CONSTIPATION Last administered on 09/08/19 08:47; Start 09/07/19 at 17:15 Senna/Docusate Sodium (Senna Plus) 2 tab QHS PO Last administered on 09/07/19 22:02; Start 09/07/19 at 21:00 Sevelamer Carbonate (Renvela) 400 mg TID PO Last administered on 09/08/19 08:46; Start 09/07/19 at 21:00 Simvastatin (Zocor) 10 mg QHS PO Last administered on 09/07/19 22:01; Start 09/07/19 at 21:00 Vitamin A/Vitamin D (Vitamin A & D Ointment) 1 brad PRN Q1HR PRN TP SKIN PROTECTION Last administered on 09/08/19 08:46; Start 09/07/19 at 17:15 Dicyclomine HCl (Bentyl) 20 mg TID PRN PRN PO ABDOMINAL PAIN/CRAMPING Last administered on 09/08/19 08:46; Start 09/07/19 at 17:45 Sodium Chloride 1,000 ml @ 1,000 mls/hr Q1H PRN IV hypotension; Start 09/08/19 at 11:01; Stop 09/08/19 at 17:00 Albumin Human 200 ml @ 200 mls/hr 1X PRN PRN IV Hypotension; Start 09/08/19 at 11:15; Stop 09/08/19 at 17:14 Sodium Chloride 1,000 ml @ 400 mls/hr Q2H30M PRN IV PATENCY; Start 09/08/19 at 11:01; Stop 09/08/19 at 23:00 Info (PHARMACY MONITORING -- do not chart) 1 each PRN DAILY PRN MC SEE COMMENTS; Start 09/08/19 at 11:15 Info (PHARMACY MONITORING -- do not chart) 1 each PRN DAILY PRN MC SEE COMMENTS; Start 09/08/19 at 11:15 Active Scripts Active Lidocaine PATCH (Lidocaine) 1 Each Adh..patch 1 Each TP DAILY REMOVE AFTER 12 HOURS THEN LEAVE OFF FOR 12 HOURS PRIOR TO PLACEMENT OF NEW PATCH Oxycontin (Oxycodone HCl) 10 Mg Tab.er.12h 1 Tab PO BID PRN MDD 2 Tablet(s) A and D Ointment (Vits A and D/White Pet/Lanolin) 42.5 Gm Oint...g. 1 Brad TP PRN Q1HR PRN 14 Days Culturelle (Lactobacillus Rhamnosus Gg) 1 Each Cap.sprink 1 Cap PO BID 30 Days Pantoprazole Sodium (Pantoprazole Sodium) 40 Mg Tablet. 40 Mg PO DAILYAC 30 Days Amitiza (Lubiprostone) 24 Mcg Capsule 24 Mcg PO BIDWMEALS 30 Days Bisacodyl 5 Mg Tablet. 10 Mg PO PRN DAILY PRN 30 Days Gabapentin 300 Mg Capsule 300 Mg PO TID 30 Days Dicyclomine Hcl 20 Mg Tablet 1 Tab PO TID PRN Senna Plus Tablet (Sennosides/Docusate Sodium) 1 Each Tablet 2 Tab PO QHS 14 Days Colace (Docusate Sodium) 100 Mg Capsule 100 Mg PO DAILY Polyethylene Glycol 3350 17 Gm Powd.pack 17 Gm PO PRN DAILY PRN Reported Alprazolam 0.5 Mg Tablet 0.5 Mg PO PRN BID PRN Simvastatin 10 Mg Tablet 1 Tab PO QHS Aspir 81 (Aspirin) 81 Mg Tablet. 1 Tab PO DAILY Nephro-Irma Tablet (Folic Acid/Vitamin B Comp W-C) 0.8 Mg Tablet 1 Tab PO DAILY Renvela (Sevelamer Carbonate) 800 Mg Tablet 0.5 Tab PO TID Allergies Allergies: Coded Allergies: No Known Drug Allergies (Unverified , 06/30/19) ROS Review of System Negative for fever, chills, weight loss, shortness of breath, chest pain, indigestion, hematochezia, melena, and dysuria. Full 14-point review of systems is negative. Physical Exam Physical Examination General: Well-developed, well-nourished black male in no acute distress HEENT: Normocephalic andatraumatic. Temporal arteriespulsatile and nontender. Neck: Supple without bruit, no meningismus Musculoskeletal: Stability:see neurologic. Gait exam:see neurologic. Tone:see neurologic.Strength:see neurologic. Neurological: Mental Status:intact, orientation, memory, attention span/concentration, language, fund of knowledge normal. Cranial Nerves:Pupils equal and reactive to light, extraocular movements areintact, visual gutiérrez are full to confrontation. Facial sensation is normal. There is no facial asymmetry. Vestibulo-ocular reflex is intact. Palate elevates and tongue protrudes in midline. All other cranial related problems are negative except as mentioned before.Reflexes:1+ and symmetric with flexor plantar responses. Motor:4/5 strength with normal tone and bulk. Coordination:Finger-nose finger and hryo-oj-dyye testing are normal. Rapid alternating movements and fine finger movements are intact. Gait: antalgic. Sensory:N stocking loss Vitals VITALS Vital Signs Date Time Temp Pulse Resp B/P (MAP) Pulse Ox O2 Delivery O2 Flow Rate FiO2 09/08/19 10:21 98.3 71 18 132/53 (79) 95 Room Air 98.3 09/08/19 07:23 2.0 Labs Labs Laboratory Tests Test 09/07/19 11:23 09/07/19 11:24 09/07/19 12:50 Glucose (Fingerstick) 100 mg/dL (70-99) White Blood Count 5.1 x10^3/uL (4.0-11.0) Red Blood Count 2.83 x10^6/uL (4.30-5.70) Hemoglobin 9.7 g/dL (13.0-17.5) Hematocrit 29.0 % (39.0-53.0) Mean Corpuscular Volume 103 fL (79-100) Mean Corpuscular Hemoglobin 34 pg (25-35) Mean Corpuscular Hemoglobin Concent 34 g/dL (31-37) Red Cell Distribution Width 18.0 % (11.5-14.5) Platelet Count 184 x10^3/uL (140-400) Neutrophils (%) (Auto) 66 % (31-73) Lymphocytes (%) (Auto) 19 % (24-48) Monocytes (%) (Auto) 12 % (0-9) Eosinophils (%) (Auto) 3 % (0-3) Basophils (%) (Auto) 1 % (0-3) Neutrophils # (Auto) 3.4 x10^3/uL (1.8-7.7) Lymphocytes # (Auto) 1.0 x10^3/uL (1.0-4.8) Monocytes # (Auto) 0.6 x10^3/uL (0.0-1.1) Eosinophils # (Auto) 0.1 x10^3/uL (0.0-0.7) Basophils # (Auto) 0.0 x10^3/uL (0.0-0.2) Sodium Level 140 mmol/L (136-145) Potassium Level 4.7 mmol/L (3.5-5.1) Chloride Level 101 mmol/L (98-107) Carbon Dioxide Level 30 mmol/L (21-32) Anion Gap 9 (6-14) Blood Urea Nitrogen 32 mg/dL (8-26) Creatinine 6.0 mg/dL (0.7-1.3) Estimated GFR (Cockcroft-Gault) 11.3 BUN/Creatinine Ratio 5 (6-20) Glucose Level 111 mg/dL (70-99) Calcium Level 8.7 mg/dL (8.5-10.1) Magnesium Level 2.4 mg/dL (1.8-2.4) Total Bilirubin 0.3 mg/dL (0.2-1.0) Aspartate Amino Transf (AST/SGOT) 14 U/L (15-37) Alanine Aminotransferase (ALT/SGPT) < 6 U/L (16-63) Alkaline Phosphatase 85 U/L (46-116) Creatine Kinase 57 U/L (39-308) Creatine Kinase MB (Mass) < 0.5 ng/mL (0.0-3.6) Creatine Kinase MB Relative Index % (0-4) Troponin I Quantitative < 0.017 ng/mL (0.000-0.055) PR-Suk-R-Type Natriuretic Peptide 6701 pg/mL (0-124) Total Protein 7.5 g/dL (6.4-8.2) Albumin 3.0 g/dL (3.4-5.0) Albumin/Globulin Ratio 0.7 (1.0-1.7) Prothrombin Time 14.7 SEC (11.7-14.0) Prothromb Time International Ratio 1.2 (0.8-1.1) Activated Partial Thromboplast Time 38 SEC (24-38) Laboratory Tests Test 09/07/19 11:23 09/07/19 11:24 09/07/19 12:50 Glucose (Fingerstick) 100 mg/dL (70-99) White Blood Count 5.1 x10^3/uL (4.0-11.0) Red Blood Count 2.83 x10^6/uL (4.30-5.70) Hemoglobin 9.7 g/dL (13.0-17.5) Hematocrit 29.0 % (39.0-53.0) Mean Corpuscular Volume 103 fL (79-100) Mean Corpuscular Hemoglobin 34 pg (25-35) Mean Corpuscular Hemoglobin Concent 34 g/dL (31-37) Red Cell Distribution Width 18.0 % (11.5-14.5) Platelet Count 184 x10^3/uL (140-400) Neutrophils (%) (Auto) 66 % (31-73) Lymphocytes (%) (Auto) 19 % (24-48) Monocytes (%) (Auto) 12 % (0-9) Eosinophils (%) (Auto) 3 % (0-3) Basophils (%) (Auto) 1 % (0-3) Neutrophils # (Auto) 3.4 x10^3/uL (1.8-7.7) Lymphocytes # (Auto) 1.0 x10^3/uL (1.0-4.8) Monocytes # (Auto) 0.6 x10^3/uL (0.0-1.1) Eosinophils # (Auto) 0.1 x10^3/uL (0.0-0.7) Basophils # (Auto) 0.0 x10^3/uL (0.0-0.2) Sodium Level 140 mmol/L (136-145) Potassium Level 4.7 mmol/L (3.5-5.1) Chloride Level 101 mmol/L (98-107) Carbon Dioxide Level 30 mmol/L (21-32) Anion Gap 9 (6-14) Blood Urea Nitrogen 32 mg/dL (8-26) Creatinine 6.0 mg/dL (0.7-1.3) Estimated GFR (Cockcroft-Gault) 11.3 BUN/Creatinine Ratio 5 (6-20) Glucose Level 111 mg/dL (70-99) Calcium Level 8.7 mg/dL (8.5-10.1) Magnesium Level 2.4 mg/dL (1.8-2.4) Total Bilirubin 0.3 mg/dL (0.2-1.0) Aspartate Amino Transf (AST/SGOT) 14 U/L (15-37) Alanine Aminotransferase (ALT/SGPT) < 6 U/L (16-63) Alkaline Phosphatase 85 U/L (46-116) Creatine Kinase 57 U/L (39-308) Creatine Kinase MB (Mass) < 0.5 ng/mL (0.0-3.6) Creatine Kinase MB Relative Index % (0-4) Troponin I Quantitative < 0.017 ng/mL (0.000-0.055) MJ-Egw-O-Type Natriuretic Peptide 6701 pg/mL (0-124) Total Protein 7.5 g/dL (6.4-8.2) Albumin 3.0 g/dL (3.4-5.0) Albumin/Globulin Ratio 0.7 (1.0-1.7) Prothrombin Time 14.7 SEC (11.7-14.0) Prothromb Time International Ratio 1.2 (0.8-1.1) Activated Partial Thromboplast Time 38 SEC (24-38) Images Images CT HEAD WO CONTRAST History: Reason: altered LOC, weakness / Spl. Instructions: / History: Comparison/Correlation: None Findings: Axial images of the head were obtained without contrast. Atrophy is present. No intracranial hemorrhage, midline shift, or mass effect. Right basal ganglia lacunar infarct is present of indeterminate age but old in appearance. No intracranial hemorrhage, shift, or mass effect. Old right medial orbital wall fracture is present. Minimal opacification of the left sphenoid sinus is present. Mucosal wall thickening in the right maxillary sinus partially seen. Cavernous carotid calcification is notable. 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 No intracranial hemorrhage. Assessment/Plan Assessment/Plan Impression: I do not get any flavor of transient ischemic attack, there have never been any focal symptoms. Patient was dehydrated, low on fluid, responded well to fluids and feels okay now. Chronic back pain, history of osteomyelitis Diabetic peripheral property. Recommendations: See how he does with some physical therapy today Consider additional imaging studies of the spine He does not need any type of workup for transient ischemic attack Continue aspirin and statin Thank you for letting me help with the patient's care. ADRIANNE DILLON MD Sep 08, 2019 11:27
--- NOTE | 2019-09-08 11:35 | PDOC3 ---
Discharge Summary Visit Information Date of Admission: Sep 07, 2019 Date of Discharge: Sep 08, 2019 Final Diagnosis Dizziness/weakness: prior CVA, CT revealed OLD right basal ganglia infarct Acute on chronic diastolic/systolic CHF: recent EF at 40% CAD: past CABG w. htn and lipids, ESRD DM2 Problems Medical Problems: (1) CRF (chronic renal failure) Status: Acute (2) TIA (transient ischemic attack) Status: Acute Brief Hospital Course Allergies Allergies Coded Allergies Type Severity Reaction Last Updated Verified No Known Drug Allergies 06/30/19 No Vital Signs Vital Signs Date Time Temp Pulse Resp B/P (MAP) Pulse Ox O2 Delivery O2 Flow Rate FiO2 09/08/19 10:21 98.3 71 18 132/53 (79) 95 Room Air 98.3 09/08/19 07:23 2.0 Lab Results Laboratory Tests Test 09/07/19 11:23 09/07/19 11:24 09/07/19 12:50 Glucose (Fingerstick) 100 mg/dL (70-99) White Blood Count 5.1 x10^3/uL (4.0-11.0) Red Blood Count 2.83 x10^6/uL (4.30-5.70) Hemoglobin 9.7 g/dL (13.0-17.5) Hematocrit 29.0 % (39.0-53.0) Mean Corpuscular Volume 103 fL (79-100) Mean Corpuscular Hemoglobin 34 pg (25-35) Mean Corpuscular Hemoglobin Concent 34 g/dL (31-37) Red Cell Distribution Width 18.0 % (11.5-14.5) Platelet Count 184 x10^3/uL (140-400) Neutrophils (%) (Auto) 66 % (31-73) Lymphocytes (%) (Auto) 19 % (24-48) Monocytes (%) (Auto) 12 % (0-9) Eosinophils (%) (Auto) 3 % (0-3) Basophils (%) (Auto) 1 % (0-3) Neutrophils # (Auto) 3.4 x10^3/uL (1.8-7.7) Lymphocytes # (Auto) 1.0 x10^3/uL (1.0-4.8) Monocytes # (Auto) 0.6 x10^3/uL (0.0-1.1) Eosinophils # (Auto) 0.1 x10^3/uL (0.0-0.7) Basophils # (Auto) 0.0 x10^3/uL (0.0-0.2) Sodium Level 140 mmol/L (136-145) Potassium Level 4.7 mmol/L (3.5-5.1) Chloride Level 101 mmol/L (98-107) Carbon Dioxide Level 30 mmol/L (21-32) Anion Gap 9 (6-14) Blood Urea Nitrogen 32 mg/dL (8-26) Creatinine 6.0 mg/dL (0.7-1.3) Estimated GFR (Cockcroft-Gault) 11.3 BUN/Creatinine Ratio 5 (6-20) Glucose Level 111 mg/dL (70-99) Calcium Level 8.7 mg/dL (8.5-10.1) Magnesium Level 2.4 mg/dL (1.8-2.4) Total Bilirubin 0.3 mg/dL (0.2-1.0) Aspartate Amino Transf (AST/SGOT) 14 U/L (15-37) Alanine Aminotransferase (ALT/SGPT) < 6 U/L (16-63) Alkaline Phosphatase 85 U/L (46-116) Creatine Kinase 57 U/L (39-308) Creatine Kinase MB (Mass) < 0.5 ng/mL (0.0-3.6) Creatine Kinase MB Relative Index % (0-4) Troponin I Quantitative < 0.017 ng/mL (0.000-0.055) QG-Ecn-P-Type Natriuretic Peptide 6701 pg/mL (0-124) Total Protein 7.5 g/dL (6.4-8.2) Albumin 3.0 g/dL (3.4-5.0) Albumin/Globulin Ratio 0.7 (1.0-1.7) Prothrombin Time 14.7 SEC (11.7-14.0) Prothromb Time International Ratio 1.2 (0.8-1.1) Activated Partial Thromboplast Time 38 SEC (24-38) Laboratory Tests Test 09/07/19 12:50 Prothrombin Time 14.7 SEC (11.7-14.0) Prothromb Time International Ratio 1.2 (0.8-1.1) Activated Partial Thromboplast Time 38 SEC (24-38) Brief Hospital Course Mr. Gaston is a 69 old male, admit with weakness, dizzyness, eval for TIA, more likely dehydration, heat, Eval by CV and neuro, pt had HD, felt better at OR, [facility] med problems Discharge Information Condition at Discharge: Improved Follow Up: Weeks Disposition/Orders: D/C to Home Scheduled Aspirin (Aspir 81) 81 Mg Tablet.dr, 1 TAB PO DAILY, #30 Ref 5 (Reported) Entered as Reported by: NASIMA GARCÍA on 10/29/16 1518 Last Taken: Unknown Dose on 09/07/19 Last Action: Continued on 09/07/191731 by Jairo Cavazos Docusate Sodium (Colace) 100 Mg Capsule, 100 MG PO DAILY for prevent constipation, #90 Prescribed by: DAWSON NAQVI on 06/24/19 1058 Last Taken: Unknown Dose on 09/07/19 Last Action: Continued on 09/07/191731 by Jairo Cavazos Folic Acid/Vitamin B Comp W-C (Nephro-Irma Tablet) 0.8 Mg Tablet, 1 TAB PO DAILY, #30 Ref 5 (Reported) Entered as Reported by: TOM PERAZA on 07/28/16 1546 Last Taken: Unknown Dose on 09/07/19 Last Action: Continued on 09/07/191731 by Jairo Cavazos Gabapentin (Gabapentin) 300 Mg Capsule, 300 MG PO TID for pain for 30 Days, #90 Prescribed by: GYPSY PEARSON MD on 08/14/19 1342 Last Taken: Unknown Dose on 09/07/19 Last Action: Continued on 09/07/191731 by Jairo Cavazos Lactobacillus Rhamnosus Gg (Culturelle) 1 Each Cap.sprink, 1 CAP PO BID for supplement for 30 Days, #60 Prescribed by: GYPSY PEARSON MD on 08/14/19 1342 Last Taken: Unknown Dose on 09/07/19 Last Action: Continued on 09/07/191731 by Jairo Cavazos Lidocaine (Lidocaine PATCH ) 1 Each Adh..patch, 1 EACH TP DAILY for FOR LOCAL PAIN, #14 REMOVE AFTER 12 HOURS THEN LEAVE OFF FOR 12 HOURS PRIOR TO PLACEMENT OF NEW PATCH Prescribed by: JESS CHOI D.O. on 08/19/19 1509 Last Action: Continued on 09/07/19 173 by Jairo Cavazos Lubiprostone (Amitiza) 24 Mcg Capsule, 24 MCG PO BIDWMEALS for stools for 30 Days, #60 Prescribed by: GYPSY PEARSON MD on 08/14/19 1342 Last Taken: Unknown Dose on 09/07/19 Last Action: Continued on 09/07/191731 by Jairo Cavazos Pantoprazole Sodium (Pantoprazole Sodium ) 40 Mg Tablet.dr, 40 MG PO DAILYAC for gerd for 30 Days, #30 Prescribed by: GYPSY PEARSON MD on 08/14/19 1342 Last Taken: Unknown Dose on 09/07/19 Last Action: Continued on 09/07/191731 by Jairo Cavazos Sennosides/Docusate Sodium (Senna Plus Tablet) 1 Each Tablet, 2 TAB PO QHS for 14 Days, #28 Ref 0 Prescribed by: LYDIA BARRETT APRN on 07/07/19 1748 Last Taken: Unknown Dose on 09/07/19 Last Action: Continued on 09/07/191731 by Jairo Cavazos Sevelamer Carbonate (Renvela) 800 Mg Tablet, 0.5 TAB PO TID, #270 Ref 3 (Reported) Entered as Reported by: TOM PERAZA on 07/28/16 1535 Last Taken: Unknown Dose on 09/07/19 Last Action: Continued on 09/07/191731 by Jairo Cavazos Simvastatin (Simvastatin) 10 Mg Tablet, 1 TAB PO QHS, #30 Ref 5 (Reported) Entered as Reported by: NASIMA GARCÍA on 10/29/16 1520 Last Taken: Unknown Dose on 09/06/19 Last Action: Continued on 09/07/191731 by Jairo Cavazos Scheduled PRN Alprazolam (Alprazolam) 0.5 Mg Tablet, 0.5 MG PO PRN BID PRN for ANXIETY / AGITATION, (Reported) Entered as Reported by: ANDRES CURTIS on 06/20/19 2216 Last Action: Continued on 09/07/191731 by Jairo Cavazos Bisacodyl (Bisacodyl) 5 Mg Tablet.dr, 10 MG PO PRN DAILY PRN for CONSTIPATION (1st Choice) for 30 Days, #30 Prescribed by: GYPSY PEARSON MD on 08/14/191341 Last Action: Continued on 09/07/191731 by Jairo Cavazos Dicyclomine Hcl (Dicyclomine Hcl) 20 Mg Tablet, 1 TAB PO TID PRN for abdominal pain/cramping, #30 Prescribed by: KOJO CABALLERO D.O. on 07/10/192054 Last Taken: Unknown Dose on 09/07/19 Last Action: Converted on 09/07/191731 by Jairo Cavazos Oxycodone Hcl (Oxycontin ) 10 Mg Tab.er.12h, 1 TAB PO BID PRN for back pain MDD 2 Tablet(s), #8 Ref 0 Prescribed by: JENNIFER MURPHY D.O. on 08/15/19 0706 Last Action: Continued on 09/07/191731 by Jairo Cavazos Polyethylene Glycol 3350 (Polyethylene Glycol 3350) 17 Gm Powd.pack, 17 GM PO PRN DAILY PRN for CONSTIPATION, #30 Prescribed by: DAWSON NAQVI on 06/24/19 1058 Last Action: Continued on 09/07/191731 by Jairo Cavazos Vits A and D/White Pet/Lanolin (A and D Ointment) 42.5 Gm Oint...g., 1 CONCEPCION TP PRN Q1HR PRN for SKIN PROTECTION for 14 Days, #60 Prescribed by: GYPSY PEARSON MD on 08/14/191341 Last Action: Continued on 09/07/191731 by Jairo Cavazos Patient Instructions Patient Instructions ECHO The systolic function is mildly to moderately impaired. EF 40% moderate global hypokinesis. Justicifation of Admission Dx: Justifications for Admission: Justification of Admission Dx: Yes DAWSON NAQVI MD Sep 08, 2019 11:35
--- NOTE | 2019-09-08 11:35 | NUR ---
SS following for discharge planning. SS reviewed pt chart and discussed with pt RN. Pt is from home and is currently on room air. Pt has outpatient dialysis at [facility], ; fax [phone], Friday, Friday, and Friday. PT/OT ordered. SS will continue to follow for discharge planning.
[2019-09-08] MEDS: oxyCODONE ER 10 MG TAB.ER.12H PO PRN (14:40)
--- NOTE | 2019-09-08 15:15 | NUR ---
Discharge Note: ARGELIA RODAS Discharge instructions and discharge home medications reviewed with Patient and a copy given. All questions have been answered and understanding verbalized. The following instructions and handouts were given: Dehydration and TIA. Discontinued iv line and catheter intact. Patient discharged to home with self-care via private vehicle.
== END 2019-09-08 15:00 | disposition home or self-care (01) ==
LOC: ER 11:01 → INTOOBSV 13:05 → ED HOLD 13:05 → 2 SOUTH 16:35
PROVIDERS: ADMIT Internal Medicine; ATTEND Internal Medicine
DX: G45.9 Transient cerebral ischemic attack, unspecified (principal); I13.2 Hypertensive heart and chronic kidney disease with heart failure and with stage 5 chronic kidney disease, or end stage renal disease; I50.43 Acute on chronic combined systolic (congestive) and diastolic (congestive) heart failure; E11.22 Type 2 diabetes mellitus with diabetic chronic kidney disease; N18.6 End stage renal disease; I42.9 Cardiomyopathy, unspecified; I25.10 Atherosclerotic heart disease of native coronary artery without angina pectoris; J44.9 Chronic obstructive pulmonary disease, unspecified; E78.5 Hyperlipidemia, unspecified; Z87.891 Personal history of nicotine dependence; Z95.1 Presence of aortocoronary bypass graft; Z96.611 Presence of right artificial shoulder joint; Z99.2 Dependence on renal dialysis
CPT/HCPCS: 36415; 70450; 71045; 80053; 82550; 82553; 82962; 83735; 83880; 84484; 85025; 85610; 85730; 93005; 96360; 99285; G0378; J7040; G0379

== ENCOUNTER 2019-09-24 00:44 | Emergency (ER) | payer BC ==
[~2019-09-24] VITALS: Ht 180.3 cm; Wt 92.7 kg
--- NOTE | 2019-09-24 00:57 | PHYS DOC ---
Past Medical History Past Medical History: CAD, CHF, COPD, Diabetes-Type II, Hypertension, Renal Disease, Renal Failure, Other Additional Past Medical Histor: Chronic Right neck pain,LEFT UPPER ARM FISTULA Past Surgical History: Coronary Bypass Surgery, Other Additional Past Surgical Histo: R middle and lower lobe lung removal, vein graft left thigh, SHUNT RT CHEST Smoking Status: Former Smoker Alcohol Use: None Drug Use: None General Adult EDM: Chief Complaint: BACK PAIN - NO INJURY HPI: HPI: Patient is a 69 year old male who presents for evaluation of acute on chronic back pain. Patient takes lidocaine patches as well as OxyContin for this condition. He states that his doctor has been weaning him down from the 10 mg dose down to the 5 mg dose. However he had doubled up on the lower dose and now is out of medication. Patient is very upset and wants something strong for pain. Patient is a dialysis patient and receives dialysis on Friday, Friday and Fridays. Patient did miss his dialysis on Friday. Patient is due for dialysis later today. Patient states he is asking for pain medication so he can make his dialysis appointment today. Patient has a history of chronic constipation as well. Symptoms have been progressing in his back since June of this year. Patient sees Dr. Coto for dialysis as well as Dr. Lilly. Patient denies loss of bowel bladder control, footdrop or saddle anesthesia Review of Systems: Review of Systems: Constitutional: Denies fever or chills. [] Eyes: Denies change in visual acuity. [] HENT: Denies nasal congestion or sore throat. [] Respiratory: Denies cough or shortness of breath. [] Cardiovascular: Denies chest pain or edema. [] GI: Denies abdominal pain, nausea, vomiting, bloody stools or diarrhea. [] : Denies dysuria. [] Musculoskeletal: has back pain and joint pain. [] Integument: Denies rash. [] Neurologic: Denies headache, focal weakness or sensory changes. [] Endocrine: Denies polyuria or polydipsia. [] Lymphatic: Denies swollen glands. [] Psychiatric: Denies depression or anxiety. [] Heart Score: Risk Factors: Risk Factors: DM, Current or recent (<one month) smoker, HTN, HLP, family history of CAD, obesity. Risk Scores: Score 0 - 3: 2.5% MACE over next 6 weeks - Discharge Home Score 4 - 6: 20.3% MACE over next 6 weeks - Admit for Clinical Observation Score 7 - 10: 72.7% MACE over next 6 weeks - Early Invasive Strategies Allergies: Allergies: Allergies Coded Allergies Type Severity Reaction Last Updated Verified No Known Drug Allergies 06/30/19 No Physical Exam: PE: Constitutional: Well developed, well nourished, mild acute distress, non-toxic appearance. [] HENT: Normocephalic, atraumatic, bilateral external ears normal, oropharynx moist, no oral exudates, nose normal. [] Eyes: PERRL, EOMI, conjunctiva normal, no discharge. [] Neck: Normal range of motion, no tenderness, supple, no stridor. [] Cardiovascular:Heart rate regular rhythm, no murmur [] Lungs & Thorax: Bilateral breath sounds clear to auscultation [] Abdomen: Bowel sounds normal, soft, no tenderness. [] Skin: Warm, dry, no erythema, no rash. [] Back: diffuse paraspinal lumbar level tenderness, no CVA tenderness. [] Extremities: No tenderness, no cyanosis, no clubbing, ROM intact, no edema, dialysis shunt left arm in place. [] Neurologic: Alert and oriented, normal motor function, normal sensory function, no focal deficits noted. [] Psychologic: Affect normal, judgement normal, mood normal. [] EKG: EKG: [] Radiology/Procedures: Radiology/Procedures: Latest back xray was back in July: [facility] [address] [place] [address] IMAGING REPORT Signed PATIENT: ARGELIA RODAS ACCOUNT: [id number] : 1950 LOCATION: ER AGE: 69 SEX: M EXAM STATUS: PRE ER ORD. PHYSICIAN: LYDIA BARRETT APRN REASON: HX THORACIC OSTEOMYLITIS, SAME PAIN, WAS NOT GETTING ABX PROCEDURE: CT LUMBAR SPINE RECONSTRUCTION CT THORACIC SPINE WO CONTRAST, CT ABDOMEN PELVIS WO CONTRAST, CT LUMBAR SPINE RECONSTRUCTION History: Abdominal pain. HX THORACIC OSTEOMYLITIS, SAME PAIN, WAS NOT GETTING ABX Technique: Noncontrast examination of the abdomen and pelvis. Coronal and sagittal reconstructions were performed. Noncontrast CT of the thoracic and lumbar spine was also obtained. Coronal and sagittal reconstructions were performed. Exposure: One or more of the following individualized dose reduction techniques were utilized for this examination: 1. Automated exposure control 2. Adjustment of the mA and/or kV according to patient size 3. Use of iterative reconstruction technique. Comparison: CT abdomen pelvis July 07, 2019 Findings: CT abdomen and pelvis: Lower chest: Calcified left lower lobe pulmonary nodule. Bibasilar linear atelectasis. Abdomen and pelvis: The liver, spleen, adrenal glands, pancreas and gallbladder are unremarkable. Bilateral renal atrophy. Bilateral renal hypodense lesions, likely cysts although incompletely characterized on noncontrast examination, unchanged. No hydronephrosis. Right posterior urinary bladder diverticulum. Large amount stool throughout the colon and rectum. Colonic diverticulosis. Appendix not well seen. No evidence of bowel obstruction. No pathologic lymphadenopathy. No ascites. Atheromatous plaque throughout the nonaneurysmal abdominal aorta and branch vessels. Small fat-containing left inguinal hernia. Bones: Right femoral head avascular necrosis, unchanged. CT thoracic spine. Deformity of C7-T1 with intervertebral fusion, may relate to prior trauma or infection. Findings of discitis osteomyelitis T11-T12 with increased endplate erosive changes and fragmentation of the anterior superior endplate at T12. Mild increased height loss of T11 and T12. Increased adjacent paravertebral inflammatory changes and probable phlegmon. Inflammatory changes extend into the T7 T12 neuroforamen. Reverse S-shaped curvature of the thoracic lumbar spine. Mild multilevel degenerative disc changes. No high-grade canal narrowing. No high-grade neural foraminal narrowing. Lumbar spine CT: L2-L3 and L4-L5 endplate erosive changes, similar compared to prior. Vacuum disc phenomenon. Schmorl's nodes noted. Normal vertebral body height. No fracture. Curvature noted. Moderate multilevel degenerative disc changes most prominent L3-L4 and L5-S1. Subarticular recess narrowing L4-L5. Multilevel neuroforaminal narrowing most prominent right L3-L4 and L4-L5. Severe left L5-S1 neuroforaminal narrowing. Impression: 1. 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 2. Moderate multilevel lumbar spondylosis, as described. 3. Large amount stool throughout the colon. 4. Right femoral head avascular necrosis, unchanged. Electronically signed by: Art Hernandez DO (08/08/2019 1:58 PM) [id number] DICTATED and SIGNED BY: ART HERNANDEZ DO DATE: 08/08/19 1358 [] Course & Med Decision Making: Course & Med Decision Making Pertinent Labs and Imaging studies reviewed. (See chart for details) [] Dragon Disclaimer: Dragon Disclaimer: This electronic medical record was generated, in whole or in part, using a voice recognition dictation system. 0205 stable, feeling better at this time. Will give patient prescription for 6 percocet. His ongoing chronic pain will be left for management by his primary care provider. Patient states his pain is now controlled and he can get his dialysis this morning Departure Departure Impression: Primary Impression: Chronic back pain Additional Impression: ESRD (end stage renal disease) on dialysis Disposition: HOME, SELF-CARE Condition: STABLE Referrals: LAMBERT LILLY MD (PCP) Patient Instructions: Chronic Back Pain, Dialysis Additional Instructions: No heavy lifting, see your doctor regarding your chronic back pain and pain management. Be sure to keep your appointment to get your dialysis this morning Scripts Oxycodone Hcl/Aspirin (OXYCODONE-ASPIRIN 4.83-325 MG) 1 Each Tablet 1 TAB PO PRN TID PRN for pain MDD 3 Tablet(s) for 30 Days, #6 TAB 0 Refills Prov: GHADA CIFUENTES DO 09/24/19 Justicifation of Admission Dx: Justifications for Admission: Justification of Admission Dx: N/A GHADA CIFUENTES DO Sep 24, 2019 00:57
[2019-09-24] MEDS ORDERED: oxyCODONE/APAP 10/325 1 TAB TABLET PO ONE (01:30)
[2019-09-24] MEDS ORDERED: ORPHENADRINE CITRATE 60 MG/2 ML VIAL. IM ONE (01:30)
[2019-09-24] MEDS ORDERED: [UNRECOGNIZED DRUG - CODE] PO (02:10)
[2019-09-24 02:20] VITALS: BP 162/80
[2019-09-24] MEDS ORDERED: OXYC10TA46 PO (21:33)
== END 2019-09-24 02:24 | disposition home or self-care (01) ==
LOC: ER 00:44
DX: G89.29 Other chronic pain (principal); M54.5 Low back pain; E11.22 Type 2 diabetes mellitus with diabetic chronic kidney disease; I13.2 Hypertensive heart and chronic kidney disease with heart failure and with stage 5 chronic kidney disease, or end stage renal disease; I50.9 Heart failure, unspecified; N18.6 End stage renal disease; Z99.2 Dependence on renal dialysis; Z95.1 Presence of aortocoronary bypass graft; J44.9 Chronic obstructive pulmonary disease, unspecified; I25.10 Atherosclerotic heart disease of native coronary artery without angina pectoris; Z87.891 Personal history of nicotine dependence
CPT/HCPCS: 96372; 99283; J2360

== ENCOUNTER 2019-09-24 18:54 | Emergency (ER) | payer BC ==
[~2019-09-24] VITALS: Ht 180.3 cm; Wt 99.8 kg
[~2019-09-24 18:54] MED LIST changes: +[UNRECOGNIZED DRUG - CODE] PO
--- NOTE | 2019-09-24 19:58 | PHYS DOC ---
Past Medical History Past Medical History: CAD, CHF, COPD, Diabetes-Type II, Hypertension, Renal Disease, Renal Failure, Other Additional Past Medical Histor: Chronic Right neck pain,LEFT UPPER ARM FISTULA Past Surgical History: Coronary Bypass Surgery, Other Additional Past Surgical Histo: R middle and lower lobe lung removal, vein graft left thigh, SHUNT RT CHEST Smoking Status: Former Smoker Alcohol Use: None Drug Use: None General Adult EDM: Chief Complaint: PAIN CONTROL HPI: HPI: Patient is a 69 year old male who presents with was seen this morning for patient's chronic low back pain. States he is out of pain medications. There is a history of thoracic osteomyelitis and goes to pain management. Patient was discharged with oxycodone with aspirin and it. No pharmacies have oxycodone with aspirin in it. In the past patient was given oxycodone 10 mg. Patient states this works for him. Patient is here for a different pain medication that he can get filled. Patient states the pain feels the same. Patient has not had radiology done since the end of July. At that time it showed continued osteomyelitis. Patient complained of 10 out of 10 pain. Patient states he continues to have burning in his feet bilaterally also. Patient states this is nothing new is been going on for months. Review of Systems: Review of Systems: Constitutional: Denies fever or chills. [] Eyes: Denies change in visual acuity. [] HENT: Denies nasal congestion or sore throat. [] Respiratory: Denies cough or shortness of breath. [] Cardiovascular: Denies chest pain or edema. [] GI: Denies abdominal pain, nausea, vomiting, bloody stools or diarrhea. [] : Denies dysuria. [] Musculoskeletal: Chronic back pain and needs a new prescription or joint pain. [] Integument: Denies rash. [] Neurologic: Denies headache, focal weakness or sensory changes. [] Endocrine: Denies polyuria or polydipsia. [] Lymphatic: Denies swollen glands. [] Psychiatric: Denies depression or anxiety. [] Heart Score: Risk Factors: Risk Factors: DM, Current or recent (<one month) smoker, HTN, HLP, family history of CAD, obesity. Risk Scores: Score 0 - 3: 2.5% MACE over next 6 weeks - Discharge Home Score 4 - 6: 20.3% MACE over next 6 weeks - Admit for Clinical Observation Score 7 - 10: 72.7% MACE over next 6 weeks - Early Invasive Strategies Allergies: Allergies: Allergies Coded Allergies Type Severity Reaction Last Updated Verified No Known Drug Allergies 06/30/19 No Physical Exam: PE: Constitutional: Well developed, well nourished, no acute distress, non-toxic appearance. [] HENT: Normocephalic, atraumatic, bilateral external ears normal, oropharynx moist, no oral exudates, nose normal. [] Eyes: PERRLA, EOMI, conjunctiva normal, no discharge. [] Neck: Normal range of motion, no tenderness, supple, no stridor. [] Cardiovascular:Heart rate regular rhythm, no murmur [] Lungs & Thorax: Bilateral breath sounds clear to auscultation [] Abdomen: Bowel sounds normal, soft, no tenderness, no masses, no pulsatile masses. [] Skin: Warm, dry, no erythema, no rash. [] Back: Generalized tenderness to thoracic and lumbar spine, no CVA tenderness. [] Extremities: No tenderness, no cyanosis, no clubbing, ROM intact, no edema. [] Neurologic: Alert and oriented X 3, normal motor function, normal sensory function, no focal deficits noted. [] Psychologic: Affect normal, judgement normal, mood normal. [] Current Patient Data: Vital Signs: Vital Signs Date Time Temp Pulse Resp B/P (MAP) Pulse Ox O2 Delivery O2 Flow Rate FiO2 09/24/19 19:14 98.6 66 16 125/61 (82) 98 Room Air 98.6 EKG: EKG: [] Radiology/Procedures: Radiology/Procedures: [] Impression: [facility] [address] [place], [place] [id number] IMAGING REPORT Signed PATIENT: ARGELIA RODAS ACCOUNT: [id number] : 1950 LOCATION: ER AGE: 69 SEX: M EXAM STATUS: REG ER ORD. PHYSICIAN: LYDIA BARRETT APRN REASON: pain PROCEDURE: CT THORACIC SPINE WO CONTRAST Exam: CT the thoracic and lumbar spine without contrast INDICATION: Pain TECHNIQUE: Sequential axial images through the thoracic and lumbar spine obtained without IV contrast. Sagittal and coronal reformatted images were reconstructed from the axial data and reviewed. Comparisons: 08/08/2019 FINDINGS: Thoracic spine: There is straightening of the thoracic spine similar compared to prior study. Osseous interbody fusion at C1-C2 with wedging is noted. There is redemonstration of erosive changes at T11-T12 which overall appears similar when compared to the prior exam. Acute fracture in the thoracic spine is not identified. There remains mild paraspinal soft tissue at the T11-T12 level which is similar compared to prior study. Lumbar spine: Vertebral body heights and alignment are well-maintained. Fracture to the lumbar spine is not identified. There is redemonstration of multilevel degenerative change in the lumbar spine with degenerative disc disease greatest at L2-L3, L3-L4 and L5-S1. Mild bilateral facet arthropathy is noted in the lumbar spine. Visualized paraspinal soft tissues are unremarkable. IMPRESSION: 1. Again seen are findings of discitis osteomyelitis at T11-T12 disc space with mild adjacent perivertebral extension which is not significantly changed compared to the prior study. 2. Multilevel spondylotic change in the lumbar spine, again similar when compared to prior study. Exposure: One or more of the following in the visualized dose reduction techniques were utilized for this examination: 1. Automated exposure control 2. Adjustment of the MA and/or KV according to patient size 3. Use of iterative of reconstructive technique Electronically signed by: Tania Orlando MD (09/24/2019 9:19 PM) [id number] DICTATED and SIGNED BY: TANIA ORLANDO MD DATE: 09/24/192118 Course & Med Decision Making: Course & Med Decision Making Pertinent Labs and Imaging studies reviewed. (See chart for details) Patient states he has tenderness with palpation to lumbar and thoracic spine. Patient is stable and be discharged home with a different kind of pain medication. Patient states he went to dialysis today as he was supposed too. Patient uses a cane to ambulate. Denies chest pain, shortness of air, focal weakness, loss of bowel bladder, abdominal pain, nausea, vomiting, diarrhea, fever, focal weakness. Denies any new numbness or tingling. New CTs show all chronic findings and no worsening. We will give patient a prescription for pain medication and follow-up with his primary care. The other prescription he received from Dr Chapa is shredded here at the hospital. [] Maxwell Disclaimer: Maxwell Disclaimer: This electronic medical record was generated, in whole or in part, using a voice recognition dictation system. Departure Departure Impression: Primary Impression: Chronic back pain Qualified Codes: M54.6 - Pain in thoracic spine; G89.29 - Other chronic pain Disposition: HOME, SELF-CARE Condition: STABLE Referrals: LAMBERT ORTIZ MD (PCP) Patient Instructions: Back Pain, Adult, Chronic Back Pain Additional Instructions: Follow-up with your primary care provider as soon as possible. Take medication as prescribed and do not drink alcohol or drive while taking this medication. Scripts Oxycodone HCl (Oxycontin) 10 Mg Tab.er.12h 1 TAB PO BID for pain MDD 2 Tablet(s), #8 TAB 0 Refills Prov: LYDIA BARRETT APRN 09/24/19 Justicifation of Admission Dx: Justifications for Admission: Justification of Admission Dx: N/A LYDIA BARRETT APRN Sep 24, 2019 19:58
--- NOTE | 2019-09-24 21:22 | RAD ---
Exam: CT the thoracic and lumbar spine without contrast INDICATION: Pain TECHNIQUE: Sequential axial images through the thoracic and lumbar spine obtained without IV contrast. Sagittal and coronal reformatted images were reconstructed from the axial data and reviewed. Comparisons: 08/08/2019 FINDINGS: Thoracic spine: There is straightening of the thoracic spine similar compared to prior study. Osseous interbody fusion at C1-C2 with wedging is noted. There is redemonstration of erosive changes at T11-T12 which overall appears similar when compared to the prior exam. Acute fracture in the thoracic spine is not identified. There remains mild paraspinal soft tissue at the T11-T12 level which is similar compared to prior study. Lumbar spine: Vertebral body heights and alignment are well-maintained. Fracture to the lumbar spine is not identified. There is redemonstration of multilevel degenerative change in the lumbar spine with degenerative disc disease greatest at L2-L3, L3-L4 and L5-S1. Mild bilateral facet arthropathy is noted in the lumbar spine. Visualized paraspinal soft tissues are unremarkable. IMPRESSION: 1. Again seen are findings of discitis osteomyelitis at T11-T12 disc space with mild adjacent perivertebral extension which is not significantly changed compared to the prior study. 2. Multilevel spondylotic change in the lumbar spine, again similar when compared to prior study. Exposure: One or more of the following in the visualized dose reduction techniques were utilized for this examination: 1. Automated exposure control 2. Adjustment of the MA and/or KV according to patient size 3. Use of iterative of reconstructive technique Electronically signed by: Tania Lim MD (09/24/2019 9:19 PM) [id number]
[2019-09-24] MEDS ORDERED: oxyCODONE ER 10 MG TAB.ER.12H PO ONE (21:30)
[2019-09-24] MEDS ORDERED: OXYC10TA46 PO (21:33)
[2019-09-24 22:52] VITALS: BP 134/76
== END 2019-09-24 22:48 | disposition home or self-care (01) ==
LOC: ER 18:54
DX: G89.29 Other chronic pain (principal); M54.6 Pain in thoracic spine; M54.5 Low back pain; M46.24 Osteomyelitis of vertebra, thoracic region; I13.0 Hypertensive heart and chronic kidney disease with heart failure and stage 1 through stage 4 chronic kidney disease, or unspecified chronic kidney disease; E11.22 Type 2 diabetes mellitus with diabetic chronic kidney disease; N18.9 Chronic kidney disease, unspecified; I50.9 Heart failure, unspecified; J44.9 Chronic obstructive pulmonary disease, unspecified; I25.10 Atherosclerotic heart disease of native coronary artery without angina pectoris; Z87.891 Personal history of nicotine dependence; Z95.1 Presence of aortocoronary bypass graft
CPT/HCPCS: 72128; 72131; 99285-25

== ENCOUNTER 2019-10-01 14:12 | Emergency (ER) | payer BC ==
[~2019-10-01] VITALS: Ht 180.3 cm; Wt 91.3 kg
[2019-10-01 14:22] VITALS: BP 129/69
[2019-10-01] MEDS ORDERED: DOXY100C14 PO (14:31)
[2019-10-01] MEDS ORDERED: OXYC1TAB15 PO (14:31)
--- NOTE | 2019-10-01 14:34 | PHYS DOC ---
Past Medical History Past Medical History: CAD, CHF, COPD, Diabetes-Type II, Hypertension, Renal Disease, Renal Failure, Other Additional Past Medical Histor: Chronic Right neck pain,LEFT UPPER ARM FISTULA Past Surgical History: Coronary Bypass Surgery, Other Additional Past Surgical Histo: R middle and lower lobe lung removal, vein graft left thigh, SHUNT RT CHEST Smoking Status: Former Smoker Alcohol Use: None Drug Use: None General Adult EDM: Chief Complaint: LOWER EXT PAIN HPI: HPI: Patient is a 69 year old male who presents with burning pain to his bilateral feet. The pain is chronic in nature worse over last couple days. Patient stat es he is out of his OxyContin and cannot get more till his doctors back on Friday. Patient denies any fever. Patient denies any trauma to the area. Patient underwent a full dialysis today and is at his dry weight. Patient denies any trouble breathing. Review of Systems: Review of Systems: Constitutional: Denies fever or chills. [] Eyes: Denies change in visual acuity. [] HENT: Denies nasal congestion or sore throat. [] Respiratory: Denies cough or shortness of breath. [] Cardiovascular: Denies chest pain or edema. [] GI: Denies abdominal pain, nausea, vomiting, bloody stools or diarrhea. [] : Denies dysuria. [] Musculoskeletal: Denies back pain or joint pain. [] Integument: Denies rash. [] Neurologic: Denies headache, focal weakness or sensory changes. [] Endocrine: Denies polyuria or polydipsia. [] Lymphatic: Denies swollen glands. [] Psychiatric: Denies depression or anxiety. [] Heart Score: Risk Factors: Risk Factors: DM, Current or recent (<one month) smoker, HTN, HLP, family history of CAD, obesity. Risk Scores: Score 0 - 3: 2.5% MACE over next 6 weeks - Discharge Home Score 4 - 6: 20.3% MACE over next 6 weeks - Admit for Clinical Observation Score 7 - 10: 72.7% MACE over next 6 weeks - Early Invasive Strategies Allergies: Allergies: Allergies Coded Allergies Type Severity Reaction Last Updated Verified No Known Drug Allergies 06/30/19 No Physical Exam: PE: Constitutional: Well developed, well nourished, no acute distress, non-toxic appearance. HENT: No trismus, external ears normal Eyes: Conjunctiva clear, EOMI Neck: Normal range of motion, no tenderness, supple, no stridor. Cardiovascular: Regular rate/rhythm, diminished dorsalis pedis bilaterally. But the pulses are present. Lungs & Thorax: No respiratory distress Abdomen: No distension Skin: Warm, dry, superficial ulceration to the right great toe on the medial distal aspect. Back: Full ROM Extremities: 3+ bilateral lower extremities edema decreased sensation to the toes. There is a start of an ulceration that is dry without erythema or drainage on the distal right great toe., Dialysis fistula left upper extremity Neurologic: Alert and oriented X 3, normal motor function, , decreased sensation to the bilateral toes Psychologic: Affect normal, judgement normal, mood normal. EKG: EKG: [] Radiology/Procedures: Radiology/Procedures: [] Course & Med Decision Making: Course & Med Decision Making Pertinent Labs and Imaging studies reviewed. (See chart for details) [] 69-year-old male with chronic neuropathy pain presents with an exacerbation of his neuropathic pain. Of note he does have a small ulceration on the right great toe. No evidence of drainage, erythema or warmth. Discussed with patient wound care and return precautions for this. I also discussed the patient I would not be able to give him OxyContin but I will give him a short burst of o xycodone until his doctor get back on Friday. No evidence of acute arterial occlusion. Patient was placed on antibiotics for the ulceration on his toe. Maxwell Disclaimer: Maxwell Disclaimer: This electronic medical record was generated, in whole or in part, using a voice recognition dictation system. Departure Departure Impression: Primary Impression: Neuropathic pain of both feet Additional Impression: Toe ulcer, right Disposition: 01 HOME, SELF-CARE Condition: STABLE Referrals: LAMBERT ORTIZ MD (PCP) 2-3 DAYS Patient Instructions: Diabetes and Foot Care, Diabetic Neuropathy Additional Instructions: EMERGENCY DEPARTMENT GENERAL DISCHARGE INSTRUCTIONS THANK YOU for coming to [facility] Emergency Department (ED) today and trusting us with your care. We trust that you had a positive experience in our Emergency Department. If you wish to speak to the department Management you can contact the ready to wear department manager at . YOUR FOLLOW UP INSTRUCTIONS ARE FOLLOWS: Do you have a private doctor? If you do not have a private doctor, please ask for a resource list of physicians or clinics that may be able to assist you with follow up care. The Emergency Physician has interpreted your x-rays. The X-ray specialist will also review them. If there is a change in the findings you will be notified in 48 hours when at all possible. A lab test or lab culture may have been done, your results will be reviewed and you will be notified if you need a change in treatment. ADDITIONAL INSTRUCTIONS AND INFORMATION Your care today has been supervised by a physician who is specially trained in emergency care. Many problems require more than one evaluation for a complete diagnosis and treatment. We recommend that you schedule your follow up appointment as recommended to ensure complete treatment of your illness or injury. If you are unable to obtain follow up care and continue to have a problem, or if your condition worsens we recommend that you return to the ED. We are not able to safely determine your condition over the phone nor are we able to give sound medical advice over the phone. For these safety reasons, if you call for medical advice we will ask you to come to the ED for further evaluation If you have any questions regarding these discharge instructions please call the ED at . SAFETY INFORMATION In the interest of safety, wellness, and injury prevention; we encourage you to wear your seatbelt, if you smoke; quit smoking, and we encourage your family to use protective helmet for bicycling and other sporting events that present an increased risk for head injury. IF YOUR SYMPTOMS WORSEN OR NEW SYMPTOMS DEVELOP, OR YOU HAVE CONCERNS ABOUT YOUR CONDITION; OR IF YOUR CONDITION WORSENS WHILE YOU ARE WAITING FOR YOUR FOLLOW UP APPOINTMENT; EITHER CONTACT YOUR PRIMARY CARE DOCTOR, THE PHYSICIAN WHOSE NAME AND NUMBER YOU WERE GIVEN, OR RETURN TO THE ED IMMEDIATELY. Return if concerns. Return if increased pain to the ulceration on the right great toe. Return if redness or fever or warmth of the right great toe or drainage from the right great toe Scripts Doxycycline Monohydrate (DOXYCYCLINE MONOHYDRATE) 100 Mg Capsule 1 CAP PO BID, #14 CAP Prov: JESSICA MIRANDA MD 10/01/19 Oxycodone/Apap 5-325 (PERCOCET 5-325 MG TABLET ) 1 Each Tablet 1-2 EACH PO PRN TID PRN for PAIN, #12 TAB pain Prov: JESSICA MIRANDA MD 10/01/19 Justicifation of Admission Dx: Justifications for Admission: Justification of Admission Dx: N/A JESSICA MIRANDA MD Oct 01, 2019 14:33
== END 2019-10-01 15:28 | disposition home or self-care (01) ==
LOC: ER 14:12
DX: G62.9 Polyneuropathy, unspecified (principal); M79.671 Pain in right foot; M79.672 Pain in left foot; L97.519 Non-pressure chronic ulcer of other part of right foot with unspecified severity; I13.0 Hypertensive heart and chronic kidney disease with heart failure and stage 1 through stage 4 chronic kidney disease, or unspecified chronic kidney disease; E11.22 Type 2 diabetes mellitus with diabetic chronic kidney disease; N18.9 Chronic kidney disease, unspecified; I50.9 Heart failure, unspecified; Z87.891 Personal history of nicotine dependence; Z98.890 Other specified postprocedural states
CPT/HCPCS: 99284

== ENCOUNTER 2020-06-10 11:07 | Emergency (ER) | payer BC, MEDICARE ==
[~2020-06-10] VITALS: Ht 175.3 cm; Wt 110.0 kg
[~2020-06-10 11:07] MED LIST changes: +DOXY100C14 PO; -LISI-334 PO; -LISI-338 PO; +LISI-517 PO; +LISI20TA18 PO; -POLY17PO28 PO; +POLY17PO52 PO
[2020-06-10 11:27] VITALS: BP 133/81
[2020-06-10] MEDS ORDERED: ONDANSETRON ODT 4 MG TAB.RAPDIS. PO ONE (13:30)
--- NOTE | 2020-06-10 13:35 | PHYS DOC ---
Past Medical History Past Medical History: CAD, CHF, COPD, Diabetes-Type II, Hypertension, Renal Disease, Renal Failure, Other Additional Past Medical Histor: Chronic Right neck pain,LEFT UPPER ARM FISTULA (SARITHA PARK Whitney ) Past Surgical History: Coronary Bypass Surgery, Other Additional Past Surgical Histo: R middle and lower lobe lung removal, vein graft left thigh, SHUNT RT CHEST (XAVIERSARITHA Olson ) Smoking Status: Former Smoker Alcohol Use: None Drug Use: None (JAIRImaniSARITHA Olson ) General Adult EDM: Chief Complaint: BACK PAIN - NO INJURY HPI: HPI: Patient is a 70 year old male with history of diabetes type 2, hypertension, hyperlipidemia, CAD, CHF, end-stage kidney disease on dialysis Friday last dialyzed yesterday, who presents to the ED today complaining of infection to his low back. Patient states he is in the process of getting a kidney transplant at [facility]. He states he was doing his pretransplant work-up which included a CAT scan of the abdomen and pelvis which showed, he states the called him and told him on the Ct shows he could have infection on his back. He states he is here today to get some antibiotics to hold him over until Friday when he goes to [facility]. He states he does not want to be admitted in the hospital because this is Easter weekend and he does not want to spend it in the hospital. He states he is aware he has no fever and does not feel sick. He states he has chronic nausea and would like Zofran. He states he has chronic low back pain and gets his pain prescriptions from his primary care doctor who he states has told him if he tries to get any narcotic pain medicine from a different provider he will be fired. He states he gets his 30-day supply from his PCP only. He states his back pain is chronic and usually radiates to the left lower extremity. Patient denies any injuries. Denies any loss of bowel/bladder function. He states he has had infection in his back before and was treated by Dr. Coto but states this time he does not want Dr. Coto. (SARITHA PARK ) Review of Systems: Review of Systems: Constitutional: Denies fever or chills. [] Eyes: Denies change in visual acuity. [] HENT: Denies nasal congestion or sore throat. [] Respiratory: Denies cough or shortness of breath. [] Cardiovascular: Denies chest pain or edema. [] GI: Denies abdominal pain, nausea, vomiting, bloody stools or diarrhea. [] : Denies dysuria. [] Musculoskeletal: Reports chronic back pain and low back infection Integument: Denies rash. [] Neurologic: Denies headache, focal weakness or sensory changes. [] Psychiatric: Denies depression or anxiety. [] (SARITHA PARK APRN) Heart Score: C/O Chest Pain: N/A Risk Factors: Risk Factors: DM, Current or recent (<one month) smoker, HTN, HLP, family hi story of CAD, obesity. Risk Scores: Score 0 - 3: 2.5% MACE over next 6 weeks - Discharge Home Score 4 - 6: 20.3% MACE over next 6 weeks - Admit for Clinical Observation Score 7 - 10: 72.7% MACE over next 6 weeks - Early Invasive Strategies (SARITHA PARK APRN) Current Medications: Current Medications Medications (Trade) Dose Ordered Sig/Wolf Start Time Stop Time Status Last Admin Dose Admin Ondansetron HCl (Zofran Odt) 4 mg 1X ONCE 06/10/20 13:30 06/10/20 13:31 (SARITHA PARK APRN) Allergies: Allergies: Allergies Coded Allergies Type Severity Reaction Last Updated Verified No Known Drug Allergies 06/30/19 No (SARITHA PARK APRN) Physical Exam: PE: Constitutional: Well developed, well nourished, no acute distress, non-toxic appearance. [] HENT: Normocephalic, atraumatic, bilateral external ears normal, oropharynx moist, no oral exudates, nose normal. [] Eyes: PERRLA, EOMI, conjunctiva normal, no discharge. [] Neck: Normal range of motion, no tenderness, supple, no stridor. [] Cardiovascular: Old healed surgical incision noted midline chest. Heart rate re gular rhythm, no murmur Dialysis fistula left upper extremity with positive bruit and thrill Lungs & Thorax: Bilateral breath sounds clear to auscultation [] Abdomen: Bowel sounds normal, soft, no tenderness, no masses, no pulsatile masses. [] Skin: Warm, dry, no erythema, no rash. [] Back: No tenderness, no CVA tenderness. [] Extremities: No tenderness, no cyanosis, no clubbing, ROM intact, no edema. [] Neurologic: Alert and oriented X 3, normal motor function, normal sensory function, no focal deficits noted. [] Psychologic: Affect normal, judgement normal, mood normal. Very talkative pleasant today (SARITHA PARK ELECTRONICS RESEARCH ENGINEER) Current Patient Data: Vital Signs: Vital Signs Date Time Temp Pulse Resp B/P (MAP) Pulse Ox O2 Delivery O2 Flow Rate FiO2 06/10/20 11:27 98.6 86 18 133/81 (98) 98 Room Air 98.6 (SARITHA PARK ELECTRONICS RESEARCH ENGINEER) EKG: EKG: [] (SARITHA PARK ELECTRONICS RESEARCH ENGINEER) Radiology/Procedures: Radiology/Procedures: [] (SARITHA PARK ELECTRONICS RESEARCH ENGINEER) Course & Med Decision Making: Course & Med Decision Making Pertinent Labs and Imaging studies reviewed. (See chart for details) This is a 70-year-old male patient well-known to this ED presenting today stating he needs antibiotic for the low back infection. Patient states he was doing pre-kidney transplant work-up at [facility] on this week and was noted to have lumbar spine infection. Patient states they offered him to return to the hospital but he refused because he does not want to be admitted over the Easter . He states his needs to be given oral antibiotics to hold him over until Friday. I got patient's records from [facility] where he had a CAT scan of the abdomen and pelvic which showed. Endplate irregularity and vertebral body height loss centered at T11-T12 disc spaces. 3D possibility of discitis/osteomyelitis is raised based on the imaging appearance consider further evaluation with MRI with and without contrast of thoracic spine. Informed patient considering the read on this CAT scan he needs to be admitted to the hospital get MRI and started on IV antibiotics. Patient states this is Easter weekend and he does not want to be in the hospital. He states he has no fever he states he knows his body very well. He is requesting to be discharged and he will follow up with [facility] on Friday. He also states he prefers to be at [facility] where he will have a transplant so that id does he does not interfer with all the work-up they are doing [facility]. We talked extensively. Patient states is reasonable he states he will follow-up with [facility] on Friday. He was discharged home (SARITHA PARK APRN) Dragon Disclaimer: Dragon Disclaimer: This electronic medical record was generated, in whole or in part, using a voice recognition dictation system. (SARITHA PARK APRN) Departure Departure Impression: Primary Impression: Back pain Qualified Codes: M54.42 - Lumbago with sciatica, left side; G89.29 - Other chronic pain Disposition: DC HOME SELF CARE/HOMELESS Condition: STABLE Referrals: LAMBERT ORTIZ MD (PCP) Follow-up with your doctor on Friday Patient Instructions: Back Pain, Adult Additional Instructions: Please follow-up with [facility] on Friday. Please come back to the ED at any point you have concerning symptoms especially fever, chest pain, shortness of breath, uncontrolled back pain or any other concerning symptoms. We wish you all the best with kidney transplant. Attending Signature Attending Signature I have reviewed the PA/QI SPECIALIST's note and plan of care. I was available for consultation as needed during the patient's visit in the emergency department. I agree with the clinical impression, plan, and disposition. (JESS CHOI DO) SARITHA PARK APRN Jun 10, 2020 13:35 JESS CHOI DO Jun 12, 2020 16:16
== END 2020-06-10 14:10 | disposition home or self-care (01) ==
LOC: ER 11:07
DX: G89.29 Other chronic pain (principal); M54.42 Lumbago with sciatica, left side; R11.0 Nausea; J44.9 Chronic obstructive pulmonary disease, unspecified; I11.0 Hypertensive heart disease with heart failure; I50.9 Heart failure, unspecified; E11.22 Type 2 diabetes mellitus with diabetic chronic kidney disease; N18.9 Chronic kidney disease, unspecified; Z94.0 Kidney transplant status; Z87.891 Personal history of nicotine dependence; Z98.890 Other specified postprocedural states
CPT/HCPCS: 99284

== ENCOUNTER 2020-06-12 14:43 | Inpatient (IN) | payer BC ==
[~2020-06-12] VITALS: Ht 177.8 cm; Wt 100.4 kg
--- NOTE | 2020-06-12 15:47 | ED.ADGEN ---
Past Medical History Past Medical History: CAD, CHF, COPD, Diabetes-Type II, Hypertension, Renal Disease, Renal Failure, Other Additional Past Medical Histor: Chronic Right neck pain,LEFT UPPER ARM FISTULA Past Surgical History: Coronary Bypass Surgery, Other Additional Past Surgical Histo: R middle and lower lobe lung removal, vein graft left thigh, SHUNT RT CHEST Smoking Status: Former Smoker Alcohol Use: None Drug Use: None General Adult EDM: Chief Complaint: MULTIPLE COMPLAINTS HPI: HPI: Patient is a 70 year old AA male who presents emergency department with continued reports of having an infection in his low back. Patient states that he was here on Friday after he had a CT scan of his abdomen and pelvis that showed a possible infection in his back according to . [facility] where he is being worked up for kidney transplant. Patient stated that he did not want to be admitted because it was Easter weekend. He denies any increase in his pain. Patient denies any saddle anesthesia, or loss of bowel/bladder control. He denies any fever, body aches, or chills. Patient reports chronic nausea but denies any vomiting, diarrhea, or abdominal pain. He currently rates his pain a 9/10 on the pain scale. He denies any alleviating factors. His history includes: type 2 diabetes, hypertension, hyperlipidemia, CAD, CHF, end-stage kidney dis ease on dialysis Friday last dialyzed today. Pt states he has been having chronic back pain problems for over a year after a medical procedure by Dr. Coto. Review of Systems: Review of Systems: Complete ROS is negative unless otherwise noted in the HPI Current Medications: Current Medications Medications (Trade) Dose Ordered Sig/[facility] Start Time Stop Time Status Last Admin Dose Admin Morphine Sulfate (Morphine Sulfate) 4 mg 1X ONCE 06/12/20 16:30 06/12/20 16:32 DC 06/12/20 17:09 4 MG Ondansetron HCl (Zofran) 4 mg 1X ONCE 06/12/20 16:30 06/12/20 16:32 DC 06/12/20 17:09 4 MG Allergies: Allergies: Allergies Coded Allergies Type Severity Reaction Last Updated Verified No Known Drug Allergies 06/30/19 No Physical Exam: PE: Constitutional: Well developed, well nourished, no acute distress, non-toxic appearance. [] HENT: Normocephalic, atraumatic, bilateral external ears normal, oropharynx moist, no oral exudates, nose normal. [] Eyes: PERRLA, EOMI, conjunctiva normal, no discharge. [] Neck: Normal range of motion, no stridor. [] Cardiovascular:Heart rate regular rhythm Lungs & Thorax: respirations are even and unlabored, no retractions, speaking full sentences. Abdomen: soft, no tenderness Skin: Warm, dry, no erythema, no rash. [] Back: No obvious deformity Extremities: No cyanosis, ROM intact, no edema. [] Neurologic: Alert and oriented X 3, normal motor function, normal sensory function, no focal deficits noted. [] Psychologic: Affect normal, judgement normal, mood normal. [] Current Patient Data: Labs: Laboratory Tests Test 06/12/20 16:48 White Blood Count 4.9 x10^3/uL (4.0-11.0) Red Blood Count 3.19 x10^6/uL (4.30-5.70) L Hemoglobin 11.2 g/dL (13.0-17.5) L Hematocrit 33.4 % (39.0-53.0) L Mean Corpuscular Volume 105 fL (79-100) H Mean Corpuscular Hemoglobin 35 pg (25-35) Mean Corpuscular Hemoglobin Concent 34 g/dL (31-37) Red Cell Distribution Width 15.8 % (11.5-14.5) H Platelet Count 118 x10^3/uL (140-400) L Neutrophils (%) (Auto) 64 % (31-73) Lymphocytes (%) (Auto) 24 % (24-48) Monocytes (%) (Auto) 10 % (0-9) H Eosinophils (%) (Auto) 2 % (0-3) Basophils (%) (Auto) 1 % (0-3) Neutrophils # (Auto) 3.2 x10^3/uL (1.8-7.7) Lymphocytes # (Auto) 1.2 x10^3/uL (1.0-4.8) Monocytes # (Auto) 0.5 x10^3/uL (0.0-1.1) Eosinophils # (Auto) 0.1 x10^3/uL (0.0-0.7) Basophils # (Auto) 0.0 x10^3/uL (0.0-0.2) Sodium Level 141 mmol/L (136-145) Potassium Level 4.1 mmol/L (3.5-5.1) Chloride Level 100 mmol/L (98-107) Carbon Dioxide Level 32 mmol/L (21-32) Anion Gap 9 (6-14) Blood Urea Nitrogen 27 mg/dL (8-26) H Creatinine 6.8 mg/dL (0.7-1.3) H Estimated GFR (Cockcroft-Gault) 9.8 BUN/Creatinine Ratio 4 (6-20) L Glucose Level 78 mg/dL (70-99) Lactic Acid Level 1.6 mmol/L (0.4-2.0) Calcium Level 8.6 mg/dL (8.5-10.1) Total Bilirubin 0.4 mg/dL (0.2-1.0) Aspartate Amino Transferase (AST) 14 U/L (15-37) L Alanine Aminotransferase (ALT) 21 U/L (16-63) Alkaline Phosphatase 105 U/L (46-116) C-Reactive Protein, Quantitative 3.3 mg/L (0-3.3) Total Protein 8.3 g/dL (6.4-8.2) H Albumin 3.7 g/dL (3.4-5.0) Albumin/Globulin Ratio 0.8 (1.0-1.7) L Procalcitonin 0.17 ng/mL (0.00-0.10) H Laboratory Tests 06/12/20 16:48 Laboratory Tests 06/12/20 16:48 Vital Signs: Vital Signs Date Time Temp Pulse Resp B/P (MAP) Pulse Ox O2 Delivery O2 Flow Rate FiO2 06/12/20 17:15 68 149/68 (95) 92 Room Air 06/12/20 15:22 99.6 12 99.6 EKG: EKG: [] Heart Score: C/O Chest Pain: No Risk Scores: Score 0 - 3: 2.5% MACE over next 6 weeks - Discharge Home Score 4 - 6: 20.3% MACE over next 6 weeks - Admit for Clinical Observation Score 7 - 10: 72.7% MACE over next 6 weeks - Early Invasive Strategies Radiology/Procedures: Radiology/Procedures: [] Course & Med Decision Making: Course & Med Decision Making Pertinent Labs and Imaging studies reviewed. (See chart for details) I reviewed the notes from patient's visit on 06/10. The SUPPLY CHAIN VICE PRESIDENT that evaluated the patient during this visit reviewed the records from [facility] that revealed: Endplate irregularity and vertebral body height loss centered at T11-T12 disc spaces. 3D possibility of discitis/osteomyelitis is raised based on the imaging appearance consider further evaluation with MRI with and without contrast of thoracic spine. [id number] with Dr. Montano who is the admitting physician, and care was assumed following discussion of patient. Will admit patient for back pain and abnormal thoracic CT as observation status. Patient's vital signs stable. Patient remains afebrile, appears nontoxic, respirations even and unlabored. Patient will be admitted to the medical/s urgical floor. Patient's case and plan of care also discussed with Dr. Harris [] Maxwell Disclaimer: Maxwell Disclaimer: This electronic medical record was generated, in whole or in part, using a voice recognition dictation system. Departure Departure Referrals: LAMBERT ORTIZ MD (PCP) DAVIDSON FOLEY APRN Jun 12, 2020 15:47
[2020-06-12] MEDS ORDERED: MORPHINE SULFATE 4 MG/ML VIAL. IV ONE (16:30)
[2020-06-12] MEDS ORDERED: ONDANSETRON PF 4 MG/2 ML VIAL. IV ONE (16:30)
[2020-06-12 17:10] LABS: BASO % 1 % (0-3); EOS # 0.1 x10^3/uL (0.0-0.7); EOS % 2 % (0-3); HEMATOCRIT 33.4 % (39.0-53.0); HEMOGLOBIN 11.2 g/dL (13.0-17.5); LYMPH # 1.2 x10^3/uL (1.0-4.8); LYMPH % 24 % (24-48); MEAN CORPUSCULAR HEMOGLOBIN 35 pg (25-35); MEAN CORPUSCULAR HGB CONC 34 g/dL (31-37); MEAN CORPUSCULAR VOLUME 105 fL (79-100); MONO # 0.5 x10^3/uL (0.0-1.1); MONO % 10 % (0-9); NEUT # 3.2 x10^3/uL (1.8-7.7); NEUT % 64 % (31-73); PLATELET COUNT 118 x10^3/uL (140-400); RED BLOOD COUNT 3.19 x10^6/uL (4.30-5.70); RED CELL DISTRIBUTION WIDTH 15.8 % (11.5-14.5); WHITE BLOOD COUNT 4.9 x10^3/uL (4.0-11.0)
[2020-06-12 17:22] LABS: CALCIUM 8.6 mg/dL (8.5-10.1); CREATININE 6.8 mg/dL (0.7-1.3); GFR 9.8; POTASSIUM 4.1 mmol/L (3.5-5.1)
[2020-06-12 17:28] LABS: ALBUMIN 3.7 g/dL (3.4-5.0); ALBUMIN/GLOBULIN RATIO 0.8 (1.0-1.7); TOTAL BILIRUBIN 0.4 mg/dL (0.2-1.0); TOTAL PROTEIN 8.3 g/dL (6.4-8.2)
[2020-06-12 19:00] VITALS: BP 98/56
--- NOTE | 2020-06-12 19:06 | PDOC1 ---
History and Physical Date of Admission Date of Admission DATE: 06/12/20 TIME: 19:05 Identification/Chief Complaint Chief Complaint LOW BACK PAIN t max in er 99.6 History of Present Illness History of Present Illness SEEN IN ER WITH persistent worsening back pain and hx diskitis 70 year old male with history of diabetes type 2, hypertension, hyperlipidemia, CAD, CHF, end-stage kidney disease on dialysis Friday who presents to the ED complaining of infection to his low back. Patient states he is in the p rocess of getting a kidney transplant at [facility]. t-max er 99.6 F HX Right basal ganglia infarct which is probably old has hx endocarditis 08-11-19 ? states he was doing his pretransplant work-up which included a CAT scan of the abdomen and pelvis which showed, he states the called him and told him on the Ct shows he could have infection on his back. He states he is here today to get some antibiotics He states he refused admit over this weekend He states he has chronic nausea , id consulted Past Medical History Past Medical History Past Medical History Past Medical History: CAD, CHF, COPD, Diabetes-Type II, Hypertension, Renal Disease, Renal Failure, Other Additional Past Medical Histor: Chronic Right neck pain,LEFT UPPER ARM FISTULA Past Surgical History: Coronary Bypass Surgery, Other Additional Past Surgical Histo: R middle and lower lobe lung removal, vein graft left thigh, SHUNT RT CHEST Smoking Status: Former Smoker Alcohol Use: None Drug Use: None fhx obesity Cardiovascular: CAD, HTN, Hyperlipidemia, Other Pulmonary: Asthma, Bronchitis, COPD CENTRAL NERVOUS SYSTEM: Periperal neuropathy GI: GERD, GI bleed, Gastritis Heme/Onc: Anemia NOS Hepatobiliary: No pertinent hx Psych: No pertinent hx Musculoskeletal: low back pain Rheumatologic: No pertinent hx Infectious disease: Other Renal/: Chronic renal failure Endocrine: Diabetes Past Surgical History Past Surgical History: Cataract Removal, Other Family History Family History: Diabetes, Hypertension Social History Smoke: No ALCOHOL: none Drugs: None Current Problem List Problem List Problems Medical Problems: (1) Chronic back pain Status: Acute Current Medications Current Medications Current Medications Morphine Sulfate (Morphine Sulfate) 4 mg 1X ONCE IV Last administered on 06/12/20at 17:09; Start 06/12/20 at 16:30; Stop 06/12/20 at 16:32; Status DC Ondansetron HCl (Zofran) 4 mg 1X ONCE IV Last administered on 06/12/20at 17:09; Start 06/12/20 at 16:30; Stop 06/12/20 at 16:32; Status DC Active Scripts Active Doxycycline Monohydrate 100 Mg Capsule 1 Cap PO BID Percocet 5-325 Mg Tablet (Oxycodone/Acetaminophen) 1 Each Tablet 1-2 Each PO PRN TID PRN pain Oxycontin (Oxycodone HCl) 10 Mg Tab.er.12h 1 Tab PO BID MDD 2 Tablet(s) Oxycodone-Aspirin 4.83-325 Mg (Oxycodone Hcl/Aspirin) 1 Each Tablet 1 Tab PO PRN TID PRN MDD 3 Tablet(s) 30 Days Lidocaine PATCH (Lidocaine) 1 Each Adh..patch 1 Each TP DAILY REMOVE AFTER 12 HOURS THEN LEAVE OFF FOR 12 HOURS PRIOR TO PLACEMENT OF NEW PATCH Oxycontin (Oxycodone HCl) 10 Mg Tab.er.12h 1 Tab PO BID PRN MDD 2 Tablet(s) A and D Ointment (Vits A and D/White Pet/Lanolin) 42.5 Gm Oint...g. 1 Brad TP PRN Q1HR PRN 14 Days Culturelle (Lactobacillus Rhamnosus Gg) 1 Each Cap.sprink 1 Cap PO BID 30 Days Pantoprazole Sodium (Pantoprazole Sodium) 40 Mg Tablet. 40 Mg PO DAILYAC 30 Days Amitiza (Lubiprostone) 24 Mcg Capsule 24 Mcg PO BIDWMEALS 30 Days Bisacodyl 5 Mg Tablet. 10 Mg PO PRN DAILY PRN 30 Days Gabapentin 300 Mg Capsule 300 Mg PO TID 30 Days Dicyclomine Hcl 20 Mg Tablet 1 Tab PO TID PRN Senna Plus Tablet (Sennosides/Docusate Sodium) 1 Each Tablet 2 Tab PO QHS 14 Days Colace (Docusate Sodium) 100 Mg Capsule 100 Mg PO DAILY Polyethylene Glycol 3350 17 Gm Powd.pack 17 Gm PO PRN DAILY PRN Reported Alprazolam 0.5 Mg Tablet 0.5 Mg PO PRN BID PRN Simvastatin 10 Mg Tablet 1 Tab PO QHS Aspir 81 (Aspirin) 81 Mg Tablet. 1 Tab PO DAILY Nephro-Irma Tablet (Folic Acid/Vitamin B Comp W-C) 0.8 Mg Tablet 1 Tab PO DAILY Renvela (Sevelamer Carbonate) 800 Mg Tablet 0.5 Tab PO TID Allergies Allergies: Coded Allergies: No Known Drug Allergies (Unverified , 06/30/19) ROS Review of System Constitutional: pos fever / chills. [] Eyes: Denies change in visual acuity. [] HENT: Denies nasal congestion or sore throat. [] Respiratory: Denies cough or shortness of breath. [] Cardiovascular: Denies chest pain or edema. [] GI: Denies abdominal pain, nausea, vomiting, bloody stools or diarrhea. [] : Denies dysuria. [] Musculoskeletal: pos back pain x several days [] Integument: Denies rash. [] Neurologic: Denies headache, focal weakness or sensory changes. [] Endocrine: Denies polyuria or polydipsia. [] Lymphatic: Denies swollen glands. [] Psychiatric: Denies depression or anxiety. [] 14 pt ros otherwise neg Physical Exam Physical Exam Constitutional: Well developed, well nourished, mild acute distress, non-toxic appearance. [] HENT: Normocephalic, atraumatic, bilateral external ears normal, oropharynx moist, no oral exudates, nose normal. [] Eyes: PERRLA, EOMI, conjunctiva normal, no discharge. [] Neck: Normal range of motion, no tenderness, supple, no stridor. [] Cardiovascular:Heart rate regular rhythm, no murmur [] Lungs & Thorax: Bilateral breath sounds clear to auscultation [] Abdomen: Bowel sounds normal, soft, no tenderness, no masses, no pulsatile masses. [] Skin: Warm, dry, no erythema, no rash. [] Back: No tenderness, no CVA tenderness. [] Extremities: No tenderness, no cyanosis, no clubbing, ROM intact, no edema. [] Neurologic: Alert and oriented X 3, normal motor function, normal sensory function, no focal deficits noted. [] Psychologic: Affect normal, judgment normal, mood normal. [] General: Alert, Oriented X3, Cooperative, mild distress HEENT: Atraumatic, PERRLA Lungs: Clear to auscultation Heart: RRR, no thrills, no rubs Breasts: Not examined Abdomen: Normal bowel sounds, Soft, No tenderness Rectal Exam: not examined Extremities: No cyanosis Neuro: Normal speech, Cranial nerves 3-12 NL Psych/Mental Status: Mental status NL, Mood NL Vitals Vitals Vital Signs Date Time Temp Pulse Resp B/P (MAP) Pulse Ox O2 Delivery O2 Flow Rate FiO2 06/12/20 18:00 88 117/59 (78) 100 Room Air 06/12/20 15:22 99.6 12 99.6 Labs Labs Laboratory Tests Test 06/12/20 16:48 White Blood Count 4.9 x10^3/uL (4.0-11.0) Red Blood Count 3.19 x10^6/uL (4.30-5.70) Hemoglobin 11.2 g/dL (13.0-17.5) Hematocrit 33.4 % (39.0-53.0) Mean Corpuscular Volume 105 fL (79-100) Mean Corpuscular Hemoglobin 35 pg (25-35) Mean Corpuscular Hemoglobin Concent 34 g/dL (31-37) Red Cell Distribution Width 15.8 % (11.5-14.5) Platelet Count 118 x10^3/uL (140-400) Neutrophils (%) (Auto) 64 % (31-73) Lymphocytes (%) (Auto) 24 % (24-48) Monocytes (%) (Auto) 10 % (0-9) Eosinophils (%) (Auto) 2 % (0-3) Basophils (%) (Auto) 1 % (0-3) Neutrophils # (Auto) 3.2 x10^3/uL (1.8-7.7) Lymphocytes # (Auto) 1.2 x10^3/uL (1.0-4.8) Monocytes # (Auto) 0.5 x10^3/uL (0.0-1.1) Eosinophils # (Auto) 0.1 x10^3/uL (0.0-0.7) Basophils # (Auto) 0.0 x10^3/uL (0.0-0.2) Sodium Level 141 mmol/L (136-145) Potassium Level 4.1 mmol/L (3.5-5.1) Chloride Level 100 mmol/L (98-107) Carbon Dioxide Level 32 mmol/L (21-32) Anion Gap 9 (6-14) Blood Urea Nitrogen 27 mg/dL (8-26) Creatinine 6.8 mg/dL (0.7-1.3) Estimated GFR (Cockcroft-Gault) 9.8 BUN/Creatinine Ratio 4 (6-20) Glucose Level 78 mg/dL (70-99) Lactic Acid Level 1.6 mmol/L (0.4-2.0) Calcium Level 8.6 mg/dL (8.5-10.1) Total Bilirubin 0.4 mg/dL (0.2-1.0) Aspartate Amino Transf (AST/SGOT) 14 U/L (15-37) Alanine Aminotransferase (ALT/SGPT) 21 U/L (16-63) Alkaline Phosphatase 105 U/L (46-116) Total Protein 8.3 g/dL (6.4-8.2) Albumin 3.7 g/dL (3.4-5.0) Albumin/Globulin Ratio 0.8 (1.0-1.7) Laboratory Tests Test 06/12/20 16:48 White Blood Count 4.9 x10^3/uL (4.0-11.0) Red Blood Count 3.19 x10^6/uL (4.30-5.70) Hemoglobin 11.2 g/dL (13.0-17.5) Hematocrit 33.4 % (39.0-53.0) Mean Corpuscular Volume 105 fL (79-100) Mean Corpuscular Hemoglobin 35 pg (25-35) Mean Corpuscular Hemoglobin Concent 34 g/dL (31-37) Red Cell Distribution Width 15.8 % (11.5-14.5) Platelet Count 118 x10^3/uL (140-400) Neutrophils (%) (Auto) 64 % (31-73) Lymphocytes (%) (Auto) 24 % (24-48) Monocytes (%) (Auto) 10 % (0-9) Eosinophils (%) (Auto) 2 % (0-3) Basophils (%) (Auto) 1 % (0-3) Neutrophils # (Auto) 3.2 x10^3/uL (1.8-7.7) Lymphocytes # (Auto) 1.2 x10^3/uL (1.0-4.8) Monocytes # (Auto) 0.5 x10^3/uL (0.0-1.1) Eosinophils # (Auto) 0.1 x10^3/uL (0.0-0.7) Basophils # (Auto) 0.0 x10^3/uL (0.0-0.2) Sodium Level 141 mmol/L (136-145) Potassium Level 4.1 mmol/L (3.5-5.1) Chloride Level 100 mmol/L (98-107) Carbon Dioxide Level 32 mmol/L (21-32) Anion Gap 9 (6-14) Blood Urea Nitrogen 27 mg/dL (8-26) Creatinine 6.8 mg/dL (0.7-1.3) Estimated GFR (Cockcroft-Gault) 9.8 BUN/Creatinine Ratio 4 (6-20) Glucose Level 78 mg/dL (70-99) Lactic Acid Level 1.6 mmol/L (0.4-2.0) Calcium Level 8.6 mg/dL (8.5-10.1) Total Bilirubin 0.4 mg/dL (0.2-1.0) Aspartate Amino Transf (AST/SGOT) 14 U/L (15-37) Alanine Aminotransferase (ALT/SGPT) 21 U/L (16-63) Alkaline Phosphatase 105 U/L (46-116) Total Protein 8.3 g/dL (6.4-8.2) Albumin 3.7 g/dL (3.4-5.0) Albumin/Globulin Ratio 0.8 (1.0-1.7) Images Images [facility] Accession Number: [id number] . 01 Material submitted: . vertebral column - T11-T12 DISC BX . 01 Clinical history: . Discitis . 02 Diagnosis: Soft tissue "T11-T12 disc", needle biopsy: - Hyaline cartilage with marked acute and chronic inflammation and necrosis, consistent with discitis. - Chronic inflammation involving synovium. - Negative for malignancy. LBQ 07/02/2019 0953 Local . 02 Comment: The diagnosis is conveyed to Dr. Jason Coto on 07/01/2019 at approximately 1710 via telephone. (MLK/db; 07/01/2019) . 02 Electronically signed: . Vernell Chacon MD, Pathologist NPI- [id number] . 01 Gross description: . The specimen is received in formalin, labeled "Mark Gaston, T11-T12 disc biopsy". Received is a single needle core of pale bejarano soft tissue measuring 1.5 cm in length by 0.1 cm in diameter. The specimen is submitted entirely in cassette A1. (CAA; 06/30/2019) QA/[facility] 06/30/2019 1619 Local PROCEDURE After obtaining informed consent, patient underwent transesophageal echo in the PACU. Type of Sedation : General Anesthesia Sedation was administered by Momo Chairez CRNA. Sedation was achieved with Propofol 100 mg intravenously. Transesophageal probe was inserted and advanced into esophagus by Kofi Tripp MD. The JANAY was performed without complications. Throughout the procedure, the blood pressure, pulse oximetry, cardiac rhythm, and rate were monitored. The patient tolerated the procedure without adverse effects. Recovery from general anesthesia was uneventful and vital signs were stable. LEFT VENTRICLE The Left Ventricle is moderately dilated. There is normal left ventricular wall thickness. The systolic function is mildly to moderately impaired. EF 40% There is moderate global hypokinesis. No left ventricle thrombus noted on this study. There is no ventricular septal defect visualized. There is no left ventricular aneurysm. RIGHT VENTRICLE The right ventricle is normal size. The right ventricle is mildly to moderately hypertrophied. The right ventricular systolic function is normal. ATRIA The left atrium is moderately dilated. The right atrium is moderately dilated. The interatrial septum is intact with no evidence for an atrial septal defect or patent foramen ovale as noted on 2-D or Doppler imaging. The DECLAN is not well visualized. AORTIC VALVE The aortic valve is normal in structure and function. Doppler and Color Flow revealed no significant aortic regurgitation. There is no significant aortic valvular stenosis. MITRAL VALVE The mitral valve is normal in structure and function. There is no evidence of mitral valve prolapse. There is no mitral valve stenosis. Doppler and Color-flow revealed trace to mild mitral regurgitation. TRICUSPID VALVE The tricuspid valve is normal in structure and function. Doppler and Color Flow revealed mild tricuspid regurgitation. 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 Due to the eccentric nature of the mass, exact dimensions are difficult to determine. PULMONIC VALVE The pulmonic valve is not well visualized. GREAT VESSELS The aortic root is normal in size. The ascending aorta is normal in size. The IVC is normal in size and collapses >50% with inspiration. PERICARDIAL EFFUSION There is no pleural effusion. Critical Notification Critical Value: No <Conclusion> The systolic function is mildly to moderately impaired. EF 40% There is moderate global hypokinesis. 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 Due to the eccentric nature of the mass, exact dimensions are difficult to determine. Signed by : Kofi Tripp, Electronically Approved : 08/12/2019 09:27:06 DICTATED and SIGNED BY: KOFI TRIPP MD Exam: CT the thoracic and lumbar spine without contrast INDICATION: Pain TECHNIQUE: Sequential axial images through the thoracic and lumbar spine obtained without IV contrast. Sagittal and coronal reformatted images were reconstructed from the axial data and reviewed. Comparisons: 08/08/2019 FINDINGS: Thoracic spine: There is straightening of the thoracic spine similar compared to prior study. Osseous interbody fusion at C1-C2 with wedging is noted. There is redemonstration of erosive changes at T11-T12 which overall appears similar when compared to the prior exam. Acute fracture in the thoracic spine is not identified. There remains mild paraspinal soft tissue at the T11-T12 level which is similar compared to prior study. Lumbar spine: Vertebral body heights and alignment are well-maintained. Fracture to the lumbar spine is not identified. There is redemonstration of multilevel degenerative change in the lumbar spine with degenerative disc disease greatest at L2-L3, L3-L4 and L5-S1. Mild bilateral facet arthropathy is noted in the lumbar spine. Visualized paraspinal soft tissues are unremarkable. IMPRESSION: 1. Again seen are findings of discitis osteomyelitis at T11-T12 disc space with mild adjacent perivertebral extension which is not significantly changed compared to the prior study. 2. Multilevel spondylotic change in the lumbar spine, again similar when compared to prior study. Exposure: One or more of the following in the visualized dose reduction techniques were utilized for this examination: 1. Automated exposure control 2. Adjustment of the MA and/or KV according to patient size 3. Use of iterative of reconstructive technique Electronically signed by: Tania Orlando MD (09/24/2019 9:19 PM) [id number] DICTATED and SIGNED BY: TANIA ORLANDO MD DATE: 09/24/192118 VTE Prophylaxis Ordered VTE Prophylaxis Devices: No VTE Pharmacological Prophylaxi: Yes Assessment/Plan Assessment/Plan IMPRESSION: 1. 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 intractable back pain 3. low grade fever 4. diabetes 5. hypertension 6. morbid obesity 7. HX Right basal ganglia infarct which is probably old 8. 6-20 mildly to moderately impaired. EF 40% moderate global hypokinesis. There WAS mobile mass likely attached to the septal leaflet of the tricuspid valve measuring approximately 1.2 x 1.2 cm plan admit blood culture crp procalcitonin =0.17 emperic iv antibiotics ID CONSULT accuchecks dvt prophylaxis sq heparin need ct report from [facility] CONSULT 75 MIN pt exam, chart review, > 50% of time spent with exam, chart review, pt care coordination Justifications for Admission Other Justification GYPSY PEARSON MD Jun 12, 2020 19:06
[2020-06-12] MEDS ORDERED: 0.9 % SODIUM CHLORIDE 10 ML DISP.SYRIN. IV PRN (19:30)
[2020-06-12] MEDS ORDERED: ONDANSETRON PF 4 MG/2 ML VIAL. IV PRN (19:30)
[2020-06-12] MEDS ORDERED: PIP/TAZO PER PHARMACY MC PRN (19:30)
[2020-06-12] MEDS ORDERED: ALBUTEROL SULFATE 2.5 MG/3 ML NEBU. NEB PRN (19:30)
[2020-06-12] MEDS ORDERED: ACETAMINOPHEN 325 MG TABLET. PO PRN (19:30)
[2020-06-12] MEDS ORDERED: LORazepam 0.5 MG TABLET PO PRN (19:30)
[2020-06-12] MEDS ORDERED: DOCUSATE SODIUM 100 MG CAPSULE. PO PRN (19:30)
[2020-06-12] MEDS ORDERED: guaiFENesin ORAL 200 MG/10 ML LIQUID. PO PRN (19:30)
--- NOTE | 2020-06-12 19:52 | NUR ---
The patient, ARGELIA RODAS, 70 y/o, M admitted by GYPSY PEARSON MD, was given written information regarding hospital policies, unit procedures and contact persons. Valuables were checked and pt. refused to allow security to lock up any belongings. Meds were reconciled and message sent to Dr. Pearson to restart them. Pt. denies needs currently. Dr. East and Dr. Edmundo Coto notified of consults. Dr. Coto ordered a blood culture and to stop antibiotics and will address need in am.
[2020-06-12] MEDS ORDERED: DEXTROSE 50% 25 GM / 50ML DISP.SYRIN. IV PRN (21:00)
[2020-06-12] MEDS: HEPARIN for SUB-Q USE 5,000 UNIT/ML VIAL. SQ SCH (21:32)
[2020-06-12] MEDS ORDERED: ONDANSETRON PF 4 MG/2 ML VIAL. IVP PRN (21:45)
[2020-06-12] MEDS ORDERED: VITS A & D/LANOLIN TOPICAL OINTMENT 42GM TUBE. TP PRN (21:45)
[2020-06-12] MEDS ORDERED: oxyCODONE/APAP 5/325 1 TAB TABLET PO PRN (21:45)
[2020-06-12] MEDS ORDERED: POLYETHYLENE GLYCOL 3350 17 GM PACKET. PO PRN (21:45)
[2020-06-12] MEDS: oxyCODONE ER 10 MG TAB.ER.12H PO SCH (21:55)
[2020-06-12] MEDS: SIMVASTATIN 10 MG TABLET PO SCH (21:55)
[2020-06-12] MEDS ORDERED: PIPERACILLIN/TAZOBACTAM 2.25 GM in IV NORMAL SALINE 50ML 50 ML IV SCH (22:00)
[2020-06-12 23:00] VITALS: BP 133/79
[2020-06-13 03:00] VITALS: BP 130/75
--- NOTE | 2020-06-13 03:06 | NUR ---
Report rcvd. from ELMIRA Pittman; transfer of patient care at this time.
[2020-06-13] MEDS: oxyCODONE/APAP 5/325 1 TAB TABLET PO PRN ×2 (03:26→11:14)
[2020-06-13] MEDS: HEPARIN for SUB-Q USE 5,000 UNIT/ML VIAL. SQ SCH ×3 (06:07→22:06)
[2020-06-13 07:00] VITALS: BP 119/63
[2020-06-13] MEDS: INSULIN LISPRO 300 UNITS/3 ML VIAL. SQ SCH ×3 (08:00→15:13)
[2020-06-13] MEDS: DOCUSATE SODIUM 100 MG CAPSULE. PO SCH (08:24)
[2020-06-13] MEDS: SEVELAMER CARBONATE 800 MG TABLET. PO SCH ×3 (08:24→16:46)
[2020-06-13] MEDS: ASPIRIN ENTERIC COATED 81 MG TABLET.DR. PO SCH (08:24)
[2020-06-13] MEDS: oxyCODONE ER 10 MG TAB.ER.12H PO SCH ×2 (08:25→20:36)
[2020-06-13] MEDS ORDERED: GABAPENTIN 300 MG CAPSULE. PO SCH (09:00)
--- NOTE | 2020-06-13 09:21 | PDOC ---
Infectious Disease Note Vital Sign Vital Signs Vital Signs Date Time Temp Pulse Resp B/P (MAP) Pulse Ox O2 Delivery O2 Flow Rate FiO2 06/13/20 08:07 Room Air 06/13/20 07:00 97.9 64 18 119/63 (81) 95 97.9 Labs Lab Laboratory Tests Test 06/12/20 16:48 06/12/20 19:53 06/13/20 07:15 White Blood Count 4.9 x10^3/uL (4.0-11.0) Red Blood Count 3.19 x10^6/uL (4.30-5.70) Hemoglobin 11.2 g/dL (13.0-17.5) Hematocrit 33.4 % (39.0-53.0) Mean Corpuscular Volume 105 fL (79-100) Mean Corpuscular Hemoglobin 35 pg (25-35) Mean Corpuscular Hemoglobin Concent 34 g/dL (31-37) Red Cell Distribution Width 15.8 % (11.5-14.5) Platelet Count 118 x10^3/uL (140-400) Neutrophils (%) (Auto) 64 % (31-73) Lymphocytes (%) (Auto) 24 % (24-48) Monocytes (%) (Auto) 10 % (0-9) Eosinophils (%) (Auto) 2 % (0-3) Basophils (%) (Auto) 1 % (0-3) Neutrophils # (Auto) 3.2 x10^3/uL (1.8-7.7) Lymphocytes # (Auto) 1.2 x10^3/uL (1.0-4.8) Monocytes # (Auto) 0.5 x10^3/uL (0.0-1.1) Eosinophils # (Auto) 0.1 x10^3/uL (0.0-0.7) Basophils # (Auto) 0.0 x10^3/uL (0.0-0.2) Sodium Level 141 mmol/L (136-145) Potassium Level 4.1 mmol/L (3.5-5.1) Chloride Level 100 mmol/L (98-107) Carbon Dioxide Level 32 mmol/L (21-32) Anion Gap 9 (6-14) Blood Urea Nitrogen 27 mg/dL (8-26) Creatinine 6.8 mg/dL (0.7-1.3) Estimated GFR (Cockcroft-Gault) 9.8 BUN/Creatinine Ratio 4 (6-20) Glucose Level 78 mg/dL (70-99) Lactic Acid Level 1.6 mmol/L (0.4-2.0) Calcium Level 8.6 mg/dL (8.5-10.1) Total Bilirubin 0.4 mg/dL (0.2-1.0) Aspartate Amino Transf (AST/SGOT) 14 U/L (15-37) Alanine Aminotransferase (ALT/SGPT) 21 U/L (16-63) Alkaline Phosphatase 105 U/L (46-116) C-Reactive Protein, Quantitative 3.3 mg/L (0-3.3) Total Protein 8.3 g/dL (6.4-8.2) Albumin 3.7 g/dL (3.4-5.0) Albumin/Globulin Ratio 0.8 (1.0-1.7) Procalcitonin 0.17 ng/mL (0.00-0.10) Glucose (Fingerstick) 117 mg/dL (70-99) 196 mg/dL (70-99) Objective Assessment pt seen, consult dictated Plan Plan of Care // BRIAN SANDRA MD Jun 13, 2020 09:20
--- NOTE | 2020-06-13 09:32 | PDOC2 ---
CONSULT Date of Consult Date of Consult DATE: 06/13/20 TIME: 09:30 Reason for Consult Reason for Consult: ESRD History of Present Illness Reason for Visit: Pt is a 70 yo AAM with ESRD on HD presented with c/o persistent worsening back pain and hx diskitis complaining of infection to his low back. Patient states he is in the process of getting a kidney transplant at [facility]. t- max er 99.6 F States he was doing his pre transplant work-up which included a CAT scan of the abdomen and pelvis and he was told he could have infection on his back. He states he is here today to get some antibiotics His last Dialysis was yesterday . Currently he is sitting up in bed, dressed- states he might be going home. Denies any CP or SOB. Has Chr mild nausea. Denies vomiting, diarrhea. No F/C. Past Medical History Cardiovascular: CAD, HTN, Hyperlipidemia, Other Pulmonary: Asthma, Bronchitis, COPD CENTRAL NERVOUS SYSTEM: Periperal neuropathy GI: GERD, GI bleed, Gastritis Heme/Onc: Anemia NOS Hepatobiliary: No pertinent hx Psych: No pertinent hx Musculoskeletal: low back pain Rheumatologic: No pertinent hx Infectious disease: Other Renal/: Chronic renal failure Endocrine: Diabetes Past Surgical History Past Surgical History: Cataract Removal, Other Family History Family History: Diabetes, Hypertension Social History No ALCOHOL: none Drugs: None Lives: with Family Domestic Violence: Neg Current Problem List Problem List Problems Medical Problems: (1) Chronic back pain Status: Acute Current Medications Current Medications Current Medications Morphine Sulfate (Morphine Sulfate) 4 mg 1X ONCE IV Last administered on 06/12/20at 17:09; Start 06/12/20 at 16:30; Stop 06/12/20 at 16:32; Status DC Ondansetron HCl (Zofran) 4 mg 1X ONCE IV Last administered on 06/12/20at 17:09; Start 06/12/20 at 16:30; Stop 06/12/20 at 16:32; Status DC Piperacillin Sod/ Tazobactam Sod (Zosyn Per Pharmacy) 1 each PRN DAILY PRN MC SEE COMMENTS; Start 06/12/20 at 19:30 Sodium Chloride (Normal Saline Flush) 3 ml QSHIFT PRN IV AFTER MEDS AND BLOOD DRAWS; Start 06/12/20 at 19:30 Ondansetron HCl (Zofran) 4 mg PRN Q4HRS PRN IV NAUSEA/VOMITING; Start 06/12/20 at 19:30; Stop 06/12/20 at 21:42; Status DC Acetaminophen (Tylenol) 650 mg PRN Q4HRS PRN PO TEMP OVER 100.4F OR MILD PAIN; Start 06/12/20 at 19:30 Docusate Sodium (Colace) 100 mg PRN BID PRN PO HARD STOOLS; Start 06/12/20 at 19:30 Albuterol Sulfate (Ventolin Neb Soln) 2.5 mg PRN Q4HRS PRN NEB SHORTNESS OF BREATH; Start 06/12/20 at 19:30 Guaifenesin (Robitussin) 200 mg PRN Q4HRS PRN PO COUGH; Start 06/12/20 at 19:30 Lorazepam (Ativan) 0.5 mg PRN Q4HRS PRN PO ANXIETY / AGITATION; Start 06/12/20 at 19:30 Piperacillin Sod/ Tazobactam Sod 2.25 gm/Sodium Chloride 50 ml @ 100 mls/hr Q8HRS IV ; Start 06/12/20 at 22:00; Stop 06/12/20 at 19:52; Status DC Heparin Sodium (Porcine) (Heparin Sodium) 5,000 unit Q8HRS SQ Last administered on 06/13/20at 06:07; Start 06/12/20 at 22:00 Insulin Human Lispro (HumaLOG) 0-5 UNITS TIDWMEALS SQ ; Start 06/13/20 at 08:00 Dextrose (Dextrose 50%-Water Syringe) 12.5 gm PRN Q15MIN PRN IV SEE COMMENTS; Start 06/12/20 at 21:00 Aspirin (Ecotrin) 81 mg DAILY08 PO Last administered on 06/13/20at 08:24; Start 06/13/20 at 08:00 Docusate Sodium (Colace) 100 mg DAILY PO Last administered on 06/13/20at 08:24; Start 06/13/20 at 09:00 Gabapentin (Neurontin) 300 mg TID PO ; Start 06/13/20 at 09:00; Stop 06/13/20 at 09:14; Status DC Oxycodone HCl (OxyCONTIN) 10 mg BID PO Last administered on 06/13/20at 08:25; Start 06/12/20 at 21:45 Oxycodone/ Acetaminophen (Percocet 5/325) 1 tab PRN TID PRN PO PAIN MODERATE; Start 06/12/20 at 21:45 Polyethylene Glycol (miraLAX PACKET) 17 gm PRN DAILY PRN PO CONSTIPATION; Start 06/12/20 at 21:45 Sevelamer Carbonate (Renvela) 800 mg TIDWMEALS PO Last administered on 06/13/20at 08:24; Start 06/13/20 at 08:00 Simvastatin (Zocor) 10 mg QHS PO Last administered on 06/12/20at 21:55; Start 06/12/20 at 21:45 Vitamin A/Vitamin D (Vitamin A & D Ointment) 1 brad PRN Q1HR PRN TP SKIN PROTECTION; Start 06/12/20 at 21:45 Oxycodone/ Acetaminophen (Percocet 5/325) 2 tab PRN TID PRN PO PAIN SEVERE Last administered on 06/13/20at 03:26; Start 06/12/20 at 21:45 Ondansetron HCl (Zofran) 4 mg PRN Q6HRS PRN IVP NAUSEA/VOMITING; Start 06/12/20 at 21:45 Gabapentin (Neurontin) 100 mg HS PO ; Start 06/13/20 at 21:00 Active Scripts Active Percocet 5-325 Mg Tablet (Oxycodone/Acetaminophen) 1 Each Tablet 1-2 Each PO PRN TID PRN pain Oxycontin (Oxycodone HCl) 10 Mg Tab.er.12h 1 Tab PO BID PRN MDD 2 Tablet(s) A and D Ointment (Vits A and D/White Pet/Lanolin) 42.5 Gm Oint...g. 1 Brad TP PRN Q1HR PRN 14 Days Gabapentin 300 Mg Capsule 300 Mg PO TID 30 Days Colace (Docusate Sodium) 100 Mg Capsule 100 Mg PO DAILY Polyethylene Glycol 3350 17 Gm Powd.pack 17 Gm PO PRN DAILY PRN Reported Simvastatin 10 Mg Tablet 1 Tab PO QHS Aspir 81 (Aspirin) 81 Mg Tablet.dr 1 Tab PO DAILY Renvela (Sevelamer Carbonate) 800 Mg Tablet 1 Tab PO TID Allergies Allergies: Coded Allergies: No Known Drug Allergies (Unverified , 06/30/19) ROS Review of System Per HPI, rest of the ROS is negative Physical Exam Physical Exam GENERAL: not in distress. HEENT: NAD. NECK: Supple, LUNGS: Clear. HEART: S1, S2 regular.murmur + ABDOMEN: Benign. incisional abdominal hernia+ EXTREMITIES: No edema or cyanosis. AV graft in the left upper extremity. SKIN: No rash NEUROLOGIC: Grossly normal No Banda, No SP or CVA tenderness Vital Signs Vital Signs Date Time Temp Pulse Resp B/P (MAP) Pulse Ox O2 Delivery O2 Flow Rate FiO2 06/13/20 08:07 Room Air 06/13/20 07:00 97.9 64 18 119/63 (81) 95 97.9 Assessment & Plan ESRD - On HD MWF, switched from PD in 2018 . Last HD was yesterday. 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 Acute on chronic diastolic/systolic CHF: recent EF at 40% CAD: past CABG clinically stable HTN: controlled Labs Labs Laboratory Tests Test 06/12/20 16:48 06/12/20 19:53 06/13/20 07:15 White Blood Count 4.9 x10^3/uL (4.0-11.0) Red Blood Count 3.19 x10^6/uL (4.30-5.70) Hemoglobin 11.2 g/dL (13.0-17.5) Hematocrit 33.4 % (39.0-53.0) Mean Corpuscular Volume 105 fL (79-100) Mean Corpuscular Hemoglobin 35 pg (25-35) Mean Corpuscular Hemoglobin Concent 34 g/dL (31-37) Red Cell Distribution Width 15.8 % (11.5-14.5) Platelet Count 118 x10^3/uL (140-400) Neutrophils (%) (Auto) 64 % (31-73) Lymphocytes (%) (Auto) 24 % (24-48) Monocytes (%) (Auto) 10 % (0-9) Eosinophils (%) (Auto) 2 % (0-3) Basophils (%) (Auto) 1 % (0-3) Neutrophils # (Auto) 3.2 x10^3/uL (1.8-7.7) Lymphocytes # (Auto) 1.2 x10^3/uL (1.0-4.8) Monocytes # (Auto) 0.5 x10^3/uL (0.0-1.1) Eosinophils # (Auto) 0.1 x10^3/uL (0.0-0.7) Basophils # (Auto) 0.0 x10^3/uL (0.0-0.2) Sodium Level 141 mmol/L (136-145) Potassium Level 4.1 mmol/L (3.5-5.1) Chloride Level 100 mmol/L (98-107) Carbon Dioxide Level 32 mmol/L (21-32) Anion Gap 9 (6-14) Blood Urea Nitrogen 27 mg/dL (8-26) Creatinine 6.8 mg/dL (0.7-1.3) Estimated GFR (Cockcroft-Gault) 9.8 BUN/Creatinine Ratio 4 (6-20) Glucose Level 78 mg/dL (70-99) Lactic Acid Level 1.6 mmol/L (0.4-2.0) Calcium Level 8.6 mg/dL (8.5-10.1) Total Bilirubin 0.4 mg/dL (0.2-1.0) Aspartate Amino Transf (AST/SGOT) 14 U/L (15-37) Alanine Aminotransferase (ALT/SGPT) 21 U/L (16-63) Alkaline Phosphatase 105 U/L (46-116) C-Reactive Protein, Quantitative 3.3 mg/L (0-3.3) Total Protein 8.3 g/dL (6.4-8.2) Albumin 3.7 g/dL (3.4-5.0) Albumin/Globulin Ratio 0.8 (1.0-1.7) Procalcitonin 0.17 ng/mL (0.00-0.10) Glucose (Fingerstick) 117 mg/dL (70-99) 196 mg/dL (70-99) Laboratory Tests Test 06/12/20 16:48 06/12/20 19:53 06/13/20 07:15 White Blood Count 4.9 x10^3/uL (4.0-11.0) Red Blood Count 3.19 x10^6/uL (4.30-5.70) Hemoglobin 11.2 g/dL (13.0-17.5) Hematocrit 33.4 % (39.0-53.0) Mean Corpuscular Volume 105 fL (79-100) Mean Corpuscular Hemoglobin 35 pg (25-35) Mean Corpuscular Hemoglobin Concent 34 g/dL (31-37) Red Cell Distribution Width 15.8 % (11.5-14.5) Platelet Count 118 x10^3/uL (140-400) Neutrophils (%) (Auto) 64 % (31-73) Lymphocytes (%) (Auto) 24 % (24-48) Monocytes (%) (Auto) 10 % (0-9) Eosinophils (%) (Auto) 2 % (0-3) Basophils (%) (Auto) 1 % (0-3) Neutrophils # (Auto) 3.2 x10^3/uL (1.8-7.7) Lymphocytes # (Auto) 1.2 x10^3/uL (1.0-4.8) Monocytes # (Auto) 0.5 x10^3/uL (0.0-1.1) Eosinophils # (Auto) 0.1 x10^3/uL (0.0-0.7) Basophils # (Auto) 0.0 x10^3/uL (0.0-0.2) Sodium Level 141 mmol/L (136-145) Potassium Level 4.1 mmol/L (3.5-5.1) Chloride Level 100 mmol/L (98-107) Carbon Dioxide Level 32 mmol/L (21-32) Anion Gap 9 (6-14) Blood Urea Nitrogen 27 mg/dL (8-26) Creatinine 6.8 mg/dL (0.7-1.3) Estimated GFR (Cockcroft-Gault) 9.8 BUN/Creatinine Ratio 4 (6-20) Glucose Level 78 mg/dL (70-99) Lactic Acid Level 1.6 mmol/L (0.4-2.0) Calcium Level 8.6 mg/dL (8.5-10.1) Total Bilirubin 0.4 mg/dL (0.2-1.0) Aspartate Amino Transf (AST/SGOT) 14 U/L (15-37) Alanine Aminotransferase (ALT/SGPT) 21 U/L (16-63) Alkaline Phosphatase 105 U/L (46-116) C-Reactive Protein, Quantitative 3.3 mg/L (0-3.3) Total Protein 8.3 g/dL (6.4-8.2) Albumin 3.7 g/dL (3.4-5.0) Albumin/Globulin Ratio 0.8 (1.0-1.7) Procalcitonin 0.17 ng/mL (0.00-0.10) Glucose (Fingerstick) 117 mg/dL (70-99) 196 mg/dL (70-99) Review All relevant outside records, renal labs, imaging studies, telemetry/EKG's were reviewed. WIL TORRES MD Jun 13, 2020 09:32
--- NOTE | 2020-06-13 09:44 | NUR ---
SW following. Discussed with RN, pt from home alone, room air, renal diet, independent. Pt does dialysis MWF at [facility] (ph: [phone]). RN advised no SW needs at this time. SW will continue to follow.
[2020-06-13 10:49] VITALS: BP 134/69
--- NOTE | 2020-06-13 10:59 | PDOC2 ---
ALAN TIERNEY SCANNER OPERATOR 06/13/20 1059: CARDIAC CONSULT DATE OF CONSULT Date of Consult DATE: 06/13/20 TIME: 10:47 REASON FOR CONSULT Reason for Consult: Possible endocarditis REFERRING PHYSICIAN Referring Physician: Dr. Montano SOURCE Source: Chart review, Patient HISTORY OF PRESENT ILLNESS HISTORY OF PRESENT ILLNESS This is a 70 yo male, with a history of diskitis, who presented secondary to worsening back pain with concerns for infection. Patient has undergone workup for potential renal transplant through [facility]. Underwent CT scan of the abdomen and pelvis. Was notified late last week that he could have an infection in his lower back. Was seen in ED over the weekend, but refused admission to the hospital as it was a Holiday weekend. Patient returns to the ED with increasing pain and low grade fevers. 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 Patient has not had followup echocardiogram. Reports chronic back pain for the last year. No chest pain, palpitations, dizziness, diaphoresis, or SOA. PAST MEDICAL HISTORY Past Medical History Cardiovascular: CAD, CHF, HTN, cardiomyopathy, endocarditis Pulmonary: COPD, Other (BRITTNEY) GI: GERD, GI bleed, Gastritis Hematology anemia Musculoskeletal: Osteoarthritis Infectious disease: Other (T11-12 diskitis, osteomyelitis, and paraspinal infection ) Renal/: Chronic renal failure (ESRD on HD), Benign prostatic enlarg. Endocrine: Diabetes PAST SURGICAL HISTORY Past Surgical History Appendectomy, CABG, Other (right shoulder arthroplasty; right middle and lower lobectomy), PD cath placement and removal, EGD, HD placement FAMILY HISTORY Family History: Diabetes SOCIAL HISTORY Social History Smoke: Quit ALCOHOL: none Drugs: None Lives: with Family CURRENT MEDICATIONS CURRENT MEDICATIONS Current Medications Medications (Trade) Dose Ordered Sig/Wolf Route PRN Reason Start Time Stop Time Status Last Admin Dose Admin Morphine Sulfate (Morphine Sulfate) 4 mg 1X ONCE IV 06/12/20 16:30 06/12/20 16:32 DC 06/12/20 17:09 Ondansetron HCl (Zofran) 4 mg 1X ONCE IV 06/12/20 16:30 06/12/20 16:32 DC 06/12/20 17:09 Heparin Sodium (Porcine) (Heparin Sodium) 5,000 unit Q8HRS SQ 06/12/20 22:00 06/13/20 06:07 Aspirin (Ecotrin) 81 mg DAILY08 PO 06/13/20 08:00 06/13/20 08:24 Docusate Sodium (Colace) 100 mg DAILY PO 06/13/20 09:00 06/13/20 08:24 Oxycodone HCl (OxyCONTIN) 10 mg BID PO 06/12/20 21:45 06/13/20 08:25 Sevelamer Carbonate (Renvela) 800 mg TIDWMEALS PO 06/13/20 08:00 06/13/20 08:24 Simvastatin (Zocor) 10 mg QHS PO 06/12/20 21:45 06/12/20 21:55 Oxycodone/ Acetaminophen (Percocet 5/325) 2 tab PRN TID PRN PO PAIN SEVERE 06/12/20 21:45 06/13/20 03:26 ALLERGIES ALLERGIES: Coded Allergies: No Known Drug Allergies (Unverified , 06/30/19) ROS Review of System 14 point ROS conducted with pertinent positives noted above in HPI PHYSICAL EXAM PHYSICAL EXAM General: Alert, Oriented X3, Cooperative, No acute distress HEENT: Atraumatic, Mucous membr. moist/pink Lungs: Clear to auscultation, Normal air movement Heart: Regular rate (not on tele), Other (3/6 systolic murmur to LLS border) Abdomen: Soft, No tenderness Extremities: No cyanosis Skin: No breakdown, No significant lesion Neuro: Normal speech, Sensation intact Psych/Mental Status: Mental status NL, Mood NL MUSCULOSKELETAL: Osteoarthritic changes both hands VITALS/I&O VITALS/I&O: Vital Signs Date Time Temp Pulse Resp B/P (MAP) Pulse Ox O2 Delivery O2 Flow Rate FiO2 06/13/20 08:07 Room Air 06/13/20 07:00 97.9 64 18 119/63 (81) 95 97.9 I & O 06/12/20 06/12/20 06/13/20 15:00 23:00 07:00 Intake Total 640 ml Output Total 0 ml Balance 640 ml LABS Lab: Laboratory Tests Test 06/12/20 16:48 06/12/20 19:53 06/13/20 07:15 White Blood Count 4.9 x10^3/uL (4.0-11.0) Red Blood Count 3.19 x10^6/uL (4.30-5.70) L Hemoglobin 11.2 g/dL (13.0-17.5) L Hematocrit 33.4 % (39.0-53.0) L Mean Corpuscular Volume 105 fL (79-100) H Mean Corpuscular Hemoglobin 35 pg (25-35) Mean Corpuscular Hemoglobin Concent 34 g/dL (31-37) Red Cell Distribution Width 15.8 % (11.5-14.5) H Platelet Count 118 x10^3/uL (140-400) L Neutrophils (%) (Auto) 64 % (31-73) Lymphocytes (%) (Auto) 24 % (24-48) Monocytes (%) (Auto) 10 % (0-9) H Eosinophils (%) (Auto) 2 % (0-3) Basophils (%) (Auto) 1 % (0-3) Neutrophils # (Auto) 3.2 x10^3/uL (1.8-7.7) Lymphocytes # (Auto) 1.2 x10^3/uL (1.0-4.8) Monocytes # (Auto) 0.5 x10^3/uL (0.0-1.1) Eosinophils # (Auto) 0.1 x10^3/uL (0.0-0.7) Basophils # (Auto) 0.0 x10^3/uL (0.0-0.2) Sodium Level 141 mmol/L (136-145) Potassium Level 4.1 mmol/L (3.5-5.1) Chloride Level 100 mmol/L (98-107) Carbon Dioxide Level 32 mmol/L (21-32) Anion Gap 9 (6-14) Blood Urea Nitrogen 27 mg/dL (8-26) H Creatinine 6.8 mg/dL (0.7-1.3) H Estimated GFR (Cockcroft-Gault) 9.8 BUN/Creatinine Ratio 4 (6-20) L Glucose Level 78 mg/dL (70-99) Lactic Acid Level 1.6 mmol/L (0.4-2.0) Calcium Level 8.6 mg/dL (8.5-10.1) Total Bilirubin 0.4 mg/dL (0.2-1.0) Aspartate Amino Transferase (AST) 14 U/L (15-37) L Alanine Aminotransferase (ALT) 21 U/L (16-63) Alkaline Phosphatase 105 U/L (46-116) C-Reactive Protein, Quantitative 3.3 mg/L (0-3.3) Total Protein 8.3 g/dL (6.4-8.2) H Albumin 3.7 g/dL (3.4-5.0) Albumin/Globulin Ratio 0.8 (1.0-1.7) L Procalcitonin 0.17 ng/mL (0.00-0.10) H Glucose (Fingerstick) 117 mg/dL (70-99) H 196 mg/dL (70-99) H Laboratory Tests 06/12/20 16:48 Laboratory Tests 06/12/20 16:48 ECHOCARDIOGRAM ECHOCARDIOGRAM JANAY <Conclusion> The systolic function is mildly to moderately impaired. EF 40% There is moderate global hypokinesis. 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 Due to the eccentric nature of the mass, exact dimensions are difficult to determine. DATE: 08/11/19 1404 STRESS TEST STRESS TEST Conclusion 1. Regadenoson cardioisotope stress test showed large infarct involving the base to mid inferior wall extending into the inferolateral wall with small amount of franchesca-infarct ischemia. 2. Also seen was small to moderate infarct involving the base to mid anterolateral wall small amount of franchesca-infarct ischemia. 3. Moderate global left ventricle systolic dysfunction and severe hypokinesis of the inferior wall with ejection fraction calculated at 32%. 4. Intermediate risk for cardiac events. DATE: 04/15/17 1401 ASSESSMENT/PLAN ASSESSMENT/PLAN 1. Low back pain with h/o osteomyelitis/diskitis of T11-T12. Concerns for present infection 2. 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 Chronic diastolic/systolic CHF: recent EF at 40%, compensated 4. CAD: past CABG clinically stable 5. Hypertension; controlled 6. Hyperlipidemia 7. ESRD on HD 8. Diabetes, II Recommendations Will need repeat echo to assess tricuspid valve vegetation Follow ID recs Supportive care JONA MENJIVAR MD 06/13/20 1814: CARDIAC CONSULT ASSESSMENT/PLAN ASSESSMENT/PLAN Patient seen and examined I agree with our nurse practitioners assessment and plan. Low back pain with h/o osteomyelitis/diskitis of T11-T12. Work-up and treatment as per ID. H/o endocarditis/mobile mass likely attached to the septal leaflet of the tri cuspid valve measuring approximately 1.2 x 1.2 cm via JANAY 08/11/19. Continue present treatment. We will recheck an echo. Chronic diastolic/systolic CHF: recent EF at 40%, compensated. Repeat echo as above. CAD: past CABG clinically stable Hypertension; controlled Hyperlipidemia. Continue present treatments and monitor. ESRD on HD. As per the renal service. ALAN TIERNEY APRN Jun 13, 2020 10:59 JONA MENJIVAR MD Jun 13, 2020 18:14
[2020-06-13] MEDS ORDERED: GABA-585 PO (11:02)
[2020-06-13] MEDS ORDERED: INSU100V35 SQ (11:02)
--- NOTE | 2020-06-13 11:39 | CONS ---
DATE OF CONSULTATION: 06/13/2020 REQUESTING PHYSICIAN: Josh Montano MD REASON FOR CONSULTATION: Possible diskitis. HISTORY OF PRESENT ILLNESS: This is a 70-year-old -Polish gentleman, who is very well known to me. The patient has end-stage renal disease, on hemodialysis. The patient in fact undergoing kidney transplant workup by [facility], part of that they ordered a CT scan of the abdomen according to the patient and they saw something in the spine looking like possible infection; hence, they called him and he came into the Emergency Room and got admitted. The patient does not have any fever, does not have any more back pain than his usual. He does have back pain since his last diagnosis of diskitis, and clearly, pain has improved compared to when he had diskitis, but he still has to take some pain medication and he is able to function; and off and on, some days are worse than the other, but he clearly did not go to the [facility] for back pain or in any other place. His visit was just for his transplant workup. What appears to be from the ER note that they may have obtained MRI or CT report from [facility], although I am not able to find it in the chart here. The patient has no fever or chills, no incontinence, no other complaints or problems. He is just, again, undergoing transplant workup. PAST MEDICAL HISTORY: Positive for T11-T12 diskitis with osteomyelitis in 06/2019 and had a paraspinal infection. The patient had a disk aspiration and culture done, which turned out to be negative, but he did have a blood culture positive with Staphylococcus lugdunensis on 06/19; hence, the patient was treated with cefazolin for 6 weeks. The patient also has coronary artery disease with coronary artery bypass grafting in the past, congestive heart failure, COPD, diabetes, hypertension, end-stage renal disease, on hemodialysis, and he has had MSSA diskitis in the neck in 2018. SOCIAL HISTORY: Negative for smoking, alcohol or illicit drug use. ALLERGIES: No known drug allergies. CURRENT MEDICATIONS: The patient was put on Zosyn that yesterday I discontinued. REVIEW OF SYSTEMS: As per HPI, all other systems reviewed and are negative. PHYSICAL EXAMINATION: GENERAL: Alert, oriented gentleman, not in distress. VITAL SIGNS: Stable with temperature 97.9, pulse 64, respirations 18, blood pressure 119/63. HEENT: Both pupils are round and reacting. No conjunctival lesion. No lesion in the mouth. NECK: Supple, no JVP, no lymphadenopathy. LUNGS: Clear. HEART: S1, S2, regular. ABDOMEN: Soft, nontender. No organomegaly. EXTREMITIES: No edema or cyanosis. SKIN: Unremarkable. NEUROLOGICAL: The patient is alert, awake and appropriate. No focal neurologic deficit. LABORATORY DATA: White count is 4.9, platelets are 118,000. BUN and creatinine are 27 and 6.8. He had negative blood cultures in July of last year. Blood cultures from the ER from yesterday evening are pending. IMAGING STUDIES: His last CT done in this hospital was in 09/2019, which had shown obviously the changes of diskitis and spinal infection. IMPRESSION: Abnormal CT abdomen as a part of a workup for the kidney transplant, probably just showing the old diskitis and osteomyelitis with changes in the disk and spine that is probably visible. He has no other evidence for any new reactivation or infection. In fact, we do not have the report from the [facility] to make sure there is no fluid collection, which would make that this is a reactivation. If he does have it, of course, he needs workup. Without the CT or MRI report, I still offered him the only way to 100% know there is no active bacteria is to put a needle and get the sample. The patient absolutely refused that. We are waiting for the CT or MRI whatever was done by the [facility] to review that. The patient does not need any antibiotics right now. We tried to call and talk to donor relations coordinator, but he ended up leaving a message that he wanted me to talk to them. I will be happy to talk to them. Thank you very much, Dr. Montano, for giving me the opportunity to participate in this patient's care. BRIAN SANDRA MD DR: CARLA/connie JOB#: [id number] / [id number]
--- NOTE | 2020-06-13 11:57 | PDOC ---
[employer] PROGRESS NOTE Date of Service DOS: DATE: 06/13/20 TIME: 11:45 Chief Complaint Chief Complaint Intractable back pain Hx of discitis History of Present Illness History of Present Illness 06/13 Patient seen and examined Per ID, the CT image from [facility] possibly detected previous discitis and do not believe he is showing signs of active infection. Working on obtaining report to confirm. Patient sitting up in bed complaining of back pain but otherwise comfortable. Discussed with RN Discussed with social work Vitals/I&O Vitals/I&O: Vital Signs Date Time Temp Pulse Resp B/P (MAP) Pulse Ox O2 Delivery O2 Flow Rate FiO2 06/13/20 10:49 98.1 64 18 134/69 (90) 94 Room Air 98.1 I & O 06/12/20 06/12/20 06/13/20 15:00 23:00 07:00 Intake Total 640 ml Output Total 0 ml Balance 640 ml Physical Exam General: Alert, Oriented X3, Cooperative, mild distress Heart: Regular rate, No murmurs Lungs: Clear, Other (No wheezes or crackles) Abdomen: Normal bowel sounds, Soft, No tenderness Extremities: No clubbing, No cyanosis, No edema Skin: No rashes, No significant lesion Labs Labs: Laboratory Tests Test 06/12/20 16:48 06/12/20 19:53 06/13/20 07:15 White Blood Count 4.9 x10^3/uL (4.0-11.0) Red Blood Count 3.19 x10^6/uL (4.30-5.70) Hemoglobin 11.2 g/dL (13.0-17.5) Hematocrit 33.4 % (39.0-53.0) Mean Corpuscular Volume 105 fL (79-100) Mean Corpuscular Hemoglobin 35 pg (25-35) Mean Corpuscular Hemoglobin Concent 34 g/dL (31-37) Red Cell Distribution Width 15.8 % (11.5-14.5) Platelet Count 118 x10^3/uL (140-400) Neutrophils (%) (Auto) 64 % (31-73) Lymphocytes (%) (Auto) 24 % (24-48) Monocytes (%) (Auto) 10 % (0-9) Eosinophils (%) (Auto) 2 % (0-3) Basophils (%) (Auto) 1 % (0-3) Neutrophils # (Auto) 3.2 x10^3/uL (1.8-7.7) Lymphocytes # (Auto) 1.2 x10^3/uL (1.0-4.8) Monocytes # (Auto) 0.5 x10^3/uL (0.0-1.1) Eosinophils # (Auto) 0.1 x10^3/uL (0.0-0.7) Basophils # (Auto) 0.0 x10^3/uL (0.0-0.2) Sodium Level 141 mmol/L (136-145) Potassium Level 4.1 mmol/L (3.5-5.1) Chloride Level 100 mmol/L (98-107) Carbon Dioxide Level 32 mmol/L (21-32) Anion Gap 9 (6-14) Blood Urea Nitrogen 27 mg/dL (8-26) Creatinine 6.8 mg/dL (0.7-1.3) Estimated GFR (Cockcroft-Gault) 9.8 BUN/Creatinine Ratio 4 (6-20) Glucose Level 78 mg/dL (70-99) Lactic Acid Level 1.6 mmol/L (0.4-2.0) Calcium Level 8.6 mg/dL (8.5-10.1) Total Bilirubin 0.4 mg/dL (0.2-1.0) Aspartate Amino Transf (AST/SGOT) 14 U/L (15-37) Alanine Aminotransferase (ALT/SGPT) 21 U/L (16-63) Alkaline Phosphatase 105 U/L (46-116) C-Reactive Protein, Quantitative 3.3 mg/L (0-3.3) Total Protein 8.3 g/dL (6.4-8.2) Albumin 3.7 g/dL (3.4-5.0) Albumin/Globulin Ratio 0.8 (1.0-1.7) Procalcitonin 0.17 ng/mL (0.00-0.10) Hepatitis B Surface Antigen Nonreactive (Nonreactive) Glucose (Fingerstick) 117 mg/dL (70-99) 196 mg/dL (70-99) Review of Systems Review of Systems: Reports back pain, denies weakness Assessment and Plan Assessmemt and Plan Assessment: 1. 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 intractable back pain 3. low grade fever 4. diabetes 5. hypertension 6. morbid obesity 7. HX Right basal ganglia infarct which is probably old 8. 6-20 mildly to moderately impaired. EF 40% moderate global hypokinesis. 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 Medications: Current Medications Medications (Trade) Dose Ordered Sig/Wolf Route PRN Reason Start Time Stop Time Status Last Admin Dose Admin Morphine Sulfate (Morphine Sulfate) 4 mg 1X ONCE IV 06/12/20 16:30 06/12/20 16:32 DC 06/12/20 17:09 Ondansetron HCl (Zofran) 4 mg 1X ONCE IV 06/12/20 16:30 06/12/20 16:32 DC 06/12/20 17:09 Heparin Sodium (Porcine) (Heparin Sodium) 5,000 unit Q8HRS SQ 06/12/20 22:00 06/13/20 06:07 Aspirin (Ecotrin) 81 mg DAILY08 PO 06/13/20 08:00 06/13/20 08:24 Docusate Sodium (Colace) 100 mg DAILY PO 06/13/20 09:00 06/13/20 08:24 Oxycodone HCl (OxyCONTIN) 10 mg BID PO 06/12/20 21:45 06/13/20 08:25 Sevelamer Carbonate (Renvela) 800 mg TIDWMEALS PO 06/13/20 08:00 06/13/20 11:14 Simvastatin (Zocor) 10 mg QHS PO 06/12/20 21:45 06/12/20 21:55 Oxycodone/ Acetaminophen (Percocet 5/325) 2 tab PRN TID PRN PO PAIN SEVERE 06/12/20 21:45 06/13/20 11:14 Justifications for Admission Other Justification acute discitis BENJAMÍN HERNANDEZ III DO Jun 13, 2020 11:57
--- NOTE | 2020-06-13 11:59 | DS ---
DATE OF DISCHARGE: 06/13/2020 ADMISSION DIAGNOSIS: Chronic diskitis with chronic intractable back pain. DISCHARGE DIAGNOSES: Resolving chronic back pain, end-stage renal disease, diabetes, hypertension and obesity. CONSULTS: Infectious Disease and Cardiology. PROCEDURES: None. HOSPITAL COURSE: The patient is a pleasant middle-aged male who apparently is in the workup for a renal transplant at [facility]. Basically admitted the patient with some back pain. He had a history of recent diskitis. I guess during his renal transplant workup, they did an imaging study with a CAT scan to survey his body and found some diskitis. When he presented to the ER, there was some concern he could have an infection. He did have a slight fever of 99.6. Today, I saw and examined the patient. He is requesting to go home. Clinically, he looks great. I discussed the case with the hospice case manager and the nurse and Dr. Coto of Infectious Disease. We are going to get his old records and if those are okay and his vital signs remained stable, going to discharge this afternoon. DISPOSITION: Home. ACTIVITY: As tolerated. DIET: Low sodium. MEDICATIONS: Please see the MRAD. In his home meds, which include aspirin 81 a day, docusate, gabapentin 300 t.i.d., oxycodone 10/325 one q. 6 hours p.r.n. and I gave him a prescription for 30 of those, polyethylene glycol p.r.n. for constipation, Renvela 1 tab t.i.d., simvastatin 10 a day, vitamin A and I gave him prescription for insulin 10 units t.i.d., NovoLog with meals, gabapentin 100 at bedtime. TOTAL TIME: 36 minutes. BENJAMÍN HERNANDEZ DO DR: ELIAZAR/connie JOB#: [id number] / [id number]
[2020-06-13 15:00] VITALS: BP 142/78
[2020-06-13 19:15] VITALS: BP 140/80
[2020-06-13] MEDS: SIMVASTATIN 10 MG TABLET PO SCH (20:36)
[2020-06-13] MEDS ORDERED: GABAPENTIN 100 MG CAPSULE. PO SCH (21:00)
[2020-06-13 22:54] VITALS: BP 138/74
[2020-06-14 03:00] VITALS: BP 118/65
[2020-06-14] MEDS: HEPARIN for SUB-Q USE 5,000 UNIT/ML VIAL. SQ SCH ×2 (05:53→15:08)
[2020-06-14 06:09] LABS: CALCIUM 8.9 mg/dL (8.5-10.1); CREATININE 9.8 mg/dL (0.7-1.3); GFR 6.4; POTASSIUM 4.9 mmol/L (3.5-5.1)
[2020-06-14 07:07] VITALS: BP 151/73
[2020-06-14] MEDS: INSULIN LISPRO 300 UNITS/3 ML VIAL. SQ SCH ×2 (08:00→12:00)
[2020-06-14] MEDS: ASPIRIN ENTERIC COATED 81 MG TABLET.DR. PO SCH ×2 (08:00→08:42)
[2020-06-14] MEDS: DOCUSATE SODIUM 100 MG CAPSULE. PO SCH (08:42)
[2020-06-14] MEDS: SEVELAMER CARBONATE 800 MG TABLET. PO SCH ×2 (08:42→12:00)
[2020-06-14] MEDS: oxyCODONE ER 10 MG TAB.ER.12H PO SCH (08:46)
[2020-06-14] MEDS ORDERED: IV NORMAL SALINE 1000ML BAG 1,000 ML IV PRN ×2 (09:00)
[2020-06-14] MEDS ORDERED: ALBUMIN HUMAN 25% 200 ML IV PRN (09:00)
[2020-06-14] MEDS ORDERED: DIALYSIS PATIENT. MC PRN ×2 (09:00)
--- NOTE | 2020-06-14 09:04 | PDOC ---
Infectious Disease Note Subjective Subjective Patient is very happy today he understood what I discussed with him yesterday very well. He does admit to say he feels good and he has no fever no weight loss no back pain is actually much better than last year when he had the discitis. He does not feel he has any infection. And he understood with my explanation the x-ray finding or CT finding of discitis/ osteomyelitis the changes does not go away that easily or quickly that would confuse the [facility] since he was not seen there and he was treated here. He wants to go home ROS ROS No nausea vomiting diarrhea or fever Vital Sign Vital Signs Vital Signs Date Time Temp Pulse Resp B/P (MAP) Pulse Ox O2 Delivery O2 Flow Rate FiO2 06/14/20 07:07 97.8 68 18 151/73 (99) 98 Room Air 97.8 Physical Exam PHYSICAL EXAM GENERAL: Alert, oriented gentleman, not in distress. VITAL SIGNS: Stable HEENT: Both pupils are round and reacting. No conjunctival lesion. No lesion in the mouth. NECK: Supple, no JVP, no lymphadenopathy. LUNGS: Clear. HEART: S1, S2, regular. ABDOMEN: Soft, nontender. No organomegaly. EXTREMITIES: No edema or cyanosis. SKIN: Unremarkable. NEUROLOGICAL: The patient is alert, awake and appropriate. No focal neurologic deficit. Labs Lab Laboratory Tests Test 06/13/20 11:43 06/13/20 16:40 06/13/20 20:54 06/14/20 05:35 Glucose (Fingerstick) 103 mg/dL (70-99) 120 mg/dL (70-99) 121 mg/dL (70-99) Sodium Level 140 mmol/L (136-145) Potassium Level 4.9 mmol/L (3.5-5.1) Chloride Level 99 mmol/L (98-107) Carbon Dioxide Level 29 mmol/L (21-32) Anion Gap 12 (6-14) Blood Urea Nitrogen 50 mg/dL (8-26) Creatinine 9.8 mg/dL (0.7-1.3) Estimated GFR (Cockcroft-Gault) 6.4 Glucose Level 77 mg/dL (70-99) Calcium Level 8.9 mg/dL (8.5-10.1) Test 06/14/20 07:03 Glucose (Fingerstick) 69 mg/dL (70-99) Micro Microbiology 06/12/20 Blood Culture - Preliminary, Resulted NO GROWTH AFTER 1 DAY Objective Assessment IMPRESSION: Abnormal CT abdomen as a part of a workup for the kidney transplant, probably just showing the old diskitis and osteomyelitis with changes in the disk and spine that is probably visible. He has no other evidence for any new infection or reactivation of infection. In fact, we do not have the report from the [facility]'s to make sure there is no fluid collection, which would make that this is a reactivation. If he does have it, of course, he needs workup. Without the CT or MRI report, I still offered him the only way to 100% know there is no active bacteria is to put a needle and get the sample. The patient absolutely refused that. We are waiting for the CT or MRI whatever was done by the [facility] to review that. The patient does not need any antibiotics right now. We tried to call and talk to coordinator of genetic services, but he ended up leaving a message that he wanted me to talk to them to clarify. I will be happy to talk to them. Plan Plan of Care We still have not received the [facility] record of that CT or MRI No antibiotics Patient can be discharged from the infectious disease standpoint of view I would still like to get the copy of that CT or MRI to review Patient to call my office for any questions or concerns BRIAN SANDRA MD Jun 14, 2020 09:04
--- NOTE | 2020-06-14 09:07 | PDOC ---
[employer] PROGRESS NOTE Date of Service DOS: DATE: 06/14/20 TIME: 09:00 Chief Complaint Chief Complaint Intractable back pain Hx of discitis History of Present Illness History of Present Illness 06/14/2020 Patient seen and examined States he would like to be discharged today Discussed with RN Chart reviewed 06/13 Patient seen and examined Per ID, the [facility] image from [facility] possibly detected previous discitis and do not believe he is showing signs of active infection. Working on obtaining report to confirm. Patient sitting up in bed complaining of back pain but otherwise comfortable. Discussed with RN Discussed with social work Vitals/I&O Vitals/I&O: Vital Signs Date Time Temp Pulse Resp B/P (MAP) Pulse Ox O2 Delivery O2 Flow Rate FiO2 06/14/20 07:07 97.8 68 18 151/73 (99) 98 Room Air 97.8 I & O 06/13/20 06/13/20 06/14/20 15:00 23:00 07:00 Intake Total 700 ml 440 ml 400 ml Output Total 0 ml 0 ml Balance 700 ml 440 ml 400 ml Physical Exam General: Alert, Oriented X3, Cooperative, mild distress Heart: Regular rate, No murmurs Lungs: Clear, Other (No wheezes or crackles) Abdomen: Normal bowel sounds, Soft, No tenderness Extremities: No clubbing, No cyanosis, No edema Skin: No rashes, No significant lesion Labs Labs: Laboratory Tests Test 06/13/20 11:43 06/13/20 16:40 06/13/20 20:54 06/14/20 05:35 Glucose (Fingerstick) 103 mg/dL (70-99) 120 mg/dL (70-99) 121 mg/dL (70-99) Sodium Level 140 mmol/L (136-145) Potassium Level 4.9 mmol/L (3.5-5.1) Chloride Level 99 mmol/L (98-107) Carbon Dioxide Level 29 mmol/L (21-32) Anion Gap 12 (6-14) Blood Urea Nitrogen 50 mg/dL (8-26) Creatinine 9.8 mg/dL (0.7-1.3) Estimated GFR (Cockcroft-Gault) 6.4 Glucose Level 77 mg/dL (70-99) Calcium Level 8.9 mg/dL (8.5-10.1) Test 06/14/20 07:03 Glucose (Fingerstick) 69 mg/dL (70-99) Review of Systems Review of Systems: Reports back pain, denies weakness Assessment and Plan Assessmemt and Plan Assessment: 1. 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 intractable back pain 3. low grade fever 4. diabetes 5. hypertension 6. morbid obesity 7. HX Right basal ganglia infarct which is probably old 8. 6-20 mildly to moderately impaired. EF 40% moderate global hypokinesis. There WAS mobile mass likely attached to the septal leaflet of the tricuspid valve measuring approximately 1.2 x 1.2 cm Plan: Anticipate re-discharge today if cardiology and ID consults agree FOR NOW continue the following: Accuchecks DVT prophylaxis sq heparin Home Meds Full code Comment Review of Relevant I have reviewed the following items sai (where applicable) has been applied. Medications: Current Medications Medications (Trade) Dose Ordered Sig/Wolf Route PRN Reason Start Time Stop Time Status Last Admin Dose Admin Gabapentin (Neurontin) 100 mg HS PO 06/13/20 21:00 06/13/20 20:34 Justifications for Admission Other Justification acute discitis BENJAMÍN HERNANDEZ III DO Jun 14, 2020 09:07
--- NOTE | 2020-06-14 09:35 | PDOC ---
ALAN TIERNEY HEMATOLOGY SPECIALIST 06/14/20 0935: CARDIO Progress Notes Date and Time Date of Service 06/14/20 Time of Evaluation 0930 Subjective Subjective: No Chest Pain, No shortness of breath, No Palpitations Comments: seen on HD Vitals Vitals Vital Signs Date Time Temp Pulse Resp B/P (MAP) Pulse Ox O2 Delivery O2 Flow Rate FiO2 06/14/20 07:07 97.8 68 18 151/73 (99) 98 Room Air 97.8 Weight Weight [ ] Input and Output Intake and Output Intake and Output 06/14/20 06:59 Intake Total 1540 ml Output Total 0 ml Balance 1540 ml Intake Oral 1540 ml Output Urine Total 0 ml Laboratory Labs Laboratory Tests Test 06/13/20 11:43 06/13/20 16:40 06/13/20 20:54 06/14/20 05:35 Glucose (Fingerstick) 103 mg/dL (70-99) 120 mg/dL (70-99) 121 mg/dL (70-99) Sodium Level 140 mmol/L (136-145) Potassium Level 4.9 mmol/L (3.5-5.1) Chloride Level 99 mmol/L (98-107) Carbon Dioxide Level 29 mmol/L (21-32) Anion Gap 12 (6-14) Blood Urea Nitrogen 50 mg/dL (8-26) Creatinine 9.8 mg/dL (0.7-1.3) Estimated GFR (Cockcroft-Gault) 6.4 Glucose Level 77 mg/dL (70-99) Calcium Level 8.9 mg/dL (8.5-10.1) Test 06/14/20 07:03 Glucose (Fingerstick) 69 mg/dL (70-99) Microbiology Micro Microbiology 06/12/20 Blood Culture - Preliminary, Resulted NO GROWTH AFTER 1 DAY Physical Exam HEENT: Neck Supple W Full Motion Chest: Symmetric LUNGS: Clear to Auscultation Heart: RRR Abdomen: Soft N/T Extremities: No Edema Neurology: alert, oriented, follow commands Assessment Assessment 1. Low back pain with h/o osteomyelitis/diskitis of T11-T12. Concerns for present infection 2. 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 Chronic diastolic/systolic CHF: recent EF at 40%, compensated 4. CAD: past CABG clinically stable 5. Hypertension; controlled 6. Hyperlipidemia 7. ESRD on HD 8. Diabetes, II Recommendations Echo today to re-assess tricuspid valve vegetation Fluid offloading via HD Follow ID recs Supportive care Justicifation of Admission Dx: Justifications for Admission: Justification of Admission Dx: N/A JONA MENJIVAR MD 06/14/20 1738: CARDIO Progress Notes Assessment Assessment Patient seen and evaluated I agree with our nurse practitioners assessment and plan. Low back pain with h/o osteomyelitis/diskitis of T11-T12. ID evaluating. 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 Echo. Chronic diastolic/systolic CHF: recent EF at 40%, compensated. Continue present treatment. CAD: past CABG clinically stable Hypertension; controlled on present treatment. Hyperlipidemia. Continue present treatment. ESRD on HD as per renal. ALAN TIERNEY APRN Jun 14, 2020 09:35 JONA MENJIVAR MD Jun 14, 2020 17:38
--- NOTE | 2020-06-14 10:07 | NUR ---
SW following. Discussed with RN, pt from home, room air, renal diet. Discharge order for home with self care, if okay with consultants. RN following up with consultants. Pt having dialysis today. SW will continue to follow.
--- NOTE | 2020-06-14 10:34 | PDOC ---
DATE OF SERVICE DATE: 06/14/20 TIME: 10:34 SUBJECTIVE ROS Seen on dialysis, no complaints OBJECTIVE Vital Signs Vital Signs Date Time Temp Pulse Resp B/P (MAP) Pulse Ox O2 Delivery O2 Flow Rate FiO2 06/14/20 08:00 Room Air 06/14/20 07:07 97.8 68 18 151/73 (99) 98 97.8 I & 0 Intake and Output 06/14/20 07:00 Intake Total 1540 ml Output Total 0 ml Balance 1540 ml Intake Oral 1540 ml Output Urine Total 0 ml PHYSICAL EXAM Physical Exam GENERAL: not in distress. HEENT: NAD. NECK: Supple, LUNGS: Clear. HEART: S1, S2 regular.murmur + ABDOMEN: Benign. incisional abdominal hernia+ EXTREMITIES: No edema or cyanosis. AV graft in the left upper extremity. SKIN: No rash NEUROLOGIC: Grossly normal No Banda, No SP or CVA tenderness DIAGNOSIS/ASSESSMENT Assessment & Plan ESRD - On HD MWF, switched from PD in 2018 . Seen on dialysis, tolerating well. Continue as ordered. 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 Acute on chronic diastolic/systolic CHF: recent EF at 40% CAD: past CABG clinically stable HTN: controlled COMMENT/RELEVANT DATA Meds Current Medications Medications (Trade) Dose Ordered Sig/Wolf Start Time Stop Time Status Last Admin Dose Admin Acetaminophen (Tylenol) 650 mg PRN Q4HRS PRN 06/12/20 19:30 Albumin Human 200 ml @ 200 mls/hr 1X PRN PRN 06/14/20 09:00 06/14/20 14:59 Albuterol Sulfate (Ventolin Neb Soln) 2.5 mg PRN Q4HRS PRN 06/12/20 19:30 Aspirin (Ecotrin) 81 mg DAILY08 06/13/20 08:00 06/14/20 08:42 81 MG Dextrose (Dextrose 50%-Water Syringe) 12.5 gm PRN Q15MIN PRN 06/12/20 21:00 Docusate Sodium (Colace) 100 mg DAILY 06/13/20 09:00 06/14/20 08:42 100 MG Gabapentin (Neurontin) 100 mg HS 06/13/20 21:00 06/13/20 20:34 100 MG Guaifenesin (Robitussin) 200 mg PRN Q4HRS PRN 06/12/20 19:30 Heparin Sodium (Porcine) (Heparin Sodium) 5,000 unit Q8HRS 06/12/20 22:00 06/14/20 05:53 5,000 UNIT Info (PHARMACY MONITORING -- do not chart) 1 each PRN DAILY PRN 06/14/20 09:00 Insulin Human Lispro (HumaLOG) 0-5 UNITS TIDWMEALS 06/13/20 08:00 Lorazepam (Ativan) 0.5 mg PRN Q4HRS PRN 06/12/20 19:30 Morphine Sulfate (Morphine Sulfate) 4 mg 1X ONCE 06/12/20 16:30 06/12/20 16:32 DC 06/12/20 17:09 4 MG Ondansetron HCl (Zofran) 4 mg PRN Q6HRS PRN 06/12/20 21:45 Oxycodone HCl (OxyCONTIN) 10 mg BID 06/12/20 21:45 06/14/20 08:46 10 MG Oxycodone/ Acetaminophen (Percocet 5/325) 2 tab PRN TID PRN 06/12/20 21:45 06/13/20 11:14 2 TAB Piperacillin Sod/ Tazobactam Sod (Zosyn Per Pharmacy) 1 each PRN DAILY PRN 06/12/20 19:30 06/13/20 10:24 DC Piperacillin Sod/ Tazobactam Sod 2.25 gm/Sodium Chloride 50 ml @ 100 mls/hr Q8HRS 06/12/20 22:00 06/12/20 19:52 DC Polyethylene Glycol (miraLAX PACKET) 17 gm PRN DAILY PRN 06/12/20 21:45 Sevelamer Carbonate (Renvela) 800 mg TIDWMEALS 06/13/20 08:00 06/14/20 08:42 800 MG Simvastatin (Zocor) 10 mg QHS 06/12/20 21:45 06/13/20 20:36 10 MG Sodium Chloride 1,000 ml @ 400 mls/hr Q2H30M PRN 06/14/20 09:00 06/14/20 20:59 Sodium Chloride (Normal Saline Flush) 3 ml QSHIFT PRN 06/12/20 19:30 Vitamin A/Vitamin D (Vitamin A & D Ointment) 1 chriss PRN Q1HR PRN 06/12/20 21:45 Lab Laboratory Tests Test 06/13/20 11:43 06/13/20 16:40 06/13/20 20:54 06/14/20 05:35 Glucose (Fingerstick) 103 mg/dL (70-99) 120 mg/dL (70-99) 121 mg/dL (70-99) Erythrocyte Sedimentation Rate 35 (0-15) Sodium Level 140 mmol/L (136-145) Potassium Level 4.9 mmol/L (3.5-5.1) Chloride Level 99 mmol/L (98-107) Carbon Dioxide Level 29 mmol/L (21-32) Anion Gap 12 (6-14) Blood Urea Nitrogen 50 mg/dL (8-26) Creatinine 9.8 mg/dL (0.7-1.3) Estimated GFR (Cockcroft-Gault) 6.4 Glucose Level 77 mg/dL (70-99) Calcium Level 8.9 mg/dL (8.5-10.1) Test 06/14/20 07:03 Glucose (Fingerstick) 69 mg/dL (70-99) Results All relevant outside records, renal labs, imaging studies, telemetry/EKG's were reviewed. Justicifation of Admission Dx: Justifications for Admission: Justification of Admission Dx: N/A WIL TORRES MD Jun 14, 2020 10:34
[2020-06-14 15:00] VITALS: BP 135/71
--- NOTE | 2020-06-14 15:11 | NUR ---
Pt. informed he is on the list to have echo done today and possible d/c home today. Pt. upset, states he is ready to go home now. Pt. called Dr. Dickens, pt is refusing to have echo done, stated he is going home. JOHNNIE Cortez contacted vimal Grimaldo,RN nursing manufacturing supervisor. Dana stated she will set up OP echo for pt.
--- NOTE | 2020-06-14 15:55 | NUR ---
Pt. discharged to home with rx, verbalized understanding of discharge instructions.
== END 2020-06-14 15:57 | disposition home or self-care (01) | DRG 551 ==
LOC: ER 14:43 → 4 NORTH 17:34
PROVIDERS: ADMIT Family Medicine; ATTEND Family Medicine
PROC: 5A1D70Z Performance of Urinary Filtration, Intermittent, Less than 6 Hours Per Day (ICD-10-PCS; principal; 2020-06-12)
PROC: 5A1D70Z Performance of Urinary Filtration, Intermittent, Less than 6 Hours Per Day (ICD-10-PCS; 2020-06-13)
PROC: 5A1D70Z Performance of Urinary Filtration, Intermittent, Less than 6 Hours Per Day (ICD-10-PCS; 2020-06-14)
DX: M54.5 Low back pain (principal); N18.6 End stage renal disease; I50.43 Acute on chronic combined systolic (congestive) and diastolic (congestive) heart failure; I13.2 Hypertensive heart and chronic kidney disease with heart failure and with stage 5 chronic kidney disease, or end stage renal disease; M19.90 Unspecified osteoarthritis, unspecified site; K21.9 Gastro-esophageal reflux disease without esophagitis; I25.10 Atherosclerotic heart disease of native coronary artery without angina pectoris; J44.9 Chronic obstructive pulmonary disease, unspecified; E11.22 Type 2 diabetes mellitus with diabetic chronic kidney disease; E78.5 Hyperlipidemia, unspecified; Z96.611 Presence of right artificial shoulder joint; Z51.5 Encounter for palliative care; E66.01 Morbid (severe) obesity due to excess calories; E11.69 Type 2 diabetes mellitus with other specified complication; G89.29 Other chronic pain; M51.36 Other intervertebral disc degeneration, lumbar region; Z68.31 Body mass index [BMI] 31.0-31.9, adult; Z86.79 Personal history of other diseases of the circulatory system; Z99.2 Dependence on renal dialysis; Z98.1 Arthrodesis status; Z95.1 Presence of aortocoronary bypass graft; Z87.891 Personal history of nicotine dependence; Z83.3 Family history of diabetes mellitus; Z82.49 Family history of ischemic heart disease and other diseases of the circulatory system
CPT/HCPCS: 36415; 80048; 80053; 82962; 83605; 84145; 85025; 85651; 86140; 87040; 87340; 96374; 96375; 99285; J1644; J1815; J2270; J2405; G0378

== ENCOUNTER 2021-01-19 16:23 | Inpatient (IN) | payer BC ==
[~2021-01-19] VITALS: Ht 177.8 cm; Wt 102.3 kg
[~2021-01-19 16:23] MED LIST changes: +CYCL10TA19 PO; -CYCL10TA2 PO; +DICY20TA PO; -DICY20TA3 PO; +DOXY-181 PO; -DOXY100C14 PO; +INSU100V35 SQ; -LISI-517 PO; +LISI5TAB15 PO
[2021-01-19] MEDS ORDERED: IPRATRPIUM/ALBUTEROL 0.5/2.5MG 3 ML NEBU. NEB ONE (16:45)
--- NOTE | 2021-01-19 16:56 | PHYS DOC ---
Past Medical History Past Medical History: CAD, CHF, COPD, Diabetes-Type II, Hypertension, Renal Disease, Renal Failure, Other Additional Past Medical Histor: Chronic BACK/neck pain,L UPPER ARM FISTUL A,CRF,ESRD,DISKITIS,OSTEOMYELITIS Past Surgical History: Coronary Bypass Surgery, Other Additional Past Surgical Histo: R middle/lower lobe lung removal,vein graft left thigh,SHUNT RT CHEST Smoking Status: Former Smoker Alcohol Use: None Drug Use: None General Adult EDM: Chief Complaint: SHORTNESS OF BREATH HPI: HPI: Patient is a 70 year old male who presents with dyspnea, which began abruptly a couple of hours ago. He is wheezing. He denies cough. Denies chest pain. He has a history of COPD and congestive heart failure. He dialyzed earlier today, and reports the fluid was removed. He reports compliance with all medications. He has a previous history of smoking but had quit several years ago. He is markedly tachypneic, markedly dyspneic, repeatedly states "I cannot breathe. I cannot breathe." He has chronic lower extremity swelling, which is unchanged. He denies recent hospitalizations, denies recent sick contacts. Denies hemoptysis. Denies syncope. He does not usually require supplemental oxygen therapy, per his report. Review of Systems: Review of Systems: Constitutional: Denies fever or chills. [] Eyes: Denies change in visual acuity. [] HENT: Denies nasal congestion or sore throat. [] Respiratory: Reports severe dyspnea, wheezing, dry cough. Cardiovascular: Denies chest pain. Chronic lower extremity edema GI: Denies abdominal pain, nausea, vomiting Musculoskeletal: Denies back pain or joint pain. Bilateral lower extremity swelling. Integument: Bilateral lower extremity stasis dermatitis. Neurologic: Denies headache, focal weakness or sensory changes. [] Psychiatric: Severe anxiety as it pertains to current acute illness. [] Heart Score: C/O Chest Pain: No Risk Factors: Risk Factors: DM, Current or recent (<one month) smoker, HTN, HLP, family history of CAD, obesity. Risk Scores: Score 0 - 3: 2.5% MACE over next 6 weeks - Discharge Home Score 4 - 6: 20.3% MACE over next 6 weeks - Admit for Clinical Observation Score 7 - 10: 72.7% MACE over next 6 weeks - Early Invasive Strategies Current Medications: Current Medications Medications (Trade) Dose Ordered Sig/Wolf Start Time Stop Time Status Last Admin Dose Admin Albuterol/ Ipratropium (Duoneb) 3 ml 1X ONCE 01/19/21 16:45 01/19/21 16:46 DC 01/19/21 16:53 3 ML Allergies: Allergies: Allergies Coded Allergies Type Severity Reaction Last Updated Verified No Known Drug Allergies 06/30/19 No Physical Exam: PE: Constitutional: The patient is acutely ill-appearing, he is in severe resp iratory distress. He is also chronically ill-appearing. HENT: Normocephalic, atraumatic, or pharynx is patent and clear. Mucous membranes are moist. Neck: Trachea is midline, neck is nontender, neck is supple Cardiovascular: Regular rate and rhythm, +2 radial pulses. Lungs & Thorax: He is in acute respiratory distress, marked tachypnea, marked intercostal and supraclavicular retractions. Diffuse bilateral inspiratory and expiratory wheezing, with markedly diminished breath sounds bilaterally. No stridor. No palpable crepitus or subcutaneous emphysema of the chest or thorax. He does speak in 1-3 word short sentences. Abdomen: Abdomen soft, obese, nondistended, nontender Skin: Bilateral lower extremity venous stasis dermatitis. No large open wounds, no warmth or erythema. Back: No deformity, no tenderness Extremities: Bilateral lower extremity lymphedema. No calf tenderness. Bilateral lower extremity stasis dermatitis. Neurologic: He is alert, awake, oriented to person, place, situation, no facial asymmetry, moves all 4 extremities equally, follows commands, localizes to pain Psychologic: Anxious. Current Patient Data: Vital Signs: Vital Signs Date Time Temp Pulse Resp B/P (MAP) Pulse Ox O2 Delivery O2 Flow Rate FiO2 01/19/21 16:23 105 28 100 Nasal Cannula 6.0 EKG: EKG: EKG is interpreted at 1726 Rhythm is sinus Rate is 85 bpm [place] is left No STEMI Radiology/Procedures: Radiology/Procedures: [] Course & Med Decision Making: Course & Med Decision Making Pertinent Labs and Imaging studies reviewed. (See chart for details) The patient is placed on BiPAP shortly after arrival. He is given a DuoNeb. He is markedly improved almost immediately. It took quite a while to obtain IV access. He is given IV Solu-Medrol. He is now speaking in full and clear sentences. Oxygen saturation was 100% on BiPAP. He is no longer in any significant distress. He is smiling, briskly conversant, reports feeling much better. He continues to deny any chest pain. He is no longer complaining of any dyspnea. He expresses significant gratitude for helping him. Blood cultures are obtained. On his chest x-ray, there does appear to be right-sided atelectasis, cardiomegaly and some chronic appearing changes. Questionable associated right sided infiltrate. He is empirically given antibiotics for COPD exacerbation, I ordered IV Rocephin and p.o. azithromycin. I have explained that he requires admission to the hospital. He is comfortable with this plan. He is accepted for admission by Dr. Tran. Maxwell Disclaimer: Maxwell Disclaimer: This electronic medical record was generated, in whole or in part, using a voice recognition dictation system. Departure Departure Impression: Primary Impression: Respiratory failure Additional Impressions: COPD exacerbation End stage renal disease Disposition: ADMITTED INPATIENT Admitting Physician: JESSICA Condition: GUARDED Referrals: LAMBERT ORTIZ MD (PCP) STEVE GUAMAN DO Jan 19, 2021 16:56
[2021-01-19] MEDS ORDERED: methylPREDNISolone SOD SUCC PF 125 MG/2 ML VIAL. IV ONE (17:00)
[2021-01-19 17:10] LABS: BASE EXCESS COOX 2 mmol/L (-3-3); HCO3 COOX 27 mmol/L (21-28); METHEMOGLOBIN 0.2 % (0.0-1.9); OXYHEMOGLOBIN 98.4 %; PCO2 COOX 47 mmHg (35-46); PO2 COOX 237 mmHg (65-108); SAT O2 COOX 99 % (92-99)
[2021-01-19 17:47] LABS: INFLUENZA A PATIENT NEGATIVE (NEGATIVE); INFLUENZA B PATIENT NEGATIVE (NEGATIVE)
--- NOTE | 2021-01-19 18:03 | EKG ---
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
[2021-01-19] MEDS ORDERED: ONDANSETRON PF 4 MG/2 ML VIAL. IVP PRN (18:30)
[2021-01-19 18:54] LABS: BASO % 0 % (0-3); EOS # 0.1 x10^3/uL (0.0-0.7); EOS % 1 % (0-3); HEMATOCRIT 24.8 % (39.0-53.0); HEMOGLOBIN 8.2 g/dL (13.0-17.5); LYMPH # 0.8 x10^3/uL (1.0-4.8); LYMPH % 10 % (24-48); MEAN CORPUSCULAR HEMOGLOBIN 35 pg (25-35); MEAN CORPUSCULAR HGB CONC 33 g/dL (31-37); MEAN CORPUSCULAR VOLUME 106 fL (79-100); MONO # 0.5 x10^3/uL (0.0-1.1); MONO % 7 % (0-9); NEUT # 6.5 x10^3/uL (1.8-7.7); NEUT % 82 % (31-73); PLATELET COUNT 135 x10^3/uL (140-400); RED BLOOD COUNT 2.35 x10^6/uL (4.30-5.70); RED CELL DISTRIBUTION WIDTH 16.1 % (11.5-14.5)
[2021-01-19 19:00] LABS: CALCIUM 9.1 mg/dL (8.5-10.1); CREATININE 9.3 mg/dL (0.7-1.3); GFR 6.8; POTASSIUM 5.2 mmol/L (3.5-5.1)
[2021-01-19 19:04] LABS: PROTHROMBIN TIME PATIENT 14.2 SEC (11.7-14.0)
[2021-01-19 19:06] LABS: ALBUMIN 3.5 g/dL (3.4-5.0); ALBUMIN/GLOBULIN RATIO 0.8 (1.0-1.7); MAGNESIUM 2.4 mg/dL (1.8-2.4); TOTAL BILIRUBIN 0.4 mg/dL (0.2-1.0); TOTAL PROTEIN 7.7 g/dL (6.4-8.2)
[2021-01-19 19:14] LABS: CREATINE KINASE 50 U/L (39-308)
[2021-01-19] MEDS ORDERED: AZITHROMYCIN 250 MG TABLET. PO ONE (19:30)
[2021-01-19] MEDS ORDERED: cefTRIAXone IV Push 1 GM VIAL. IVP ONE (19:30)
--- NOTE | 2021-01-19 20:36 | PDOC1 ---
History and Physical Date of Admission Date of Admission DATE: 01/19/21 TIME: 20:32 Identification/Chief Complaint Chief Complaint cant breathe Source Source: Chart review, Patient History of Present Illness History of Present Illness Mr. Gaston, is a 70 year old male admit in respiratory distress,. Sudden onset of wheezing and dyspnea, he has no cough and no fever. He had COPD in 2004 with asthma, was hospitalzied at [facility] but got markedly better when he quit smoking and he has had no problem since, and got off oxygen that year. He used to weigh about 100 lbs more and has chronic LE lymphedema that he says is normal for him he was in extremis on presentation and bipap placed and he feels much better. 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 Past Medical History Cardiovascular: CAD, HTN, Hyperlipidemia, Other Pulmonary: Asthma, Bronchitis, COPD CENTRAL NERVOUS SYSTEM: Periperal neuropathy GI: GERD, GI bleed, Gastritis Heme/Onc: Anemia NOS Hepatobiliary: No pertinent hx Psych: No pertinent hx Musculoskeletal: low back pain Rheumatologic: No pertinent hx Infectious disease: Other Renal/: Chronic renal failure Endocrine: Diabetes Past Surgical History Past Surgical History: Cataract Removal, Other (he had right middle and lower lobes of his lung remvoed in 1989, benign tumor) Family History Family History: Diabetes Social History Smoke: Quit ALCOHOL: none Drugs: None Current Problem List Problem List Problems Medical Problems: (1) COPD exacerbation Status: Acute (2) End stage renal disease Status: Acute (3) Respiratory failure Status: Acute Current Medications Current Medications Current Medications Albuterol/ Ipratropium (Duoneb) 3 ml 1X ONCE NEB Last administered on 01/19/21at 16:53; Start 01/19/21 at 16:45; Stop 01/19/21 at 16:46; Status DC Methylprednisolone Sodium Succinate (SOLU-Medrol 125MG VIAL) 125 mg 1X ONCE IV Last administered on 01/19/21at 19:17; Start 01/19/21 at 17:00; Stop 01/19/21 at 17:01; Status DC Ondansetron HCl (Zofran) 4 mg PRN Q8HRS PRN IVP NAUSEA/VOMITING; Start 01/19/21 at 18:30; Stop 01/20/21 at 18:29 Albuterol/ Ipratropium (Duoneb) 3 ml Q4HRS W/A NEB ; Start 01/19/21 at 22:00 Methylprednisolone Sodium Succinate (SOLU-Medrol 125MG VIAL) 125 mg Q6HRS IV ; Start 01/20/21 at 00:00 Ceftriaxone Sodium (Rocephin) 2 gm 1X ONCE IVP ; Start 01/19/21 at 19:30; Stop 01/19/21 at 19:31; Status DC Azithromycin (Zithromax) 500 mg 1X ONCE PO ; Start 01/19/21 at 19:30; Stop 01/19/21 at 19:31; Status DC Active Scripts Active Admelog (Insulin Lispro) 100 Unit/1 Ml Vial 10 Units SQ TIDWMEALS 10 Days Gabapentin (Gabapentin) 100 Mg Capsule 100 Mg PO HS 30 Days Percocet 5-325 Mg Tablet (Oxycodone/Acetaminophen) 1 Each Tablet 1-2 Each PO PRN TID PRN pain Oxycontin (Oxycodone HCl) 10 Mg Tab.er.12h 1 Tab PO BID PRN MDD 2 Tablet(s) A and D Ointment (Vits A and D/White Pet/Lanolin) 42.5 Gm Oint...g. 1 Brad TP PRN Q1HR PRN 14 Days Gabapentin 300 Mg Capsule 300 Mg PO TID 30 Days Colace (Docusate Sodium) 100 Mg Capsule 100 Mg PO DAILY Polyethylene Glycol 3350 17 Gm Powd.pack 17 Gm PO PRN DAILY PRN Reported Simvastatin 10 Mg Tablet 1 Tab PO QHS Aspir 81 (Aspirin) 81 Mg Tablet.dr 1 Tab PO DAILY Renvela (Sevelamer Carbonate) 800 Mg Tablet 1 Tab PO TID Allergies Allergies: Coded Allergies: No Known Drug Allergies (Unverified , 06/30/19) ROS General: YES: Chills, Malaise; No: Night Sweats, Fatigue, Appetite, Other PSYCHOLOGICAL ROS: No: Anxiety, Behavioral Disorder, Concentration difficultie, Decreased libido, Depression, Disorientation, Hallucinations, Hostility, Irritablity, Memory difficulties, Mood Swings, Obsessive thoughts, Physical abuse, Sexual abuse, Sleep disturbances, Suicidal ideation, Other Eyes: No Blurry vision, No Decreased vision, No Double vision, No Dry eyes, No Excessive tearing, No Eye Pain, No Itchy Eyes, No Loss of vision, No Photophobia, No Scotomata, No Uses contacts, No Uses glasses, No Other HEENT: No: Heacaches, Visual Changes, Hearing change, Nasal congestion, Nasal discharge, Oral lesions, Sinus pain, Sore Throat, Epistaxis, Sneezing, Snoring, Tinnitus, Vertigo, Vocal changes, Other Respiratory: YES: Shortness of breath, SOB with excertion; No: Cough, Hemoptysis, Orthopnea, Pleuritic Pain, Sputum Changes, Stridor, Tachypnea, Wheezing, Other Cardiovascular: yes Edema (stable, chronic lymph); No Chest Pain, No Palpitations, No Orthopnea, No Paroxysmal Noc. Dyspnea, No Lt Headedness, No Other Gastrointestinal: Yes Nausea; No Vomiting, No Abdominal Pain, No Diarrhea, No Constipation, No Melena, No Hematochezia, No Other Genitourinary: No Dysuria, No Frequency, No Incontinence, No Hematuria, No Retention, No Discharge, No Urgency, No Pain, No Flank Pain, No Other, No , No , No , No , No , No , No Musculoskeletal: Yes Joint Stiffness; No Gait Disturbance, No Joint Pain, No Joint Swelling, No Muscle Pain, No Muscular Weakness, No Pain In:, No Swelling In:, No Other Neurological: No Behavorial Changes, No Bowel/Bladder ControlChng, No Confusion, No Dizziness, No Gait Disturbance, No Headaches, No Impaired Coord/balance, No Memory Loss, No Numbness/Tingling, No Seizures, No Speech Problems, No Tremors, No Visual Changes, No Weakness, No Other Skin: No Dry Skin, No Eczema, No Hair Changes, No Lumps, No Mole Changes, No Mottling, No Nail Changes, No Pruritus, No Rash, No Skin Lesion Changes, No Other, No Acne Physical Exam General: Alert, Oriented X3, Cooperative, moderate distress HEENT: Atraumatic, PERRLA Lungs: Other (rales, wheeze, moderate volunme, no pain or cough) Abdomen: Normal bowel sounds, Soft Extremities: No cyanosis, Normal pulses, Other (chronci LE, with skin change ) Neuro: Normal speech, Sensation intact Psych/Mental Status: Mental status NL, Mood NL Vitals Vitals Vital Signs Date Time Temp Pulse Resp B/P (MAP) Pulse Ox O2 Delivery O2 Flow Rate FiO2 01/19/21 19:40 66 169/84 (112) 100 Room Air 01/19/21 16:23 98.7 28 6.0 98.7 Labs Labs Laboratory Tests Test 01/19/21 17:08 01/19/21 17:17 01/19/21 18:30 O2 Saturation 99 % (92-99) Arterial Blood pH 7.38 (7.35-7.45) Arterial Blood pCO2 at Patient Temp 47 mmHg (35-46) Arterial Blood pO2 at Patient Temp 237 mmHg (65-108) Arterial Blood HCO3 27 mmol/L (21-28) Arterial Blood Base Excess 2 mmol/L (-3-3) Oxyhemoglobin 98.4 % Methemoglobin 0.2 % (0.0-1.9) Carbon Monoxide, Quantitative 0.3 % (0.0-1.9) FiO2 60 bipap Influenza Type A Antigen Negative (NEGATIVE) Influenza Type B Antigen Negative (NEGATIVE) White Blood Count 8.0 x10^3/uL (4.0-11.0) Red Blood Count 2.35 x10^6/uL (4.30-5.70) Hemoglobin 8.2 g/dL (13.0-17.5) Hematocrit 24.8 % (39.0-53.0) Mean Corpuscular Volume 106 fL (79-100) Mean Corpuscular Hemoglobin 35 pg (25-35) Mean Corpuscular Hemoglobin Concent 33 g/dL (31-37) Red Cell Distribution Width 16.1 % (11.5-14.5) Platelet Count 135 x10^3/uL (140-400) Neutrophils (%) (Auto) 82 % (31-73) Lymphocytes (%) (Auto) 10 % (24-48) Monocytes (%) (Auto) 7 % (0-9) Eosinophils (%) (Auto) 1 % (0-3) Basophils (%) (Auto) 0 % (0-3) Neutrophils # (Auto) 6.5 x10^3/uL (1.8-7.7) Lymphocytes # (Auto) 0.8 x10^3/uL (1.0-4.8) Monocytes # (Auto) 0.5 x10^3/uL (0.0-1.1) Eosinophils # (Auto) 0.1 x10^3/uL (0.0-0.7) Basophils # (Auto) 0.0 x10^3/uL (0.0-0.2) Prothrombin Time 14.2 SEC (11.7-14.0) Prothromb Time International Ratio 1.1 (0.8-1.1) Sodium Level 139 mmol/L (136-145) Potassium Level 5.2 mmol/L (3.5-5.1) Chloride Level 100 mmol/L (98-107) Carbon Dioxide Level 31 mmol/L (21-32) Anion Gap 8 (6-14) Blood Urea Nitrogen 33 mg/dL (8-26) Creatinine 9.3 mg/dL (0.7-1.3) Estimated GFR (Cockcroft-Gault) 6.8 BUN/Creatinine Ratio 4 (6-20) Glucose Level 118 mg/dL (70-99) Lactic Acid Level 1.2 mmol/L (0.4-2.0) Calcium Level 9.1 mg/dL (8.5-10.1) Magnesium Level 2.4 mg/dL (1.8-2.4) Total Bilirubin 0.4 mg/dL (0.2-1.0) Aspartate Amino Transf (AST/SGOT) 9 U/L (15-37) Alanine Aminotransferase (ALT/SGPT) 15 U/L (16-63) Alkaline Phosphatase 65 U/L (46-116) Creatine Kinase 50 U/L (39-308) Creatine Kinase MB (Mass) 0.5 ng/mL (0.0-3.6) Creatine Kinase MB Relative Index % (0-4) Troponin I High Sensitivity 25 ng/L (4-75) AY-Knk-J-Type Natriuretic Peptide 72745 pg/mL (0-124) Total Protein 7.7 g/dL (6.4-8.2) Albumin 3.5 g/dL (3.4-5.0) Albumin/Globulin Ratio 0.8 (1.0-1.7) Lipase 36 U/L (73-393) Laboratory Tests Test 01/19/21 17:08 01/19/21 17:17 01/19/21 18:30 O2 Saturation 99 % (92-99) Arterial Blood pH 7.38 (7.35-7.45) Arterial Blood pCO2 at Patient Temp 47 mmHg (35-46) Arterial Blood pO2 at Patient Temp 237 mmHg (65-108) Arterial Blood HCO3 27 mmol/L (21-28) Arterial Blood Base Excess 2 mmol/L (-3-3) Oxyhemoglobin 98.4 % Methemoglobin 0.2 % (0.0-1.9) Carbon Monoxide, Quantitative 0.3 % (0.0-1.9) FiO2 60 bipap Influenza Type A Antigen Negative (NEGATIVE) Influenza Type B Antigen Negative (NEGATIVE) White Blood Count 8.0 x10^3/uL (4.0-11.0) Red Blood Count 2.35 x10^6/uL (4.30-5.70) Hemoglobin 8.2 g/dL (13.0-17.5) Hematocrit 24.8 % (39.0-53.0) Mean Corpuscular Volume 106 fL (79-100) Mean Corpuscular Hemoglobin 35 pg (25-35) Mean Corpuscular Hemoglobin Concent 33 g/dL (31-37) Red Cell Distribution Width 16.1 % (11.5-14.5) Platelet Count 135 x10^3/uL (140-400) Neutrophils (%) (Auto) 82 % (31-73) Lymphocytes (%) (Auto) 10 % (24-48) Monocytes (%) (Auto) 7 % (0-9) Eosinophils (%) (Auto) 1 % (0-3) Basophils (%) (Auto) 0 % (0-3) Neutrophils # (Auto) 6.5 x10^3/uL (1.8-7.7) Lymphocytes # (Auto) 0.8 x10^3/uL (1.0-4.8) Monocytes # (Auto) 0.5 x10^3/uL (0.0-1.1) Eosinophils # (Auto) 0.1 x10^3/uL (0.0-0.7) Basophils # (Auto) 0.0 x10^3/uL (0.0-0.2) Prothrombin Time 14.2 SEC (11.7-14.0) Prothromb Time International Ratio 1.1 (0.8-1.1) Sodium Level 139 mmol/L (136-145) Potassium Level 5.2 mmol/L (3.5-5.1) Chloride Level 100 mmol/L (98-107) Carbon Dioxide Level 31 mmol/L (21-32) Anion Gap 8 (6-14) Blood Urea Nitrogen 33 mg/dL (8-26) Creatinine 9.3 mg/dL (0.7-1.3) Estimated GFR (Cockcroft-Gault) 6.8 BUN/Creatinine Ratio 4 (6-20) Glucose Level 118 mg/dL (70-99) Lactic Acid Level 1.2 mmol/L (0.4-2.0) Calcium Level 9.1 mg/dL (8.5-10.1) Magnesium Level 2.4 mg/dL (1.8-2.4) Total Bilirubin 0.4 mg/dL (0.2-1.0) Aspartate Amino Transf (AST/SGOT) 9 U/L (15-37) Alanine Aminotransferase (ALT/SGPT) 15 U/L (16-63) Alkaline Phosphatase 65 U/L (46-116) Creatine Kinase 50 U/L (39-308) Creatine Kinase MB (Mass) 0.5 ng/mL (0.0-3.6) Creatine Kinase MB Relative Index % (0-4) Troponin I High Sensitivity 25 ng/L (4-75) XA-Mby-S-Type Natriuretic Peptide 00965 pg/mL (0-124) Total Protein 7.7 g/dL (6.4-8.2) Albumin 3.5 g/dL (3.4-5.0) Albumin/Globulin Ratio 0.8 (1.0-1.7) Lipase 36 U/L (73-393) VTE Prophylaxis Ordered VTE Prophylaxis Devices: Yes VTE Pharmacological Prophylaxi: Yes Assessment/Plan Assessment/Plan acute hypercarbic respiratory failure COPD with acute exacerbation, bronchitis CAD, CHF, Diabetes-Type II, Hypertension, End stage Renal Disease on HD, had dialysis today, left arm fistula Chronic BACK/neck pain, OA s/p lung lobectomy 1989, benign Justifications for Admission Other Justification acute discitis DAWSON NAQVI MD Jan 19, 2021 20:36
--- NOTE | 2021-01-19 20:44 | RAD ---
Exam: Chest one view INDICATION: Chest pain TECHNIQUE: Frontal view of the chest Comparisons: 10/07/2019 FINDINGS: Sternotomy wires are noted. Heart is enlarged pulmonary vessels are within normal limits. Patchy bilateral airspace disease. No pleural effusion IMPRESSION: Patchy bilateral airspace disease favored be infectious or inflammatory in etiology. Electronically signed by: Tania Lim MD (01/19/2021 8:42 PM) DAVID
[2021-01-19 21:00] VITALS: BP 158/79
--- NOTE | 2021-01-19 21:20 | NUR ---
The patient, ARGELIA RODAS, 70 y/o, M admitted by DAWSON NAQVI MD, was given written information regarding hospital policies, unit procedures and contact persons. Pt ambulated to bed with stand by assist to bed. site monitor applied poc explained pt denied pain at this time but c/o sob pt has bipap on spo2 92%. Assessment completed vs obtained and stable. Pt noted to have bilateral lower ext edema with dryness to extremities and healed areas secondary to blisters. Pt oriented to surroundings and call light will resume care and continue to monitor pt. Dr Naqvi on unit and further orders obtained.
[2021-01-19] MEDS ORDERED: ATOR10TA60 PO (21:42)
[2021-01-19] MEDS ORDERED: CARV6.25 PO (21:42)
[2021-01-19] MEDS ORDERED: OXYC1TAB22 PO (21:42)
[2021-01-19] MEDS ORDERED: LISI5TAB15 PO (21:42)
[2021-01-19] MEDS ORDERED: CYANOCOBALAMIN (VITAMIN B-12) 1,000 MCG/ML VIAL. IM ONE (21:45)
[2021-01-19] MEDS ORDERED: IPRATRPIUM/ALBUTEROL 0.5/2.5MG 3 ML NEBU. NEB SCH (22:00)
[2021-01-19] MEDS ORDERED: ATORVASTATIN CALCIUM 10 MG TABLET. PO SCH (22:15)
[2021-01-19] MEDS: oxyCODONE/APAP 10/325 1 TAB TABLET PO PRN (22:17)
[2021-01-19 23:00] VITALS: BP 140/89
[2021-01-19] MEDS: methylPREDNISolone SOD SUCC PF 125 MG/2 ML VIAL. IV SCH (23:31)
[2021-01-19] MEDS ORDERED: cefTRIAXone IV Push 2 GM VIAL. IVP ONE (23:45)
[2021-01-20 03:00] VITALS: BP 145/86
[2021-01-20 04:13] LABS: BASO % 0 % (0-3); EOS % 0 % (0-3); HEMATOCRIT 24.9 % (39.0-53.0); HEMOGLOBIN 8.4 g/dL (13.0-17.5); LYMPH # 0.5 x10^3/uL (1.0-4.8); LYMPH % 11 % (24-48); MEAN CORPUSCULAR HEMOGLOBIN 35 pg (25-35); MEAN CORPUSCULAR HGB CONC 34 g/dL (31-37); MEAN CORPUSCULAR VOLUME 105 fL (79-100); MONO # 0.1 x10^3/uL (0.0-1.1); MONO % 2 % (0-9); NEUT # 3.9 x10^3/uL (1.8-7.7); NEUT % 87 % (31-73); PLATELET COUNT 129 x10^3/uL (140-400); RED BLOOD COUNT 2.36 x10^6/uL (4.30-5.70); RED CELL DISTRIBUTION WIDTH 16.1 % (11.5-14.5); WHITE BLOOD COUNT 4.5 x10^3/uL (4.0-11.0)
[2021-01-20 04:32] LABS: ALBUMIN 3.3 g/dL (3.4-5.0); ALBUMIN/GLOBULIN RATIO 0.7 (1.0-1.7); GFR 6.3; TOTAL BILIRUBIN 0.4 mg/dL (0.2-1.0); TOTAL PROTEIN 7.8 g/dL (6.4-8.2)
[2021-01-20 04:47] LABS: POTASSIUM 6.1 mmol/L (3.5-5.1)
[2021-01-20] MEDS: methylPREDNISolone SOD SUCC PF 125 MG/2 ML VIAL. IV SCH (05:37)
[2021-01-20 07:00] VITALS: BP 147/83
[2021-01-20] MEDS ORDERED: CARVEDILOL 6.25 MG TABLET. PO SCH (08:00)
[2021-01-20] MEDS: SEVELAMER CARBONATE 800 MG TABLET. PO SCH ×2 (08:03→14:59)
[2021-01-20] MEDS: oxyCODONE/APAP 10/325 1 TAB TABLET PO PRN (08:10)
[2021-01-20] MEDS ORDERED: AZITHROMYCIN 250 MG TABLET. PO SCH (09:00)
[2021-01-20] MEDS ORDERED: LACTOBACILLUS RHAMNOSUS GG 1 CAPSULE. PO SCH (09:00)
[2021-01-20] MEDS ORDERED: ATORVASTATIN CALCIUM 10 MG TABLET. PO SCH (09:00)
[2021-01-20] MEDS ORDERED: LISINOPRIL 5 MG TABLET. PO SCH (09:00)
[2021-01-20] MEDS ORDERED: ASPIRIN ENTERIC COATED 81 MG TABLET.DR. PO SCH (09:00)
--- NOTE | 2021-01-20 09:43 | CONS ---
DATE OF CONSULTATION: 01/20/2021 REASON FOR CONSULTATION: I was asked to see this 70-year-old gentleman for acute respiratory failure. HISTORY OF PRESENT ILLNESS: He is currently on BiPAP and it is difficult to get information from him, but he states that he has history of [id number] smoking, stopped smoking in 2005. He has COPD. He has end-stage renal disease and is on dialysis on Friday, Friday and Friday. He did get dialysis yesterday. He presented to the Emergency Room with shortness of breath a couple of hours before presentation. He also had wheezing. He has occasional cough. Denies fever and chills. PAST MEDICAL HISTORY: Coronary artery disease, CHF. He has diastolic and systolic CHF, COPD, diabetes mellitus, hypertension, end-stage renal disease, on hemodialysis. He has a history of right middle and lower lobectomy for benign disease in . ALLERGIES: No known drug allergies. MEDICATIONS: Currently, he is on Rocephin, azithromycin, Solu-Medrol 125 mg every 6 hours, DuoNeb. SOCIAL HISTORY: History of 25-dhua-ifwk smoking, quit smoking in 2005. FAMILY HISTORY: Hypertension. REVIEW OF SYSTEMS: As mentioned as above. He is not on oxygen at home. Other systems otherwise negative. PHYSICAL EXAMINATION: GENERAL: He is on BiPAP 16/8, 40% FiO2. His shortness of breath has improved. He is not tachypneic. His temperature 97.9, heart rate 69, respiratory rate 20, blood pressure 147/83, O2 saturation 94%. HEENT: Normocephalic, atraumatic. Pupils equal, round, reactive to light. There is a BiPAP mask on. NECK: There is no JVD. No lymphadenopathy or thyromegaly. CARDIOVASCULAR: Regular rate and rhythm. CHEST: Inspection is normal. LUNGS: There are bibasilar crackles, dullness at the bases. ABDOMEN: Soft. Bowel sounds are good. EXTREMITIES: There are chronic changes. He has chronic lymphedema. SKIN: Chronic changes. NEUROLOGIC: Alert and oriented. LABORATORY DATA: I reviewed the following lab data: Chest x-ray shows bilateral infiltrate. COVID rapid testing is negative. Influenza A and B are negative. This morning, sodium 139, potassium 6.1, chloride 100, CO2 of 31, BUN 39, creatinine 10. BNP 24,653. Troponin 37, 36 within normal limit. AST 7, ALT 13, alkaline phosphatase 65. WBC 4.5, hemoglobin 8.4, platelets 129. ABG at 1700 yesterday, pH 7.38, pCO2 of 47, pO2 of 237 on BiPAP 60%. IMPRESSION: 1. Acute hypoxemic respiratory failure, multifactorial in etiology including acute systolic and diastolic congestive heart failure, acute exacerbation of chronic obstructive pulmonary disease, rule out pneumonia. 2. Abnormal chest x-ray. 3. Acute systolic and diastolic congestive heart failure. 4. Acute exacerbation of chronic obstructive pulmonary disease. 5. Coronary artery disease. 6. History of diskitis. 7. End-stage renal disease, on hemodialysis. 8. Hyperkalemia. PLAN AND RECOMMENDATIONS: 1. Titrate FiO2 to keep O2 saturation 90%. 2. BiPAP p.r.n. during day and continuously at night. We will try without BiPAP. 3. Agree with emergent hemodialysis. 4. Continue Rocephin and azithromycin for now. 5. We will change Solu-Medrol to 40 mg IV every 8 hours. 6. Continue not smoking. 7. Lovenox for DVT prophylaxis. 8. Protonix for stress ulcer prophylaxis. 9. Nephrology and Cardiology consultation. Thank you very much for allowing me to participate in care of this very nice gentleman. The findings and recommendations were discussed with the patient and RN. ROBERT/TU SEGOVIA: ROBERT/connie TID: [id number]
[2021-01-20] MEDS ORDERED: ALBUMIN HUMAN 25% 200 ML IV PRN (10:30)
[2021-01-20] MEDS ORDERED: IV NORMAL SALINE 1000ML BAG 1,000 ML IV PRN ×2 (10:30)
[2021-01-20] MEDS ORDERED: DIALYSIS PATIENT. MC PRN ×2 (11:45)
--- NOTE | 2021-01-20 11:55 | PDOC2 ---
CONSULT Date of Consult Date of Consult DATE: 01/20/21 TIME: 11:49 Reason for Consult Reason for Consult: Acute renal failure (however patient carries a diagnosis of ESRD and has been on dialysis for 4 years) Referring Physician Referring Physician: Marc Identification/Chief Complaint Chief Complaint Shortness of breath Source Source: Chart review, Patient History of Present Illness Reason for Visit: Patient is a pleasant 70-year-old -[place] gentleman with known ESRD secondary to diabetes and hypertension. He has been on dialysis for 4 years. He initially started off with peritoneal dialysis but has transition to hemodialysis in the last few years. He dialyzes on a Friday basis at [facility] under the care of Dr. Howell. He claims he stepped out of the bathroom and was noted to have broken out into a sweat. He was also increasingly weak with shortness of breath and had some symptoms of a sore throat. He was brought to the hospital for further evaluation he was hence unable to go to dialysis yesterday. We were asked to finish his dialysis today. He has been seen by pulmonology. Past Medical History Cardiovascular: CAD, HTN, Hyperlipidemia, Other Pulmonary: Asthma, Bronchitis, COPD CENTRAL NERVOUS SYSTEM: Periperal neuropathy GI: GERD, GI bleed, Gastritis Heme/Onc: Anemia NOS Hepatobiliary: No pertinent hx Psych: No pertinent hx Musculoskeletal: low back pain Rheumatologic: No pertinent hx Infectious disease: Other Renal/: Chronic renal failure Endocrine: Diabetes Past Surgical History Past Surgical History: Cataract Removal, Other (he had right middle and lower lobes of his lung remvoed in 1989, benign tumor) Family History Family History: Diabetes, Hypertension Social History Quit ALCOHOL: none Drugs: None Lives: with Family Domestic Violence: Neg Current Problem List Problem List Problems Medical Problems: (1) COPD exacerbation Status: Acute (2) End stage renal disease Status: Acute (3) Respiratory failure Status: Acute Current Medications Current Medications Current Medications Albuterol/ Ipratropium (Duoneb) 3 ml 1X ONCE NEB Last administered on 01/19/21at 16:53; Start 01/19/21 at 16:45; Stop 01/19/21 at 16:46; Status DC Methylprednisolone Sodium Succinate (SOLU-Medrol 125MG VIAL) 125 mg 1X ONCE IV Last administered on 01/19/21at 19:17; Start 01/19/21 at 17:00; Stop 01/19/21 at 17:01; Status DC Ondansetron HCl (Zofran) 4 mg PRN Q8HRS PRN IVP NAUSEA/VOMITING; Start 01/19/21 at 18:30; Stop 01/20/21 at 18:29 Albuterol/ Ipratropium (Duoneb) 3 ml Q4HRS W/A NEB ; Start 01/19/21 at 22:00 Methylprednisolone Sodium Succinate (SOLU-Medrol 125MG VIAL) 125 mg Q6HRS IV Last administered on 01/20/21at 05:37; Start 01/20/21 at 00:00; Stop 01/20/21 at 08:58; Status DC Ceftriaxone Sodium (Rocephin) 2 gm 1X ONCE IVP ; Start 01/19/21 at 19:30; Stop 01/19/21 at 19:31; Status Cancel Azithromycin (Zithromax) 500 mg 1X ONCE PO Last administered on 01/19/21at 23:27; Start 01/19/21 at 19:30; Stop 01/19/21 at 19:31; Status DC Ceftriaxone Sodium (Rocephin) 1 gm QHS IVP ; Start 01/20/21 at 21:00 Azithromycin (Zithromax) 250 mg DAILY PO Last administered on 01/20/21at 08:03; Start 01/20/21 at 09:00 Aspirin (Ecotrin) 81 mg DAILY PO Last administered on 01/20/21at 08:02; Start 01/20/21 at 09:00 Atorvastatin Calcium (Lipitor) 10 mg DAILY PO ; Start 01/20/21 at 09:00; Stop 01/19/21 at 22:16; Status DC Carvedilol (Coreg) 6.25 mg BIDWMEALS PO Last administered on 01/20/21at 08:03; Start 01/20/21 at 08:00 Lisinopril (Prinivil) 5 mg DAILY PO Last administered on 01/20/21at 08:03; Start 01/20/21 at 09:00 Oxycodone/ Acetaminophen (Percocet 10/325) 1 tab PRN BID PRN PO PAIN Last administered on 01/20/21at 08:10; Start 01/19/21 at 21:45 Sevelamer Carbonate (Renvela) 800 mg TIDWMEALS PO Last administered on 01/20/21at 08:03; Start 01/20/21 at 08:00 Cyanocobalamin (Vitamin B-12 Inj) 1,000 mcg 1X ONCE IM Last administered on 01/19/21at 22:30; Start 01/19/21 at 21:45; Stop 01/19/21 at 22:01; Status DC Atorvastatin Calcium (Lipitor) 10 mg HS PO Last administered on 01/19/21at 22:28; Start 01/19/21 at 22:15 Ceftriaxone Sodium (Rocephin) 2 gm ONCE ONCE IVP Last administered on 01/19/21at 23:33; Start 01/19/21 at 23:45; Stop 01/19/21 at 23:46; Status DC Lactobacillus Rhamnosus (Culturelle) 1 cap BID PO Last administered on 01/20/21at 08:02; Start 01/20/21 at 09:00 Methylprednisolone Sodium Succinate (SOLU-Medrol 40MG VIAL) 40 mg Q8HRS IV ; Start 01/20/21 at 14:00 Sodium Chloride 1,000 ml @ 1,000 mls/hr Q1H PRN IV hypotension; Start 01/20/21 at 10:30; Stop 01/20/21 at 16:29; Status UNV Albumin Human 200 ml @ 200 mls/hr 1X PRN PRN IV Hypotension; Start 01/20/21 at 10:30; Stop 01/20/21 at 16:29; Status UNV Sodium Chloride 1,000 ml @ 400 mls/hr Q2H30M PRN IV PATENCY; Start 01/20/21 at 10:30; Stop 01/20/21 at 22:29; Status UNV Info (PHARMACY MONITORING -- do not chart) 1 each PRN DAILY PRN MC SEE COMMENTS; Start 01/20/21 at 11:45; Status UNV Info (PHARMACY MONITORING -- do not chart) 1 each PRN DAILY PRN MC SEE COMMENTS; Start 01/20/21 at 11:45; Status UNV Active Scripts Active Reported Atorvastatin Calcium 10 Mg Tablet 1 Tab PO HS Coreg (Carvedilol) 6.25 Mg Tablet 6.25 Mg PO BIDWMEALS Lisinopril 5 Mg Tablet 1 Tab PO DAILY Percocet 10-325 Mg Tablet (Oxycodone/Acetaminophen) 1 Each Tablet 1 Tab PO PRN BID PRN MDD 2 Tablet(s) 5 Days Aspir 81 (Aspirin) 81 Mg Tablet. 1 Tab PO DAILY Renvela (Sevelamer Carbonate) 800 Mg Tablet 1 Tab PO TID Allergies Allergies: Coded Allergies: No Known Drug Allergies (Unverified , 06/30/19) ROS Review of System 14 point review of system as per HPI otherwise negative Physical Exam Physical Exam General Appearance: Awake Alert Oriented x 3 In no Distress Eyes: VIsion Unchanged Conjunctiva Normal EN: No EN Drainage Mucous Memb. moist Neck: no JVD no JVP Supple no Thyromegaly CVS: S1 S2 soft Murmur No Gallop No Rub +++ Edema/lymphedema Resp: Few current basal Rales rare rhonchi no Acc. Muscle use GI: BAS +ve NO Bruit Non Tender Non Distended : No CVA tenderness; no suprapubic Tenderness SKIN: No visible petechial rashes Breast Exam deferred Mu.Sk: Adequate ROM no Muscle Atrophy Heme: Unable to palpate Obvious LAD no palpable splenomegaly NEURO: Good Strength and Tone Cranial Nerves II - XII grossly intact Psych: not Depressed no Active hallucination Vital Signs Vital Signs Date Time Temp Pulse Resp B/P (MAP) Pulse Ox O2 Delivery O2 Flow Rate FiO2 01/20/21 08:10 94 2.0 01/20/21 08:08 Nasal Cannula 01/20/21 08:03 64 145/86 01/20/21 07:00 97.9 20 97.9 Assessment & Plan ESRD: Seen on hemodialysis and tolerating well. Blood pressure was 114/68 with a heart rate of 63 respirations 14 and afebrile. See dialysis orders for details Anemia: Anticipate that he will need initiation of Epogen. We will transfuse with next HD as needed if hemoglobin drops below 7. May need IV iron based on current levels of iron saturation also. HTN: Current BP meds reviewed. See orders for changes. Abnormal chest x-ray may be suggestive of pulmonary edema. Will attempt to ultrafiltrate as best tolerated by blood pressures. Defer to pulmonology to evaluate for other etiologies of the same Chronic lymphedema: Unable to aggressively ultrafiltrate at this time Hyperkalemia: Anticipate correction with dialysis Discussed Plan of Care and prognosis etc. at length with patient during dialysis Labs Labs Laboratory Tests Test 01/19/21 17:08 01/19/21 17:17 01/19/21 17:47 01/19/21 18:30 O2 Saturation 99 % (92-99) Arterial Blood pH 7.38 (7.35-7.45) Arterial Blood pCO2 at Patient Temp 47 mmHg (35-46) Arterial Blood pO2 at Patient Temp 237 mmHg (65-108) Arterial Blood HCO3 27 mmol/L (21-28) Arterial Blood Base Excess 2 mmol/L (-3-3) Oxyhemoglobin 98.4 % Methemoglobin 0.2 % (0.0-1.9) Carbon Monoxide, Quantitative 0.3 % (0.0-1.9) FiO2 60 bipap Influenza Type A Antigen Negative (NEGATIVE) Influenza Type B Antigen Negative (NEGATIVE) SARS-CoV-2 Antigen (Rapid) Negative (NEGATIVE) White Blood Count 8.0 x10^3/uL (4.0-11.0) Red Blood Count 2.35 x10^6/uL (4.30-5.70) Hemoglobin 8.2 g/dL (13.0-17.5) Hematocrit 24.8 % (39.0-53.0) Mean Corpuscular Volume 106 fL (79-100) Mean Corpuscular Hemoglobin 35 pg (25-35) Mean Corpuscular Hemoglobin Concent 33 g/dL (31-37) Red Cell Distribution Width 16.1 % (11.5-14.5) Platelet Count 135 x10^3/uL (140-400) Neutrophils (%) (Auto) 82 % (31-73) Lymphocytes (%) (Auto) 10 % (24-48) Monocytes (%) (Auto) 7 % (0-9) Eosinophils (%) (Auto) 1 % (0-3) Basophils (%) (Auto) 0 % (0-3) Neutrophils # (Auto) 6.5 x10^3/uL (1.8-7.7) Lymphocytes # (Auto) 0.8 x10^3/uL (1.0-4.8) Monocytes # (Auto) 0.5 x10^3/uL (0.0-1.1) Eosinophils # (Auto) 0.1 x10^3/uL (0.0-0.7) Basophils # (Auto) 0.0 x10^3/uL (0.0-0.2) Prothrombin Time 14.2 SEC (11.7-14.0) Prothromb Time International Ratio 1.1 (0.8-1.1) Sodium Level 139 mmol/L (136-145) Potassium Level 5.2 mmol/L (3.5-5.1) Chloride Level 100 mmol/L (98-107) Carbon Dioxide Level 31 mmol/L (21-32) Anion Gap 8 (6-14) Blood Urea Nitrogen 33 mg/dL (8-26) Creatinine 9.3 mg/dL (0.7-1.3) Estimated GFR (Cockcroft-Gault) 6.8 BUN/Creatinine Ratio 4 (6-20) Glucose Level 118 mg/dL (70-99) Lactic Acid Level 1.2 mmol/L (0.4-2.0) Calcium Level 9.1 mg/dL (8.5-10.1) Magnesium Level 2.4 mg/dL (1.8-2.4) Total Bilirubin 0.4 mg/dL (0.2-1.0) Aspartate Amino Transf (AST/SGOT) 9 U/L (15-37) Alanine Aminotransferase (ALT/SGPT) 15 U/L (16-63) Alkaline Phosphatase 65 U/L (46-116) Creatine Kinase 50 U/L (39-308) Creatine Kinase MB (Mass) 0.5 ng/mL (0.0-3.6) Creatine Kinase MB Relative Index % (0-4) Troponin I High Sensitivity 25 ng/L (4-75) JA-Str-A-Type Natriuretic Peptide 86096 pg/mL (0-124) Total Protein 7.7 g/dL (6.4-8.2) Albumin 3.5 g/dL (3.4-5.0) Albumin/Globulin Ratio 0.8 (1.0-1.7) Lipase 36 U/L (73-393) Test 01/19/21 21:15 01/19/21 23:20 01/20/21 03:45 01/20/21 07:30 Glucose (Fingerstick) 89 mg/dL (70-99) 163 mg/dL (70-99) Troponin I High Sensitivity 37 ng/L (4-75) 36 ng/L (4-75) White Blood Count 4.5 x10^3/uL (4.0-11.0) Red Blood Count 2.36 x10^6/uL (4.30-5.70) Hemoglobin 8.4 g/dL (13.0-17.5) Hematocrit 24.9 % (39.0-53.0) Mean Corpuscular Volume 105 fL (79-100) Mean Corpuscular Hemoglobin 35 pg (25-35) Mean Corpuscular Hemoglobin Concent 34 g/dL (31-37) Red Cell Distribution Width 16.1 % (11.5-14.5) Platelet Count 129 x10^3/uL (140-400) Neutrophils (%) (Auto) 87 % (31-73) Lymphocytes (%) (Auto) 11 % (24-48) Monocytes (%) (Auto) 2 % (0-9) Eosinophils (%) (Auto) 0 % (0-3) Basophils (%) (Auto) 0 % (0-3) Neutrophils # (Auto) 3.9 x10^3/uL (1.8-7.7) Lymphocytes # (Auto) 0.5 x10^3/uL (1.0-4.8) Monocytes # (Auto) 0.1 x10^3/uL (0.0-1.1) Eosinophils # (Auto) 0.0 x10^3/uL (0.0-0.7) Basophils # (Auto) 0.0 x10^3/uL (0.0-0.2) Sodium Level 139 mmol/L (136-145) Potassium Level 6.1 mmol/L (3.5-5.1) Chloride Level 100 mmol/L (98-107) Carbon Dioxide Level 31 mmol/L (21-32) Anion Gap 8 (6-14) Blood Urea Nitrogen 39 mg/dL (8-26) Creatinine 10.0 mg/dL (0.7-1.3) Estimated GFR (Cockcroft-Gault) 6.3 BUN/Creatinine Ratio 4 (6-20) Glucose Level 177 mg/dL (70-99) Calcium Level 9.0 mg/dL (8.5-10.1) Iron Level 21 ug/dL (65-175) Total Iron Binding Capacity 159 ug/dL (250-450) Iron Saturation 13 % (15-34) Total Bilirubin 0.4 mg/dL (0.2-1.0) Aspartate Amino Transf (AST/SGOT) 7 U/L (15-37) Alanine Aminotransferase (ALT/SGPT) 13 U/L (16-63) Alkaline Phosphatase 65 U/L (46-116) Total Protein 7.8 g/dL (6.4-8.2) Albumin 3.3 g/dL (3.4-5.0) Albumin/Globulin Ratio 0.7 (1.0-1.7) Laboratory Tests Test 01/19/21 17:08 01/19/21 17:17 01/19/21 17:47 01/19/21 18:30 O2 Saturation 99 % (92-99) Arterial Blood pH 7.38 (7.35-7.45) Arterial Blood pCO2 at Patient Temp 47 mmHg (35-46) Arterial Blood pO2 at Patient Temp 237 mmHg (65-108) Arterial Blood HCO3 27 mmol/L (21-28) Arterial Blood Base Excess 2 mmol/L (-3-3) Oxyhemoglobin 98.4 % Methemoglobin 0.2 % (0.0-1.9) Carbon Monoxide, Quantitative 0.3 % (0.0-1.9) FiO2 60 bipap Influenza Type A Antigen Negative (NEGATIVE) Influenza Type B Antigen Negative (NEGATIVE) SARS-CoV-2 Antigen (Rapid) Negative (NEGATIVE) White Blood Count 8.0 x10^3/uL (4.0-11.0) Red Blood Count 2.35 x10^6/uL (4.30-5.70) Hemoglobin 8.2 g/dL (13.0-17.5) Hematocrit 24.8 % (39.0-53.0) Mean Corpuscular Volume 106 fL (79-100) Mean Corpuscular Hemoglobin 35 pg (25-35) Mean Corpuscular Hemoglobin Concent 33 g/dL (31-37) Red Cell Distribution Width 16.1 % (11.5-14.5) Platelet Count 135 x10^3/uL (140-400) Neutrophils (%) (Auto) 82 % (31-73) Lymphocytes (%) (Auto) 10 % (24-48) Monocytes (%) (Auto) 7 % (0-9) Eosinophils (%) (Auto) 1 % (0-3) Basophils (%) (Auto) 0 % (0-3) Neutrophils # (Auto) 6.5 x10^3/uL (1.8-7.7) Lymphocytes # (Auto) 0.8 x10^3/uL (1.0-4.8) Monocytes # (Auto) 0.5 x10^3/uL (0.0-1.1) Eosinophils # (Auto) 0.1 x10^3/uL (0.0-0.7) Basophils # (Auto) 0.0 x10^3/uL (0.0-0.2) Prothrombin Time 14.2 SEC (11.7-14.0) Prothromb Time International Ratio 1.1 (0.8-1.1) Sodium Level 139 mmol/L (136-145) Potassium Level 5.2 mmol/L (3.5-5.1) Chloride Level 100 mmol/L (98-107) Carbon Dioxide Level 31 mmol/L (21-32) Anion Gap 8 (6-14) Blood Urea Nitrogen 33 mg/dL (8-26) Creatinine 9.3 mg/dL (0.7-1.3) Estimated GFR (Cockcroft-Gault) 6.8 BUN/Creatinine Ratio 4 (6-20) Glucose Level 118 mg/dL (70-99) Lactic Acid Level 1.2 mmol/L (0.4-2.0) Calcium Level 9.1 mg/dL (8.5-10.1) Magnesium Level 2.4 mg/dL (1.8-2.4) Total Bilirubin 0.4 mg/dL (0.2-1.0) Aspartate Amino Transf (AST/SGOT) 9 U/L (15-37) Alanine Aminotransferase (ALT/SGPT) 15 U/L (16-63) Alkaline Phosphatase 65 U/L (46-116) Creatine Kinase 50 U/L (39-308) Creatine Kinase MB (Mass) 0.5 ng/mL (0.0-3.6) Creatine Kinase MB Relative Index % (0-4) Troponin I High Sensitivity 25 ng/L (4-75) PT-Jxy-I-Type Natriuretic Peptide 52814 pg/mL (0-124) Total Protein 7.7 g/dL (6.4-8.2) Albumin 3.5 g/dL (3.4-5.0) Albumin/Globulin Ratio 0.8 (1.0-1.7) Lipase 36 U/L (73-393) Test 01/19/21 21:15 01/19/21 23:20 01/20/21 03:45 01/20/21 07:30 Glucose (Fingerstick) 89 mg/dL (70-99) 163 mg/dL (70-99) Troponin I High Sensitivity 37 ng/L (4-75) 36 ng/L (4-75) White Blood Count 4.5 x10^3/uL (4.0-11.0) Red Blood Count 2.36 x10^6/uL (4.30-5.70) Hemoglobin 8.4 g/dL (13.0-17.5) Hematocrit 24.9 % (39.0-53.0) Mean Corpuscular Volume 105 fL (79-100) Mean Corpuscular Hemoglobin 35 pg (25-35) Mean Corpuscular Hemoglobin Concent 34 g/dL (31-37) Red Cell Distribution Width 16.1 % (11.5-14.5) Platelet Count 129 x10^3/uL (140-400) Neutrophils (%) (Auto) 87 % (31-73) Lymphocytes (%) (Auto) 11 % (24-48) Monocytes (%) (Auto) 2 % (0-9) Eosinophils (%) (Auto) 0 % (0-3) Basophils (%) (Auto) 0 % (0-3) Neutrophils # (Auto) 3.9 x10^3/uL (1.8-7.7) Lymphocytes # (Auto) 0.5 x10^3/uL (1.0-4.8) Monocytes # (Auto) 0.1 x10^3/uL (0.0-1.1) Eosinophils # (Auto) 0.0 x10^3/uL (0.0-0.7) Basophils # (Auto) 0.0 x10^3/uL (0.0-0.2) Sodium Level 139 mmol/L (136-145) Potassium Level 6.1 mmol/L (3.5-5.1) Chloride Level 100 mmol/L (98-107) Carbon Dioxide Level 31 mmol/L (21-32) Anion Gap 8 (6-14) Blood Urea Nitrogen 39 mg/dL (8-26) Creatinine 10.0 mg/dL (0.7-1.3) Estimated GFR (Cockcroft-Gault) 6.3 BUN/Creatinine Ratio 4 (6-20) Glucose Level 177 mg/dL (70-99) Calcium Level 9.0 mg/dL (8.5-10.1) Iron Level 21 ug/dL (65-175) Total Iron Binding Capacity 159 ug/dL (250-450) Iron Saturation 13 % (15-34) Total Bilirubin 0.4 mg/dL (0.2-1.0) Aspartate Amino Transf (AST/SGOT) 7 U/L (15-37) Alanine Aminotransferase (ALT/SGPT) 13 U/L (16-63) Alkaline Phosphatase 65 U/L (46-116) Total Protein 7.8 g/dL (6.4-8.2) Albumin 3.3 g/dL (3.4-5.0) Albumin/Globulin Ratio 0.7 (1.0-1.7) Review All relevant outside records, renal labs, imaging studies, telemetry/EKG's were reviewed. Images Images Chest x-ray 01/19/2021 IMPRESSION: Patchy bilateral airspace disease favored be infectious or inflammatory in etiology. TONIE SANDRA MD Jan 20, 2021 11:55
--- NOTE | 2021-01-20 13:06 | PDOC ---
[employer] PROGRESS NOTE Date of Service DOS: DATE: 01/20/21 TIME: 13:05 Chief Complaint Chief Complaint acute hypercarbic respiratory failure COPD with acute exacerbation, bronchitis CAD, CHF, Diabetes-Type II, Hypertension, End stage Renal Disease on HD, with hyperkalemia, Chronic BACK/neck pain, OA s/p lung lobectomy 1989, benign History of Present Illness History of Present Illness he fels much improved today, cont curretn abx, steroids renal following, pt had initially reported that he went to HD yesteday, today he says he missed HD yesterday as he was not feeling well, cont other Vitals/I&O Vitals/I&O: Vital Signs Date Time Temp Pulse Resp B/P (MAP) Pulse Ox O2 Delivery O2 Flow Rate FiO2 01/20/21 08:10 94 2.0 01/20/21 08:08 Nasal Cannula 01/20/21 08:03 64 145/86 01/20/21 07:00 97.9 20 97.9 I & O 01/19/21 01/19/21 01/20/21 15:00 23:00 07:00 Intake Total 220 ml Balance 220 ml Physical Exam General: Alert, Oriented X3, Cooperative, moderate distress Lungs: Clear, Other Abdomen: Normal bowel sounds, Soft Extremities: No cyanosis, Normal pulses, Other (chronci LE, with skin change ) Labs Labs: Laboratory Tests Test 01/19/21 17:08 01/19/21 17:17 01/19/21 17:47 01/19/21 18:30 O2 Saturation 99 % (92-99) Arterial Blood pH 7.38 (7.35-7.45) Arterial Blood pCO2 at Patient Temp 47 mmHg (35-46) Arterial Blood pO2 at Patient Temp 237 mmHg (65-108) Arterial Blood HCO3 27 mmol/L (21-28) Arterial Blood Base Excess 2 mmol/L (-3-3) Oxyhemoglobin 98.4 % Methemoglobin 0.2 % (0.0-1.9) Carbon Monoxide, Quantitative 0.3 % (0.0-1.9) FiO2 60 bipap Influenza Type A Antigen Negative (NEGATIVE) Influenza Type B Antigen Negative (NEGATIVE) SARS-CoV-2 RNA (MICHEAL) Negative (Negative) SARS-CoV-2 Antigen (Rapid) Negative (NEGATIVE) White Blood Count 8.0 x10^3/uL (4.0-11.0) Red Blood Count 2.35 x10^6/uL (4.30-5.70) Hemoglobin 8.2 g/dL (13.0-17.5) Hematocrit 24.8 % (39.0-53.0) Mean Corpuscular Volume 106 fL (79-100) Mean Corpuscular Hemoglobin 35 pg (25-35) Mean Corpuscular Hemoglobin Concent 33 g/dL (31-37) Red Cell Distribution Width 16.1 % (11.5-14.5) Platelet Count 135 x10^3/uL (140-400) Neutrophils (%) (Auto) 82 % (31-73) Lymphocytes (%) (Auto) 10 % (24-48) Monocytes (%) (Auto) 7 % (0-9) Eosinophils (%) (Auto) 1 % (0-3) Basophils (%) (Auto) 0 % (0-3) Neutrophils # (Auto) 6.5 x10^3/uL (1.8-7.7) Lymphocytes # (Auto) 0.8 x10^3/uL (1.0-4.8) Monocytes # (Auto) 0.5 x10^3/uL (0.0-1.1) Eosinophils # (Auto) 0.1 x10^3/uL (0.0-0.7) Basophils # (Auto) 0.0 x10^3/uL (0.0-0.2) Prothrombin Time 14.2 SEC (11.7-14.0) Prothromb Time International Ratio 1.1 (0.8-1.1) Sodium Level 139 mmol/L (136-145) Potassium Level 5.2 mmol/L (3.5-5.1) Chloride Level 100 mmol/L (98-107) Carbon Dioxide Level 31 mmol/L (21-32) Anion Gap 8 (6-14) Blood Urea Nitrogen 33 mg/dL (8-26) Creatinine 9.3 mg/dL (0.7-1.3) Estimated GFR (Cockcroft-Gault) 6.8 BUN/Creatinine Ratio 4 (6-20) Glucose Level 118 mg/dL (70-99) Lactic Acid Level 1.2 mmol/L (0.4-2.0) Calcium Level 9.1 mg/dL (8.5-10.1) Magnesium Level 2.4 mg/dL (1.8-2.4) Total Bilirubin 0.4 mg/dL (0.2-1.0) Aspartate Amino Transf (AST/SGOT) 9 U/L (15-37) Alanine Aminotransferase (ALT/SGPT) 15 U/L (16-63) Alkaline Phosphatase 65 U/L (46-116) Creatine Kinase 50 U/L (39-308) Creatine Kinase MB (Mass) 0.5 ng/mL (0.0-3.6) Creatine Kinase MB Relative Index % (0-4) Troponin I High Sensitivity 25 ng/L (4-75) OF-Ocv-I-Type Natriuretic Peptide 76976 pg/mL (0-124) Total Protein 7.7 g/dL (6.4-8.2) Albumin 3.5 g/dL (3.4-5.0) Albumin/Globulin Ratio 0.8 (1.0-1.7) Lipase 36 U/L (73-393) Test 01/19/21 21:15 01/19/21 23:20 01/20/21 03:45 01/20/21 07:30 Glucose (Fingerstick) 89 mg/dL (70-99) 163 mg/dL (70-99) Troponin I High Sensitivity 37 ng/L (4-75) 36 ng/L (4-75) White Blood Count 4.5 x10^3/uL (4.0-11.0) Red Blood Count 2.36 x10^6/uL (4.30-5.70) Hemoglobin 8.4 g/dL (13.0-17.5) Hematocrit 24.9 % (39.0-53.0) Mean Corpuscular Volume 105 fL (79-100) Mean Corpuscular Hemoglobin 35 pg (25-35) Mean Corpuscular Hemoglobin Concent 34 g/dL (31-37) Red Cell Distribution Width 16.1 % (11.5-14.5) Platelet Count 129 x10^3/uL (140-400) Neutrophils (%) (Auto) 87 % (31-73) Lymphocytes (%) (Auto) 11 % (24-48) Monocytes (%) (Auto) 2 % (0-9) Eosinophils (%) (Auto) 0 % (0-3) Basophils (%) (Auto) 0 % (0-3) Neutrophils # (Auto) 3.9 x10^3/uL (1.8-7.7) Lymphocytes # (Auto) 0.5 x10^3/uL (1.0-4.8) Monocytes # (Auto) 0.1 x10^3/uL (0.0-1.1) Eosinophils # (Auto) 0.0 x10^3/uL (0.0-0.7) Basophils # (Auto) 0.0 x10^3/uL (0.0-0.2) Sodium Level 139 mmol/L (136-145) Potassium Level 6.1 mmol/L (3.5-5.1) Chloride Level 100 mmol/L (98-107) Carbon Dioxide Level 31 mmol/L (21-32) Anion Gap 8 (6-14) Blood Urea Nitrogen 39 mg/dL (8-26) Creatinine 10.0 mg/dL (0.7-1.3) Estimated GFR (Cockcroft-Gault) 6.3 BUN/Creatinine Ratio 4 (6-20) Glucose Level 177 mg/dL (70-99) Calcium Level 9.0 mg/dL (8.5-10.1) Iron Level 21 ug/dL (65-175) Total Iron Binding Capacity 159 ug/dL (250-450) Iron Saturation 13 % (15-34) Total Bilirubin 0.4 mg/dL (0.2-1.0) Aspartate Amino Transf (AST/SGOT) 7 U/L (15-37) Alanine Aminotransferase (ALT/SGPT) 13 U/L (16-63) Alkaline Phosphatase 65 U/L (46-116) Total Protein 7.8 g/dL (6.4-8.2) Albumin 3.3 g/dL (3.4-5.0) Albumin/Globulin Ratio 0.7 (1.0-1.7) Hepatitis B Surface Antigen Nonreactive (Nonreactive) Test 01/20/21 12:12 Glucose (Fingerstick) 157 mg/dL (70-99) Assessment and Plan Assessmemt and Plan Problems Medical Problems: (1) COPD exacerbation Status: Acute (2) End stage renal disease Status: Acute (3) Respiratory failure Status: Acute Comment Review of Relevant I have reviewed the following items sai (where applicable) has been applied. Medications: Current Medications Medications (Trade) Dose Ordered Sig/Wolf Route PRN Reason Start Time Stop Time Status Last Admin Dose Admin Albuterol/ Ipratropium (Duoneb) 3 ml 1X ONCE NEB 01/19/21 16:45 01/19/21 16:46 DC 01/19/21 16:53 Methylprednisolone Sodium Succinate (SOLU-Medrol 125MG VIAL) 125 mg 1X ONCE IV 01/19/21 17:00 01/19/21 17:01 DC 01/19/21 19:17 Methylprednisolone Sodium Succinate (SOLU-Medrol 125MG VIAL) 125 mg Q6HRS IV 01/20/21 00:00 01/20/21 08:58 DC 01/20/21 05:37 Azithromycin (Zithromax) 500 mg 1X ONCE PO 01/19/21 19:30 01/19/21 19:31 DC 01/19/21 23:27 Azithromycin (Zithromax) 250 mg DAILY PO 01/20/21 09:00 01/23/21 09:01 01/20/21 08:03 Aspirin (Ecotrin) 81 mg DAILY PO 01/20/21 09:00 01/20/21 08:02 Carvedilol (Coreg) 6.25 mg BIDWMEALS PO 01/20/21 08:00 01/20/21 08:03 Lisinopril (Prinivil) 5 mg DAILY PO 01/20/21 09:00 01/20/21 08:03 Oxycodone/ Acetaminophen (Percocet 10/325) 1 tab PRN BID PRN PO PAIN 01/19/21 21:45 01/20/21 08:10 Sevelamer Carbonate (Renvela) 800 mg TIDWMEALS PO 01/20/21 08:00 01/20/21 08:03 Cyanocobalamin (Vitamin B-12 Inj) 1,000 mcg 1X ONCE IM 01/19/21 21:45 01/19/21 22:01 DC 01/19/21 22:30 Atorvastatin Calcium (Lipitor) 10 mg HS PO 01/19/21 22:15 01/19/21 22:28 Ceftriaxone Sodium (Rocephin) 2 gm ONCE ONCE IVP 01/19/21 23:45 01/19/21 23:46 DC 01/19/21 23:33 Lactobacillus Rhamnosus (Culturelle) 1 cap BID PO 01/20/21 09:00 01/20/21 08:02 Justifications for Admission Other Justification acute discitis DAWSON NAQVI MD Jan 20, 2021 13:06
[2021-01-20] MEDS ORDERED: methylPREDNISolone SOD SUCC PF 40 MG/ML VIAL. IV SCH (14:00)
[2021-01-20 14:50] VITALS: BP 133/75
[2021-01-20] MEDS ORDERED: METH4TAB2 PO (15:30)
[2021-01-20] MEDS ORDERED: DOXY100C3 PO (15:31)
--- NOTE | 2021-01-20 16:24 | NUR ---
DISCHARGED PATIENT TO HOME. DISCHARGE INSTRUCTIONS GIVEN. PIV AND HEART MONITOR REMOVED. ESCORTED PATIENT OFF UNIT PER WHEELCHAIR INTO A PRIVATE VEHICLE.
[2021-01-20] MEDS ORDERED: cefTRIAXone IV Push 1 GM VIAL. IVP SCH (21:00)
--- NOTE | 2021-01-29 09:01 | PDOC3 ---
Discharge Summary Visit Information Date of Admission: Jan 19, 2021 Date of Discharge: Jan 20, 2021 Final Diagnosis acute hypercarbic respiratory failure COPD with acute exacerbation, bronchitis CAD, CHF, Diabetes-Type II, Hypertension, End stage Renal Disease on HD, with hyperkalemia, Chronic BACK/neck pain, OA s/p lung lobectomy 1989, benign Problems Medical Problems: (1) COPD exacerbation Status: Acute (2) End stage renal disease Status: Acute (3) Respiratory failure Status: Acute Brief Hospital Course Allergies Allergies Coded Allergies Type Severity Reaction Last Updated Verified No Known Drug Allergies 06/30/19 No Brief Hospital Course Mr. Gaston is a 70 old male, admit with cough, dyspnea, weakness, steroids, abx given, dialysis done he felt much improved and wanted DC home Discharge Information Condition at Discharge: Improved Follow Up: Weeks Disposition/Orders: D/C to Home Scheduled Aspirin (Aspir 81) 81 Mg Tablet.dr, 1 TAB PO DAILY, #30 Ref 5 (Reported) Entered as Reported by: NASIMA GARCÍA on 10/29/16 1518 Last Action: Continued on 01/19/212142 by Rolo Kwok Atorvastatin Calcium (Atorvastatin Calcium) 10 Mg Tablet, 1 TAB PO HS for , #30 Ref 5 (Reported) Entered as Reported by: Rolo Kwok on 01/19/212141 Last Action: Edited on 01/19/212143 by Rolo Kwok Carvedilol (Coreg ) 6.25 Mg Tablet, 6.25 MG PO BIDWMEALS for CARDIAC, (Reported) Entered as Reported by: Rolo Kwok on 01/19/212141 Last Action: Continued on 01/19/212142 by Rolo Kwok Doxycycline Hyclate (Doxycycline Hyclate) 100 Mg Capsule, 1 CAP PO BID for LUNGS, #14 (Reported) Entered as Reported by: Devon Bernabe on 01/20/21 1531 Lisinopril (Lisinopril) 5 Mg Tablet, 1 TAB PO DAILY for , #30 Ref 5 (Reported) Entered as Reported by: Rolo Kwok on 01/19/212141 Last Action: Continued on 01/19/212142 by Rolo Kwok Methylprednisolone (Medrol) 4 Mg Tab.ds.pk, 1 PKG PO UD for LUNGS, #1 (Reported) Entered as Reported by: Devon Bernabe on 01/20/211529 Sevelamer Carbonate (Renvela) 800 Mg Tablet, 1 TAB PO TID for binder, #270 Ref 3 (Reported) Entered as Reported by: TOM PERAZA on 07/28/161534 Last Action: Continued on 01/19/212142 by Rolo Kwok Scheduled PRN Oxycodone/Apap 10-325 (Percocet 10-325 Mg Tablet ) 1 Each Tablet, 1 TAB PO PRN BID PRN for MDD 2 Tablet(s) for 5 Days, #10 Ref 0 (Reported) Entered as Reported by: Rolo Kwok on 01/19/212141 Last Action: Continued on 01/19/212142 by Rolo Kwok Patient Instructions Patient Instructions PT seen that day, full progress note, was much better near 6pm and wanted DC home face to face that day > 30 min total time Justicifation of Admission Dx: Justifications for Admission: Justification of Admission Dx: N/A DAWSON NAQVI MD Jan 29, 2021 09:01
== END 2021-01-20 16:27 | disposition home or self-care (01) | DRG 189 ==
LOC: ER 16:23 → ED HOLD 17:27 → 6 SOUTH 21:03
PROVIDERS: ADMIT Internal Medicine; ATTEND Internal Medicine
PROC: 5A09357 Assistance with Respiratory Ventilation, Less than 24 Consecutive Hours, Continuous Positive Airway Pressure (ICD-10-PCS; 2021-01-19)
PROC: 5A09357 Assistance with Respiratory Ventilation, Less than 24 Consecutive Hours, Continuous Positive Airway Pressure (ICD-10-PCS; principal; 2021-01-20)
PROC: 5A1D70Z Performance of Urinary Filtration, Intermittent, Less than 6 Hours Per Day (ICD-10-PCS; 2021-01-20)
DX: J96.01 Acute respiratory failure with hypoxia (principal); I50.43 Acute on chronic combined systolic (congestive) and diastolic (congestive) heart failure; N18.6 End stage renal disease; I13.2 Hypertensive heart and chronic kidney disease with heart failure and with stage 5 chronic kidney disease, or end stage renal disease; J44.1 Chronic obstructive pulmonary disease with (acute) exacerbation; N17.9 Acute kidney failure, unspecified; J96.02 Acute respiratory failure with hypercapnia; R79.1 Abnormal coagulation profile; E11.22 Type 2 diabetes mellitus with diabetic chronic kidney disease; E78.5 Hyperlipidemia, unspecified; E87.5 Hyperkalemia; G89.29 Other chronic pain; I25.10 Atherosclerotic heart disease of native coronary artery without angina pectoris; M46.40 Discitis, unspecified, site unspecified; Z82.49 Family history of ischemic heart disease and other diseases of the circulatory system; Z83.3 Family history of diabetes mellitus; Z87.891 Personal history of nicotine dependence; Z95.1 Presence of aortocoronary bypass graft; Z99.2 Dependence on renal dialysis; K21.9 Gastro-esophageal reflux disease without esophagitis; Z20.822 Contact with and (suspected) exposure to COVID-19
CPT/HCPCS: 36415; 36600; 71045; 80053; 82553; 82607; 82805; 82962; 83540; 83550; 83605; 83690; 83735; 83880; 84484; 85025; 85610; 87040; 87340; 87426; 87804; 93005; 94640; 94660; 96374; J0696; J2920; J2930; J3420; U0003; U0005; 99285-25; G0378

== ENCOUNTER → 2021-02-07 | Outpatient (CLI) | payer BC ==
[2021-01-20 14:50] VITALS: BP 133/75
[~2021-02-07] MED LIST changes: +ATOR10TA60 PO; +CARV6.25 PO; +DOXY100C3 PO; +METH4TAB2 PO
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
== END ==
LOC: KCIC MRI 14:36
PROVIDERS: ATTEND Family Medicine
DX: M47.26 Other spondylosis with radiculopathy, lumbar region (principal); M48.07 Spinal stenosis, lumbosacral region; M51.27 Other intervertebral disc displacement, lumbosacral region; M41.86 Other forms of scoliosis, lumbar region; M51.37 Other intervertebral disc degeneration, lumbosacral region; M48.8X6 Other specified spondylopathies, lumbar region; M51.46 Schmorl's nodes, lumbar region; N28.1 Cyst of kidney, acquired; G09 Sequelae of inflammatory diseases of central nervous system
CPT/HCPCS: 72148

== ENCOUNTER → 2021-02-15 | Outpatient (CLI) | payer BC ==
[2021-01-20 14:50] VITALS: BP 133/75
[~2021-02-15] MED LIST changes: +METH-561 PO
--- NOTE | 2021-02-15 10:24 | PDOC1 ---
INITIAL PAIN CONSULT DATE OF SERVICE: DOS: DATE: 02/15/21 TIME: 10:15 CHIEF COMPLAINT: Chief Complaint: Low back and left lower extremity pain HISTORY OF PRESENT ILLNESS: 70-year-old male presents history of pain low back and left lower extremity for about 2 years not the result of any specific injury or accident that he is aware of is getting worse with time rating the posterior back posterior thigh calf and to the foot occasionally but mostly in the low back patient reports he only walk about 20 yards when he has to sit down and rest before going on a patient reports when he does sit down it takes about 1 to 2 minutes for the pain is better than he can continue on he is using a cane also has a walker that he uses as well patient reports it is worse with walking standing changing positions disturbed sleeping a sleeping with his foot on the ground in a sitting position or leaning to his right side to get the pressure off of the left side and sits that way on his exam today as well. Patient has tried methocarbamol as well as oral analgesics mostly Tylenol he is doing some exercises stretching strengthening exercises from his primary care physician has had no formal physical therapy at this point but has had some chiropractic treatment the past was not helpful as well. Patient scribes pain is constant sharp stabbing throbbing and shooting in the left leg posterior gluteus posterior thigh posterior calf and into the foot on occasion. Patient reports no bowel or bladder incontinence prefix is walking significantly. Patient is been taking methocarbamol as well as [id number] Tylenol without significant reduction in pain. Patient rates his disability rating 0-10 10 being worst a 10 in all categories especially self-care with sitting and light support activities walking and sleeping. PAST MEDICAL HISTORY: PMH: Arthritis, hypertension, shortness of breath, diabetes, chronic renal failure with dialysis PREVIOUS SURGERIES: Past Surgical Hx: Coronary artery bypass grafting, AV shunt left upper extremity, right lung middle and lower lobe resection CURRENT MEDICATIONS: Current Meds: Active Scripts Medications Dose Route/Sig Max Daily Dose Days Date Category Methocarbamol 500 Mg Tablet 1,000 Mg PO Q8HRS 02/15/21 Reported Atorvastatin Calcium 10 Mg Tablet 1 Tab PO HS 01/19/21 Reported Coreg (Carvedilol) 6.25 Mg Tablet 6.25 Mg PO BIDWMEALS 01/19/21 Reported Percocet 10-325 Mg Tablet (Oxycodone/Acetaminophen) 1 Each Tablet 1 Tab PO PRN BID PRN MDD 2 Tablet(s) 5 01/19/21 Reported Aspir 81 (Aspirin) 81 Mg Tablet.dr 1 Tab PO DAILY 10/29/16 Reported Renvela (Sevelamer Carbonate) 800 Mg Tablet 1 Tab PO TID 07/28/16 Reported ALLERGIES; Allergies: Coded Allergies: No Known Drug Allergies (Unverified , 06/30/19) FAMILY HISTORY: Family Hx: Hypertension SOCIAL HISTORY: Social Hx: Patient is under alcohol does not smoke says any illegal illicit recreational drugs patient is a lives locally in [facility] REVIEW OF SYSTEMS: ROS: Positive for those items mentioned in history of present illness, all systems are reviewed, otherwise negative ,and are complete full and well-documented on patient's chart. PHYSICAL EXAM: VS: Blood pressure is 105/59 pulse 81 respirations 18 temperature 97.5 F height 5 feet 10 inches weight is 223 pounds PE: PHYSICAL EXAMINATION: GENERAL: The patient is awake, alert, oriented, appropriate, very pleasant in demeanor HEENT: Shows normocephalic, atraumatic. Extraocular movements are intact and symmetrical. Oral cavity: Mucous membranes moist and pink. NECK: Shows anterior throat supple without palpable lymphadenopathy noted. Swallow reflex symmetrical. CHEST: Shows normal on inspection. Breath sounds are clear bilaterally, distant but no rales rhonchi or wheezes auscultated. HEART: Shows S1, S2 clear. No murmurs auscultated. ABDOMEN: Soft, nontender, nondistended, obese. No palpable organomegaly is noted. No rebound or guarding demonstrated. BACK: Shows spine grossly in the midline. Normal-appearing cervical lordotic curvature. There is slightly increased thoracic kyphosis, some flattening of the lumbar lordotic curvature. Lumbar paraspinous muscles show symmetrical on inspection, on palpation shows some moderate tenderness diffusely throughout the upper, middle and lower distribution of the paraspinous muscles bilaterally and also into the lower thoracic paraspinous musculature, firm and tender, but without specific trigger points, without radiation of pain. The patient has good rotational motion of the lumbar spine, both laterally as well as extension and flexion without significant difficulty. No tenderness over the spinous processes, sacrum or sacroiliac regions. EXTREMITIES: Lower extremities show deep tendon reflexes 1 to in the patellar and tendo calcaneus tendons. Motor exam is 5 on a scale of 5 with right dorsiflexion, extension, quadriceps and hamstring flexion and 4/5 on the left. Peripheral pulses are 1 posterior tibial. 1+ peripheral edema is noted bilaterally. Lower extremities are warm and dry to touch, equal in color and appearance. Straight leg raise noted to be positive on the left at approximately 30 degrees, right side is negative. Gaenslen's and Ferdinand's maneuvers are negative bilaterally. The patient is able to stand but needs help getting up from seated position using his cane in the arms of the chair walks with a significant limping gait favoring the left lower extremity and walks to his right side cane is in his right hand. SKIN: Shows warm and dry, good turgor. No edema. No sores, rashes or bruising throughout. IMPRESSION: Impression: 70-year-old male with approximate 2-year history of pain low back left lower extremity radicular fashion following L5-S1 dermatomal distribution. MRI scan lumbar spine showing cervical disc bulge asymmetric to the left at L5- S1 with severe left and mild right neuroforaminal stenosis also moderate advanced lumbar spondylosis mild right and mild left foraminal stenosis L4-5 as well Arthritis Hypertension Diabetes Chronic renal failure with dialysis Plan: Options were discussed with the patient including serve medical managements continued physical therapies and interventional techniques. Patient like to pursue interventional techniques as he is still taking oral analgesics as well as muscle relaxants and doing stretching strength exercise without significant decrease in pain. We discussed a lumbar epidural steroid injection description as well as anatomical models to describe the procedure. We will wait for preauthorization with insurance provider, once obtained we will have him return for a translaminar L5-S1 lumbar epidural steroid injection with fluoroscopic guidance. In the meantime, patient will continue with stretching and strength exercises, and oral analgesics as currently. NIKITA VANCE MD Feb 15, 2021 10:23
== END | disposition home or self-care (01) ==
LOC: PNCL 09:28
PROVIDERS: ATTEND Anesthesiology
DX: M54.50 Low back pain, unspecified (principal); M79.605 Pain in left leg; M19.90 Unspecified osteoarthritis, unspecified site; I13.2 Hypertensive heart and chronic kidney disease with heart failure and with stage 5 chronic kidney disease, or end stage renal disease; I50.9 Heart failure, unspecified; E11.22 Type 2 diabetes mellitus with diabetic chronic kidney disease; N18.6 End stage renal disease; I25.10 Atherosclerotic heart disease of native coronary artery without angina pectoris; E78.00 Pure hypercholesterolemia, unspecified; J44.9 Chronic obstructive pulmonary disease, unspecified; Z79.899 Other long term (current) drug therapy; Z98.890 Other specified postprocedural states; Z87.891 Personal history of nicotine dependence; Z79.82 Long term (current) use of aspirin; Z79.84 Long term (current) use of oral hypoglycemic drugs
CPT/HCPCS: 99214; G0463

== ENCOUNTER → 2021-02-28 | Outpatient (CLI) | payer BC ==
[~2021-02-28] MED LIST changes: +IOHEXOL 180 MG/ML 10 ML VIAL. ONE; +methylPREDNISolone ACETATE 40 MG/ML VIAL. ONE; +methylPREDNISolone ACETATE 80 MG/ML VIAL. ONE
--- NOTE | 2021-02-28 13:43 | PDOC4 ---
Procedure Note: ICD 10 Code: ICD 10 Code: M54.17 M5 127 M4 8.07 Procedure Note: Patient was consented for lumbar epidural steroid injection fluoroscopic guidance. Risks were discussed including but not limited to: Bleeding, infection, possibility of epidural hematoma and subsequent neurological compromise, dural puncture, headaches, spinal cord and/or nerve damage, side effects of steroid medication, and poor results regarding pain control. Patient understands and wished to proceed. Procedure is lumbar epidural steroid injection under local anesthetic using sterile prep and drape at the L5-S1 level using C-arm fluoroscopic guidance in both AP and lateral views medications injected is 120 mg Depo-Medrol +10mL preservative-free normal saline and 2 mL contrast- condition at discharge is stable patient tolerated procedure well had no complications. NIKITA VANCE MD Feb 28, 2021 13:43
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
== END | disposition home or self-care (01) ==
LOC: PNCL 13:00
PROVIDERS: ATTEND Anesthesiology
DX: M51.16 Intervertebral disc disorders with radiculopathy, lumbar region (principal); M48.061 Spinal stenosis, lumbar region without neurogenic claudication; I11.0 Hypertensive heart disease with heart failure; I50.9 Heart failure, unspecified; I25.10 Atherosclerotic heart disease of native coronary artery without angina pectoris; E78.00 Pure hypercholesterolemia, unspecified; J44.9 Chronic obstructive pulmonary disease, unspecified; E11.9 Type 2 diabetes mellitus without complications; Z79.82 Long term (current) use of aspirin; Z79.84 Long term (current) use of oral hypoglycemic drugs; Z79.899 Other long term (current) drug therapy; Z87.891 Personal history of nicotine dependence; Z98.890 Other specified postprocedural states
CPT/HCPCS: 62323; J1030; J1040; Q9965

== ENCOUNTER 2021-08-02 08:14 | Emergency (ER) | payer BC ==
[~2021-08-02] VITALS: Ht 177.8 cm; Wt 100.4 kg
[~2021-08-02 08:14] MED LIST changes: -IOHEXOL 180 MG/ML 10 ML VIAL. ONE; -methylPREDNISolone ACETATE 40 MG/ML VIAL. ONE; -methylPREDNISolone ACETATE 80 MG/ML VIAL. ONE
[2021-08-02 08:17] VITALS: BP 125/78
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
== END 2021-08-02 08:50 | disposition home or self-care (01) ==
LOC: ER 08:14
DX: T20.24XA Burn of second degree of nose (septum), initial encounter (principal); R06.02 Shortness of breath; E11.22 Type 2 diabetes mellitus with diabetic chronic kidney disease; I13.2 Hypertensive heart and chronic kidney disease with heart failure and with stage 5 chronic kidney disease, or end stage renal disease; I50.9 Heart failure, unspecified; N18.6 End stage renal disease; Z99.2 Dependence on renal dialysis; I25.10 Atherosclerotic heart disease of native coronary artery without angina pectoris; Z87.891 Personal history of nicotine dependence; Z95.1 Presence of aortocoronary bypass graft; X08.8XXA Exposure to other specified smoke, fire and flames, initial encounter; Y93.89 Activity, other specified; Y92.89 Other specified places as the place of occurrence of the external cause; Y99.8 Other external cause status
CPT/HCPCS: 99284

== ENCOUNTER 2021-08-03 12:19 | Inpatient (IN) | payer BC ==
[~2021-08-03] VITALS: Ht 177.8 cm; Wt 100.7 kg
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
--- NOTE | 2021-08-03 14:21 | RAD ---
XR CHEST 1V History: Reason: SOA / Spl. Instructions: / History: Comparison: July 27, 2021 Findings: Moderate diffuse interstitial thickening with ill-defined opacities. Cardiomegaly. Small right pleura l effusion. No pneumothorax. Prior median sternotomy. Prior granulomatous disease within the chest. P rior lower thoracic vertebral augmentation. Impression: 1. Moderate diffuse interstitial thickening with ill-defined opacities, concerning for edema. 2. Cardiomegaly and small right pleural effusion. Electronically signed by: Art Hernandez DO (08/03/2021 2:18 PM) [id number]
[2021-08-03 14:49] LABS: BASO % 1 % (0-3); EOS % 0 % (0-3); HEMATOCRIT 29.8 % (39.0-53.0); HEMOGLOBIN 10.2 g/dL (13.0-17.5); LYMPH # 0.8 x10^3/uL (1.0-4.8); LYMPH % 13 % (24-48); MEAN CORPUSCULAR HEMOGLOBIN 35 pg (25-35); MEAN CORPUSCULAR HGB CONC 34 g/dL (31-37); MEAN CORPUSCULAR VOLUME 103 fL (79-100); MONO # 0.5 x10^3/uL (0.0-1.1); MONO % 9 % (0-9); NEUT # 4.7 x10^3/uL (1.8-7.7); NEUT % 78 % (31-73); PLATELET COUNT 130 x10^3/uL (140-400); RED BLOOD COUNT 2.89 x10^6/uL (4.30-5.70); WHITE BLOOD COUNT 6.1 x10^3/uL (4.0-11.0)
[2021-08-03 15:00] LABS: CALCIUM 7.9 mg/dL (8.5-10.1); CREATININE 9.5 mg/dL (0.7-1.3); GFR 6.6; POTASSIUM 5.9 mmol/L (3.5-5.1)
[2021-08-03 15:10] LABS: ALBUMIN 3.4 g/dL (3.4-5.0); ALBUMIN/GLOBULIN RATIO 0.8 (1.0-1.7); TOTAL BILIRUBIN 0.9 mg/dL (0.2-1.0); TOTAL PROTEIN 7.7 g/dL (6.4-8.2)
[2021-08-03] MEDS: METHOCARBAMOL 500 MG TABLET PO SCH ×3 (16:00→21:00)
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
[2021-08-03] MEDS ORDERED: ACETAMINOPHEN 325 MG TABLET. PO PRN (16:15)
[2021-08-03] MEDS ORDERED: DOCUSATE SODIUM 100 MG CAPSULE. PO PRN (16:15)
[2021-08-03] MEDS ORDERED: hydrALAZINE 20 MG/ML VIAL. IVP PRN (16:15)
[2021-08-03] MEDS ORDERED: oxyCODONE/APAP 10/325 1 TAB TABLET PO PRN (16:15)
[2021-08-03] MEDS ORDERED: ZOLPIDEM 5 MG TABLET. PO PRN (16:15)
[2021-08-03] MEDS ORDERED: CALCIUM CARBONATE 500 MG TAB.CHEW PO PRN (16:15)
[2021-08-03] MEDS ORDERED: ONDANSETRON PF 4 MG/2 ML VIAL. IVP PRN (16:15)
[2021-08-03] MEDS ORDERED: HYDROcodone/APAP 5/325MG 1 TAB TABLET PO PRN (16:15)
[2021-08-03] MEDS ORDERED: DIALYSIS PATIENT. MC PRN (16:45)
[2021-08-03] MEDS ORDERED: IV NORMAL SALINE 1000ML BAG 1,000 ML IV PRN ×2 (16:45)
[2021-08-03 20:15] VITALS: BP 120/69
[2021-08-03] MEDS: ATORVASTATIN CALCIUM 10 MG TABLET. PO SCH (20:56)
[2021-08-03] MEDS: CARVEDILOL 6.25 MG TABLET. PO SCH (20:57)
[2021-08-03] MEDS: SEVELAMER CARBONATE 800 MG TABLET. PO SCH (21:00)
[2021-08-03] MEDS: HEPARIN for SUB-Q USE 5,000 UNIT/ML VIAL. SQ SCH (21:01)
[2021-08-03 23:00] VITALS: BP 132/66
[2021-08-04 03:00] VITALS: BP 106/71
[2021-08-04] MEDS: METHOCARBAMOL 500 MG TABLET PO SCH ×3 (06:01→20:28)
[2021-08-04 07:00] VITALS: BP 115/64
[2021-08-04 08:18] LABS: HEMATOCRIT 30.9 % (39.0-53.0); HEMOGLOBIN 10.4 g/dL (13.0-17.5); RED BLOOD COUNT 3.02 x10^6/uL (4.30-5.70); RED CELL DISTRIBUTION WIDTH 18.6 % (11.5-14.5); WHITE BLOOD COUNT 4.8 x10^3/uL (4.0-11.0)
[2021-08-04 08:28] LABS: CALCIUM 8.5 mg/dL (8.5-10.1); CREATININE 7.3 mg/dL (0.7-1.3); POTASSIUM 4.5 mmol/L (3.5-5.1)
[2021-08-04] MEDS: SEVELAMER CARBONATE 800 MG TABLET. PO SCH ×3 (09:02→17:22)
[2021-08-04] MEDS: HEPARIN for SUB-Q USE 5,000 UNIT/ML VIAL. SQ SCH ×2 (09:05→20:37)
[2021-08-04] MEDS ORDERED: IV NORMAL SALINE 1000ML BAG 1,000 ML IV PRN ×2 (09:45)
[2021-08-04] MEDS ORDERED: DIALYSIS PATIENT. MC PRN ×2 (09:45)
[2021-08-04] MEDS ORDERED: ALBUMIN HUMAN 25% 200 ML IV PRN (09:45)
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
--- NOTE | 2021-08-04 11:24 | PDOC ---
[employer] PROGRESS NOTE Date of Service DOS: DATE: 08/04/21 TIME: 11:23 Chief Complaint Chief Complaint Acute respiratory failure with hypoxia ESRD on HD Friday/Friday/Friday Acute volume overload due to missed HD Macrocytic anemia Thrombocytopenia COPD/asthma CAD Plan: Will place consultation to nephrology Patient will likely require HD today or tomorrow based on potassium and fluid status. Resume home medications FEN - Renal diet PPX - Heparin FULL CODE/surrogate decision-maker is his sister (Tiffanie Fernández) Dispo - inpatient for above History of Present Illness History of Present Illness 08/04 Patient evaluated examined at bedside. Planning for dialysis today. Still some shortness of breath likely due to fluid status. If respiratory status improved after dialysis could potentially discharge home and resume normal regimen on Friday. Follow-up after treatment. Vitals/I&O Vitals/I&O: Vital Signs Date Time Temp Pulse Resp B/P (MAP) Pulse Ox O2 Delivery O2 Flow Rate FiO2 08/04/21 07:00 98.5 68 18 115/64 (81) 92 Room Air 98.5 08/03/21 15:58 2.0 I & O 08/03/21 08/03/21 08/04/21 15:00 23:00 07:00 Intake Total 120 ml 240 ml Balance 120 ml 240 ml Physical Exam General: Alert, Oriented X3, Cooperative Heart: Regular rate Lungs: Clear, Other Abdomen: Normal bowel sounds, Soft, No tenderness Extremities: No edema, Normal pulses Skin: No significant lesion Labs Labs: Laboratory Tests Test 08/03/21 14:40 08/04/21 08:05 08/04/21 08:53 White Blood Count 6.1 x10^3/uL (4.0-11.0) 4.8 x10^3/uL (4.0-11.0) Red Blood Count 2.89 x10^6/uL (4.30-5.70) 3.02 x10^6/uL (4.30-5.70) Hemoglobin 10.2 g/dL (13.0-17.5) 10.4 g/dL (13.0-17.5) Hematocrit 29.8 % (39.0-53.0) 30.9 % (39.0-53.0) Mean Corpuscular Volume 103 fL (79-100) 102 fL (79-100) Mean Corpuscular Hemoglobin 35 pg (25-35) 34 pg (25-35) Mean Corpuscular Hemoglobin Concent 34 g/dL (31-37) 34 g/dL (31-37) Red Cell Distribution Width 18.0 % (11.5-14.5) 18.6 % (11.5-14.5) Platelet Count 130 x10^3/uL (140-400) 141 x10^3/uL (140-400) Neutrophils (%) (Auto) 78 % (31-73) Lymphocytes (%) (Auto) 13 % (24-48) Monocytes (%) (Auto) 9 % (0-9) Eosinophils (%) (Auto) 0 % (0-3) Basophils (%) (Auto) 1 % (0-3) Neutrophils # (Auto) 4.7 x10^3/uL (1.8-7.7) Lymphocytes # (Auto) 0.8 x10^3/uL (1.0-4.8) Monocytes # (Auto) 0.5 x10^3/uL (0.0-1.1) Eosinophils # (Auto) 0.0 x10^3/uL (0.0-0.7) Basophils # (Auto) 0.0 x10^3/uL (0.0-0.2) Sodium Level 140 mmol/L (136-145) 138 mmol/L (136-145) Potassium Level 5.9 mmol/L (3.5-5.1) 4.5 mmol/L (3.5-5.1) Chloride Level 98 mmol/L (98-107) 98 mmol/L (98-107) Carbon Dioxide Level 23 mmol/L (21-32) 27 mmol/L (21-32) Anion Gap 19 (6-14) 13 (6-14) Blood Urea Nitrogen 57 mg/dL (8-26) 46 mg/dL (8-26) Creatinine 9.5 mg/dL (0.7-1.3) 7.3 mg/dL (0.7-1.3) Estimated GFR (Cockcroft-Gault) 6.6 9.0 BUN/Creatinine Ratio 6 (6-20) Glucose Level 67 mg/dL (70-99) 116 mg/dL (70-99) Calcium Level 7.9 mg/dL (8.5-10.1) 8.5 mg/dL (8.5-10.1) Total Bilirubin 0.9 mg/dL (0.2-1.0) Aspartate Amino Transf (AST/SGOT) 42 U/L (15-37) Alanine Aminotransferase (ALT/SGPT) 45 U/L (16-63) Alkaline Phosphatase 83 U/L (46-116) Troponin I High Sensitivity 53 ng/L (4-75) HI-Llq-W-Type Natriuretic Peptide > 51273 pg/mL (0-124) Total Protein 7.7 g/dL (6.4-8.2) Albumin 3.4 g/dL (3.4-5.0) Albumin/Globulin Ratio 0.8 (1.0-1.7) Glucose (Fingerstick) 155 mg/dL (70-99) Assessment and Plan Assessmemt and Plan Problems Medical Problems: (1) End stage renal disease Status: Acute (2) Shortness of breath Status: Acute Comment Review of Relevant I have reviewed the following items sai (where applicable) has been applied. Medications: Current Medications Medications (Trade) Dose Ordered Sig/Wolf Route PRN Reason Start Time Stop Time Status Last Admin Dose Admin Atorvastatin Calcium (Lipitor) 10 mg QHS PO 08/03/21 21:00 08/03/21 20:56 Carvedilol (Coreg) 6.25 mg BIDWMEALS PO 08/03/21 17:00 08/03/21 20:57 Methocarbamol (Robaxin) 1,000 mg Q8HRS PO 08/03/21 16:00 08/04/21 06:01 Sevelamer Carbonate (Renvela) 800 mg TIDWMEALS PO 08/03/21 17:00 08/04/21 09:02 Heparin Sodium (Porcine) (Heparin Sodium) 5,000 unit Q12HR SQ 08/03/21 17:00 08/04/21 09:05 Justifications for Admission Other Justification acute discitis MELONIE MARSHALL MD August 04, 2021 11:24
[2021-08-04] MEDS: CARVEDILOL 6.25 MG TABLET. PO SCH ×2 (13:55→17:22)
[2021-08-04] MEDS: ASPIRIN ENTERIC COATED 81 MG TABLET.DR. PO SCH (13:55)
[2021-08-04 15:00] VITALS: BP 114/63
--- NOTE | 2021-08-04 15:17 | RAD ---
PA and lateral chest. HISTORY: Pulmonary edema PA and lateral views were taken of the chest. The heart is enlarged. The aorta is tortuous. There is mild vascular congestion. There are no confluent areas of infiltrate. There is no definite pleural ef fusion. Patient's had previous coronary bypass. There is linear scarring in the right lung base and l eft midlung. IMPRESSION: 1. Prior bypass. 2. Mild cardiac enlargement. 3. Linear scarring in each lung, no confluent infiltrates. Electronically signed by: Coleman Solorzano MD (08/04/2021 3:14 PM) [id number]
[2021-08-04] MEDS: OXYMETAZOLINE 0.05% NASAL SPRAY 30ML BOTTLE. NS SCH ×2 (17:23→20:27)
[2021-08-04 19:48] VITALS: BP 114/58
[2021-08-04] MEDS: ATORVASTATIN CALCIUM 10 MG TABLET. PO SCH (20:28)
[2021-08-04 23:53] VITALS: BP 134/77
[2021-08-05 03:35] VITALS: BP 123/75
[2021-08-05] MEDS: METHOCARBAMOL 500 MG TABLET PO SCH (06:08)
[2021-08-05 07:00] VITALS: BP 114/67
[2021-08-05 07:48] LABS: CREATININE 5.8 mg/dL (0.7-1.3); GFR 11.7; POTASSIUM 4.2 mmol/L (3.5-5.1)
[2021-08-05] MEDS: ASPIRIN ENTERIC COATED 81 MG TABLET.DR. PO SCH (08:44)
[2021-08-05] MEDS: SEVELAMER CARBONATE 800 MG TABLET. PO SCH ×2 (08:44→12:06)
[2021-08-05] MEDS: CARVEDILOL 6.25 MG TABLET. PO SCH (08:45)
[2021-08-05] MEDS: OXYMETAZOLINE 0.05% NASAL SPRAY 30ML BOTTLE. NS SCH (08:53)
[2021-08-05] MEDS: HEPARIN for SUB-Q USE 5,000 UNIT/ML VIAL. SQ SCH (08:53)
[2021-08-05 11:00] VITALS: BP 129/69
--- NOTE | 2021-08-05 11:29 | PDOC ---
DATE OF SERVICE: DOS: DATE: 08/05/21 TIME: 11:28 SUBJECTIVE ROS Follow-up for ESRD on hemodialysis Friday Patient claims he is feeling great. He thinks he is ready to go home. He has arranged a ride for himself to get to dialysis CVS: no Orthopnea, no CP RESP: no SOB, no SONI GI: no Nausea, no Vomiting : no Dysuria, no Urgency OBJECTIVE Vital Signs Vital Signs Date Time Temp Pulse Resp B/P (MAP) Pulse Ox O2 Delivery O2 Flow Rate FiO2 08/05/21 08:45 67 114/67 08/05/21 07:00 98.3 18 92 Room Air 98.3 I & 0 Intake and Output 08/05/21 07:00 Intake Total 680 ml Balance 680 ml Intake Oral 680 ml PHYSICAL EXAM Physical Exam General Appearance: Awake Alert Oriented x 3 In no Distress Eyes: VIsion Unchanged Conjunctiva Normal EN: Dry blood in nostrils, no active drainage Mucous Memb. moist Neck: no JVD min JVP Supple no Thyromegaly CVS: S1 S2 ? Soft murmur No Gallop No Rub chronic brawny edema/lymphedema Resp: no Rales no Rhonchi no Acc. Muscle use GI: BS +ve NO Bruit Non Tender Non Distended, morbidly obese : no CVA tenderness; no Suprapubic Tenderness DIAGNOSIS/ASSESSMENT Assessment & Plan ESRD : Current fluid and E-lyte status does not necessitate emergent need for dialysis. Will re-evaluate for dialysis in the am and continue on MWF schedule. Anemia in the setting of ESRD: Some due to epistaxis cannot be ruled out. Most recent available hemoglobin above 10, hence supplemental erythropoietin was not started HTN: Current BP meds reviewed. See orders for changes. Fluid overload at presentation: Cleared up on recheck chest x-ray Hyperkalemia presentation presumably due to missed dialysis. Now corrected Okay to discharge from renal standpoint COMMENT/RELEVANT DATA Meds Current Medications Medications (Trade) Dose Ordered Sig/Wolf Start Time Stop Time Status Last Admin Dose Admin Acetaminophen (Tylenol) 650 mg PRN Q6HRS PRN 08/03/21 16:15 Acetaminophen/ Hydrocodone Bitart (Lortab 5/325) 1 tab PRN Q4HRS PRN 08/03/21 16:15 Albumin Human 200 ml @ 200 mls/hr 1X PRN PRN 08/04/21 09:45 08/04/21 15:44 DC Aspirin (Ecotrin) 81 mg DAILY 08/04/21 09:00 08/05/21 08:44 81 MG Atorvastatin Calcium (Lipitor) 10 mg QHS 08/03/21 21:00 08/04/21 20:28 10 MG Calcium Carbonate/ Glycine (Tums) 500 mg PRN Q3HRS PRN 08/03/21 16:15 Carvedilol (Coreg) 6.25 mg BIDWMEALS 08/03/21 17:00 08/05/21 08:45 6.25 MG Docusate Sodium (Colace) 100 mg PRN BID PRN 08/03/21 16:15 Heparin Sodium (Porcine) (Heparin Sodium) 5,000 unit Q12HR 08/03/21 17:00 08/05/21 08:53 5,000 UNIT Hydralazine HCl (Apresoline Inj) 10 mg PRN Q4HRS PRN 08/03/21 16:15 Info (PHARMACY MONITORING -- do not chart) 1 each PRN DAILY PRN 08/04/21 09:45 Methocarbamol (Robaxin) 1,000 mg Q8HRS 08/03/21 16:00 08/05/21 06:08 1,000 MG Ondansetron HCl (Zofran) 4 mg PRN Q6HRS PRN 08/03/21 16:15 Oxycodone/ Acetaminophen (Percocet 10/325) 1 tab PRN BID PRN 08/03/21 16:15 Oxymetazoline HCl (Afrin) 2 spray BID 08/04/21 12:00 08/05/21 08:53 2 SPRAY Sevelamer Carbonate (Renvela) 800 mg TIDWMEALS 08/03/21 17:00 08/05/21 08:44 800 MG Sodium Chloride 1,000 ml @ 400 mls/hr Q2H30M PRN 08/04/21 09:45 08/04/21 21:44 DC Zolpidem Tartrate (Ambien) 5 mg PRN QHS PRN 08/03/21 16:15 Lab Laboratory Tests Test 08/04/21 20:26 08/05/21 07:16 08/05/21 07:35 08/05/21 11:18 Glucose (Fingerstick) 150 mg/dL (70-99) 127 mg/dL (70-99) 165 mg/dL (70-99) Sodium Level 141 mmol/L (136-145) Potassium Level 4.2 mmol/L (3.5-5.1) Chloride Level 101 mmol/L (98-107) Carbon Dioxide Level 28 mmol/L (21-32) Anion Gap 12 (6-14) Blood Urea Nitrogen 34 mg/dL (8-26) Creatinine 5.8 mg/dL (0.7-1.3) Estimated GFR (Cockcroft-Gault) 11.7 Glucose Level 124 mg/dL (70-99) Calcium Level 8.0 mg/dL (8.5-10.1) Results All relevant outside records, renal labs, imaging studies, telemetry/EKG's were reviewed. Other Repeat chest x-ray post dialysis x2 IMPRESSION: 1. Prior bypass. 2. Mild cardiac enlargement. 3. Linear scarring in each lung, no confluent infiltrates. Electronically signed by: Coleman Solorzano MD (08/04/2021 3:14 PM) [id number] Justicifation of Admission Dx: Justifications for Admission: Justification of Admission Dx: N/A TONIE SANDRA MD August 05, 2021 11:29
--- NOTE | 2021-08-05 12:50 | NUR ---
DISCHARGE INSTRUCTIONS GIVEN, QUESTIONS AND CONCERNS ANSWERED, PATIENT VERBALIZED UNDERSTANDING OF DISCHARGE INFORMATION, PATIENT ENCOURAGED TO CONTINUE DIALYSIS PRIOR TO ADMISSION ON MON, WED, AND FRI. ALL PERSONAL BELONGINGS GATHERED BY THE PATIENT AND PLACED IN BAGS FOR DISCHARGE. SALINE LOCK REMOVED FROM PATIENTS' RIGHT FOREARM PER STAFF, BANDAGE APPLIED.
--- NOTE | 2021-08-05 13:15 | NUR ---
PATIENT LEAVES THE UNIT PER W/C AND ACCOMPANIED BY THIS PET TRAINER, EMOTIONAL SUPPORT GIVEN, FOLLOW UP APPOINTMENTS ENCOURAGED.
--- NOTE | 2021-08-07 08:11 | EKG ---
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
== END 2021-08-05 13:15 | disposition home or self-care (01) | DRG 640 ==
LOC: ER 12:19 → ED HOLD 15:34 → 5 NORTH 18:42
PROVIDERS: ADMIT Family Medicine; ATTEND Family Medicine
PROC: 5A1D70Z Performance of Urinary Filtration, Intermittent, Less than 6 Hours Per Day (ICD-10-PCS; principal; 2021-08-03)
PROC: 5A1D70Z Performance of Urinary Filtration, Intermittent, Less than 6 Hours Per Day (ICD-10-PCS; 2021-08-04)
DX: E87.5 Hyperkalemia (principal); J96.01 Acute respiratory failure with hypoxia; N18.6 End stage renal disease; I13.2 Hypertensive heart and chronic kidney disease with heart failure and with stage 5 chronic kidney disease, or end stage renal disease; D53.9 Nutritional anemia, unspecified; D69.6 Thrombocytopenia, unspecified; E11.22 Type 2 diabetes mellitus with diabetic chronic kidney disease; E78.5 Hyperlipidemia, unspecified; I25.10 Atherosclerotic heart disease of native coronary artery without angina pectoris; I50.9 Heart failure, unspecified; J44.9 Chronic obstructive pulmonary disease, unspecified; T20.00XA Burn of unspecified degree of head, face, and neck, unspecified site, initial encounter; X00.0XXA Exposure to flames in uncontrolled fire in building or structure, initial encounter; Z82.49 Family history of ischemic heart disease and other diseases of the circulatory system; Z83.3 Family history of diabetes mellitus; Z95.1 Presence of aortocoronary bypass graft; Z99.2 Dependence on renal dialysis; E21.3 Hyperparathyroidism, unspecified; G89.29 Other chronic pain; K21.9 Gastro-esophageal reflux disease without esophagitis
CPT/HCPCS: 36415; 71045; 71046; 80048; 80053; 82962; 83880; 84484; 85025; 85027; 93005; J1644; 99285-25; G0378